=== PATIENT | female | born 1985 | race Hispanic/Latino ===

== ENCOUNTER 2020-03-19 08:25 | Emergency (ER) | payer OTHER ==
--- OUTSIDE RECORDS SUMMARY | 2020-03-19 08:35 | XMS REPORT | Continuity of Care Document ---
:1985 Author Organization [facility] t Address [address] [place] [address] Care Team Providers Name Role Phone Doctor Unassigned, Name Attending Clinician Unavailable Radiology Attending Clinician Unavailable Problems This patient has no known problems. Allergies, Adverse Reactions, Alerts This patient has no known allergies or adverse reactions. Medications This patient has no known medications. Procedures This patient has no known procedures. Encounters Start End Encounter Admission Attending Care Care Encounter Source Date/Time Date/Time Type Type Clinicians Facility Department ID 2020-01-13 2020-01-13 Orders Doctor JASPER [id number] 00:00:00 00:00:00 Only Unassigned, SHAJI [id number] [place] [facility] [id number] 2020-01-09 2020-01-09 [facility] [id number] 15:06:18 15:07:00 Encounter David [id number] [place] [id number] [place] [phone] [id number] Results This patient has no known results.
--- OUTSIDE RECORDS SUMMARY | 2020-03-19 08:35 | XMS REPORT | Summary of Care ---
:1985 Author Organization [facility] Address [address] [place] [address] Care Team Providers Name Role Phone Naheed Ocampo Primary Care Provider Encounter Details Date Type Department Care Team Description 01/13/2020 Orders Only [facility] Doctor Unassigned, No [address] [facility] [place] [address] [address] [place] [address] Allergies Not on Filedocumented as of this encounter (statuses as of 01/15/2020) Medications Not on filedocumented as of this encounter (statuses as of 01/15/2020) Active Problems Not on filedocumented as of this encounter (statuses as of 01/15/2020) Social History Tobacco Use Types Packs/Day Years Used Date Never Assessed Sex Assigned at Date Recorded Not on file COVID-19 Exposure Response Date Recorded In the last month, have you been in contact with No / Unsure 01/09/2020 3:05 PM CDT someone who was confirmed or suspected to have Coronavirus / COVID-19? documented as of this encounter Last Filed Vital Signs Not on filedocumented in this encounter Plan of Treatment Health Maintenance Due Date Last Done Comments VARICELLA VACCINES (1 of 2 - 06/17/1988 2-dose childhood series) Depression Screening 1999 DTaP,Tdap,and Td Vaccines (1 - 06/17/2006 Tdap) PAP SMEAR 06/17/2008 INFLUENZA VACCINE (#1) 2019 PNEUMOCOCCAL 0-64 YEARS COMBINED Aged Out No longer eligible based on SERIES patient's age to complete this topic documented as of this encounter Procedures Procedure Name Priority Date/Time Associated Diagnosis Comme nts AUTHORIZATION FOR RELEASE Routine 01/13/2020 12:01 AM OF PHI CDT documented in this encounter Results Not on filedocumented in this encounter Insurance Payer Benefit Plan / Group Subscriber ID Effective Dates Phone Address Type [facility] [id number] 2020-Present documented as of this encounter
--- OUTSIDE RECORDS SUMMARY | 2020-03-19 08:35 | XMS REPORT | Summary of Care ---
:1985 Author Organization [facility] Address [address] [place] [address] Care Team Providers Name Role Phone Naheed Ocampo Primary Care Provider Encounter Details Date Type Department Care Team Description 01/09/2020 Hospital Encounter [facility] Radiolog y Arrived [facility] [address] [address] [place] [address] Allergies Not on Filedocumented as of this encounter (statuses as of 01/10/2020) Medications Not on filedocumented as of this encounter (statuses as of 01/10/2020) Active Problems Not on filedocumented as of this encounter (statuses as of 01/10/2020) Social History Tobacco Use Types Packs/Day Years [...] Name Priority Date/Time Associated Diagnosis Comme nts XR CHEST 1 VW Routine 01/09/2020 3:42 PM Other specified Resu lts for this CDT pre-operative procedure are in examination the results section. documented in this encounter Results XR CHEST 1 VW (01/09/2020 3:42 PM CDT) Specimen Impressions Performed At Impression: PACS/VR/DOSE No acute cardiopulmonary process. Narrative Performed At Exam: XR CHEST 1 VW PACS/VR/DOSE Clinical History: PRE OP Comparison: None Findings: Single frontal view of the chest with no prior studies available for comparison. The cardiomediastinal silhou ette is within normal limits for size. There is no evidence of an acute i nfiltrate, pleural effusion, pneumothorax. The trachea is in midline. Mild scoliosis of the thoracic spine. The upper abdomen is unremarkable . Procedure Note [facility], Radiant Results Inft User - 2019 8:49 PM CDT Exam: XR CHEST 1 VW Clinical History: PRE OP Comparison: None Findings: Single frontal view of the chest with no prior studies available for comparison. The cardiomediastinal silhou ette is within normal limits for size. There is no evidence of an acute i nfiltrate, pleural effusion, pneumothorax. The trachea is in midline. Mild scoliosis of the thoracic spine. The upper abdomen is unremarkable . IMPRESSION Impression: No acute cardiopulmonary process. Performing Organization Address City/State/Zipcode Phone Number PACS/VR/DOSE documented in this encounter Visit Diagnoses Diagnosis Other specified pre-operative examinatio n documented in this encounter documented as of this encounter
--- NOTE | 2020-03-19 09:52 | RAD REPORT ---
EXAM DESCRIPTION: RAD - Elbow Right 3 View - 03/19/2020 9:36 am CLINICAL HISTORY: Elbow pain status post fall FINDINGS: No fracture or dislocation is visualized. If the patient continues to have symptoms to suggest an occult fracture then a follow-up x-ray in 7 d ays would be recommended
--- NOTE | 2020-03-19 09:53 | EDPHYS ---
Physician Documentation [facility] Name: Carmina Romero Age: 34 yrs Sex: Female : 1985 Arrival Date: 03/19/2020 Time: 08:32 Bed 12 Private MD: ED Physician Damon Freire HPI: 03/19 09:15 This 34 yrs old Female presents to ER via Ambulatory with complaints of Elbow cp Injury. 09:15 The patient or guardian complains of decreased range of motion, injury, pain, that is cp acute. The complaints affect the right elbow. Context: resulted from a fall. Onset: The symptoms/episode began/occurred 2 day(s) ago. 09:15 Modifying factors: the symptoms are aggravated by bending arm. cp 09:15 Associated signs and symptoms: Pertinent negatives: decreased range of motion, cp deformity, numbness, tingling. 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 - Social history:: Smoking status: Patient denies any tobacco usage or history of. ROS: 09:20 MS/extremity: Positive for pain, tenderness, of the right elbow, painful ROM, Negative cp for decreased range of motion, deformity. 09:20 Constitutional: Negative for body aches, chills, fever. cp 09:20 Neck: Negative for pain with movement, pain at rest, stiffness. 09:20 Back: Negative for pain at rest, pain with movement. 09:20 Skin: Negative for cellulitis, rash. 09:20 Neuro: Negative for numbness, tingling, weakness. 09:20 All other systems are negative. Exam: 09:25 Constitutional: The patient appears in no acute distress, alert, awake, well developed, cp well nourished. 09:25 Musculoskeletal/extremity: Extremities: grossly normal except: noted in the right cp elbow: pain, tenderness, There is no evidence of decreased ROM, deformity, ROM: full passive range of motion, in the right elbow, limited passive range of motion due to pain, in the right elbow, Pulses: noted to be 2+ in the right radial artery, the right arm Sensation intact. Vital Signs: 08:43 BP 131 / 97; Pulse 91; Resp 18; Temp 98.4; Pulse Ox 100% on R/A; Weight 63.5 kg; Height em 5 ft. 4 in. (162.56 cm); Pain 8/10; 08:43 Body Mass Index 24.03 (63.50 kg, 162.56 cm) em MDM: 09:15 Patient medically screened. cp 09:30 Differential diagnosis: dislocation, closed fracture, contusion, tendonitis. cp 09:37 Test interpretation: by ED physician or midlevel provider: xrays of right elbow cp negative for fracture. 09:51 Data reviewed: vital signs, nurses notes, radiologic studies, plain films. cp 09:51 Counseling: I had a detailed discussion with the patient and/or guardian regarding: the cp historical points, exam findings, and any diagnostic results supporting the discharge/admit diagnosis, radiology results, to return to the emergency department if symptoms worsen or persist or if there are any questions or concerns that arise at home. 03/19 08:59 Order name: Elbow Right 3 View XRAY; Complete Time: 09:54 em 03/19 09:54 Interpretation: Report reviewed. cp 03/19 09:37 Order name: Sling; Complete Time: 10:10 cp Administered Medications: 10:10 Not Given (Patient Refused): Ibuprofen 600 mg PO once; if not em 10:10 Not Given (Patient Refused): Tylenol 650 mg PO once em Disposition: 10:00 Chart complete. cp Disposition: 03/19/20 09:52 Discharged to Home. Impression: Pain in right elbow - from fall. - Condition is Stable. - Discharge Instructions: Elbow Contusion. - Prescriptions for Ibuprofen 600 mg Oral Tablet - take 1 tablet by ORAL route every 6 hours As needed take with food; 30 tablet. - Medication Reconciliation Form, Thank You Letter, Antibiotic Education, Prescription Opioid Use form. - Follow up: Private Physician; When: 2 - 3 days; Reason: Worsening of condition. - Problem is new. - Symptoms have improved. Addendum: 03/21/2020 17:37 Co-signature as Attending Physician, Damon Freire MD I agree with the assessment and k dr plan of care. Signatures: Dispatcher [employer] EDNH Damon Freire MD MD [facility] Denilson Atkinson RN RN em Paul Dick PA PA cp Corrections: (The following items were deleted from the chart) 03/19 08:47 08:46 PSHx: None; em em 09:40 09:38 ECG was reviewed by the Attending Physician. [facility] :40 09:38 Rate is 75 beats/min. Rhythm is regular. AK interval is normal. QRS interval is cp normal. QT interval is normal. T waves are Inverted in lead aVR. Interpreted by me. Reviewed by me. cp 10:12 09:52 03/19/2020 09:52 Discharged to Home. Impression: Pain in right elbow - from fall. em Condition is Stable. Forms are Medication Reconciliation Form, Thank You Letter, Antibiotic Education, Prescription Opioid Use. Follow up: Private Physician; When: 2 - 3 days; Reason: Worsening of condition. Problem is new. Symptoms have improved. cp
--- NOTE | 2020-03-19 09:53 | ER ---
Nurse's Notes [facility] Name: Carmina Romero Age: 34 yrs Sex: Female : 1985 Arrival Date: 03/19/2020 Time: 08:32 Bed 12 Private MD: Diagnosis: Pain in right elbow-from fall Presentation: 03/19 08:43 Chief complaint: Patient states: dog tripped her and landed on right elbow 2 days ago, em denies any other injuries. Coronavirus screen: Client denies travel out of the [place] in the last 14 days. Ebola Screen: Patient negative for fever greater than or equal to 101.5 degrees Fahrenheit, and additional compatible Ebola Virus Disease symptoms Patient denies exposure to infectious person. Patient denies travel to an Ebola-affected area in the 21 days before illness onset. No symptoms or risks identified at this time. Initial Sepsis Screen: Does the patient meet any 2 criteria? No. Patient's initial sepsis screen is negative. Does the patient have a suspected source of infection? No. Patient's initial sepsis screen is negative. Risk Assessment: Do you want to hurt yourself or someone else?. Onset of symptoms was February 16, 2020. 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 - Social history:: Smoking status: Patient denies any tobacco usage or history of. Screenin:45 Abuse screen: Denies threats or abuse. Nutritional screening: No deficits noted. em Tuberculosis screening: No symptoms or risk factors identified. Fall Risk None identified. Assessment: 08:40 General: Appears in no apparent distress. comfortable, Behavior is calm, cooperative, em appropriate for age. Pain: Complains of pain in right elbow Pain currently is 8 out of 10 on a pain scale. Neuro: Level of Consciousness is awake, alert, obeys commands, Oriented to person, place, time, situation, Appropriate for age. Cardiovascular: Capillary refill < 3 seconds Patient's skin is warm and dry. Respiratory: Airway is patent Respiratory effort is even, unlabored, Respiratory pattern is regular, symmetrical. Derm: Skin is intact, is healthy with good turgor, Skin is pink, warm \T\ dry. Musculoskeletal: Circulation, motion, and sensation intact. Capillary refill < 3 seconds, Range of motion: limited in right elbow. Vital Signs: 08:43 BP 131 / 97; Pulse 91; Resp 18; Temp 98.4; Pulse Ox 100% on R/A; Weight 63.5 kg; Height em 5 ft. 4 in. (162.56 cm); Pain 8/10; 08:43 Body Mass Index 24.03 (63.50 kg, 162.56 cm) em ED Course: 08:32 Patient arrived in ED. as 08:44 Arm band placed on. em 08:45 Triage completed. em 09:14 Paul Dick PA is PHCP. cp 09:14 Damon Freire MD is Attending Physician. cp 09:37 Elbow Right 3 View XRAY In Process Unspecified. EDMS 10:10 Sling applied to right arm. em 10:11 No provider procedures requiring assistance completed. Patient did not have IV access em during this emergency room visit. Administered Medications: 10:10 Not Given (Patient Refused): Ibuprofen 600 mg PO once; if not em 10:10 Not Given (Patient Refused): Tylenol 650 mg PO once em Outcome: 09:52 Discharge ordered by MD. cp 10:11 Discharged to home ambulatory. em 10:11 Condition: good 10:11 Discharge instructions given to patient, Instructed on discharge instructions, follow up and referral plans. medication usage, Demonstrated understanding of instructions, follow-up care, medications, Prescriptions given X 1. 10:12 Patient left the ED. em Signatures: Dispatcher [employer] Denilson Berg RN RN em Radha Coats as Palu Dick PA PA cp Corrections: (The following items were deleted from the chart) 08:47 08:46 PSHx: None; em em
== END 2020-03-19 10:12 | disposition home or self-care (01) ==
LOC: ER 08:25
DX: M25.521 Pain in right elbow (principal); W19.XXXA Unspecified fall, initial encounter
CPT/HCPCS: 99283

== ENCOUNTER 2020-11-08 07:24 | Day surgery (SDC) | payer OTHER ==
[2020-11-04 15:31] LABS: Basophils % 0.6 % (0-1.3); Hematocrit 36.7 % (36.0-45.0); Lymphocytes % 20.8 % (15.3-44.8); MPV 7.1 fL (7.6-11.3); RBC Red Blood Cell Count 4.46 M/uL (3.86-4.86)
[2020-11-04 15:49] LABS: BUN Blood Urea Nitrogen 12 mg/dL (7-18); Bicarbonate 25 mmol/L (21-32); Glucose Level 90 mg/dL (74-106); Potassium 3.9 mmol/L (3.5-5.1); Sodium Level 138 mmol/L (136-145)
[2020-11-08 07:53] LABS: Specific Gravity 1.025 (1.005-1.030)
[2020-11-08] MEDS ORDERED: Ringers Lactate 1,000 ML IV ONE (08:07)
[2020-11-08] MEDS: CEFAZOLIN/SWI 1gm 1 GM/10 ML SYR ONE ×2 (09:21→09:25)
[2020-11-08] MEDS ORDERED: LIDOCAINE 1% MPF 5 ML VIAL ONE (09:31)
[2020-11-08] MEDS ORDERED: FENTANYL CITR 100 MCG/2 ML ONE (09:31)
[2020-11-08] MEDS ORDERED: MIDAZOLAM HCL 2 MG/2 ML INJ ONE (09:31)
[2020-11-08] MEDS ORDERED: propofoL 200 MG/20 ML VIAL IV ONE (09:31)
--- NOTE | 2020-11-08 09:46 | P.BOP ---
Preoperative diagnosis: tender umbilical hernia Postoperative diagnosis: same Primary procedure: Open repair of tender umbilical hernia Service Secretary: KATHY MARTELL (DIRECTOR [employer]ELOPMENT) Estimated blood loss: <10cc Specimen: sac Findings: as above Anesthesia: General Complications: None Transferred to: Recovery Room Condition: Good
[2020-11-08] MEDS ORDERED: dexAMETHasone 10 MG/ML VIAL ONE (09:49)
[2020-11-08] MEDS ORDERED: KETOROLAC 30 MG/ML INJ ONE (09:49)
[2020-11-08] MEDS ORDERED: ONDANSETRON 4 MG/2 ML VIAL ONE (10:00)
--- NOTE | 2020-11-08 10:51 | OP ---
Date of Procedure: 11/08/2020 Surgeon: Edilson Coats MD Manager Hospice: None. Preoperative Diagnosis: Tender umbilical hernia. Postoperative Diagnosis: Tender umbilical hernia. Procedure: Open repair of tender umbilical hernia. Estimated Blood Loss: Less than 10 mL. Specimen: Hernia sac. Indication: This is the case of a female, who comes to us with umbilical hernia. The patient has pr evious abdominoplasty done with previous scars in the periumbilical region and we can use one of the scars. The benefits, alternatives, and risks of tender umbilical hernia repair were fully explained, which include, but not limited to infection, bleeding, damage to adjacent structures, anesthesia com plication, recurrence, [place], and even . She also understands this may not relieve any symptoms. She might need more than one surgical intervention. She understood, signed a consent. Procedure In Detail: The patient was brought to the operating room, placed in supine position. Anes thesia was done without complication. Abdominal area was prepped and draped in usual sterile fashion . A time-out was called. An infraumbilical incision was made over the previous scars. Incision was carried down to fascia. We noticed umbilical hernia, that from umbilical skin, removed th e hernia sac, pushed the omentum back into the abdominal cavity after fully inspected, removed the he rnia sac, cleaned the fascial edges, and closed that with a combination of #1 Vicryl and #1 Prolene. Area was irrigated. Local anesthesia was applied followed by 3-0 chromic for the subcutaneous tissu e and then 3-0 chromic subcuticular with Steri-Strips on top. Sponge count and instrument counts cor rect. The patient tolerated the procedure well. The patient was sent to recovery in stable condition. HANG/JOSE Voice ID: [id number] Report ID: [id number]
--- NOTE | 2020-11-08 10:57 | DS ---
Diagnosis: Umbilical hernia Procedure: Open repair of umbilical hernia. Disposition: Home. Activity: As tolerated. No heavy lifting. Plan: Follow up in my office in 1 week. Call for appointment at [phone]. Keep area dry for 48 erickson rs, then may shower. Keep Steri-Strips intact. HANG/JOSE Voice ID: [id number] Report ID: [id number]
[2020-11-08] MEDS ORDERED: CODEINE 30MG/APAP 300MG TAB PO ONE (11:00)
[2020-11-08 11:09] VITALS: BP 126/68
[2020-11-08 11:10] VITALS: TEMP 97.6; O2SAT 98
[2020-11-08] MEDS ORDERED: CODEINE 30MG/APAP 300MG TAB ONE (11:20)
== END 2020-11-08 11:05 | disposition home or self-care (01) ==
LOC: OR 07:24
PROVIDERS: ATTEND Surgery
PROC: 0WQF0ZZ Repair Abdominal Wall, Open Approach (ICD-10-PCS; principal; 2020-11-08 09:15)
DX: K42.9 Umbilical hernia without obstruction or gangrene (principal); Z20.822 Contact with and (suspected) exposure to COVID-19; F90.9 Attention-deficit hyperactivity disorder, unspecified type
CPT/HCPCS: 85025; 80048; 36415; 81025; 88302; 49585; U0003; J2704; J2250; J3010; J1100; J0690; J7120; J2405

== ENCOUNTER 2021-02-02 07:43 | Day surgery (SDC) | payer OTHER ==
[2021-02-02 08:21] LABS: Absolute Lymphocytes (CBC) 1.3 K/uL (0.7-4.9); Basophils % 0.6 % (0-1.3); Lymphocytes % 23.8 % (15.3-44.8); MPV 7.5 fL (7.6-11.3)
[2021-02-02 08:25] LABS: Potassium 3.9 mmol/L (3.5-5.1)
[2021-02-02] MEDS ORDERED: Ringers Lactate 1,000 ML IV ONE (08:45)
[2021-02-02] MEDS ORDERED: ACETAMINOPHEN 500 MG TAB ONE (08:54)
[2021-02-02] MEDS ORDERED: CELECOXIB 100 MG CAPSULE ONE (08:54)
[2021-02-02] MEDS: CEFAZOLIN/NS 1gm 1 GM/50 ML BAG ONE ×2 (09:30→10:40)
[2021-02-02] MEDS ORDERED: MIDAZOLAM HCL 2 MG/2 ML INJ ONE (10:42)
[2021-02-02] MEDS ORDERED: FENTANYL CITR 100 MCG/2 ML ONE (10:42)
[2021-02-02] MEDS ORDERED: LIDOCAINE 1% MPF 5 ML VIAL ONE (10:42)
[2021-02-02] MEDS ORDERED: propofoL 200 MG/20 ML VIAL IV ONE (10:42)
[2021-02-02] MEDS ORDERED: dexAMETHasone 10 MG/ML VIAL ONE (11:11)
[2021-02-02] MEDS ORDERED: KETOROLAC 30 MG/ML INJ ONE (11:11)
[2021-02-02] MEDS ORDERED: ONDANSETRON 4 MG/2 ML VIAL ONE (11:25)
[2021-02-02 11:32] VITALS: O2SAT 100
--- NOTE | 2021-02-02 11:50 | P.BOP ---
Preoperative diagnosis: infected left thigh subQ mass Postoperative diagnosis: same plus abscess Primary procedure: Excisonal biopsy of infected left thigh subQ mass with abscess drainage Estimated blood loss: <10cc Specimen: mass and culture Anesthesia: General Complications: None Drain(s): Other Transferred to: Recovery Room Condition: Good
[2021-02-02 13:35] VITALS: BP 109/65; TEMP 97.7
--- NOTE | 2021-02-02 14:59 | OP ---
Date of Procedure: 02/02/2021 Surgeon: Edilson Coats MD Preoperative Diagnosis: Infected left thigh subcutaneous mass. Postoperative Diagnosis: Infected left thigh subcutaneous mass plus abscess. Procedure: Excisional biopsy of infected left thigh subcutaneous mass with abscess drainage. Anesthesia: General plus local. Drains: None. Packing: Nu Gauze. Indication: This is the case of a 35-year-old patient, who comes to us with a mass in the left upper thigh unknown origin. The skin on top of the area shows discoloration, hyperpigmentation and skin i n color. She states that at one point she was draining abscess possible in that region. She took so me antibiotics, but the area does not go away, still the mass in that region. So the benefits, alter natives, and risks of excisional biopsy of infected subcutaneous mass fully explained, which include, but not limited to infection, bleeding, damage to adjacent structures, anesthesia complication, recu rrence, [place], and even . She also understands this may not relieve any symptoms. She might need more than one surgical intervention and she may require wound care. I noticed that she has 2 antibio tics prescribed, but she stopped taking them because she did not like them, especially when she was n ot sure what she was treating, but now she understands the importance of antibiotic treatment, so she will resume that practically new. She understands the importance of not stopping the antibiotics wi thout a doctor's notification. She understood she might require wet-to-dry dressing packed in that a lacey and she is going to ask her to do it for her. The area of concern was marked by me and t he patient in the holding room. Procedure In Detail: The patient was brought to the operating room, placed in supine position. Anes thesia was done without complication. Time-out was called. Left thigh was prepped and draped in usu al sterile fashion. We trying to use a previous skin change that she has. She has about 1 cm of ski n that is hyperpigmented, unknown etiology. We like to send the specimen for the pathologist and onc e we removed that, we have access to this mass. It is fibrotic in nature, may be just fat necrosis, cannot rule out a lymph node versus a cyst. The mass was completely excised leaving a cavity behind. We found pus when we get into that area. So at one point, there is an abscess in that region, prob ably still there. We cultured the area, irrigated the area, obtained hemostasis, and packed the area with Nu gauze quarter of an inch. The patient tolerated the procedure well. Local anesthesia was a pplied. The patient was sent to recovery in stable condition. HANG/JOSE Voice ID: [id number] Report ID: [id number]
--- NOTE | 2021-02-02 15:02 | DS ---
Date of Discharge: 02/02/2021 Diagnosis: Infected left thigh subcutaneous mass Procedure: Excisional biopsy of infected left thigh subcutaneous mass with abscess drainage. Disposition: Home. Activity: As tolerated. No heavy lifting. Plan: Follow up in my office in 1 week. Call for appointment at [phone]. Wet-to-dry dressing and normal saline daily. HANG/JOSE Voice ID: [id number] Report ID: [id number]
== END 2021-02-02 13:05 | disposition home or self-care (01) ==
LOC: OR 07:43
PROVIDERS: ATTEND Surgery
PROC: 0JBM0ZZ Excision of Left Upper Leg Subcutaneous Tissue and Fascia, Open Approach (ICD-10-PCS; principal; 2021-02-02 10:15)
DX: R22.42 Localized swelling, mass and lump, left lower limb (principal); I96 Gangrene, not elsewhere classified; Z20.822 Contact with and (suspected) exposure to COVID-19
CPT/HCPCS: 87070; 85025; 80048; 36415; 87205; 88312; 81025; 88304; 87075; 11403; U0003; J2704; J2250; J3010; J1100; J0690; J7120; J2405; 88305

== ENCOUNTER 2021-02-03 19:56 | Emergency (ER) | payer OTHER ==
[2021-02-03] MEDS ORDERED: LIDOCAINE 1% W/EPI 1:100,000 MDV 20 ML VIAL ONE (20:52)
[2021-02-03 21:12] LABS: Absolute Lymphocytes (CBC) 2.7 K/uL (0.7-4.9); Basophils % 0.5 % (0-1.3); Hematocrit 30.6 % (36.0-45.0); Lymphocytes % 27.9 % (15.3-44.8); MPV 7.6 fL (7.6-11.3); RBC Red Blood Cell Count 3.38 M/uL (3.86-4.86)
[2021-02-03 21:31] LABS: Protime INR 0.93
[2021-02-03 21:39] LABS: Albumin 3.4 g/dL (3.4-5.0); Bilirubin Direct 0.1 mg/dL (0-0.2); Bilirubin Total 0.4 mg/dL (0.2-1.0); Potassium 3.7 mmol/L (3.5-5.1); Protein, Total 6.7 g/dL (6.4-8.2)
--- NOTE | 2021-02-03 22:03 | EDPHYS ---
Physician Documentation [facility] Name: Carmina Romero Age: 35 yrs Sex: Female : 1985 Arrival Date: 02/03/2021 Time: 20:00 Bed 7 Private MD: ED Physician Jass Charles HPI: 02/03 20:51 This 35 yrs old Female presents to ER via Wheelchair with complaints of Post mh7 Surgical Bleeding. 20:51 Patient presents to ED for recheck of: Postsurgical bleeding. The affected area is on mh7 the Left thigh. Previous treatment: The patient was initially treated yesterday, the care was rendered at [facility], Treatment type: The patient's original treatment included dressing, packing, Removal of thigh mass. Previous recheck: the patient has not been checked since the original treatment. Progress: The patient reports Bleeding when patient attempted to change packing. Day surgery, yesterday. Patient states that she had removal of left thigh mass done here yesterday by Dr. Coats in day surgery. She states that she was told to remove packing and change dressing today. She attempted to change packing this evening and states that had a lot of bleeding at the site. She denies any fever, nausea, vomiting, or other complaints. She did not change packing due to bleeding at the site.. 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 - Social history:: Smoking status: Patient denies any tobacco usage or history of. ROS: 20:51 Constitutional: Negative for fever, chills, and weight loss, Eyes: Negative for injury, mh7 pain, redness, and discharge, ENT: Negative for injury, pain, and discharge, Neck: Negative for injury, pain, and swelling, Cardiovascular: Negative for chest pain, palpitations, and edema, Respiratory: Negative for shortness of breath, cough, wheezing, and pleuritic chest pain, Abdomen/GI: Negative for abdominal pain, nausea, vomiting, diarrhea, and constipation, Back: Negative for injury and pain, : Negative for injury, bleeding, discharge, and swelling, Neuro: Negative for headache, weakness, numbness, tingling, and seizure, Psych: Negative for depression, anxiety, suicide ideation, homicidal ideation, and hallucinations, Allergy/Immunology: Negative for hives, rash, and allergies, Endocrine: Negative for neck swelling, polydipsia, polyuria, polyphagia, and marked weight changes, Hematologic/Lymphatic: Negative for swollen nodes, abnormal bleeding, and unusual bruising. Exam: 20:51 Constitutional: This is a well developed, well nourished patient who is awake, alert, mh7 and in no acute distress. Head/Face: Normocephalic, atraumatic. Eyes: Pupils equal round and reactive to light, extra-ocular motions intact. Lids and lashes normal. Conjunctiva and sclera are non-icteric and not injected. Cornea within normal limits. Periorbital areas with no swelling, redness, or edema. Neck: Trachea midline, no thyromegaly or masses palpated, and no cervical lymphadenopathy. Supple, full range of motion without nuchal rigidity, or vertebral point tenderness. No Meningismus. Chest/axilla: Normal chest wall appearance and motion. Nontender with no deformity. No lesions are appreciated. Cardiovascular: Regular rate and rhythm with a normal S1 and S2. No gallops, murmurs, or rubs. Normal PMI, no JVD. No pulse deficits. Respiratory: Lungs have equal breath sounds bilaterally, clear to auscultation and percussion. No rales, rhonchi or wheezes noted. No increased work of breathing, no retractions or nasal flaring. Abdomen/GI: Soft, non-tender, with normal bowel sounds. No distension or tympany. No guarding or rebound. No evidence of tenderness throughout. 20:51 Back: No spinal tenderness. No costovertebral tenderness. Full range of motion. 20:51 Neuro: Awake and alert, GCS 15, oriented to person, place, time, and situation. Cranial nerves II-XII grossly intact. Motor strength 5/5 in all extremities. Sensory grossly intact. Cerebellar exam normal. Normal gait. Psych: Awake, alert, with orientation to person, place and time. Behavior, mood, and affect are within normal limits. 20:51 Constitutional: The patient appears anxious. 20:51 Musculoskeletal/extremity: Extremities: noted in the Left medial thigh: Postsurgical biopsy site with mild oozing of blood and small hematoma. No erythema, induration, or discharge., ROM: intact in all extremities, Circulation is intact in all extremities. Sensation intact. Compartment Syndrome exam of affected extremity: is normal. no numbness, no tingling, no sensation deficit, no palor, no weak pulses, Joints: All joints appear normal with full range of motion. Weight bearing: able to fully bear weight, without difficulty, Tendon exam: specific tendon testing normal through active and passive range of motion 20:51 Skin: Wound recheck: Left medial thigh biopsy site with mild oozing of blood and small hematoma. No erythema, induration, or discharge.. Vital Signs: 20:08 BP 124 / 86; Pulse 81; Resp 16 S; Temp 98.2(O); Pulse Ox 100% on R/A; Weight 68.04 kg bb (R); Height 5 ft. 3 in. (160.02 cm) (R); Pain 8/10; 21:30 BP 122 / 82; Pulse 80; Resp 16; Temp 98.8; Pulse Ox 99% on R/A; Pain 6/10; kc4 22:24 BP 120 / 74; Pulse 78; Resp 20; Temp 98.0(O); Pulse Ox 99% on R/A; kc4 20:08 Body Mass Index 26.57 (68.04 kg, 160.02 cm) Procedures: 20:51 Performed Postsurgical biopsy site packing removal and replacement. Postsurgical site mh7 injected with lidocaine 1% with epinephrine total of 8 mL. Area cleaned with chlorhexidine. Wound inspected and surgical packing removed. Packing replaced with 1 inch iodoform gauze. No bleeding at site at the packing change. Gauze dressing placed to site. Patient neurovascular intact at the procedure. Patient tolerated procedure well.. MDM: 21:59 Differential diagnosis: cellulitis, Postop wound infection, postoperative bleeding, mh7 wound check. Data reviewed: vital signs, nurses notes, lab test result(s), CBC, electrolytes. Data interpreted: Pulse oximetry: on room air is 99 %. Interpretation: normal. Counseling: I had a detailed discussion with the patient and/or guardian regarding: the historical points, exam findings, and any diagnostic results supporting the discharge/admit diagnosis, lab results, the need for outpatient follow up, a general surgeon. Response to treatment: the patient's symptoms have resolved after treatment, the patient's blood pressure is in an acceptable range, mental status has returned to baseline, the patient no longer shows bradycardia, the patient is not short of breath, the patient is not tachycardic, the patient's pain is gone, the patient's temperature has normalized. 22:02 Patient medically screened. [facility] 22:04 ED course: Well-appearing, no acute distress, vital signs stable, neurovascular intact, 7 no focal neurological deficits.. 02/03 20:50 Order name: CBC with Diff [facility] 02/03 20:50 Order name: Basic Metabolic Panel; Complete Time: 21:44 [facility] 02/03 20:50 Order name: LFT's; Complete Time: 21:44 [facility] 02/03 20:50 Order name: Protime (+inr); Complete Time: 21:44 [facility] 02/03 20:50 Order name: Ptt, Activated; Complete Time: 21:44 [facility] 02/03 20:51 Order name: CBC with Automated Diff; Complete Time: 21:27 EDMS Administered Medications: 20:51 Drug: Lidocaine-Epinephrine -1%: (1:100,000) 20 ml Volume: 20 ml; Route: Infiltration; kc4 Disposition Summary: 02/03/21 22:02 Discharge Ordered Location: Home [facility] Problem: new [facility] Symptoms: have improved [facility] Condition: Stable 7 Diagnosis - Wound check, postoperative bleeding, resolved [facility] Followup: [facility] - With: Private Physician - When: 1 - 2 days - Reason: Wound Recheck, If symptoms return, Worsening of condition, Recheck today's complaints, Continuance of care, Re-evaluation by your physician Followup: [facility] - With: Emergency Department - When: 48 Hours - Reason: Wound Recheck, Worsening of condition, Recheck today's complaints Discharge Instructions: - Discharge Summary Sheet 7 - Wound Care, Adult 7 - Wound Packing [facility] Forms: - Medication Reconciliation Form [facility] - Thank You Letter 7 - Antibiotic Education 7 - Prescription Opioid Use [facility] Signatures: Dispatcher [employer] EDMS Pat Medrano RN RN Jass Benitez MD MD mh7 Ivette Nichols kc4 [place] Giron df1
--- NOTE | 2021-02-03 22:03 | ER ---
Nurse's Notes [facility] Name: Carmina Romero Age: 35 yrs Sex: Female : 1985 Arrival Date: 02/03/2021 Time: 20:00 Bed 7 Private MD: Diagnosis: Wound check, postoperative bleeding, resolved Presentation: 02/03 20:08 Chief complaint: Patient states: she had a lump removed from her inner left thigh bb yesterday by Dr Coats and it started bleeding this afternoon and she can't get it to stop. Coronavirus screen: At this time, the client does not indicate any symptoms associated with coronavirus-19. Ebola Screen: No symptoms or risks identified at this time. Initial Sepsis Screen: Does the patient meet any 2 criteria? No. Patient's initial sepsis screen is negative. Does the patient have a suspected source of infection? No. Patient's initial sepsis screen is negative. Risk Assessment: Do you want to hurt yourself or someone else? Patient reports no desire to harm self or others. Onset of symptoms was February 03, 2021. 20:08 Method Of Arrival: Wheelchair bb 20:08 Acuity: ADELAIDA 2 bb Triage Assessment: 20:38 General: Appears uncomfortable, Behavior is calm, cooperative. Pain: Complains of pain df1 in left quadriceps. 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 - Social history:: Smoking status: Patient denies any tobacco usage or history of. Screenin:37 Abuse screen: Denies threats or abuse. Nutritional screening: No deficits noted. df1 Tuberculosis screening: Tuberculosis screening: No symptoms or risk factors identified. Fall Risk None identified. Assessment: 20:54 Derm: kc4 21:16 Musculoskeletal: Injury Description: post surgical incision bleed. kc4 21:16 Derm: Skin post surgical incision dehisence Skin is dry, Skin is pink, warm \T\ dry. Skin kc4 temperature is warm Wound noted left quadriceps Wound is left upper thigh surgery packing removed, pt unable to stop the bleed. pt has a quarter sized open incision from a biopsy her primary took on 02/02/21. Reports increased uncontrolled bleeding Denies itching, burning, pain, peeling. Vital Signs: 20:08 BP 124 / 86; Pulse 81; Resp 16 S; Temp 98.2(O); Pulse Ox 100% on R/A; Weight 68.04 kg bb (R); Height 5 ft. 3 in. (160.02 cm) (R); Pain 8/10; 21:30 BP 122 / 82; Pulse 80; Resp 16; Temp 98.8; Pulse Ox 99% on R/A; Pain 6/10; kc4 22:24 BP 120 / 74; Pulse 78; Resp 20; Temp 98.0(O); Pulse Ox 99% on R/A; kc4 20:08 Body Mass Index 26.57 (68.04 kg, 160.02 cm) ED Course: 20:00 Patient arrived in ED. 20:08 Ivette Nichols is Primary Nurse. kc4 20:09 Triage completed. bb 20:10 Jass Charles MD is Attending Physician. [facility] 20:10 Arm band placed on Patient placed in an exam room, on a stretcher, on pulse oximetry. Family accompanied patient. 20:38 Patient has correct armband on for positive identification. Placed in gown. Bed in low df1 position. Call light in reach. Side rails up X 1. Adult w/ patient. 21:00 wound dressing change and packing. kc4 21:10 Inserted saline lock: 20 gauge in right antecubital area, using aseptic technique. kc4 Blood collected. 21:16 Protime (+inr) Sent. kc4 21:16 Ptt, Activated Sent. kc4 21:16 LFT's Sent. kc4 21:16 Basic Metabolic Panel Sent. kc4 21:16 CBC with Diff Sent. kc4 22:22 IV discontinued, intact, bleeding controlled, No redness/swelling at site. Pressure kc4 dressing applied. Administered Medications: 20:51 Drug: Lidocaine-Epinephrine -1%: (1:100,000) 20 ml Volume: 20 ml; Route: Infiltration; kc4 Outcome: 22:02 Discharge ordered by . donell 22:22 Discharged to home ambulatory, with significant other. kc4 22:22 Condition: wound packed and redressed. bleeding controlled 22:22 Discharge instructions given to patient, Instructed on discharge instructions, follow up and referral plans. wound care, Demonstrated understanding of instructions, follow-up care, medications, wound care. 22:25 Patient left the ED. kc4 Signatures: Pat Medrano RN RN Jass Benitez MD MD [facility] Sary Angela Kourtney 4 [place] Giron df1
[2021-02-03 22:33] VITALS: O2SAT 99
[2021-02-03 22:35] VITALS: BP 120/74; TEMP 98
== END 2021-02-03 22:25 | disposition home or self-care (01) ==
LOC: ER 19:56
DX: Z48.01 Encounter for change or removal of surgical wound dressing (principal)
CPT/HCPCS: 36415; 80048; 80076; 85025; 85610; 85730; 99284

== ENCOUNTER 2021-02-05 10:01 | Emergency (ER) | payer OTHER ==
--- NOTE | 2021-02-05 10:43 | ER ---
Nurse's Notes [facility] Name: Carmnia Romero Age: 35 yrs Sex: Female : 1985 Arrival Date: 02/05/2021 Time: 10:02 Bed 8 Private MD: Petrona Garza Diagnosis: Unspecified open wound, left lower leg Presentation: 02/05 10:11 Chief complaint: Patient states: "I had a cyst removed from my leg by Dr. Coats and aa5 I came here on the because I tried to repack it but it was too much blood so Dr. Charles told me to come back in 48 hours". Coronavirus screen: At this time, the client does not indicate any symptoms associated with coronavirus-19. Ebola Screen: No symptoms or risks identified at this time. Initial Sepsis Screen: Does the patient meet any 2 criteria? No. Patient's initial sepsis screen is negative. Does the patient have a suspected source of infection? No. Patient's initial sepsis screen is negative. Risk Assessment: Do you want to hurt yourself or someone else? Patient reports no desire to harm self or others. Onset of symptoms was January 2021. 10:11 Acuity: ADELAIDA 4 aa5 10:11 Method Of Arrival: Ambulatory aa5 Triage Assessment: 10:15 General: Appears distressed, uncomfortable, Behavior is cooperative, appropriate for bp age, anxious. Pain: Complains of pain in left leg. EENT: No deficits noted. Neuro: No deficits noted. Cardiovascular: No deficits noted. Respiratory: No deficits noted. GI: No signs and/or symptoms were reported involving the gastrointestinal system. : No signs and/or symptoms were reported regarding the genitourinary system. Derm: Wound noted medial aspect of left thigh. Musculoskeletal: No deficits noted. Historical: - Allergies: 10:14 No Known Allergies; aa5 - PMHx: 10:14 None; aa5 - PSHx: 10:14 hernia; aa5 - Immunization history:: Client reports receiving the 2nd dose of the Covid vaccine. - Social history:: Smoking status: Patient denies any tobacco usage or history of. - Family history:: not pertinent. Screenin:15 Abuse screen: Denies threats or abuse. Denies injuries from another. bp 10:15 Nutritional screening: No deficits noted. Tuberculosis screening: No symptoms or risk bp factors identified. Fall Risk None identified. No secondary diagnosis (0 pts). Assessment: 10:15 General: SEE TRIAGE NOTE. bp Vital Signs: 10:11 BP 120 / 78; Pulse 112; Resp 18 S; Temp 98.7(TE); Pulse Ox 99% on R/A; Weight 68.04 kg aa5 (R); Height 5 ft. 3 in. (160.02 cm) (R); 10:11 Body Mass Index 26.57 (68.04 kg, 160.02 cm) aa5 ED Course: 10:02 Patient arrived in ED. am2 10:02 Petrona Garza MD is Private Physician. am2 10:11 Arm band placed on. aa5 10:14 Triage completed. aa5 10:15 Patient has correct armband on for positive identification. Fall risk band placed. Bed bp in low position. Call light in reach. Side rails up X 1. Side rails up X2. 10:16 Jenn Rodriguez RN is Primary Nurse. ap3 10:16 Abhishek Leyva PA is PHCP. [facility] 10:16 Diamante Pulliam MD is Attending Physician. [facility] 10:30 Wound care: located on medial aspect of left thigh was cleaned with soap and water, bp debrided using dressed with 4X4s. 10:[address] Pulliam while he checked the wound on the left upper thigh. patient eb tolerated well with no complaints at this time. 10:50 Patient did not have IV access during this emergency room visit. bp Administered Medications: No medications were administered Outcome: 10:30 Discharged to home ambulatory. bp 10:30 Condition: stable 10:42 Discharge ordered by . nd2 10:50 Discharge instructions given to patient, Instructed on discharge instructions, follow bp up and referral plans. wound care, Demonstrated understanding of instructions, follow-up care, wound care. 11:10 Patient left the ED. bp Signatures: Abhishek Leyva PA PA [facility] Mehreen Liu, RN RN aa5 Jenn Jackson Brian, RN RN bp Alzahri, Mohammad, MD MD [facility] Jenn Rodriguez RN RN 3 Myah Matrin Corrections: (The following items were deleted from the chart) 10:15 10:11 BP 120 / 78; Pulse 112bpm; Resp 18bpm; Spontaneous; Pulse Ox 99% RA; Temp 98.7F aa5 Temporal; aa5
--- NOTE | 2021-02-05 10:43 | EDPHYS ---
Physician Documentation [facility] Name: Carmina Romero Age: 35 yrs Sex: Female : 1985 Arrival Date: 02/05/2021 Time: 10:02 Bed 8 Private MD: Petrona Garza ED Physician Diamante Pulliam HPI: 02/05 10:39 This 35 yrs old Female presents to ER via Ambulatory with complaints of Wound ma2 Recheck. 10:39 Patient presents to ED for recheck of: abscess, s/p i and d. The affected area is on ma2 the left leg. Previous treatment: packing changes. Progress: The patient reports excellent improvement in the affected area. There has been resolution, improvement, or non-development of any drainage, fever, pain, redness or swelling. The patient has not experienced similar symptoms in the past. Historical: - Allergies: 10:14 No Known Allergies; aa5 - PMHx: 10:14 None; aa5 - PSHx: 10:14 hernia; aa5 - Immunization history:: Client reports receiving the 2nd dose of the Covid vaccine. - Social history:: Smoking status: Patient denies any tobacco usage or history of. - Family history:: not pertinent. ROS: 10:39 Constitutional: Negative for fever, chills, and weight loss. ma2 10:39 All other systems are negative. Exam: 10:39 Constitutional: This is a well developed, well nourished patient who is awake, alert, ma2 and in no acute distress. Neck: Trachea midline, no thyromegaly or masses palpated, and no cervical lymphadenopathy. Supple, full range of motion without nuchal rigidity, or vertebral point tenderness. No Meningismus. Chest/axilla: Normal chest wall appearance and motion. Nontender with no deformity. No lesions are appreciated. Cardiovascular: Regular rate and rhythm with a normal S1 and S2. No gallops, murmurs, or rubs. Normal PMI, no JVD. No pulse deficits. Respiratory: Lungs have equal breath sounds bilaterally, clear to auscultation and percussion. No rales, rhonchi or wheezes noted. No increased work of breathing, no retractions or nasal flaring. Abdomen/GI: Soft, non-tender, with normal bowel sounds. No distension or tympany. No guarding or rebound. No evidence of tenderness throughout. Skin: Warm, dry with normal turgor. Normal color with no rashes, no lesions, and no evidence of cellulitis. MS/ Extremity: left thigh Ii and d site is dry and good order, packing is present Pulses equal, no cyanosis. Neurovascular intact. Full, normal range of motion. Neuro: Awake and alert, GCS 15, oriented to person, place, time, and situation. Cranial nerves II-XII grossly intact. Motor strength 5/5 in all extremities. Sensory grossly intact. Cerebellar exam normal. Normal gait. Vital Signs: 10:11 BP 120 / 78; Pulse 112; Resp 18 S; Temp 98.7(TE); Pulse Ox 99% on R/A; Weight 68.04 kg aa5 (R); Height 5 ft. 3 in. (160.02 cm) (R); 10:11 Body Mass Index 26.57 (68.04 kg, 160.02 cm) aa5 MDM: 10:39 Differential diagnosis: sound check s/p i and d. Differential diagnosis: no cellulitis ma2 or abscess recurrence or any other symptoms. Data reviewed: vital signs, nurses notes. Counseling: I had a detailed discussion with the patient and/or guardian regarding: the historical points, exam findings, and any diagnostic results supporting the discharge/admit diagnosis, the presence of at least one elevated blood pressure reading (>120/80) during this emergency department visit, the need for outpatient follow up. Response to treatment: the patient's symptoms have markedly improved after treatment. 10:42 Patient medically screened. ma2 02/05 10:44 Order name: Wound Care; Complete Time: 10:53 ma2 Administered Medications: No medications were administered Disposition Summary: 02/05/21 10:42 Discharge Ordered Location: Home ma2 Condition: Stable ma2 Diagnosis - Unspecified open wound, left lower leg ma2 Followup: ma2 - With: Private Physician - When: Tomorrow - Reason: Continuance of care Discharge Instructions: - Discharge Summary Sheet ma2 - Wound Care, Adult ma2 Forms: - Medication Reconciliation Form ma2 - Thank You Letter ma2 - Antibiotic Education ma2 - Prescription Opioid Use ma2 Signatures: Mehreen Liu RN RN aa5 Alzahri, Mohammad, MD MD ma2
[2021-02-05 11:15] VITALS: BP 120/78; TEMP 98.7; O2SAT 99
== END 2021-02-05 11:10 | disposition home or self-care (01) ==
LOC: ER 10:01
DX: S81.802D Unspecified open wound, left lower leg, subsequent encounter (principal)
CPT/HCPCS: 99283

== ENCOUNTER 2021-03-05 17:19 | Inpatient (IN) | payer OTHER ==
--- OUTSIDE RECORDS SUMMARY | 2021-03-05 17:22 | XMS REPORT | Continuity of Care Document ---
:1985 Author Organization [facility] t Address [address] [place] [address] Care Team Providers Name Role Phone Doctor Unassigned, Name Attending Clinician Unavailable Radiology Attending Clinician Unavailable RADIOLOGY Attending Clinician Unavailable Payers Payer Name Policy Type Policy Number Effective Date Expiration Date S ource Problems This patient has no known problems. Allergies, Adverse Reactions, Alerts Allergy Allergy Status Severity Reaction(s) Onset Inactive Treating Comm ents Source Name Type Date Date Clinician NO KNOWN Drug Active Univers ALLERGIE Class ity of S [facility] Social History Social Habit Start Date Stop Date Quantity Comments Source [facility] to SARS-CoV-2 Not sure [facility] Smoking Status Start Date Stop Date Source Unknown if [facility] Medications This patient has no known medications. Procedures Procedure Date / Time Performing Clinician Source Performed AUTHORIZATION FOR 2020-01-13 05:01:00 Doctor Wilton, Tiffanie [facility] RELEASE OF PHI [facility] XR CHEST 1 VW 2020-01-09 20:42:38 Jay Alfredo [place] o f [facility] Encounters Start End Encounter Admission Attending Care Care Encounter Source Date/Time Date/Time Type Type Clinicians Facility Department ID 2020-01-13 2020-01-13 Hannah HUTCHINSON [id number] 00:00:00 00:00:00 Only UnassSHAJI escobedo [id number] [place] [facility] [id number] 2020-01-13 2020-01-13 Hannah HUTCHINSON [id number] Univers 00:00:00 00:00:00 Only Unassigned, SHAJI [id number] ity of [place] [facility] [id number] [place] [id number] [facility] 009 Branch 2020-01-09 2020-01-09 Outpatient R [facility] [id number] Univers 16:00:00 16:00:00 ity [facility] 2020-01-09 2020-01-09 Hospital Radiology [facility] [id number] 15:06:18 15:07:00 Encounter [place] [id number] [place] [id number] [place] [id number] 2020-01-09 2020-01-09 [facility] Radiology [facility] [id number] Univers 15:06:18 15:07:00 Encounter [place] [id number] ity of [place] [id number] [facility] [id number] [facility] 807 Branch 2020-01-09 2020-01-09 Outpatient R RADIOLOGY [facility] [id number] [facility] 00:00:00 00:00:00 [facility] Results Test Description Test Time Test Comments Results Result Sour e Comments XR CHEST 1 VW Impression: No acute University of 3 cardiopulmonary [place] [facility] 01:48:29 process.Exam: XR Branch CHEST 1 VW Clinical History: PRE OP Comparison: None Findings: Single frontal view of the chest with no prior studies available forcomparison. The cardiomediastinal silhouette is within normal limits forsize. There is no evidence of an acute infiltrate, pleural effusion,pneumothorax . The trachea is in midline. Mild scoliosis of the thoracicspine. The upper abdomen is unremarkable. [facility], Radiant Results Inft User - 01/09/2020 8:49 PM CDTExam: XR CHEST 1 VWClinical History: PRE OP Comparison: NoneFindings: Single frontal view of the chest with no prior studies available forcomparison. The cardiomediastinal silhouette is within normal limits forsize. There is no evidence of an acute infiltrate, pleural effusion,pneumothorax . The trachea is in midline. Mild scoliosis of the thoracicspine. The upper abdomen is unremarkable.IMPRESSI ONImpression: No acute cardiopulmonary process.
[2021-03-05 20:23] LABS: Urine Blood 2+ (Negative); Urine Glucose Negative (Negative); Urine Protein Negative (Negative); Urine Specific Gravity <=1.005 (1.005-1.030)
[2021-03-05 20:32] LABS: Absolute Lymphocytes (CBC) 0.8 K/uL (0.7-4.9); Basophils % 0.3 % (0-1.3); Hematocrit 27.1 % (36.0-45.0); Lymphocytes % 5.7 % (15.3-44.8); RBC Red Blood Cell Count 2.96 M/uL (3.86-4.86)
[2021-03-05 20:34] LABS: Protime INR 1.28
[2021-03-05 20:50] LABS: ALT/SGPT 119 U/L (12-78); AST/SGOT 77 U/L (15-37); Albumin 2.7 g/dL (3.4-5.0); Alkaline Phosphatase 227 U/L (45-117); BUN Blood Urea Nitrogen 5 mg/dL (7-18); Bicarbonate 28 mmol/L (21-32); Bilirubin Direct 0.4 mg/dL (0-0.2); Bilirubin Total 0.8 mg/dL (0.2-1.0); Glucose Level 153 mg/dL (74-106); Potassium 3.1 mmol/L (3.5-5.1); Protein, Total 7.7 g/dL (6.4-8.2); Sodium Level 135 mmol/L (136-145); Troponin (Emerg Dept Use Only) < 0.02 ng/mL (0.0-0.045)
[2021-03-05] MEDS ORDERED: VANCOMYCIN 1 GM/VIAL ONE (20:57)
[2021-03-05] MEDS ORDERED: MORPHINE 4 MG/ML SYR ONE ×2 (20:57→23:58)
[2021-03-05] MEDS ORDERED: NA CHLORIDE 0.9% 100 ML ONE (20:57)
[2021-03-05] MEDS ORDERED: NA CHLORIDE 0.9% 250 ML ONE (20:57)
[2021-03-05] MEDS ORDERED: ONDANSETRON 4 MG/2 ML VIAL ONE ×2 (20:57→23:59)
[2021-03-05] MEDS ORDERED: CEFEPIME 1 GM/VIAL ONE (20:57)
[2021-03-05] MEDS ORDERED: NA CHLORIDE 0.9% 2,000 ML ONE (20:58)
--- NOTE | 2021-03-05 21:28 | RAD REPORT ---
EXAM DESCRIPTION: RAD - Chest Single View - 03/05/2021 9:19 pm CLINICAL HISTORY: left leg swelling COMPARISON: No comparisons FINDINGS: Lines: None. Lungs: No evidence of edema or pneumonia. Pleural: No significant pleural effusions or pneumothorax. Cardiac: The heart size is within normal limits. Bones: No acute fractures. Other: IMPRESSION: No acute cardiopulmonary disease.
--- NOTE | 2021-03-05 21:31 | RAD REPORT ---
EXAM DESCRIPTION: US - Extremity Venous Uni Ltd - 03/05/2021 9:15 pm CLINICAL HISTORY: Swelling COMPARISON: None. TECHNIQUE: Real-time sonographic evaluation of the left lower extremity deep venous system was perfo rmed. FINDINGS: Normal compressibility, flow augmentation, phasic flow and spontaneous flow is identified in the left lower extremity deep venous system. No intraluminal filling defects seen. Subcutaneous fl uid measuring 3.3 cm x 1.4 cm x 0.3 cm is present along the lateral aspect of the left knee. The flui d does not have well-defined borders. IMPRESSION: No DVT in the left lower extremity. Subcutaneous fluid at the level of the knee.
[2021-03-05] MEDS ORDERED: POTASSIUM 25 MEQ EFFERV TAB ONE (21:59)
--- NOTE | 2021-03-05 23:58 | EDPHYS ---
Physician Documentation [facility] Name: Carmina Romero Age: 35 yrs Sex: Female : 1985 Arrival Date: 03/05/2021 Time: 17:52 Bed 17 Private MD: ED Physician Jass Charles HPI: 03/05 19:45 This 35 yrs old Female presents to ER via Ambulatory with complaints of Leg cp Pain - swelling/infection, Fever. 19:45 The patient presents with pain, that is acute, swelling, tenderness, erythema. The cp complaints affect the medial aspect of left thigh and medial aspect of left knee. 19:45 Context: Patient reports having liposuction surgery to left leg performed by DR Javier Bautista in [place] last week. 19:45 Patient reports developing an abscess and cellulitis after the procedure and has been cp draining the area at home up until recently when the surgical opening closed. Patient reports she has been taking prescribed Levaquin for the infection has felt like she has been running a fever at home. 19:45 Associated signs and symptoms: Pertinent positives: fever, swelling, warmth. 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 - Social history:: Smoking status: Patient denies any tobacco usage or history of. ROS: 19:48 MS/extremity: Positive for erythema, pain, swelling, tenderness, warmth, of the medial cp aspect of left knee and medial aspect of left thigh. 19:48 Eyes: Negative for injury, pain, redness, and discharge. cp 19:48 Constitutional: Negative for fever. 19:48 Respiratory: Negative for cough, shortness of breath, wheezing. 19:48 Neck: Negative for pain with movement, pain at rest, stiffness. cp 19:48 Cardiovascular: Negative for chest pain, edema, palpitations. 19:48 Abdomen/GI: Negative for abdominal pain, nausea, vomiting, and diarrhea. 19:48 Neuro: Negative for altered mental status, headache, weakness. 19:48 All other systems are negative. cp Exam: 19:52 Constitutional: The patient appears in no acute distress, alert, awake, cp non-diaphoretic, non-toxic, well developed, well nourished. 19:52 Head/Face: Normocephalic, atraumatic. cp 19:52 Eyes: Periorbital structures: appear normal, Conjunctiva: normal, no exudate, no injection, Sclera: no appreciated abnormality, Lids and lashes: appear normal, bilaterally. 19:52 ENT: External ear(s): are unremarkable, Nose: is normal, Mouth: Lips: moist, Oral mucosa: moist, Posterior pharynx: Airway: no evidence of obstruction, patent. 19:52 Neck: ROM/movement: is normal, is supple, without pain, no range of motions limitations. 19:52 Chest/axilla: Inspection: normal. 19:52 Cardiovascular: Rate: tachycardic, Rhythm: regular, Edema: is not appreciated, JVD: is not appreciated. 19:52 Respiratory: the patient does not display signs of respiratory distress, Respirations: normal, no use of accessory muscles, no retractions, labored breathing, is not present, Breath sounds: are clear throughout, no decreased breath sounds, no stridor, no wheezing. 19:52 Abdomen/GI: Exam negative for discomfort, distension, guarding, Inspection: abdomen appears normal. 19:52 Back: pain, is absent, ROM is normal. 19:52 Skin: cellulitis, that is moderate, well demarcated, on the medial aspect of left knee and medial aspect of left thigh. 19:52 Neuro: Orientation: to person, place \T\ time. Mentation: is normal, Motor: moves all fours, strength is normal, Sensation: is normal. 20:40 ECG was reviewed by the Attending Physician. cp Vital Signs: 18:29 BP 128 / 75; Pulse 120; Resp 16; Temp 99.7(TE); Pulse Ox 100% on R/A; Weight 68.04 kg; ss Height 5 ft. 3 in. (160.02 cm); Pain 8/10; 20:00 BP 121 / 80; Pulse 124; Resp 19; Temp 97.9; Pulse Ox 100% on R/A; Pain 8/10; fu 21:29 BP 112 / 70; Pulse 118; Resp 16; Temp 99(O); Pulse Ox 100% on R/A; Pain 8/10; fu 23:45 BP 117 / 81; Pulse 125; Resp 17; Pulse Ox 100% ; Pain 7/10; fu 03/06 00:45 BP 126 / 74; Pulse 126; Resp 19; Pulse Ox 100% on R/A; fu 02:22 BP 127 / 76; Pulse 126; Resp 19; fu 03:00 BP 109 / 64; Pulse 126; Resp 23; Temp 101; Pulse Ox 96% ; fu 03/05 18:29 Body Mass Index 26.57 (68.04 kg, 160.02 cm) ss MDM: 03/05 19:30 Patient medically screened. 22:00 Physician consultation: attempt to contact DR Javier Bautista \T\[phone]. Left message on voicemail. 22:00 Data reviewed: vital signs, nurses notes, lab test result(s), EKG, radiologic studies, cp CT scan, ultrasound. 22:00 Test interpretation: by ED physician or midlevel provider: ECG, plain radiologic cp studies. 22:26 Physician consultation: was contacted at 22:26, regarding consult, patient's condition, cp spoke with DR Javier Bautista concerning labs and US findings. Discussed transfer of patient for inpatient treatment of cellulitis with IV antibiotics. Wants transfer to [facility] in [facility]. 03/06 00:16 Physician consultation: was called at 00:16, was contacted at 00:16, regarding consult, cp patient's condition, spoke with DR Javier Bautista and informed him that [facility] declined transfer at this time, [facility] is closed for the holiday weekend. Physician informed me that he does not have any hospitals where transfer can be initiated at this time. 00:47 Physician consultation: Jose Gibbs MD was called at 00:45, was contacted at 00:47, cp regarding consult, patient's condition, wants admission to hospitalist services and will consult on patient. 01:15 Physician consultation: Jose Gibbs MD requests me to call and see if DR Lou is cp available to be consulted instead of himself due to this being a complication from a plastic procedure. 01:30 Physician consultation: Caleb Lou MD was called at 01:30, was contacted at 01:30, cp regarding consult, patient's condition, and will see patient in inpatient room, would like admission per Dr. Mahesh JON. 03/05 19:43 Order name: Lactate; Complete Time: 21:07 03/05 21:09 Interpretation: LAC 0.9; Reviewed. 03/05 19:43 Order name: Procalcitonin; Complete Time: 21:07 03/05 21:08 Interpretation: Abnormal: Procalcitonin 0.16. 03/05 19:43 Order name: Blood Culture Adult (2) 03/05 19:43 Order name: Basic Metabolic Panel; Complete Time: 21:07 03/05 21:08 Interpretation: Normal except: NA 135; K 3.1; CL 96; GLUC 153; BUN 5; GFR 85. 03/05 19:43 Order name: CBC with Diff; Complete Time: 21:07 03/05 21:08 Interpretation: Normal except: WBC 13.20; RBC 2.96; HGB 9.2; HCT 27.1; PLT 474; RDW cp 17.5; MPV 7.0; ENA% 84.1; LYM% 5.7; NEUT A 11.1. 03/05 19:43 Order name: LFT's; Complete Time: 21:07 03/05 21:08 Interpretation: Normal except: AST 77; ALT 119; ALK 227; BILID 0.4; ALB 2.7; GLOB 5.0; cp A/G 0.5. 03/05 19:43 Order name: US Extremity Venous Unilateral Ltd; Complete Time: 21:49 03/05 21:49 Interpretation: Report reviewed. 03/05 19:43 Order name: Magnesium; Complete Time: 21:07 03/05 19:43 Order name: PT-INR; Complete Time: 21:07 03/05 19:43 Order name: Troponin (emerg Dept Use Only); Complete Time: 21:07 03/05 20:23 Order name: Urine Dipstick-Ancillary; Complete Time: 21:07 EDMS 03/05 20:24 Order name: Wound Culture 03/05 22:48 Order name: SARS-COV-2 RT PCR; Complete Time: 23:56 EDMS 03/05 23:56 Interpretation: Results reviewed. 03/05 19:43 Order name: XRAY Chest (1 view); Complete Time: 21:49 cp 03/05 19:43 Order name: EKG; Complete Time: 19:44 cp 03/05 19:43 Order name: Cardiac monitoring; Complete Time: 20:15 cp 03/05 19:43 Order name: EKG - Nurse/Tech; Complete Time: 20:15 cp 03/05 19:43 Order name: IV Saline Lock; Complete Time: 20:15 03/05 19:43 Order name: Labs collected and sent; Complete Time: 20:15 03/06 01:48 Order name: CONS Physician Consult EDSC 03/05 19:43 Order name: O2 Per Protocol; Complete Time: 20:15 03/05 19:43 Order name: O2 Sat Monitoring; Complete Time: 20:15 03/05 19:43 Order name: Urine Dipstick-Ancillary (obtain specimen); Complete Time: 20:18 cp 03/05 19:43 Order name: Urine Test (obtain specimen); Complete Time: 20:18 03/05 21:17 Order name: Vital Signs: please update to include temp; Complete Time: 21:57 cp EC/27 20:40 Rate is 115 beats/min. Rhythm is regular. [place] interval is normal. QRS interval is cp normal. QT interval is normal. T waves are Inverted in leads V3, V4. Interpreted by me. Reviewed by me. Administered Medications: 21:25 Drug: NS 0.9% (30 ml/kg) 30 ml/kg Route: IV; Rate: bolus; Site: right antecubital; fu 21:26 Drug: vancoMYCIN 1 grams Route: IVPB; Infused Over: 2 hrs; Site: right antecubital; fu 23:44 Follow up: Response: No adverse reaction; IV Status: Completed infusion; IV Intake: fu 250ml 21: Drug: Cefepime 1 grams Route: IVPB; Rate: 200 ml/hr; Infused Over: 30 mins; Site: right fu antecubital; 22:30 Follow up: Response: No adverse reaction; IV Status: Completed infusion; IV Intake: fu 100ml 21: Drug: Zofran (Ondansetron) 4 mg Route: IVP; Site: right antecubital; fu 23:45 Follow up: Response: No adverse reaction fu 21:26 Drug: morphine 4 mg Route: IVP; Site: right antecubital; fu 23:45 Follow up: Response: No adverse reaction fu 22:02 Drug: Potassium Effervescent Tablet 50 mEq Route: PO; fu 23:44 Follow up: Response: No adverse reaction fu 03/06 00:05 Drug: morphine 4 mg Route: IVP; Site: right antecubital; fu 01:13 Follow up: Response: Pain is decreased fu 00:05 Drug: Zofran (Ondansetron) 4 mg Route: IVP; Site: right antecubital; fu 01:13 Follow up: Response: No adverse reaction fu 00:06 Drug: NS 0.9% (30 ml/kg) 30 ml/kg Route: IV; Rate: bolus; Site: right antecubital; fu Disposition: 05:49 Co-signature as Attending Physician, Jass Charles MD. [email or web address] Disposition Summary: 03/06/21 01:58 Hospitalization Ordered Hospitalization Status: Inpatient Admission cp Provider: Gigi Denis cp Location: Telemetry/MedSurg (Inpatient) cp Condition: Stable(03/06/21 01:58) cp Problem: an ongoing problem(03/06/21 01:58) cp Symptoms: have improved(03/06/21 01:58) cp Bed/Room Type: Standard Room Assignment: 229(03/06/21 02:21) Diagnosis - Cellulitis of left lower limb(03/06/21 01:58) cp Forms: - Medication Reconciliation Form cp - SBAR form cp Signatures: Dispatcher [employer] Myra Asencio RN RN ss Page, Corey, PA PA cp Garcia, Cindy, RN RN Gerardo Guillen RN RN fu Holmes, Maurice, MD MD [email or web address] Corrections: (The following items were deleted from the chart) 03/05 18:33 18:32 PSHx: hernia; ss ss 19:49 19:44 This 35 yrs old Female presents to ER via Ambulatory with complaints of cp Leg Pain - swelling/infection, Fever. cp 20:01 17:45 This 35 yrs old Female presents to ER via Ambulatory with complaints of cp Leg Pain - swelling/infection, Fever. cp 20:01 17:45 The patient presents with pain, that is acute, swelling, tenderness, erythema, cp cp 20:01 17:45 The complaints affect the medial aspect of left thigh and medial aspect of left cp knee, cp 21:15 21:13 Extremity Nonvascular Complete ordered. EDMS EDMS 22:48 22:20 CORONAVIRUS+MR.LAB.BRZ ordered. EDMS EDMS 03/06 01:57 03/05 23:57 Doctor cp cp 03/06 01:57 03/05 23:57 Other Acute Care Facility cp cp 03/06 01:57 03/05 23:57 Higher level of care cp cp 03/06 01:57 03/05 23:57 Fair cp cp 03/06 01:57 03/05 23:57 new cp cp 03/06 01:57 03/05 23:57 have improved cp cp 03/06 01:57 03/05 23:57 Cellulitis of left lower limb cp cp 03/06 02:21 01:58 cp cg
--- NOTE | 2021-03-05 23:58 | ER ---
Nurse's Notes [facility] [place] [place] Name: Carmina Romero Age: 35 yrs Sex: Female : 1985 Arrival Date: 03/05/2021 Time: 17:52 Bed 17 Private MD: Diagnosis: Cellulitis of left lower limb Presentation: 03/05 18:29 Chief complaint: Patient states: Recently had liposuction and was diagnosed with an ss infection. Pt reports she has had a intermittent fever that began 4 days ago. Coronavirus screen: Client denies travel out of the [place] in the last 14 days. Ebola Screen: Patient denies exposure to infectious person. Patient denies travel to an Ebola-affected area in the 21 days before illness onset. Initial Sepsis Screen: Does the patient meet any 2 criteria? No. Patient's initial sepsis screen is negative. Does the patient have a suspected source of infection? No. Patient's initial sepsis screen is negative. Risk Assessment: Do you want to hurt yourself or someone else? Patient reports no desire to harm self or others. Onset of symptoms was March 02, 2021. 18:29 Method Of Arrival: Ambulatory ss 18:29 Acuity: ADELAIDA 2 ss 18:47 Note Pt reports she took Tylenol 2 hours ago. 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 - Social history:: Smoking status: Patient denies any tobacco usage or history of. Screenin:43 Abuse screen: Denies threats or abuse. Nutritional screening: No deficits noted. fu Tuberculosis screening: No symptoms or risk factors identified. Fall Risk None identified. Assessment: 19:39 General: Appears in no apparent distress. Behavior is calm, cooperative, appropriate fu for age, Reports fever for 1-2 days. Pain: Complains of pain in inner aspect of left thigh Pain does not radiate. Pain currently is 8 out of 10 on a pain scale. Quality of pain is described as throbbing, Pain began 2-3 days ago. Neuro: Level of Consciousness is awake, alert, obeys commands, Oriented to person, place, time, situation, Moves all extremities. Gait is steady, Speech is normal, Facial symmetry appears normal. Respiratory: Respiratory effort is even, unlabored, Respiratory pattern is regular. GI: No signs and/or symptoms were reported involving the gastrointestinal system. : No signs and/or symptoms were reported regarding the genitourinary system. EENT: No signs and/or symptoms were reported regarding the EENT system. Derm: Skin is red, Skin temperature is warm redness and swelling on the left thigh. 20:30 Reassessment: Patient and/or family updated on plan of care and expected duration. Pain fu level reassessed. Patient is alert, oriented x 3, equal unlabored respirations, skin warm/dry/pink. 21:30 Reassessment: Patient and/or family updated on plan of care and expected duration. Pain fu level reassessed. Patient is alert, oriented x 3, equal unlabored respirations, skin warm/dry/pink. 22:30 Reassessment: Patient and/or family updated on plan of care and expected duration. Pain fu level reassessed. Patient is alert, oriented x 3, equal unlabored respirations, skin warm/dry/pink. 23:41 Reassessment: Provider in the room talking to patient. fu 03/06 00:43 Reassessment: Patient and/or family updated on plan of care and expected duration. Pain fu level reassessed. Patient is alert, oriented x 3, equal unlabored respirations, skin warm/dry/pink. Vital Signs: 03/05 18:29 BP 128 / 75; Pulse 120; Resp 16; Temp 99.7(TE); Pulse Ox 100% on R/A; Weight 68.04 kg; ss Height 5 ft. 3 in. (160.02 cm); Pain 8/10; 20:00 BP 121 / 80; Pulse 124; Resp 19; Temp 97.9; Pulse Ox 100% on R/A; Pain 8/10; fu 21:29 BP 112 / 70; Pulse 118; Resp 16; Temp 99(O); Pulse Ox 100% on R/A; Pain 8/10; fu 23:45 BP 117 / 81; Pulse 125; Resp 17; Pulse Ox 100% ; Pain 7/10; fu 03/06 00:45 BP 126 / 74; Pulse 126; Resp 19; Pulse Ox 100% on R/A; fu 02:22 BP 127 / 76; Pulse 126; Resp 19; fu 03:00 BP 109 / 64; Pulse 126; Resp 23; Temp 101; Pulse Ox 96% ; fu 03/05 18:29 Body Mass Index 26.57 (68.04 kg, 160.02 cm) ED Course: 03/05 17:52 Patient arrived in ED. as 18:32 Triage completed. ss 18:32 Arm band placed on left wrist. ss 19:29 Myra Karimi, ENRIQUE is Primary Nurse. ss 19:29 Paul Dick PA is PHCP. cp 19:29 Jass Charles MD is Attending Physician. cp 20:05 Inserted saline lock: 22 gauge in right antecubital area, using aseptic technique. fu Blood collected. 20:16 Patient has correct armband on for positive identification. Bed in low position. Call fu light in reach. 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 Pulse ox on. NIBP on. 21:15 US Extremity Venous Unilateral Ltd In Process Unspecified. EDMS 21:19 XRAY Chest (1 view) In Process Unspecified. EDMS 22:[address] Desai and left message. Office number did not work and patient gave me the lt3 personal cell number. [phone]. 03/06 01:57 Gigi Denis MD is Hospitalizing Provider. cp 03:11 No provider procedures requiring assistance completed. Patient admitted, IV remains in fu place. Administered Medications: 03/05 21:25 Drug: NS 0.9% (30 ml/kg) 30 ml/kg Route: IV; Rate: bolus; Site: right antecubital; fu 21:26 Drug: vancoMYCIN 1 grams Route: IVPB; Infused Over: 2 hrs; Site: right antecubital; fu 23:44 Follow up: Response: No adverse reaction; IV Status: Completed infusion; IV Intake: fu 250ml : Drug: Cefepime 1 grams Route: IVPB; Rate: 200 ml/hr; Infused Over: 30 mins; Site: right fu antecubital; 22:30 Follow up: Response: No adverse reaction; IV Status: Completed infusion; IV Intake: fu 100ml : Drug: Zofran (Ondansetron) 4 mg Route: IVP; Site: right antecubital; fu 23:45 Follow up: Response: No adverse reaction fu 21:26 Drug: morphine 4 mg Route: IVP; Site: right antecubital; fu 23:45 Follow up: Response: No adverse reaction fu 22:02 Drug: Potassium Effervescent Tablet 50 mEq Route: PO; fu 23:44 Follow up: Response: No adverse reaction fu 03/06 00:05 Drug: morphine 4 mg Route: IVP; Site: right antecubital; fu 01:13 Follow up: Response: Pain is decreased fu 00:05 Drug: Zofran (Ondansetron) 4 mg Route: IVP; Site: right antecubital; fu 01:13 Follow up: Response: No adverse reaction fu 00:06 Drug: NS 0.9% (30 ml/kg) 30 ml/kg Route: IV; Rate: bolus; Site: right antecubital; fu Intake: 03/05 22:30 IV: 100ml; Total: 100ml. fu 23:44 IV: 250ml; Total: 350ml. fu Outcome: 23:57 ER care complete, transfer ordered by MD. 03/06 01:58 Decision to Hospitalize by Provider. cp 03:12 Admitted to Med/surg accompanied by tech, via wheelchair, room 229, Report called to gardenia Rico RN 03:12 Condition: stable 03:12 Instructed on the need for admit, Demonstrated understanding of instructions. 03:33 Patient left the ED. fu Signatures: Dispatcher [employer] Radha Galaviz Shelby, RN RN ss Page, Corey, PA PA cp Umadhay, Felix, RN RN fu Tran, Leah lt3 Corrections: (The following items were deleted from the chart) 03/05 18:33 18:32 PSHx: hernia; ss ss 18:42 18:29 Acuity: ADELAIDA 3 ss ss
--- NOTE | 2021-03-06 02:16 | P.HP ---
Certification for Inpatient Patient admitted to: Inpatient With expected LOS: <2 Midnights Patient will require the following post-hospital care: None Practitioner: I am a practitioner with admitting privileges, knowledge of patient current condition, hospital course, and medical plan of care. Services: Services provided to patient in accordance with Admission requirements found in Title 42 Section 412.3 of the Code of Federal Regulations <Mahesh Mendez - Last Filed: 03/06/21 02:10> Patient History Date of Service: 03/06/21 Primary Care Provider: Kayla Reason for admission: cellulitis History of Present Illness: Ms. Romero is a 35 yo F who presents with cellulitis of the left knee. She had liposuction in [place] on 02/24. Two days later, the swelling began in her knee. She saw her surgeon on 03/01 and drained a large amount of fluid from her knee and started her on levofloxacin. Her knee has continued to get worse. It's difficult ofr her to walk nd she can't bend her knee. She reports fever, erythema, edema, warmth. Denies nausea and vomiting. She is tachycardic to the 120s. WBC 13.2 Procal 0.16 H/H 9.2 Plt 474 Na 135 K 3.1 Cl 96 Glu 153 Dbili 0.4 AST 77 ALT 119 alk phos 227 Venous US of L leg IMPRESSION: No DVT in the left lower extremity. Subcutaneous fluid at the level of the knee. - Past Medical/Surgical History -: SCOTTY -: liposuction - Family History Family History: Reviewed- Non-Contributory - Social History Smoking Status: Never smoker Alcohol use: No CD- Drugs: No Caffeine use: No Place of Residence: Home <Deborah Mendezghazal Martinez - Last Filed: 03/06/21 02:10> Date of Service: 03/06/21 <Gigi Denis - Last Filed: 03/06/21 13:16> Allergies No Known Allergies Allergy (Verified 03/06/21 03:46) Home Medications: Tramadol HCl/Acetaminophen [Ultracet Tablet] 1 each PO Q4H #30 tablet 02/02/21 Acetaminophen with Codeine [Acetaminophen-Cod #3 Tablet] 1 tab PO PRN PRN 03/06/21 Levofloxacin [Levaquin] 1 tab PO DAILY 03/06/21 Review of Systems 10-point ROS is otherwise unremarkable General: Fever, Chills, Sweats, As per HPI Eyes: Unremarkable ENT: Unremarkable Respiratory: Unremarkable Cardiovascular: Unremarkable Gastrointestinal: Unremarkable Genitourinary: Unremarkable Musculoskeletal: Leg Pain, As per HPI Integumentary: Unremarkable Neurological: Unremarkable Lymphatics: Unremarkable <AndreaDeborahMahesh S - Last Filed: 03/06/21 02:10> Physical Examination - Physical Exam General: Alert, In no apparent distress HEENT: Atraumatic, PERRLA, Mucous membr. moist/pink, EOMI, Sclerae nonicteric Neck: Supple, 2+ carotid pulse no bruit, No LAD, Without JVD or thyroid abnormality Respiratory: Clear to auscultation bilaterally, Normal air movement Cardiovascular: Normal S1 S2, Irregular heart rate/rhythm (tachycardic) Gastrointestinal: Normal bowel sounds, No tenderness Musculoskeletal: Swelling, Erythema, Tenderness, Warmth Integumentary: Tenderness/swelling, Erythema, Warmth Neurological: Normal speech, Normal strength at 5/5 x4 extr, Normal tone, Normal affect, Abnormal gait Lymphatics: No axilla or inguinal lymphadenopathy - Studies Laboratory Data (last 24 hrs) 03/05/21 20:07: PT 14.7 H, INR 1.28 03/05/21 20:07: WBC 13.20 H, Hgb 9.2 L, Hct 27.1 L, Plt Count 474 H 03/05/21 20:07: Sodium 135 L, Potassium 3.1 L, BUN 5 L, Creatinine 0.78, Glucose 153 H, Magnesium 2.0, Total Bilirubin 0.8, AST 77 H, ALT 119 H, Alkaline Phosphatase 227 H <Mahesh Mendez - Last Filed: 03/06/21 02:10> - Studies Laboratory Data (last 24 hrs) 03/05/21 20:07: PT 14.7 H, INR 1.28 03/05/21 20:07: WBC 13.20 H, Hgb 9.2 L, Hct 27.1 L, Plt Count 474 H 03/05/21 20:07: Sodium 135 L, Potassium 3.1 L, BUN 5 L, Creatinine 0.78, Glucose 153 H, Magnesium 2.0, Total Bilirubin 0.8, AST 77 H, ALT 119 H, Alkaline Phosphatase 227 H Microbiology Data (last 24 hrs): 11/27/21 21:13 Wound - L Leg (Upper) Gram Stain - Final <Gigi Denis - Last Filed: 03/06/21 13:16> Assessment and Plan - Problems (Diagnosis) (1) Cellulitis of left knee Current Visit: Yes Status: Acute (2) SCOTTY (iron deficiency anemia) Current Visit: Yes Status: Chronic Qualifiers: Iron deficiency anemia type: unspecified iron deficiency Qualified Code(s): D50.9 - Iron deficiency anemia, unspecified - Plan plastic surgery consulted, NPO continue IVF hydration continue IV vancomycin and cefepime pain management as needed anemia workup pending potassium replacement DVT ppx Discharge Plan: Home Plan to discharge in: 48 Hours - Advance Directives Does patient have a Living Will: No Does patient have a Durable POA for Healthcare: No - Code Status/Comfort Care Code Status Assessed: Yes (full code ) Critical Care: No Time Spent Managing Pts Care (In Minutes): 70 <Mahesh Mendez - Last Filed: 03/06/21 02:10> - Plan Patient seen and examined at bedside on rounds this morning Reports improvement of swelling, erythema, and pain. Afebrile this morning, breathing comfortably, no nausea/vomiting. Without any other complaints Continue empiric antibiotics, discussed with plastic surgery, will check CBC in a.m., okay to feed today If worsening symptoms, or rising leukocytosis, may need I&D <Gigi Denis - Last Filed: 03/06/21 13:16>
[2021-03-06] MEDS ORDERED: NA CHLORIDE 0.9% 1,000 ML IV SCH (03:25)
[2021-03-06] MEDS ORDERED: ONDANSETRON 4 MG/2 ML VIAL IV PRN (03:25)
[2021-03-06 04:16] VITALS: BMI 29.2
[2021-03-06] MEDS: ACETAMINOPHEN 500 MG TAB PO PRN ×2 (04:18→15:52)
[2021-03-06] MEDS ORDERED: VANCOMYCIN 1.25 GM in NA CHLORIDE 0.9% 250 ML IVPB SCH (05:00)
[2021-03-06 05:05] LABS: Absolute Lymphocytes (CBC) 0.8 K/uL (0.7-4.9); Basophils % 0.3 % (0-1.3); Hematocrit 24.7 % (36.0-45.0); MPV 6.9 fL (7.6-11.3); RBC Red Blood Cell Count 2.69 M/uL (3.86-4.86)
[2021-03-06 05:20] LABS: ALT/SGPT 103 U/L (12-78); AST/SGOT 83 U/L (15-37); Albumin 2.1 g/dL (3.4-5.0); Alkaline Phosphatase 207 U/L (45-117); BUN Blood Urea Nitrogen 3 mg/dL (7-18); Bicarbonate 25 mmol/L (21-32); Bilirubin Total 0.6 mg/dL (0.2-1.0); Glucose Level 136 mg/dL (74-106); Magnesium 1.9 mg/dL (1.8-2.4); Phosphorus 1.7 mg/dL (2.5-4.9); Potassium 3.8 mmol/L (3.5-5.1); Protein, Total 6.6 g/dL (6.4-8.2); Sodium Level 139 mmol/L (136-145)
[2021-03-06 05:33] LABS: Urine Appearance Clear (Clear); Urine Bilirubin Negative (Negative); Urine Blood 2+ (Negative); Urine Color Yellow (Yellow); Urine Glucose Negative (Negative); Urine Protein Negative (Negative); Urine Specific Gravity 1.015 (1.005-1.030); Urine Urobilinogen 0.2 mg/dL (0.2-1.0); Urine pH 8.5 (5.0-7.0)
[2021-03-06 05:43] LABS: Urine Microscopic Reflex ORDER UMIC
[2021-03-06 05:45] LABS: Urine Bacteria <20 /HPF (<20)
[2021-03-06] MEDS ORDERED: CEFEPIME 1 GM/VIAL IV SCH (09:00)
[2021-03-06] MEDS ORDERED: Pharmacy Consult 1 EA XX PRN (09:00)
[2021-03-06] MEDS: CEFEPIME 1 GM/100 ML BAG IV SCH ×2 (09:26→20:37)
--- NOTE | 2021-03-06 11:10 | CON ---
History Of Present Illness: The patient is a 35-year-old white female who had liposuction of her lower abdomen and thighs. She developed complications of fever and erythema, presented to the emergency room last night and referred for that. Past Surgical History: Tummy tuck, umbilical hernia. Social History: Does not smoke, does not drink. Medications: No medications. Allergies: NO ALLERGIES. Physical Examination: The tummy tuck excision is well healed and looks fine. The right leg has some bruising that is resolving. Left leg incisions over the medial knee area still left open. There is surrounding erythema and some firmness and mild tenderness. Plan: The showed me photographs and got better now. At this time, we will continue IV antibiotics and observe her. If not better tomorrow, we may have to open the wound. JANIE Voice ID: [id number] Report ID: [id number] ANSELMO
[2021-03-06] MEDS: VANCOMYCIN 1.25 GM in NA CHLORIDE 0.9% 250 ML IVPB SCH ×2 (11:31→20:44)
--- NOTE | 2021-03-06 11:39 | RAD REPORT ---
EXAM DESCRIPTION: US - Abdomen Exam Limited - 03/06/2021 11:07 am CLINICAL HISTORY: liver U/S Abdominal pain COMPARISON: No comparisons FINDINGS: The gallbladder demonstrates no gallstones. No pericholecystic fluid or gallbladder wall t hickening. The common bile duct is normal measuring 4 mm. The liver demonstrates mild fatty liver. The spleen measures 12 cm in length. IMPRESSION: Mild fatty liver.
[2021-03-06] MEDS ORDERED: TRAMADOL HCL 50 MG TAB PO PRN (13:18)
[2021-03-06] MEDS ORDERED: NA CHLORIDE 0.9% 500 ML IV ONE (15:00)
[2021-03-06] MEDS: MORPHINE 2 MG/ML SYR IV PRN (15:28)
[2021-03-06] MEDS: NA CHLORIDE 0.9% 1,000 ML IV SCH (17:00)
[2021-03-06] MEDS ORDERED: INFLUENZA VACCINE (for 6+ mo) 0.5 ML DOSE IMVAC ONE (17:00)
[2021-03-06] MEDS ORDERED: NA CHLORIDE 0.9% 0 ML ONE (20:42)
[2021-03-07] MEDS: MORPHINE 2 MG/ML SYR IV PRN ×2 (00:07→06:19)
[2021-03-07 04:38] LABS: Basophils % 0.5 % (0-1.3); Hematocrit 25.4 % (36.0-45.0); Lymphocytes % 7.7 % (15.3-44.8); MPV 6.8 fL (7.6-11.3); RBC Red Blood Cell Count 2.74 M/uL (3.86-4.86)
[2021-03-07 05:17] LABS: ALT/SGPT 131 U/L (12-78); AST/SGOT 109 U/L (15-37); Albumin 2.1 g/dL (3.4-5.0); Alkaline Phosphatase 228 U/L (45-117); BUN Blood Urea Nitrogen 3 mg/dL (7-18); Bicarbonate 25 mmol/L (21-32); Bilirubin Total 0.4 mg/dL (0.2-1.0); Ferritin 236.4 ng/mL (8-388); Glucose Level 121 mg/dL (74-106); HDL Cholesterol 13 mg/dL (40-60); LDL Cholesterol, Calculated 95 (<130); Magnesium 1.9 mg/dL (1.8-2.4); Phosphorus 3.1 mg/dL (2.5-4.9); Potassium 4.3 mmol/L (3.5-5.1); Protein, Total 6.8 g/dL (6.4-8.2); Sodium Level 139 mmol/L (136-145); Transferrin 151 mg/dL (200-360)
[2021-03-07] MEDS: NA CHLORIDE 0.9% 1,000 ML IV SCH ×3 (06:20→19:40)
--- NOTE | 2021-03-07 06:20 | P.PN ---
Date of Service: 03/07/21 Subjective: Slight worsening of pain, erythema somewhat improved, more tender Increase leukocytosis ROS: 10 point ROS as noted above, otherwise negative Physical exam GEN: Alert, oriented, appears uncomfortable HEENT: Normal conjunctiva, sclera anicteric CV: sinus tachycardia, no murmur, no edema Pulm: Nonlabored respiration on room air ABD: Soft, nontender, nondistended Integumentary: Erythema, warmth, tenderness of distal left inner thigh Neuro: Normal speech, normal affect Problem List Cellulitis of left inner thigh Iron deficiency anemia/anemia of chronic disease Continue IV fluid Patient is taken 3 different oral antibiotics as an outpatient and failed, ID consulted Continue antibiotics N.p.o. for possible I&D this morning Work-up with iron deficiency Elevated LFTs, ultrasound showing fatty liver Elevated LFTs may be secondary to recent antibiotic usage, patient is unsure of the name of one of her antibiotics Time Spent Managing Pts Care (In Minutes): 35
[2021-03-07] MEDS ORDERED: MORPHINE 2 MG/ML SYR IV ONE (08:20)
[2021-03-07] MEDS: CEFEPIME 1 GM/100 ML BAG IV SCH ×2 (09:00→20:24)
[2021-03-07] MEDS ORDERED: propofoL 200 MG/20 ML VIAL IV ONE (10:14)
[2021-03-07] MEDS ORDERED: LIDOCAINE 1% MPF 5 ML VIAL ONE (10:14)
[2021-03-07] MEDS ORDERED: MIDAZOLAM HCL 2 MG/2 ML INJ ONE (10:14)
[2021-03-07] MEDS ORDERED: FENTANYL CITR 100 MCG/2 ML ONE ×2 (10:14→10:41)
[2021-03-07] MEDS ORDERED: KETOROLAC 30 MG/ML INJ ONE (10:43)
[2021-03-07] MEDS ORDERED: dexAMETHasone 10 MG/ML VIAL ONE (10:43)
[2021-03-07] MEDS ORDERED: ONDANSETRON 4 MG/2 ML VIAL ONE (10:45)
--- NOTE | 2021-03-07 11:34 | OP ---
Surgeon: Caleb Lou MD Preoperative Diagnosis: Infection of the left leg. Postoperative Diagnosis: Infection of the left leg. Procedure Performed: Excision of skin subcu tissue, surgical dressing. Anesthesia: General. Description Of Procedure: After satisfactory induction of general anesthesia, left leg was prepped circumferentially with Betadine scrub and paint dry, sterile drapes were applied in usual manner. A felt-tip marking pen was used to outline the incision over the medial knee incision from the liposuction and extended proximally approximately 6 cm. Dissection proceeded down. The tissue was inflamed with some areas of induration. Cultures were taken and wound was jet lavage, irrigated with 3 L of dilute Betadine solution. Electrocautery was used for hemostasis. Wound packed with iodoform soaked Nu Gauze and 4 x 4 Kerlix. The patient tolerated the procedure well and returned to Recovery. JANIE Voice ID: [id number] Report ID: [id number] ANSELMO
[2021-03-07] MEDS ORDERED: CODEINE 30MG/APAP 300MG TAB PO PRN (11:36)
[2021-03-07] MEDS: VANCOMYCIN 1.25 GM in NA CHLORIDE 0.9% 250 ML IVPB SCH ×2 (12:01→21:57)
[2021-03-07] MEDS: CODEINE 30MG/APAP 300MG TAB PO PRN ×2 (12:02→21:55)
[2021-03-07 13:58] LABS: Urine Specific Gravity/Preg <1.005 (1.005-1.030)
--- NOTE | 2021-03-07 15:28 | P.CNS ---
Date of Consult: 03/07/21 Primary Care Provider: Kayla Chief Complaint: cellulitis History of Present Illness: The patient is a 32-year-old female with no significant past medical history who presented to the emergency department secondary to cellulitis of the left knee. The patient had liposuction in [place] on 02/24 a few days afterwards developed swelling in her left knee. She saw her surgeon 03/01 and the area was drained, per patient all large amount of clear fluid was removed and she was started on kflex. Patient failed Keflex and was then placed on another antibiotic of which the patient does not remeber. She was then placed on Levaquin. Patient did not see resolution of symptoms after being placed on these p.o. antibiotics and as such presented to the emergency department. She is empirically placed on vancomycin and cefepime. She is now status post surgical I and D. she denies nausea/vomiting/diarrhea/shortness breast/chest pain. Allergies No Known Allergies Allergy (Verified 03/06/21 03:46) Home Medications: Tramadol HCl/Acetaminophen [Ultracet Tablet] 1 each PO Q4H #30 tablet 02/02/21 Acetaminophen with Codeine [Acetaminophen-Cod #3 Tablet] 1 tab PO PRN PRN 03/06/21 Levofloxacin [Levaquin] 1 tab PO DAILY 03/06/21 - Past Medical/Surgical History Diabetic: No -: SCOTTY -: liposuction - Social History Alcohol use: No CD- Drugs: No Caffeine use: No Place of Residence: Home Review of Systems 10-point ROS is otherwise unremarkable Physical Examination Temp Pulse Resp BP Pulse Ox 97.4 F 116 H 18 119/74 95 03/07/21 12:00 03/07/21 12:00 03/07/21 12:00 03/07/21 12:00 03/07/21 12:00 General: Alert, In no apparent distress, Oriented x3 HEENT: Atraumatic, Normocephalic Neck: Supple, 2+ carotid pulse no bruit Respiratory: Clear to auscultation bilaterally, Normal air movement Cardiovascular: No edema, Normal pulses Gastrointestinal: Normal bowel sounds, Hypoactive, Soft and benign Musculoskeletal: Other (Wrapped left kidney status post surgical I and D) Conclusions/Impression: Antibiotics: Vancomycin Start: 03/06 Cefepime Start: 03/06 Assessment/plan Cellulitis of left knee status post liposuction Patient failed oral outpatient antibiotic therapy. Continue empiric antibiotic coverage at this time. Once swelling/erythema improves can place patient on oral doxycycline and Augmentin for 2 weeks. Patient is status post surgical I and D performed on 03/07. -medical management per primary team -plan of care discussed with Dr. Rider Thank you for consultation
[2021-03-08 05:08] LABS: Absolute Lymphocytes (CBC) 1.1 K/uL (0.7-4.9); Basophils % 0.2 % (0-1.3); Hematocrit 24.4 % (36.0-45.0); Lymphocytes % 8.7 % (15.3-44.8); RBC Red Blood Cell Count 2.63 M/uL (3.86-4.86)
[2021-03-08 05:29] LABS: ALT/SGPT 87 U/L (12-78); AST/SGOT 29 U/L (15-37); Alkaline Phosphatase 190 U/L (45-117); BUN Blood Urea Nitrogen 6 mg/dL (7-18); Bicarbonate 25 mmol/L (21-32); Bilirubin Total 0.3 mg/dL (0.2-1.0); Glucose Level 106 mg/dL (74-106); Potassium 3.9 mmol/L (3.5-5.1); Protein, Total 6.7 g/dL (6.4-8.2); Sodium Level 143 mmol/L (136-145)
[2021-03-08 06:24] LABS: Blood Morphology Comment NOT SEEN (NOT SEEN); Platelet Estimate ADEQ
[2021-03-08] MEDS: VANCOMYCIN 1.25 GM in NA CHLORIDE 0.9% 250 ML IVPB SCH (09:00)
[2021-03-08] MEDS: NA CHLORIDE 0.9% 1,000 ML IV SCH ×2 (09:00→10:17)
[2021-03-08] MEDS: CEFEPIME 1 GM/100 ML BAG IV SCH (09:00)
[2021-03-08] MEDS ORDERED: POTASSIUM CL SA 10 MEQ TAB PO ONE (09:00)
[2021-03-08] MEDS ORDERED: VANCOMYCIN 1.5 GM in NA CHLORIDE 0.9% 500 ML IVPB SCH (10:00)
[2021-03-08] MEDS: CODEINE 30MG/APAP 300MG TAB PO PRN (10:46)
--- NOTE | 2021-03-08 11:19 | P.PN ---
Subjective Date of Service: 03/08/21 Primary Care Provider: Kayla Chief Complaint: cellulitis Patient seen examined at bedside, doing well no acute complaints. Dressing to left knee wound changed by nurse. Review of Systems 10-point ROS is otherwise unremarkable Physical Examination - Vital Signs Temperature: 97.6 F Blood Pressure: 117/74 Pulse: 110 Respirations: 18 Pulse Ox (%): 100 - Studies Laboratory Last Values WBC 13.20 K/uL (4.3-10.9) H 03/05/21 20:07 RBC 2.96 M/uL (3.86-4.86) L 03/05/21 20:07 Hgb 9.2 g/dL (12.0-15.0) L 03/05/21 20:07 Hct 27.1 % (36.0-45.0) L 03/05/21 20:07 MCV 91.2 fL (80-100) 03/05/21 20:07 MCH 31.2 pg (27.0-35.0) 03/05/21 20:07 MCHC 34.2 g/dL (32.0-36.0) 03/05/21 20:07 RDW 17.5 % (12.1-15.2) H 03/05/21 20:07 Plt Count 474 K/uL (152-406) H 03/05/21 20:07 MPV 7.0 fL (7.6-11.3) L 03/05/21 20:07 Neutrophils % 84.1 % (41.7-73.7) H 03/05/21 20:07 Lymphocytes % 5.7 % (15.3-44.8) L 03/05/21 20:07 Monocytes % 7.9 % (3.3-12.3) 03/05/21 20:07 Eosinophils % 2.0 % (0-4.4) 03/05/21 20:07 Basophils % 0.3 % (0-1.3) 03/05/21 20:07 Absolute Neutrophils 11.1 K/uL (1.8-8.0) H 03/05/21 20:07 Absolute Lymphocytes 0.8 K/uL (0.7-4.9) 03/05/21 20:07 Absolute Monocytes 1.0 K/uL (0.1-1.3) 03/05/21 20:07 Absolute Eosinophils 0.3 K/uL (0-0.5) 03/05/21 20:07 Absolute Basophils 0.0 K/uL (0-0.5) 03/05/21 20:07 PT 14.7 SECONDS (9.5-12.5) H 03/05/21 20:07 INR 1.28 03/05/21 20:07 Sodium 135 mmol/L (136-145) L 03/05/21 20:07 Potassium 3.1 mmol/L (3.5-5.1) L 03/05/21 20:07 Chloride 96 mmol/L (98-107) L 03/05/21 20:07 Carbon Dioxide 28 mmol/L (21-32) 03/05/21 20:07 BUN 5 mg/dL (7-18) L 03/05/21 20:07 Creatinine 0.78 mg/dL (0.55-1.3) 03/05/21 20:07 Estimated GFR 85 mL/min (=/>90) L 03/05/21 20:07 Glucose 153 mg/dL (74-106) H 03/05/21 20:07 Lactic Acid 0.9 mmol/L (0.4-2.0) 03/05/21 20:07 Calcium 9.1 mg/dL (8.5-10.1) 03/05/21 20:07 Magnesium 2.0 mg/dL (1.8-2.4) 03/05/21 20:07 Total Bilirubin 0.8 mg/dL (0.2-1.0) 03/05/21 20:07 Direct Bilirubin 0.4 mg/dL (0-0.2) H 03/05/21 20:07 AST 77 U/L (15-37) H 03/05/21 20:07 ALT 119 U/L (12-78) H 03/05/21 20:07 Alkaline Phosphatase 227 U/L (45-117) H 03/05/21 20:07 Rapid Troponin I < 0.02 ng/mL (0.0-0.045) 03/05/21 20:07 Serum Total Protein 7.7 g/dL (6.4-8.2) 03/05/21 20:07 Albumin 2.7 g/dL (3.4-5.0) L 03/05/21 20:07 Globulin 5.0 g/dL (2.3-3.5) H 03/05/21 20:07 Albumin/Globulin Ratio 0.5 (1.1-1.8) L 03/05/21 20:07 Procalcitonin 0.16 ng/mL (<0.050) H 03/05/21 20:07 Urine pH 6.0 (5.0-7.0) 03/05/21 20:20 Ur Specific [place] <=1.005 (1.005-1.030) 03/05/21 20:20 Glucose (UA)(Auto) Negative (Negative) 03/05/21 20:20 Urine Ketones Negative (Negative) 03/05/21 20:20 Urine Blood 2+ (Negative) H 03/05/21 20:20 Urine Nitrite Negative (Negative) 03/05/21 20:20 Ur Leukocyte Esterase Negative (Negative) 03/05/21 20:20 Urine Total Protein Negative (Negative) 03/05/21 20:20 SARS-CoV-2 Rap RNA(RT-PCR) Negative (NEGATIVE) 03/05/21 22:41 Microbiology Data (last 24 hrs): 03/05/21 21:13 Wound - L Leg (Upper) Gram Stain - Final 03/05/21 21:13 Wound - L Leg (Upper) Culture & Sensitivity - Final Staphylococcus Haemolyticus Enterococcus Faecalis Assessment And Plan - Plan Physical exam General: Alert, In no apparent distress, Oriented x3 HEENT: Atraumatic, Normocephalic Neck: Supple, 2+ carotid pulse no bruit Respiratory: Clear to auscultation bilaterally, Normal air movement Cardiovascular: No edema, Normal pulses Gastrointestinal: Normal bowel sounds, Hypoactive, Soft and benign Musculoskeletal: Other (Wrapped left kidney status post surgical I and D--patient has open wound. Please see nursing notes for wound measurements.) Conclusions/Impression: Antibiotics: Clindamycin Start: 03/08 Vancomycin Start: 03/06 Stop: 03/08 Cefepime Start: 03/06 Stop: 03/08 Assessment/plan Cellulitis of left knee status post liposuction Patient failed oral outpatient antibiotic therapy. Wound culture growing a strep hemolyticus sensitive to ciprofloxacin with an MARV of less than 1. Continue IV clindamycin well and patient, can switch to oral clindamycin for outpatient therapy. Recommend 2 week antibiotic duration. . Patient is status post surgical I and D performed on 03/07--continue wound care per surgical team. -medical management per primary team -plan of care discussed with Dr. Rider Thank you for consultation
[2021-03-08] MEDS: MORPHINE 2 MG/ML SYR IV PRN (17:36)
--- NOTE | 2021-03-08 19:08 | P.PN ---
Subjective Date of Service: 03/08/21 Primary Care Provider: Kayla Chief Complaint: cellulitis Patient has no new complaint. She states her pain is well controlled. No fever. Physical Examination - Vital Signs Temperature: 98.5 F Blood Pressure: 114/74 Pulse: 116 Respirations: 18 Pulse Ox (%): 100 - Studies Microbiology Data (last 24 hrs): 03/05/21 21:13 Wound - L Leg (Upper) Gram Stain - Final 03/05/21 21:13 Wound - L Leg (Upper) Culture & Sensitivity - Final Staphylococcus Haemolyticus Enterococcus Faecalis Assessment And Plan - Plan Physical exam GEN: Alert, oriented, appears uncomfortable HEENT: Normal conjunctiva, sclera anicteric CV: sinus tachycardia, no murmur, no edema Pulm: Clear to auscultation bilaterally. ABD: Soft, nontender, nondistended Integumentary: Left inner thigh wound dressed. Neuro: No focal motor deficit. Problem List Cellulitis of left inner thigh Iron deficiency anemia/anemia of chronic disease Continue IV fluid Patient took 3 different oral antibiotics as an outpatient and failed, ID consulted Status post I&D by Dr. Lou. Deep tissue wound culture is growing Enterococcus and staph hemolyticus all sensitive to ciprofloxacin. Antibiotics changed to IV ciprofloxacin Dr. Lou to follow Elevated LFTs, ultrasound showing fatty liver. Elevated LFTs may be secondary to fatty liver versus antibiotic usage. Pain management.
[2021-03-08] MEDS: TRAMADOL HCL 50 MG TAB PO PRN (20:45)
[2021-03-08] MEDS: CIPROFLOXACIN 400mg IV 400 MG/200 ML BAG IV SCH (20:46)
[2021-03-08] MEDS: ACETAMINOPHEN 500 MG TAB PO PRN (21:44)
[2021-03-09] MEDS: NA CHLORIDE 0.9% 1,000 ML IV SCH ×2 (00:30→15:11)
[2021-03-09] MEDS: MORPHINE 2 MG/ML SYR IV PRN ×3 (00:33→23:35)
[2021-03-09 04:13] LABS: Absolute Lymphocytes (CBC) 1.4 K/uL (0.7-4.9); Basophils % 0.7 % (0-1.3); Hematocrit 25.7 % (36.0-45.0); Lymphocytes % 9.5 % (15.3-44.8); MPV 6.8 fL (7.6-11.3)
[2021-03-09 04:41] LABS: BUN Blood Urea Nitrogen 3 mg/dL (7-18); Bicarbonate 26 mmol/L (21-32); Glucose Level 96 mg/dL (74-106); Potassium 3.9 mmol/L (3.5-5.1); Sodium Level 141 mmol/L (136-145)
[2021-03-09] MEDS ORDERED: KCL 20 MEQ/100 mL IVPB 20 MEQ/100 ML BAG IV SCH (06:00)
[2021-03-09] MEDS: SOD FERRIC GLUC COMPLX/SUCROSE 125 MG in NA CHLORIDE 0.9% 100 ML IV SCH (09:06)
[2021-03-09] MEDS: CIPROFLOXACIN 400mg IV 400 MG/200 ML BAG IV SCH (09:06)
[2021-03-09] MEDS ORDERED: AMOX/K CLAV 875 MG TAB PO SCH (11:00)
--- NOTE | 2021-03-09 11:31 | P.PN ---
Subjective Date of Service: 03/09/21 Primary Care Provider: Kayla Chief Complaint: cellulitis Patient seen examined at bedside, wound culture growing Enterococcus faecalis in addition to Staph haemolyticus. Augmentin added to antibiotic regimen. Surgery plans to take patient back to OR today to surgically closed the wound. Review of Systems 10-point ROS is otherwise unremarkable Physical Examination - Vital Signs Temperature: 100.0 F Blood Pressure: 126/68 Pulse: 135 Respirations: 18 Pulse Ox (%): 96 - Studies Laboratory Last Values WBC 13.20 K/uL (4.3-10.9) H 03/05/21 20:07 RBC 2.96 M/uL (3.86-4.86) L 03/05/21 20:07 Hgb 9.2 g/dL (12.0-15.0) L 03/05/21 20:07 Hct 27.1 % (36.0-45.0) L 03/05/21 20:07 MCV 91.2 fL (80-100) 03/05/21 20:07 MCH 31.2 pg (27.0-35.0) 03/05/21 20:07 MCHC 34.2 g/dL (32.0-36.0) 03/05/21 20:07 RDW 17.5 % (12.1-15.2) H 03/05/21 20:07 Plt Count 474 K/uL (152-406) H 03/05/21 20:07 MPV 7.0 fL (7.6-11.3) L 03/05/21 20:07 Neutrophils % 84.1 % (41.7-73.7) H 03/05/21 20:07 Lymphocytes % 5.7 % (15.3-44.8) L 03/05/21 20:07 Monocytes % 7.9 % (3.3-12.3) 03/05/21 20:07 Eosinophils % 2.0 % (0-4.4) 03/05/21 20:07 Basophils % 0.3 % (0-1.3) 03/05/21 20:07 Absolute Neutrophils 11.1 K/uL (1.8-8.0) H 03/05/21 20:07 Absolute Lymphocytes 0.8 K/uL (0.7-4.9) 03/05/21 20:07 Absolute Monocytes 1.0 K/uL (0.1-1.3) 03/05/21 20:07 Absolute Eosinophils 0.3 K/uL (0-0.5) 03/05/21 20:07 Absolute Basophils 0.0 K/uL (0-0.5) 03/05/21 20:07 PT 14.7 SECONDS (9.5-12.5) H 03/05/21 20:07 INR 1.28 03/05/21 20:07 Sodium 135 mmol/L (136-145) L 03/05/21 20:07 Potassium 3.1 mmol/L (3.5-5.1) L 03/05/21 20:07 Chloride 96 mmol/L (98-107) L 03/05/21 20:07 Carbon Dioxide 28 mmol/L (21-32) 03/05/21 20:07 BUN 5 mg/dL (7-18) L 03/05/21 20:07 Creatinine 0.78 mg/dL (0.55-1.3) 03/05/21 20:07 Estimated GFR 85 mL/min (=/>90) L 03/05/21 20:07 Glucose 153 mg/dL (74-106) H 03/05/21 20:07 Lactic Acid 0.9 mmol/L (0.4-2.0) 03/05/21 20:07 Calcium 9.1 mg/dL (8.5-10.1) 03/05/21 20:07 Magnesium 2.0 mg/dL (1.8-2.4) 03/05/21 20:07 Total Bilirubin 0.8 mg/dL (0.2-1.0) 03/05/21 20:07 Direct Bilirubin 0.4 mg/dL (0-0.2) H 03/05/21 20:07 AST 77 U/L (15-37) H 03/05/21 20:07 ALT 119 U/L (12-78) H 03/05/21 20:07 Alkaline Phosphatase 227 U/L (45-117) H 03/05/21 20:07 Rapid Troponin I < 0.02 ng/mL (0.0-0.045) 03/05/21 20:07 Serum Total Protein 7.7 g/dL (6.4-8.2) 03/05/21 20:07 Albumin 2.7 g/dL (3.4-5.0) L 03/05/21 20:07 Globulin 5.0 g/dL (2.3-3.5) H 03/05/21 20:07 Albumin/Globulin Ratio 0.5 (1.1-1.8) L 03/05/21 20:07 Procalcitonin 0.16 ng/mL (<0.050) H 03/05/21 20:07 Urine pH 6.0 (5.0-7.0) 03/05/21 20:20 Ur Specific [place] <=1.005 (1.005-1.030) 03/05/21 20:20 Glucose (UA)(Auto) Negative (Negative) 03/05/21 20:20 Urine Ketones Negative (Negative) 03/05/21 20:20 Urine Blood 2+ (Negative) H 03/05/21 20:20 Urine Nitrite Negative (Negative) 03/05/21 20:20 Ur Leukocyte Esterase Negative (Negative) 03/05/21 20:20 Urine Total Protein Negative (Negative) 03/05/21 20:20 SARS-CoV-2 Rap RNA(RT-PCR) Negative (NEGATIVE) 03/05/21 22:41 Microbiology Data (last 24 hrs): 03/05/21 21:13 Wound - L Leg (Upper) Gram Stain - Final 03/05/21 21:13 Wound - L Leg (Upper) Culture & Sensitivity - Final Staphylococcus Haemolyticus Enterococcus Faecalis Assessment And Plan - Plan Physical exam General: Alert, In no apparent distress, Oriented x3 HEENT: Atraumatic, Normocephalic Neck: Supple, 2+ carotid pulse no bruit Respiratory: Clear to auscultation bilaterally, Normal air movement Cardiovascular: No edema, Normal pulses Gastrointestinal: Normal bowel sounds, Hypoactive, Soft and benign Musculoskeletal: Other (Wrapped left kidney status post surgical I and D--patient has open wound. Please see nursing notes for wound measurements.) Conclusions/Impression: Antibiotics: Ciprofloxacin Start: 03/08 Augmentin Start: 03/09 Vancomycin Start: 03/06 Stop: 03/08 Cefepime Start: 03/06 Stop: 03/08 Assessment/plan Cellulitis of left knee status post liposuction Patient failed outpatient oral antibiotic therapy. Wound culture growing a strep hemolyticus and Enterococcus faecalis. Continue ciprofloxacin and Augmentin for a total antibiotic duration of 2 weeks. Patient is status post surgical I and D performed on 03/07. Surgery team plans to take patient back to OR today for secondary closure of wound. -medical management per primary team -plan of care discussed with Dr. Rider Thank you for consultation
[2021-03-09] MEDS ORDERED: LIDOCAINE 1% MPF 5 ML VIAL ONE (11:33)
[2021-03-09] MEDS ORDERED: propofoL 200 MG/20 ML VIAL IV ONE (11:33)
[2021-03-09] MEDS ORDERED: MIDAZOLAM HCL 2 MG/2 ML INJ ONE ×2 (11:33→13:02)
[2021-03-09] MEDS ORDERED: FENTANYL CITR 100 MCG/2 ML ONE (11:33)
[2021-03-09] MEDS ORDERED: ONDANSETRON 4 MG/2 ML VIAL ONE (11:41)
[2021-03-09] MEDS ORDERED: Ringers Lactate 1,000 ML IV ONE (13:30)
[2021-03-09] MEDS ORDERED: Mastisol Adhesive Liq ONE (13:34)
[2021-03-09] MEDS ORDERED: KETOROLAC 30 MG/ML INJ ONE (13:35)
--- NOTE | 2021-03-09 13:43 | P.PN ---
Subjective Date of Service: 03/09/21 Primary Care Provider: Kayla Chief Complaint: cellulitis Patient is complaining of palpitation. She had low-grade fever this morning. Physical Examination - Vital Signs Temperature: 100.0 F Blood Pressure: 126/68 Pulse: 135 Respirations: 18 Pulse Ox (%): 96 - Studies Microbiology Data (last 24 hrs): 03/05/21 21:13 Wound - L Leg (Upper) Gram Stain - Final 03/05/21 21:13 Wound - L Leg (Upper) Culture & Sensitivity - Final Staphylococcus Haemolyticus Enterococcus Faecalis Assessment And Plan - Plan Physical exam GEN: Alert, oriented. HEENT: Normal conjunctiva, sclera anicteric CV: sinus tachycardia, no murmur, no edema Pulm: Clear to auscultation bilaterally. ABD: Soft, nontender, nondistended Integumentary: Left inner thigh wound dressed. Neuro: No focal motor deficit. Problem List Cellulitis of left inner thigh Iron deficiency anemia/anemia of chronic disease Continue IV fluid Patient took 3 different oral antibiotics as an outpatient and failed, ID consulted Status post I&D by Dr. Lou. Deep tissue wound culture is growing Enterococcus and staph hemolyticus all sensitive to ciprofloxacin. IV ciprofloxacin. ID added oral Augmentin due to fever today and mildly increased leukocytosis. Dr. Lou planning secondary wound closure today. Hemoglobin is 8.6. Will transfuse 1 unit PRBC if patient remains symptomatic with tachycardia Ultrasound showing fatty liver. LFTs trending down. Continue iron therapy. Pain management.
[2021-03-09] MEDS: MORPHINE 4 MG/ML SYR ONE ×2 (14:07→14:19)
[2021-03-09] MEDS: ACETAMINOPHEN 500 MG TAB PO PRN (15:11)
--- NOTE | 2021-03-09 19:50 | OP ---
Surgeon: Caleb Lou MD Preoperative Diagnosis: Open wound, left leg. Postoperative Diagnosis: Open wound, left leg. Procedure: Debridement of skin and subcutaneous tissue, a layered closure of 5.5 cm. Anesthesia: General. Procedure In Detail: After satisfactory induction of general anesthesia, left leg was prepped with B etadine scrub, Betadine paint, dry sterile drapes applied in usual manner. Tenotomy scissors, forcep s and curette were used to debride skin and subcutaneous tissue as needed. The wound was jet lavage irrigated with 3 L of Betadine solution. Electrocautery was used for hemostasis. Wound was closed w ith 3-0 Vicryl subcutaneous, 4-0 PDS running subcuticular followed by tincture of benzoin, followed b y Steri-Strips, fluffs, and Kerlix. The patient tolerated procedure well and returned to Recovery. BHANU/JOSE Voice ID: [id number] Report ID: [id number]
[2021-03-09] MEDS: CIPROFLOXACIN HCL 500 MG TAB PO SCH (21:02)
[2021-03-09] MEDS: AMOX/K CLAV 875 MG TAB PO SCH (21:03)
[2021-03-09] MEDS: TRAMADOL HCL 50 MG TAB PO PRN (21:03)
[2021-03-10] MEDS: NA CHLORIDE 0.9% 1,000 ML IV SCH ×2 (02:44→17:54)
[2021-03-10] MEDS: TRAMADOL HCL 50 MG TAB PO PRN ×3 (04:31→17:54)
[2021-03-10 05:49] LABS: Absolute Lymphocytes (CBC) 1.1 K/uL (0.7-4.9); Basophils % 0.5 % (0-1.3); Hematocrit 24.8 % (36.0-45.0); Lymphocytes % 7.5 % (15.3-44.8); MPV 6.7 fL (7.6-11.3)
[2021-03-10 06:23] LABS: ALT/SGPT 51 U/L (12-78); AST/SGOT 29 U/L (15-37); Albumin 2.1 g/dL (3.4-5.0); Alkaline Phosphatase 167 U/L (45-117); BUN Blood Urea Nitrogen 4 mg/dL (7-18); Bicarbonate 25 mmol/L (21-32); Bilirubin Total 0.4 mg/dL (0.2-1.0); Glucose Level 107 mg/dL (74-106); Potassium 4.1 mmol/L (3.5-5.1); Protein, Total 6.9 g/dL (6.4-8.2); Sodium Level 137 mmol/L (136-145)
[2021-03-10] MEDS: MORPHINE 2 MG/ML SYR IV PRN ×3 (06:26→19:02)
[2021-03-10] MEDS: CIPROFLOXACIN HCL 500 MG TAB PO SCH ×2 (09:30→20:50)
[2021-03-10] MEDS: AMOX/K CLAV 875 MG TAB PO SCH ×2 (09:30→20:50)
[2021-03-10] MEDS: ACETAMINOPHEN 500 MG TAB PO PRN (09:30)
[2021-03-10] MEDS: SOD FERRIC GLUC COMPLX/SUCROSE 125 MG in NA CHLORIDE 0.9% 100 ML IV SCH (09:31)
[2021-03-10] MEDS ORDERED: NA CHLORIDE 0.9% 250 ML IV SCH (10:00)
--- NOTE | 2021-03-10 10:39 | P.PN ---
Subjective Date of Service: 03/10/21 Primary Care Provider: Kayla Chief Complaint: cellulitis Patient seen examined at bedside, having symptomatic anemia, awaiting blood transfusion. Patient was taken back to OR yesterday for secondary closure of the leg wound. Surgery went well with no complications. Review of Systems 10-point ROS is otherwise unremarkable Physical Examination - Vital Signs Temperature: 100.4 F Blood Pressure: 119/63 Pulse: 128 Respirations: 18 Pulse Ox (%): 99 - Studies Laboratory Last Values WBC 13.20 K/uL (4.3-10.9) H 03/05/21 20:07 RBC 2.96 M/uL (3.86-4.86) L 03/05/21 20:07 Hgb 9.2 g/dL (12.0-15.0) L 03/05/21 20:07 Hct 27.1 % (36.0-45.0) L 03/05/21 20:07 MCV 91.2 fL (80-100) 03/05/21 20:07 MCH 31.2 pg (27.0-35.0) 03/05/21 20:07 MCHC 34.2 g/dL (32.0-36.0) 03/05/21 20:07 RDW 17.5 % (12.1-15.2) H 03/05/21 20:07 Plt Count 474 K/uL (152-406) H 03/05/21 20:07 MPV 7.0 fL (7.6-11.3) L 03/05/21 20:07 Neutrophils % 84.1 % (41.7-73.7) H 03/05/21 20:07 Lymphocytes % 5.7 % (15.3-44.8) L 03/05/21 20:07 Monocytes % 7.9 % (3.3-12.3) 03/05/21 20:07 Eosinophils % 2.0 % (0-4.4) 03/05/21 20:07 Basophils % 0.3 % (0-1.3) 03/05/21 20:07 Absolute Neutrophils 11.1 K/uL (1.8-8.0) H 03/05/21 20:07 Absolute Lymphocytes 0.8 K/uL (0.7-4.9) 03/05/21 20:07 Absolute Monocytes 1.0 K/uL (0.1-1.3) 03/05/21 20:07 Absolute Eosinophils 0.3 K/uL (0-0.5) 03/05/21 20:07 Absolute Basophils 0.0 K/uL (0-0.5) 03/05/21 20:07 PT 14.7 SECONDS (9.5-12.5) H 03/05/21 20:07 INR 1.28 03/05/21 20:07 Sodium 135 mmol/L (136-145) L 03/05/21 20:07 Potassium 3.1 mmol/L (3.5-5.1) L 03/05/21 20:07 Chloride 96 mmol/L (98-107) L 03/05/21 20:07 Carbon Dioxide 28 mmol/L (21-32) 03/05/21 20:07 BUN 5 mg/dL (7-18) L 03/05/21 20:07 Creatinine 0.78 mg/dL (0.55-1.3) 03/05/21 20:07 Estimated GFR 85 mL/min (=/>90) L 03/05/21 20:07 Glucose 153 mg/dL (74-106) H 03/05/21 20:07 Lactic Acid 0.9 mmol/L (0.4-2.0) 03/05/21 20:07 Calcium 9.1 mg/dL (8.5-10.1) 03/05/21 20:07 Magnesium 2.0 mg/dL (1.8-2.4) 03/05/21 20:07 Total Bilirubin 0.8 mg/dL (0.2-1.0) 03/05/21 20:07 Direct Bilirubin 0.4 mg/dL (0-0.2) H 03/05/21 20:07 AST 77 U/L (15-37) H 03/05/21 20:07 ALT 119 U/L (12-78) H 03/05/21 20:07 Alkaline Phosphatase 227 U/L (45-117) H 03/05/21 20:07 Rapid Troponin I < 0.02 ng/mL (0.0-0.045) 03/05/21 20:07 Serum Total Protein 7.7 g/dL (6.4-8.2) 03/05/21 20:07 Albumin 2.7 g/dL (3.4-5.0) L 03/05/21 20:07 Globulin 5.0 g/dL (2.3-3.5) H 03/05/21 20:07 Albumin/Globulin Ratio 0.5 (1.1-1.8) L 03/05/21 20:07 Procalcitonin 0.16 ng/mL (<0.050) H 03/05/21 20:07 Urine pH 6.0 (5.0-7.0) 03/05/21 20:20 Ur Specific [place] <=1.005 (1.005-1.030) 03/05/21 20:20 Glucose (UA)(Auto) Negative (Negative) 03/05/21 20:20 Urine Ketones Negative (Negative) 03/05/21 20:20 Urine Blood 2+ (Negative) H 03/05/21 20:20 Urine Nitrite Negative (Negative) 03/05/21 20:20 Ur Leukocyte Esterase Negative (Negative) 03/05/21 20:20 Urine Total Protein Negative (Negative) 03/05/21 20:20 SARS-CoV-2 Rap RNA(RT-PCR) Negative (NEGATIVE) 03/05/21 22:41 Assessment And Plan - Plan Physical exam General: Alert, In no apparent distress, Oriented x3 HEENT: Atraumatic, Normocephalic Neck: Supple, 2+ carotid pulse no bruit Respiratory: Clear to auscultation bilaterally, Normal air movement Cardiovascular: No edema, Normal pulses Gastrointestinal: Normal bowel sounds, Hypoactive, Soft and benign Musculoskeletal: Other (Wrapped left kidney status post surgical I and D--patient has open wound. Please see nursing notes for wound measurements.) Conclusions/Impression: Antibiotics: Ciprofloxacin Start: 03/08 Augmentin Start: 03/09 Vancomycin Start: 03/06 Stop: 03/08 Cefepime Start: 03/06 Stop: 03/08 Assessment/plan Cellulitis of left knee status post liposuction Patient failed outpatient oral antibiotic therapy. Wound culture growing a strep hemolyticus and Enterococcus faecalis. Continue ciprofloxacin and Augmentin for a total antibiotic duration of 2 weeks. Patient is status post surgical I and D performed on 03/07. Patient is taken back to OR on 03/09 for secondary closure of wound. Continue wound care per surgical team. Leukocytosis WBC of 14.4, likely reactive after surgery yesterday. Continue current antibiotics, continue to monitor closely. Patient had a fever this morning with a T-max of a 100.4, patient has been afebrile since. Continue to monitor. Anemia Patient symptomatic at this time, with tachycardia. Patient such received blood transfusion today. -medical management per primary team -plan of care discussed with Dr. Rider Thank you for consultation
[2021-03-10] MEDS ORDERED: NA CHLORIDE 0.9% 250 ML ONE (12:45)
--- NOTE | 2021-03-10 14:36 | DS ---
The patient is markedly better after drainage yesterday. She says her pain has improved . We will plan surgery tomorrow, debride and closure. She will be n.p.o. at midnight. She is taking a large dose of Tylenol from all procedures. This may be a cause. JANIE Voice ID: [id number] Report ID: [id number] [facility]
--- NOTE | 2021-03-10 16:08 | P.PN ---
Subjective Date of Service: 03/10/21 Primary Care Provider: Kayla Chief Complaint: cellulitis Patient with intermittent fever. Status post secondary wound closure yesterday. Patient still has tachycardia. Physical Examination - Vital Signs Temperature: 98.1 F Blood Pressure: 115/60 Pulse: 115 Respirations: 16 Pulse Ox (%): 97 Assessment And Plan - Plan Physical exam GEN: Alert, oriented. HEENT: Normal conjunctiva, sclera anicteric CV: sinus tachycardia, no murmur, no edema Pulm: Clear to auscultation bilaterally. ABD: Soft, nontender, nondistended Integumentary: Left inner thigh wound dressed. Neuro: No focal motor deficit. Problem List Cellulitis of left inner thigh Iron deficiency anemia/anemia of chronic disease Symptomatic anemia. Continue IV fluid Patient took 3 different oral antibiotics as an outpatient and failed, ID is following. Status post I&D and secondary wound closure by Dr. Lou. Deep tissue wound culture grew Enterococcus and staph hemolyticus all sensitive to ciprofloxacin. Repeat deep tissue wound culture is showing mixed skin daisha. Continue IV ciprofloxacin and oral Augmentin. Leukocytosis is unchanged and could be reactive to surgery. Hemoglobin remains at 8.6. Will transfuse 1 unit for symptomatic anemia Ultrasound showing fatty liver. LFTs trended down. Continue iron therapy. Pain management.
[2021-03-11] MEDS: MORPHINE 2 MG/ML SYR IV PRN ×4 (01:43→20:55)
[2021-03-11] MEDS: NA CHLORIDE 0.9% 1,000 ML IV SCH ×2 (05:08→16:54)
[2021-03-11] MEDS: TRAMADOL HCL 50 MG TAB PO PRN ×3 (05:51→17:58)
[2021-03-11] MEDS: AMOX/K CLAV 875 MG TAB PO SCH (09:09)
[2021-03-11] MEDS: CIPROFLOXACIN HCL 500 MG TAB PO SCH ×2 (09:09→20:55)
[2021-03-11 10:22] LABS: Absolute Lymphocytes (CBC) 1.1 K/uL (0.7-4.9); Basophils % 0.2 % (0-1.3); Hematocrit 30.5 % (36.0-45.0); Lymphocytes % 5.8 % (15.3-44.8); MPV 6.5 fL (7.6-11.3); RBC Red Blood Cell Count 3.41 M/uL (3.86-4.86)
[2021-03-11] MEDS: SOD FERRIC GLUC COMPLX/SUCROSE 125 MG in NA CHLORIDE 0.9% 100 ML IV SCH (10:27)
[2021-03-11 10:41] LABS: BUN Blood Urea Nitrogen 4 mg/dL (7-18); Bicarbonate 26 mmol/L (21-32); Glucose Level 132 mg/dL (74-106); Sodium Level 138 mmol/L (136-145)
[2021-03-11] MEDS ORDERED: VANCOMYCIN 1.5 GM in NA CHLORIDE 0.9% 500 ML IVPB ONE (11:00)
--- NOTE | 2021-03-11 11:05 | P.PN ---
Subjective Date of Service: 03/11/21 Primary Care Provider: Kayla Chief Complaint: cellulitis Patient seen examined at bedside, having symptomatic anemia, awaiting blood transfusion. Patient was taken back to OR yesterday for secondary closure of the leg wound. Surgery went well with no complications. Physical Examination - Vital Signs Temperature: 98.8 F Blood Pressure: 131/71 Pulse: 111 Respirations: 22 Pulse Ox (%): 99 - Studies Microbiology Data (last 24 hrs): 03/05/21 20:51 Blood - Blood Aerobic Blood Culture - Final No growth in 5 days. 03/05/21 20:51 Blood - Blood Anaerobic Blood Culture - Final No growth in 5 days. 03/05/21 20:07 Blood - Blood Aerobic Blood Culture - Final No growth in 5 days. 03/05/21 20:07 Blood - Blood Anaerobic Blood Culture - Final No growth in 5 days. Assessment And Plan - Plan Physical exam General: Alert, In no apparent distress, Oriented x3 HEENT: Atraumatic, Normocephalic Neck: Supple, 2+ carotid pulse no bruit Respiratory: Clear to auscultation bilaterally, Normal air movement Cardiovascular: No edema, Normal pulses Gastrointestinal: Normal bowel sounds, Hypoactive, Soft and benign Musculoskeletal: Other (Wrapped left kidney status post surgical I and D--patient has open wound. Please see nursing notes for wound measurements.) Conclusions/Impression: Antibiotics: Ciprofloxacin Start: 03/08 Augmentin Start: 03/09 Vancomycin Start: 03/06 Stop: 03/08 Cefepime Start: 03/06 Stop: 03/08 Assessment/plan Cellulitis of left knee status post liposuction Patient failed outpatient oral antibiotic therapy. Wound culture growing a strep hemolyticus and Enterococcus faecalis. Continue ciprofloxacin and Augmentin for a total antibiotic duration of 2 weeks. Patient is status post surgical I and D performed on 03/07. Patient is taken back to OR on 03/09 for secondary closure of wound. Continue wound care per surgical team. Leukocytosis WBC of 14.4, likely reactive after surgery yesterday. Continue current antibiotics, continue to monitor closely. Patient had a fever this morning with a T-max of a 100.4, patient has been afebrile since. Continue to monitor. Anemia Patient symptomatic at this time, with tachycardia. Patient such received blood transfusion today. -medical management per primary team -plan of care discussed with Dr. Rider Thank you for consultation
--- NOTE | 2021-03-11 11:50 | P.PN ---
Subjective Date of Service: 03/11/21 Primary Care Provider: Kayla Chief Complaint: cellulitis Patient seen examined at bedside, WBC increasing, Augmentin discontinued and IV vancomycin started. Review of Systems 10-point ROS is otherwise unremarkable Physical Examination - Vital Signs Temperature: 98.8 F Blood Pressure: 131/71 Pulse: 111 Respirations: 22 Pulse Ox (%): 99 - Studies Laboratory Last Values WBC 13.20 K/uL (4.3-10.9) H 03/05/21 20:07 RBC 2.96 M/uL (3.86-4.86) L 03/05/21 20:07 Hgb 9.2 g/dL (12.0-15.0) L 03/05/21 20:07 Hct 27.1 % (36.0-45.0) L 03/05/21 20:07 MCV 91.2 fL (80-100) 03/05/21 20:07 MCH 31.2 pg (27.0-35.0) 03/05/21 20:07 MCHC 34.2 g/dL (32.0-36.0) 03/05/21 20:07 RDW 17.5 % (12.1-15.2) H 03/05/21 20:07 Plt Count 474 K/uL (152-406) H 03/05/21 20:07 MPV 7.0 fL (7.6-11.3) L 03/05/21 20:07 Neutrophils % 84.1 % (41.7-73.7) H 03/05/21 20:07 Lymphocytes % 5.7 % (15.3-44.8) L 03/05/21 20:07 Monocytes % 7.9 % (3.3-12.3) 03/05/21 20:07 Eosinophils % 2.0 % (0-4.4) 03/05/21 20:07 Basophils % 0.3 % (0-1.3) 03/05/21 20:07 Absolute Neutrophils 11.1 K/uL (1.8-8.0) H 03/05/21 20:07 Absolute Lymphocytes 0.8 K/uL (0.7-4.9) 03/05/21 20:07 Absolute Monocytes 1.0 K/uL (0.1-1.3) 03/05/21 20:07 Absolute Eosinophils 0.3 K/uL (0-0.5) 03/05/21 20:07 Absolute Basophils 0.0 K/uL (0-0.5) 03/05/21 20:07 PT 14.7 SECONDS (9.5-12.5) H 03/05/21 20:07 INR 1.28 03/05/21 20:07 Sodium 135 mmol/L (136-145) L 03/05/21 20:07 Potassium 3.1 mmol/L (3.5-5.1) L 03/05/21 20:07 Chloride 96 mmol/L (98-107) L 03/05/21 20:07 Carbon Dioxide 28 mmol/L (21-32) 03/05/21 20:07 BUN 5 mg/dL (7-18) L 03/05/21 20:07 Creatinine 0.78 mg/dL (0.55-1.3) 03/05/21 20:07 Estimated GFR 85 mL/min (=/>90) L 03/05/21 20:07 Glucose 153 mg/dL (74-106) H 03/05/21 20:07 Lactic Acid 0.9 mmol/L (0.4-2.0) 03/05/21 20:07 Calcium 9.1 mg/dL (8.5-10.1) 03/05/21 20:07 Magnesium 2.0 mg/dL (1.8-2.4) 03/05/21 20:07 Total Bilirubin 0.8 mg/dL (0.2-1.0) 03/05/21 20:07 Direct Bilirubin 0.4 mg/dL (0-0.2) H 03/05/21 20:07 AST 77 U/L (15-37) H 03/05/21 20:07 ALT 119 U/L (12-78) H 03/05/21 20:07 Alkaline Phosphatase 227 U/L (45-117) H 03/05/21 20:07 Rapid Troponin I < 0.02 ng/mL (0.0-0.045) 03/05/21 20:07 Serum Total Protein 7.7 g/dL (6.4-8.2) 03/05/21 20:07 Albumin 2.7 g/dL (3.4-5.0) L 03/05/21 20:07 Globulin 5.0 g/dL (2.3-3.5) H 03/05/21 20:07 Albumin/Globulin Ratio 0.5 (1.1-1.8) L 03/05/21 20:07 Procalcitonin 0.16 ng/mL (<0.050) H 03/05/21 20:07 Urine pH 6.0 (5.0-7.0) 03/05/21 20:20 Ur Specific [place] <=1.005 (1.005-1.030) 03/05/21 20:20 Glucose (UA)(Auto) Negative (Negative) 03/05/21 20:20 Urine Ketones Negative (Negative) 03/05/21 20:20 Urine Blood 2+ (Negative) H 03/05/21 20:20 Urine Nitrite Negative (Negative) 03/05/21 20:20 Ur Leukocyte Esterase Negative (Negative) 03/05/21 20:20 Urine Total Protein Negative (Negative) 03/05/21 20:20 SARS-CoV-2 Rap RNA(RT-PCR) Negative (NEGATIVE) 03/05/21 22:41 Microbiology Data (last 24 hrs): 03/05/21 20:51 Blood - Blood Aerobic Blood Culture - Final No growth in 5 days. 03/05/21 20:51 Blood - Blood Anaerobic Blood Culture - Final No growth in 5 days. 03/05/21 20:07 Blood - Blood Aerobic Blood Culture - Final No growth in 5 days. 03/05/21 20:07 Blood - Blood Anaerobic Blood Culture - Final No growth in 5 days. Assessment And Plan - Plan Physical exam General: Alert, In no apparent distress, Oriented x3 HEENT: Atraumatic, Normocephalic Neck: Supple, 2+ carotid pulse no bruit Respiratory: Clear to auscultation bilaterally, Normal air movement Cardiovascular: No edema, Normal pulses Gastrointestinal: Normal bowel sounds, Hypoactive, Soft and benign Musculoskeletal: Other (Wrapped left kidney status post surgical I and D--patient has open wound. Please see nursing notes for wound measurements.) Conclusions/Impression: Antibiotics: Ciprofloxacin Start: 03/08 Vancomycin Start: 03/06 Stop: 03/08 Restart: 03/11 Augmentin Start: 03/09 Stop: 03/11 Cefepime Start: 03/06 Stop: 03/08 Assessment/plan Cellulitis of left knee status post liposuction Patient failed outpatient oral antibiotic therapy. Wound culture growing a strep hemolyticus and Enterococcus faecalis. Patient started on ciprofloxacin and Augmentin based off susceptibility cultures. However patient's WBC continues to increase, as such Augmentin discontinued in IV vancomycin restar kemar. Trough goal of 10-15. Continue to monitor renal function. Patient is status post surgical I and D performed on 03/07. Patient is taken back to OR on 03/09 for secondary closure of wound. Continue wound care per surgical team. Leukocytosis WBC up trending, today patient has white count of 18.7. Coverage expanded with IV vancomycin. If WBC continues to increase recommend adding IV Flagyl. Anemia Patient symptomatic at this time, with tachycardia. Patient such received blood transfusion today. -medical management per primary team -plan of care discussed with Dr. Rider Thank you for consultation
[2021-03-11] MEDS: VANCOMYCIN 1.5 GM in NA CHLORIDE 0.9% 500 ML IVPB SCH ×2 (12:24→22:47)
[2021-03-11 13:29] LABS: Blood Morphology Comment NOT SEEN (NOT SEEN); Platelet Estimate INCR; Platelets, Giant PRESENT
--- NOTE | 2021-03-11 15:52 | P.PN ---
Subjective Date of Service: 03/11/21 Primary Care Provider: Kayla Chief Complaint: cellulitis No fever today but patient remains tachycardic though the tachycardia has improved after blood transfusion. Leukocytosis trended up. Physical Examination - Vital Signs Temperature: 99.2 F Blood Pressure: 110/65 Pulse: 105 Respirations: 22 Pulse Ox (%): 99 - Studies Microbiology Data (last 24 hrs): 03/05/21 20:51 Blood - Blood Aerobic Blood Culture - Final No growth in 5 days. 03/05/21 20:51 Blood - Blood Anaerobic Blood Culture - Final No growth in 5 days. 03/05/21 20:07 Blood - Blood Aerobic Blood Culture - Final No growth in 5 days. 03/05/21 20:07 Blood - Blood Anaerobic Blood Culture - Final No growth in 5 days. Assessment And Plan - Plan Physical exam GEN: Alert, oriented. HEENT: Normal conjunctiva, sclera anicteric CV: sinus tachycardia, no murmur, no edema Pulm: Clear to auscultation bilaterally. ABD: Soft, nontender, nondistended Integumentary: Left inner thigh wound dressed. Neuro: No focal motor deficit. Problem List Cellulitis of left inner thigh Iron deficiency anemia/anemia of chronic disease Symptomatic anemia. Continue IV fluid Status post I&D and secondary wound closure by Dr. Lou. Deep tissue wound culture grew Enterococcus and staph hemolyticus all sensitive to ciprofloxacin. Repeat deep tissue wound culture is showing mixed skin daisha. Patient with leukocytosis trending up and persistent tachycardia. Infectious disease changed antibiotics to IV vancomycin and oral Cipro. Blood cultures repeated. Status post 1 unit PRBC transfusion for symptomatic anemia. Posttransfusion hemoglobin is up to 10. Ultrasound showing fatty liver. LFTs trended down. Continue iron therapy. Pain management.
[2021-03-11] MEDS: LACTOBACILLUS/ACIDOPHILUS TAB PO SCH (20:55)
[2021-03-11] MEDS ORDERED: VANCOMYCIN 1.25 GM in NA CHLORIDE 0.9% 250 ML IVPB SCH (23:00)
[2021-03-12] MEDS: TRAMADOL HCL 50 MG TAB PO PRN ×3 (00:16→13:57)
[2021-03-12] MEDS: MORPHINE 2 MG/ML SYR IV PRN ×3 (03:16→23:25)
[2021-03-12] MEDS: NA CHLORIDE 0.9% 1,000 ML IV SCH ×2 (06:08→13:59)
[2021-03-12 06:13] LABS: Absolute Lymphocytes (CBC) 0.9 K/uL (0.7-4.9); Basophils % 0.5 % (0-1.3); Hematocrit 31.8 % (36.0-45.0); Lymphocytes % 5.7 % (15.3-44.8); MPV 6.7 fL (7.6-11.3); RBC Red Blood Cell Count 3.53 M/uL (3.86-4.86)
[2021-03-12 06:31] LABS: BUN Blood Urea Nitrogen 5 mg/dL (7-18); Bicarbonate 26 mmol/L (21-32); Glucose Level 100 mg/dL (74-106); Potassium 4.2 mmol/L (3.5-5.1); Sodium Level 135 mmol/L (136-145)
[2021-03-12] MEDS: CIPROFLOXACIN HCL 500 MG TAB PO SCH (09:13)
[2021-03-12] MEDS: SOD FERRIC GLUC COMPLX/SUCROSE 125 MG in NA CHLORIDE 0.9% 100 ML IV SCH (09:13)
[2021-03-12] MEDS: LACTOBACILLUS/ACIDOPHILUS TAB PO SCH ×2 (09:14→21:27)
[2021-03-12] MEDS: ACETAMINOPHEN 500 MG TAB PO PRN (09:26)
[2021-03-12] MEDS: VANCOMYCIN 1.5 GM in NA CHLORIDE 0.9% 500 ML IVPB SCH (11:27)
--- NOTE | 2021-03-12 14:55 | P.PN ---
Subjective Date of Service: 03/12/21 Primary Care Provider: Kayla Chief Complaint: cellulitis Patient states she feels better today. Leukocytosis now trending down. Platelet count increased. Patient continued to have intermittent fever. Physical Examination - Vital Signs Temperature: 99.0 F Blood Pressure: 124/74 Pulse: 113 Respirations: 20 Pulse Ox (%): 99 Assessment And Plan - Plan Physical exam GEN: Alert, oriented. HEENT: Normal conjunctiva, sclera anicteric CV: sinus tachycardia, no murmur, no edema Pulm: Clear to auscultation bilaterally. ABD: Soft, nontender, nondistended Integumentary: Left inner thigh wound dressed. Neuro: No focal motor deficit. Problem List Cellulitis of left inner thigh Iron deficiency anemia/anemia of chronic disease Symptomatic anemia. Continue IV fluid Status post I&D and secondary wound closure by Dr. Lou. Deep tissue wound culture grew Enterococcus and staph hemolyticus all sensitive to ciprofloxacin. Repeat deep tissue wound culture is showing mixed skin daisha. Patient with leukocytosis, thrombocytosis and tachycardia. Leukocytosis and thrombocytosis likely reactive to inflammation and infection. infectious disease changed antibiotics to IV vancomycin and oral Cipro. Blood cultures repeated. Status post 1 unit PRBC transfusion for symptomatic anemia. Posttransfusion hemoglobin is up to 10. Ultrasound showing fatty liver. LFTs trended down. Continue iron therapy. Pain management.
[2021-03-12] MEDS ORDERED: LINEZOLID 600 MG IVPB 600 MG/300 ML BAG IV ONE (20:11)
[2021-03-12] MEDS ORDERED: Meropenem 500 MG VIAL IV ONE (20:43)
[2021-03-12] MEDS ORDERED: NA CHLORIDE 0.9% 100 ML ONE (20:58)
--- NOTE | 2021-03-12 21:05 | RAD REPORT ---
EXAM DESCRIPTION: CT - Chest For Pe Angio - 03/12/2021 8:40 pm CLINICAL HISTORY: Shortness of breath COMPARISON: None. TECHNIQUE: Dynamically enhanced axial 3 mm thick images of the chest were obtained during administra tion of <100> mL Isovue 370 IV contrast. Coronal and oblique reconstruction images were generated and reviewed. Exam utilizes a protocol for optimal evaluation of pulmonary arterial tree. Maximum intensity projections 3D imaging was utilized All CT scans are performed using dose optimization technique as appropriate and may include automated exposure control or mA/KV adjustment according to patient size. FINDINGS: The opacification of pulmonary arteries is suboptimal. A gross pulmonary embolus is not se en. A thoracic aortic aneurysm is not noted. A pleural effusion is not seen. A pericardial effusion is not seen. Lungs are clear Bilateral breast implants IMPRESSION: No gross evidence of a pulmonary embolus. Lungs are clear. Typical pulmonary findings of a fat embolus include lung consolidation, ground-glass opacities and nodules.
[2021-03-12] MEDS: Meropenem 500 MG/100 ML BAG IV SCH (21:26)
[2021-03-12] MEDS: LINEZOLID 600 MG IVPB 600 MG/300 ML BAG IV SCH (22:00)
[2021-03-13] MEDS: Meropenem 500 MG/100 ML BAG IV SCH (03:30)
[2021-03-13 03:56] LABS: Absolute Lymphocytes (CBC) 1.1 K/uL (0.7-4.9); Basophils % 0.7 % (0-1.3); Hematocrit 29.2 % (36.0-45.0); Lymphocytes % 6.6 % (15.3-44.8); MPV 6.6 fL (7.6-11.3); RBC Red Blood Cell Count 3.27 M/uL (3.86-4.86)
[2021-03-13] MEDS ORDERED: NA CHLORIDE 0.9% 100 ML ONE (04:08)
[2021-03-13 04:13] LABS: ALT/SGPT 55 U/L (12-78); AST/SGOT 45 U/L (15-37); Albumin 2.3 g/dL (3.4-5.0); Alkaline Phosphatase 212 U/L (45-117); BUN Blood Urea Nitrogen 4 mg/dL (7-18); Bicarbonate 25 mmol/L (21-32); Bilirubin Total 0.6 mg/dL (0.2-1.0); Glucose Level 117 mg/dL (74-106); Protein, Total 7.1 g/dL (6.4-8.2); Sodium Level 136 mmol/L (136-145)
[2021-03-13] MEDS: NA CHLORIDE 0.9% 1,000 ML IV SCH ×2 (04:15→18:34)
[2021-03-13] MEDS: MORPHINE 2 MG/ML SYR IV PRN ×3 (05:17→18:34)
[2021-03-13] MEDS: ENOXAPARIN 40 MG/0.4 ML SQ SCH (09:46)
[2021-03-13] MEDS: ACETAMINOPHEN 500 MG TAB PO PRN (09:46)
[2021-03-13] MEDS: LACTOBACILLUS/ACIDOPHILUS TAB PO SCH ×2 (09:46→21:06)
[2021-03-13] MEDS: LINEZOLID 600 MG IVPB 600 MG/300 ML BAG IV SCH ×2 (09:47→21:59)
[2021-03-13] MEDS: SOD FERRIC GLUC COMPLX/SUCROSE 125 MG in NA CHLORIDE 0.9% 100 ML IV SCH (09:47)
[2021-03-13] MEDS: Meropenem 1 GM/100 ML BAG IV SCH ×2 (12:18→21:05)
[2021-03-13] MEDS: ENSURE ENLIVE 237 ML CAN PO SCH ×2 (13:39→21:06)
--- NOTE | 2021-03-13 13:45 | P.PN ---
Subjective Date of Service: 03/13/21 Primary Care Provider: Kayla Chief Complaint: cellulitis No fever today Leukocytosis continue to trend down. Patient endorsed loss of appetite. Platelet count also trended down today. Physical Examination - Vital Signs Temperature: 98.6 F Blood Pressure: 117/69 Pulse: 107 Respirations: 18 Pulse Ox (%): 99 Assessment And Plan - Plan Physical exam GEN: Alert, oriented. HEENT: Normal conjunctiva, sclera anicteric CV: sinus tachycardia, no murmur, no edema Pulm: Clear to auscultation bilaterally. ABD: Soft, nontender, nondistended Integumentary: Left inner thigh looks clean, no discharge, sutures intact. Indurations noted on the medial and lateral aspect of the left thigh. Neuro: No focal motor deficit. Problem List Cellulitis of left inner thigh Iron deficiency anemia/anemia of chronic disease Symptomatic anemia. Continue IV fluid Status post debridement and secondary wound closure by Dr. Lou. Wound culture grew Enterococcus and staph hemolyticus all sensitive to ciprofloxacin. Repeat deep tissue wound culture is showing mixed skin daisha. Patient with leukocytosis, thrombocytosis and tachycardia. Leukocytosis and thrombocytosis likely reactive to inflammation and infection. Antibiotics changed to IV meropenem and Zyvox per ID recommendation. ID recommend MRI of the left lower extremity which will be done tomorrow. Repeat blood culture shows no growth. Status post 1 unit PRBC transfusion for symptomatic anemia. Posttransfusion hemoglobin is up to 10. Ultrasound showing fatty liver. LFTs trended down. Continue iron therapy. Lovenox for DVT prophylaxis. Patient was supposed to follow-up with Dr. Lou in his office Sunday. Dr. Lou informed if he will follow with patient here in the hospital tomorrow. Pain management.
[2021-03-14] MEDS: MORPHINE 2 MG/ML SYR IV PRN ×4 (00:23→20:05)
[2021-03-14] MEDS: Meropenem 1 GM/100 ML BAG IV SCH ×3 (04:00→20:05)
[2021-03-14 05:36] LABS: Absolute Lymphocytes (CBC) 1.3 K/uL (0.7-4.9); Basophils % 1.4 % (0-1.3); Hematocrit 31.5 % (36.0-45.0); Lymphocytes % 6.8 % (15.3-44.8); MPV 6.5 fL (7.6-11.3); RBC Red Blood Cell Count 3.52 M/uL (3.86-4.86)
[2021-03-14 06:03] LABS: BUN Blood Urea Nitrogen 5 mg/dL (7-18); Bicarbonate 26 mmol/L (21-32); Glucose Level 113 mg/dL (74-106); Potassium 4.1 mmol/L (3.5-5.1); Sodium Level 138 mmol/L (136-145)
[2021-03-14] MEDS: SOD FERRIC GLUC COMPLX/SUCROSE 125 MG in NA CHLORIDE 0.9% 100 ML IV SCH (09:16)
[2021-03-14] MEDS: ENOXAPARIN 40 MG/0.4 ML SQ SCH (09:16)
[2021-03-14] MEDS: LACTOBACILLUS/ACIDOPHILUS TAB PO SCH ×2 (09:16→20:06)
[2021-03-14] MEDS: LINEZOLID 600 MG IVPB 600 MG/300 ML BAG IV SCH ×2 (09:17→21:35)
[2021-03-14] MEDS: ENSURE ENLIVE 237 ML CAN PO SCH ×3 (09:17→20:11)
--- NOTE | 2021-03-14 09:45 | RAD REPORT ---
EXAM DESCRIPTION: MRI - Knee Left W/Wo Cont - 03/14/2021 8:48 am CLINICAL HISTORY: cellulitis Pain and swelling COMPARISON: No comparisons FINDINGS: There is thickening of the skin and moderate fluid and inflammation seen along the medial distal thigh superficial soft tissues. The inflammatory changes extend a maximum of 15 mm below the s kin surface. Several hypointense rounded foci within the inflamed tissue may represent air bubbles. S mall T2 hyperintense oblong collections in the region likely represent small amounts of fluid. No ext ension into the knee joint. No myositis or osteomyelitis pattern. IMPRESSION: Cellulitis and subcutaneous inflammatory changes seen involving the medial soft tissues of the distal right thigh. Small focal collections of fluid are present within the inflamed tissue wh ich could represent small abscesses. No myositis or osteomyelitis. No extension into the knee joint itself.
--- NOTE | 2021-03-14 11:05 | P.PN ---
Subjective Date of Service: 03/14/21 Primary Care Provider: Kayla Chief Complaint: cellulitis Patient seen examined at bedside, WBC increasing, annual abscess formation on the left lateral buttocks. Review of Systems 10-point ROS is otherwise unremarkable Physical Examination - Vital Signs Temperature: 97.3 F Blood Pressure: 102/61 Pulse: 111 Respirations: 18 Pulse Ox (%): 99 - Studies Microbiology 03/05/21 20:51 Blood - Blood Aerobic Blood Culture - Final No growth in 5 days. 03/05/21 20:51 Blood - Blood Anaerobic Blood Culture - Final No growth in 5 days. 03/05/21 20:07 Blood - Blood Aerobic Blood Culture - Final No growth in 5 days. 03/05/21 20:07 Blood - Blood Anaerobic Blood Culture - Final No growth in 5 days. 03/05/21 21:13 Wound - L Leg (Upper) Gram Stain - Final 03/05/21 21:13 Wound - L Leg (Upper) Culture & Sensitivity - Final Staphylococcus Haemolyticus Enterococcus Faecalis Assessment And Plan - Plan Physical exam General: Alert, In no apparent distress, Oriented x3 HEENT: Atraumatic, Normocephalic Neck: Supple, 2+ carotid pulse no bruit Respiratory: Clear to auscultation bilaterally, Normal air movement Cardiovascular: No edema, Normal pulses Gastrointestinal: Normal bowel sounds, Hypoactive, Soft and benign Musculoskeletal: Left knee surgical incision with Steri-Strips status post debridement. Left lateral buttocks redness/induration. Purulent drainage expressed. Right lateral buttocks: Redness/induration. Conclusions/Impression: Antibiotics: current: Zyvox start: 03/12 merum start: 03/13 DC: Ciprofloxacin Start: 03/08 Stop: 03/12 Vancomycin Start: 03/06 Stop: 03/08 Restart: 03/11 Stop: 03/12 Augmentin Start: 03/09 Stop: 03/11 Cefepime Start: 03/06 Stop: 03/08 Assessment/plan Cellulitis of left knee status post liposuction Patient failed outpatient oral antibiotic therapy. Wound culture growing a strep hemolyticus and Enterococcus faecalis. Patient started on ciprofloxacin and Augmentin based off susceptibility cultures. However patient's WBC continues to increase, as such Augmentin discontinued in IV vancomycin restarted. Patient continued to have rising in WBC, and was febrile. Vancomycin discontinued, zyvox and meropenem started. Continue to monitor renal function. Patient is status post surgical debridement of wound performed on 03/07. Patient was taken back to OR on 03/09 for secondary closure of wound. Continue wound care per surgical team. MRI obtained on 03/12 due to increasing leukocytosis--showed a small fluid collections concerning for small abscesses. Left lateral buttocks abscess Wound culture pending. Surgery on board. Leukocytosis Continue to monitor WBC trend fever curve. Continue broad-spectrum IV antibiotics. Continue probiotic Protein caloric malnutrition Patient has decreased appetite, likely related to antibiotics. Continue scheduled Ensure protein drinks. Anemia Status post blood transfusion. Continue to monitor H&H. Hemoglobin stabilized. -medical management per primary team -plan of care discussed with Dr. Rider Thank you for consultation
[2021-03-14] MEDS: NA CHLORIDE 0.9% 1,000 ML IV SCH (12:16)
[2021-03-14] MEDS: SILVER SULFADIAZINE 1% 50 GM TOP SCH ×2 (12:16→21:39)
--- NOTE | 2021-03-14 12:27 | PN ---
Subjective: The patient is lying in bed, feels much better today. Denies any problems with the new antibiotics. Objective: Vital Signs: Temperature 98.6, pulse 107, respirations 18, blood pressure 117/69. Lungs: Clear to auscultation. Heart: S1, S2. Regular. Abdomen: Soft, nontender. Bowel sounds present. Extremities: In surgical dressing, left knee area. Laboratory Data: Shows WBC 30244, hemoglobin 9.8, platelets . Chemistry shows sodium 136, potassium 4, chloride 103, bicarb 25, BUN 4, creatinine 0.6, glucose 117. Assessment And Plan: The patient with surgical debridement and cellulitis of left knee, status post liposuction, doing better. Leukocytosis improving. The patient to continue antibiotic, include Zyvo x and meropenem. We will follow the patient closely. No other recommendation at this time. NF/MODL Voice ID: [id number] Report ID: [id number]
--- NOTE | 2021-03-14 14:58 | P.PN ---
Subjective Date of Service: 03/14/21 Primary Care Provider: Kayla Chief Complaint: cellulitis No event over the last couple of days Leukocytosis fluctuates Platelet count up to 1000,000. Patient noted to have left buttock wound with drainage. An abscess suspected. Physical Examination - Vital Signs Temperature: 97.1 F Blood Pressure: 110/71 Pulse: 105 Respirations: 14 Pulse Ox (%): 100 Assessment And Plan - Plan Physical exam GEN: Alert, oriented. HEENT: Normal conjunctiva, sclera anicteric CV: sinus tachycardia, no murmur, no edema Pulm: Clear to auscultation bilaterally. ABD: Soft, nontender, nondistended Integumentary: Left inner thigh looks clean, no discharge, sutures intact. Indurations noted on the medial and lateral aspect of the left thigh. Left buttocks wound/ abscess Neuro: No focal motor deficit. Problem List Cellulitis of left inner thigh Iron deficiency anemia/anemia of chronic disease Symptomatic anemia. Continue IV fluid Status post debridement and secondary wound closure by Dr. Lou. Wound culture grew Enterococcus and staph hemolyticus all sensitive to ciprofloxacin. Repeat deep tissue wound culture is showing mixed skin daisha. Patient with leukocytosis, thrombocytosis and tachycardia. Leukocytosis and thrombocytosis likely reactive to inflammation and infection. Antibiotics changed to IV meropenem and Zyvox per ID recommendation. Thrombocytosis continue to worsen. Hematology oncology consulted to evaluate. MRI of the left knee shows 1.5 cm layer of cellulitis and inflammation on the left distal aspect of the thigh and small fluid collections. Patient noted to have left buttocks wound with discharge-Suspicion for an abscess. Repeat blood culture shows no growth. Patient seen by Dr. Lou who examined her wounds today. He plans to explore the wound tomorrow if no clinical improvement. Status post 1 unit PRBC transfusion for symptomatic anemia. Posttransfusion hemoglobin is up to 10. Ultrasound showing fatty liver. LFTs trended down. Patient received 5 days of IV iron therapy. Will discontinue IV iron. Lovenox for DVT prophylaxis. Add low dose aspirin given risk of thrombosis with her thrombocytosis. Pain management.
[2021-03-15] MEDS: Meropenem 1 GM/100 ML BAG IV SCH ×3 (03:39→20:31)
[2021-03-15] MEDS: MORPHINE 2 MG/ML SYR IV PRN ×4 (03:39→23:37)
[2021-03-15] MEDS: NA CHLORIDE 0.9% 1,000 ML IV SCH ×2 (03:40→17:25)
[2021-03-15 05:21] LABS: Absolute Lymphocytes (CBC) 1.1 K/uL (0.7-4.9); Basophils % 0.5 % (0-1.3); Hematocrit 29.9 % (36.0-45.0); MPV 6.6 fL (7.6-11.3); RBC Red Blood Cell Count 3.34 M/uL (3.86-4.86)
[2021-03-15 05:51] LABS: ALT/SGPT 44 U/L (12-78); AST/SGOT 23 U/L (15-37); Albumin 2.3 g/dL (3.4-5.0); Alkaline Phosphatase 193 U/L (45-117); BUN Blood Urea Nitrogen 5 mg/dL (7-18); Bicarbonate 25 mmol/L (21-32); Bilirubin Total 0.3 mg/dL (0.2-1.0); Glucose Level 112 mg/dL (74-106); Magnesium 2.1 mg/dL (1.8-2.4); Potassium 4.2 mmol/L (3.5-5.1); Protein, Total 7.1 g/dL (6.4-8.2); Sodium Level 139 mmol/L (136-145)
--- NOTE | 2021-03-15 06:26 | P.PN ---
Date of Service: 03/15/21 Subjective: continues with pain in L thigh. denies nausea/vomiting, no SOB afebrile overnight to go to OR today for I&D ROS: 10 point ROS as noted above, otherwise negative Physical exam GEN: Alert, oriented, NAD HEENT: Normal conjunctiva, sclera anicteric CV: sinus tachycardia, no murmur, no edema Pulm: Nonlabored respirations on room air ABD: Soft, nontender, nondistended Integumentary: Erythema, warmth, tenderness of lateral upper thigh, +induration Neuro: Normal speech, normal affect Problem List Cellulitis and Abscess of left thigh Iron deficiency anemia/anemia of chronic disease Symptomatic anemia. s/p I&D and secondary wound closure by Dr. Lou. Wound Cx: Enterococcus and staph hemolyticus all sensitive to ciprofloxacin. Repeat deep tissue wound culture is showing mixed skin daisha. ID consulted, given her leukocytosis, thrombocytosis, tachycardia, ID recommended IV meropenem and Zyvox for now Thrombocytosis slightly improved, unclear etiology. Possibly reactive to infection, medication, or iron transfusion MRI of the left knee shows 1.5 cm layer of cellulitis and inflammation on the left distal aspect of the thigh and small fluid collections. Patient noted to have left upper thigh / buttocks wound with discharge Repeat blood culture shows no growth. plan for I&D today Hgb stable, no more SOB, s/p 1u PRBC Ultrasound showing fatty liver. LFTs trended down. Patient received 5 days of IV iron therapy. Lovenox for DVT prophylaxis Pain management. Dispo: anticipate dc home in ~2-3 days Time Spent Managing Pts Care (In Minutes): 35
[2021-03-15 06:49] LABS: Platelet Estimate INCR
[2021-03-15 06:50] LABS: Blood Morphology Comment NOT SEEN (NOT SEEN)
[2021-03-15] MEDS: ENSURE ENLIVE 237 ML CAN PO SCH ×3 (09:00→20:43)
[2021-03-15] MEDS: ENOXAPARIN 40 MG/0.4 ML SQ SCH (09:00)
[2021-03-15] MEDS: LACTOBACILLUS/ACIDOPHILUS TAB PO SCH ×2 (09:06→20:40)
[2021-03-15] MEDS: LINEZOLID 600 MG IVPB 600 MG/300 ML BAG IV SCH ×2 (09:07→20:35)
--- NOTE | 2021-03-15 11:00 | P.PN ---
Subjective Date of Service: 03/15/21 Primary Care Provider: Kayla Chief Complaint: cellulitis Patient seen examined at bedside, WBC down trending. Review of Systems 10-point ROS is otherwise unremarkable Physical Examination - Vital Signs Temperature: 97.9 F Blood Pressure: 115/74 Pulse: 108 Respirations: 16 Pulse Ox (%): 100 - Studies Laboratory Last Values WBC 13.20 K/uL (4.3-10.9) H 03/05/21 20:07 RBC 2.96 M/uL (3.86-4.86) L 03/05/21 20:07 Hgb 9.2 g/dL (12.0-15.0) L 03/05/21 20:07 Hct 27.1 % (36.0-45.0) L 03/05/21 20:07 MCV 91.2 fL (80-100) 03/05/21 20:07 MCH 31.2 pg (27.0-35.0) 03/05/21 20:07 MCHC 34.2 g/dL (32.0-36.0) 03/05/21 20:07 RDW 17.5 % (12.1-15.2) H 03/05/21 20:07 Plt Count 474 K/uL (152-406) H 03/05/21 20:07 MPV 7.0 fL (7.6-11.3) L 03/05/21 20:07 Neutrophils % 84.1 % (41.7-73.7) H 03/05/21 20:07 Lymphocytes % 5.7 % (15.3-44.8) L 03/05/21 20:07 Monocytes % 7.9 % (3.3-12.3) 03/05/21 20:07 Eosinophils % 2.0 % (0-4.4) 03/05/21 20:07 Basophils % 0.3 % (0-1.3) 03/05/21 20:07 Absolute Neutrophils 11.1 K/uL (1.8-8.0) H 03/05/21 20:07 Absolute Lymphocytes 0.8 K/uL (0.7-4.9) 03/05/21 20:07 Absolute Monocytes 1.0 K/uL (0.1-1.3) 03/05/21 20:07 Absolute Eosinophils 0.3 K/uL (0-0.5) 03/05/21 20:07 Absolute Basophils 0.0 K/uL (0-0.5) 03/05/21 20:07 PT 14.7 SECONDS (9.5-12.5) H 03/05/21 20:07 INR 1.28 03/05/21 20:07 Sodium 135 mmol/L (136-145) L 03/05/21 20:07 Potassium 3.1 mmol/L (3.5-5.1) L 03/05/21 20:07 Chloride 96 mmol/L (98-107) L 03/05/21 20:07 Carbon Dioxide 28 mmol/L (21-32) 03/05/21 20:07 BUN 5 mg/dL (7-18) L 03/05/21 20:07 Creatinine 0.78 mg/dL (0.55-1.3) 03/05/21 20:07 Estimated GFR 85 mL/min (=/>90) L 03/05/21 20:07 Glucose 153 mg/dL (74-106) H 03/05/21 20:07 Lactic Acid 0.9 mmol/L (0.4-2.0) 03/05/21 20:07 Calcium 9.1 mg/dL (8.5-10.1) 03/05/21 20:07 Magnesium 2.0 mg/dL (1.8-2.4) 03/05/21 20:07 Total Bilirubin 0.8 mg/dL (0.2-1.0) 03/05/21 20:07 Direct Bilirubin 0.4 mg/dL (0-0.2) H 03/05/21 20:07 AST 77 U/L (15-37) H 03/05/21 20:07 ALT 119 U/L (12-78) H 03/05/21 20:07 Alkaline Phosphatase 227 U/L (45-117) H 03/05/21 20:07 Rapid Troponin I < 0.02 ng/mL (0.0-0.045) 03/05/21 20:07 Serum Total Protein 7.7 g/dL (6.4-8.2) 03/05/21 20:07 Albumin 2.7 g/dL (3.4-5.0) L 03/05/21 20:07 Globulin 5.0 g/dL (2.3-3.5) H 03/05/21 20:07 Albumin/Globulin Ratio 0.5 (1.1-1.8) L 03/05/21 20:07 Procalcitonin 0.16 ng/mL (<0.050) H 03/05/21 20:07 Urine pH 6.0 (5.0-7.0) 03/05/21 20:20 Ur Specific [place] <=1.005 (1.005-1.030) 03/05/21 20:20 Glucose (UA)(Auto) Negative (Negative) 03/05/21 20:20 Urine Ketones Negative (Negative) 03/05/21 20:20 Urine Blood 2+ (Negative) H 03/05/21 20:20 Urine Nitrite Negative (Negative) 03/05/21 20:20 Ur Leukocyte Esterase Negative (Negative) 03/05/21 20:20 Urine Total Protein Negative (Negative) 03/05/21 20:20 SARS-CoV-2 Rap RNA(RT-PCR) Negative (NEGATIVE) 03/05/21 22:41 Assessment And Plan - Plan Physical exam General: Alert, In no apparent distress, Oriented x3 HEENT: Atraumatic, Normocephalic Neck: Supple, 2+ carotid pulse no bruit Respiratory: Clear to auscultation bilaterally, Normal air movement Cardiovascular: No edema, Normal pulses Gastrointestinal: Normal bowel sounds, Hypoactive, Soft and benign Musculoskeletal: Left knee surgical incision with Steri-Strips status post debridement. Left lateral buttocks redness/induration. Purulent drainage expressed. Right lateral buttocks: Redness/induration. Conclusions/Impression: Antibiotics: current: Zyvox start: 03/12 merum start: 03/13 DC: Ciprofloxacin Start: 03/08 Stop: 03/12 Vancomycin Start: 03/06 Stop: 03/08 Restart: 03/11 Stop: 03/12 Augmentin Start: 03/09 Stop: 03/11 Cefepime Start: 03/06 Stop: 03/08 Assessment/plan Cellulitis of left knee status post liposuction Patient failed outpatient oral antibiotic therapy. Wound culture growing a strep hemolyticus and Enterococcus faecalis. Patient started on ciprofloxacin and Augmentin based off susceptibility cultures. However patient's WBC continued to increase, as such Augmentin discontinued in IV vancomycin restarte d. Patient continued to have rising in WBC, and was febrile. Vancomycin discontinued, zyvox and meropenem started. Continue to monitor renal function. Patient is status post surgical debridement of wound performed on 03/07. Patient was taken back to OR on 03/09 for secondary closure of wound. Continue wound care per surgical team. MRI obtained on 03/12 due to increasing leukocytosis--showed a small fluid collections concerning for small abscesses. Left lateral buttocks abscess Wound culture pending. Surgery on board. Leukocytosis Continue to monitor WBC trend fever curve. Continue broad-spectrum IV antibiotics. Continue probiotic Protein caloric malnutrition Patient has decreased appetite, likely related to antibiotics. Continue scheduled Ensure protein drinks. Anemia Status post blood transfusion. Continue to monitor H&H. Hemoglobin stabilized. -medical management per primary team -plan of care discussed with Dr. Rider Thank you for consultation
[2021-03-15] MEDS: SILVER SULFADIAZINE 1% 50 GM TOP SCH ×2 (11:15→20:39)
[2021-03-15] MEDS ORDERED: LIDOCAINE 1% MPF 5 ML VIAL ONE (12:34)
[2021-03-15] MEDS ORDERED: FENTANYL CITR 100 MCG/2 ML ONE ×2 (12:34→13:03)
[2021-03-15] MEDS ORDERED: MIDAZOLAM HCL 2 MG/2 ML INJ ONE (12:34)
[2021-03-15] MEDS ORDERED: propofoL 200 MG/20 ML VIAL IV ONE (12:34)
[2021-03-15] MEDS ORDERED: dexAMETHasone 10 MG/ML VIAL ONE (13:02)
[2021-03-15] MEDS ORDERED: KETOROLAC 30 MG/ML INJ ONE (13:02)
[2021-03-15] MEDS ORDERED: ONDANSETRON 4 MG/2 ML VIAL ONE (13:03)
[2021-03-15] MEDS: HYDROMORPHONE HCL 1 MG/ML INJ ONE ×2 (13:46→13:55)
[2021-03-15] MEDS ORDERED: CODEINE 30MG/APAP 300MG TAB PO PRN (13:46)
--- NOTE | 2021-03-15 14:12 | OP ---
Surgeon: Caleb Lou MD Preoperative Diagnosis: Abscess of left hip. Postoperative Diagnosis: Abscess of left hip. Procedure Performed: Debridement of skin and subcutaneous tissue, I and D abscess. Anesthesia: General. Procedure In Detail: After satisfactory induction of general anesthesia, the patient was placed in t he right side down, the left lateral posterior hip and buttock area prepped with Betadine scrub and p aint, dry sterile drapes placed applied in usual manner. Elliptical incision was made over the absce ss. Cultures were taken of the necrotic material. The cavity was quite large, incision extended to approximately 10 cm length. The original site for the incision for the was also excised e llipse about 1 cm in diameter was communicated. A [place] drain was placed. The wound pa cked with Betadine-soaked 2 inch Irasema ABDs. The patient tolerated the procedure well and returned t o recovery. BHANU/JOSE Voice ID: [id number] Report ID: [id number]
[2021-03-16] MEDS: NA CHLORIDE 0.9% 1,000 ML IV SCH (03:40)
[2021-03-16] MEDS: Meropenem 1 GM/100 ML BAG IV SCH ×3 (04:15→21:02)
[2021-03-16] MEDS: MORPHINE 2 MG/ML SYR IV PRN ×3 (05:27→17:41)
--- NOTE | 2021-03-16 06:01 | P.PN ---
Date of Service: 03/16/21 Subjective: s/p I&D yesterday, reports severe pain when morphine wears off, concerned of taking any tylenol given elevated LFTs no nausea/vomiting, remains afebrile, tachycardia improving ROS: 10 point ROS as noted above, otherwise negative Physical exam GEN: Alert, oriented, NAD HEENT: Normal conjunctiva, sclera anicteric CV: sinus tachycardia, no murmur, no edema Pulm: Nonlabored respirations on room air ABD: Soft, nontender, nondistended Integumentary: erythema and induration of R hip, L hip: packed with dressing over, patient deferred exam, no erythema in distal thigh / knee area Neuro: Normal speech, normal affect Problem List Cellulitis and Abscess of left thigh Iron deficiency anemia/anemia of chronic disease Symptomatic anemia. s/p I&D and secondary wound closure by Dr. Lou. Wound Cx: Enterococcus and staph hemolyticus all sensitive to ciprofloxacin. Repeat deep tissue wound culture is showing mixed skin daisha. ID consulted, given her leukocytosis, thrombocytosis, tachycardia, ID michelle mmended IV meropenem and Zyvox for now Thrombocytosis slightly improved, most likely reactive to infection / surgery, discussed with Heme/Onc, no further workup indicated at this time MRI of the left knee shows 1.5 cm layer of cellulitis and inflammation on the left distal aspect of the thigh and small fluid collections. Patient noted to have left upper thigh / buttocks wound with discharge, now s/p I&D on 03/15 Hgb stable, no more SOB, s/p 1u PRBC Ultrasound showing fatty liver. LFTs trended down. Patient received 5 days of IV iron therapy. Lovenox for DVT prophylaxis Pain management. tentative plan to return to OR on 03/17 change tyelonol #3 to oxycodone for PO pain control, morphine for breakthrough Dispo: anticipate dc home in ~2 days Time Spent Managing Pts Care (In Minutes): 35
[2021-03-16 06:20] LABS: Absolute Lymphocytes (CBC) 1.2 K/uL (0.7-4.9); Basophils % 0.8 % (0-1.3); Hematocrit 30.4 % (36.0-45.0); Lymphocytes % 7.8 % (15.3-44.8); MPV 6.7 fL (7.6-11.3); RBC Red Blood Cell Count 3.36 M/uL (3.86-4.86)
[2021-03-16 06:36] LABS: BUN Blood Urea Nitrogen 9 mg/dL (7-18); Bicarbonate 26 mmol/L (21-32); Glucose Level 107 mg/dL (74-106); Potassium 4.2 mmol/L (3.5-5.1); Sodium Level 139 mmol/L (136-145)
[2021-03-16] MEDS: ENSURE ENLIVE 237 ML CAN PO SCH ×3 (09:00→21:02)
[2021-03-16] MEDS: ENOXAPARIN 40 MG/0.4 ML SQ SCH (09:23)
[2021-03-16] MEDS: OXYCODONE HCL 5 MG TAB PO PRN ×2 (09:24→21:00)
[2021-03-16] MEDS: LINEZOLID 600 MG IVPB 600 MG/300 ML BAG IV SCH ×2 (09:24→21:54)
[2021-03-16] MEDS: LACTOBACILLUS/ACIDOPHILUS TAB PO SCH ×2 (09:24→21:02)
[2021-03-16] MEDS: SILVER SULFADIAZINE 1% 50 GM TOP SCH ×2 (09:25→21:00)
--- NOTE | 2021-03-16 11:09 | P.PN ---
Subjective Date of Service: 03/16/21 Primary Care Provider: Kayla Chief Complaint: cellulitis Patient seen examined at bedside, status post surgical I and D of left buttocks abscess performed on 03/15. Patient tolerated surgery well. Review of Systems 10-point ROS is otherwise unremarkable Physical Examination - Vital Signs Temperature: 97.9 F Blood Pressure: 112/72 Pulse: 87 Respirations: 18 Pulse Ox (%): 98 - Studies Microbiology 03/05/21 20:51 Blood - Blood Aerobic Blood Culture - Final No growth in 5 days. 03/05/21 20:51 Blood - Blood Anaerobic Blood Culture - Final No growth in 5 days. 03/05/21 20:07 Blood - Blood Aerobic Blood Culture - Final No growth in 5 days. 03/05/21 20:07 Blood - Blood Anaerobic Blood Culture - Final No growth in 5 days. 03/05/21 21:13 Wound - L Leg (Upper) Gram Stain - Final 03/05/21 21:13 Wound - L Leg (Upper) Culture & Sensitivity - Final Staphylococcus Haemolyticus Enterococcus Faecalis Assessment And Plan - Plan Physical exam General: Alert, In no apparent distress, Oriented x3 HEENT: Atraumatic, Normocephalic Neck: Supple, 2+ carotid pulse no bruit Respiratory: Clear to auscultation bilaterally, Normal air movement Cardiovascular: No edema, Normal pulses Gastrointestinal: Normal bowel sounds, Hypoactive, Soft and benign Musculoskeletal: Left knee surgical incision with Steri-Strips status post debridement. Left lateral buttocks redness/induration. Purulent drainage expressed. Right lateral buttocks: Redness/induration. Conclusions/Impression: Antibiotics: current: Zyvox start: 03/12 merum start: 03/13 DC: Ciprofloxacin Start: 03/08 Stop: 03/12 Vancomycin Start: 03/06 Stop: 03/08 Restart: 03/11 Stop: 03/12 Augmentin Start: 03/09 Stop: 03/11 Cefepime Start: 03/06 Stop: 03/08 Assessment/plan Cellulitis of left knee status post liposuction Patient failed outpatient oral antibiotic therapy. Wound culture growing a strep hemolyticus and Enterococcus faecalis. Patient started on ciprofloxacin and Augmentin based off susceptibility cultures. However patient's WBC continued to increase, as such Augmentin discontinued in IV vancomycin restarted. Patient continued to have rising in WBC, and was febrile. Vancomycin discontinued, zyvox and meropenem started. Continue to monitor renal function. Patient is status post surgical debridement of wound performed on 03/07. Patient was taken back to OR on 03/09 for secondary closure of wound. Continue wound care per surgical team. MRI obtained on 03/12 due to increasing leukocytosis--showed a small fluid collections concerning for small abscesses. Left lateral buttocks abscess Status post surgical I and D performed on 03/15. Patient tolerated surgery well. Wound left open, wound care per surgical team. Leukocytosis Continue to monitor WBC trend fever curve. Continue broad-spectrum IV antibiotics. Continue probiotic Protein caloric malnutrition Patient has decreased appetite, likely related to antibiotics. Continue scheduled Ensure protein drinks. Anemia Status post blood transfusion. Continue to monitor H&H. Hemoglobin stabilized. -medical management per primary team -plan of care discussed with Dr. Rider Thank you for consultation
--- NOTE | 2021-03-16 13:20 | PN ---
The patient is afebrile. Still complaining of pain in the leg. The wound shows . We will plan on surgical debridement and possible closure. JANIE Voice ID: [id number] Report ID: [id number]
[2021-03-17] MEDS: MORPHINE 2 MG/ML SYR IV PRN ×4 (02:00→21:35)
[2021-03-17] MEDS: Meropenem 1 GM/100 ML BAG IV SCH ×3 (03:28→20:27)
[2021-03-17] MEDS: OXYCODONE HCL 5 MG TAB PO PRN ×3 (05:36→20:27)
--- NOTE | 2021-03-17 05:52 | P.PN ---
Date of Service: 03/17/21 Subjective: Continue can get very painful, too painful to walk at times White blood cell slightly increased, continues with intermittent tachycardia, seems related to pain N.p.o. for wound closure today ROS: 10 point ROS as noted above, otherwise negative Physical exam GEN: Alert, oriented, NAD HEENT: Normal conjunctiva, sclera anicteric CV: sinus tachycardia, no murmur, no edema Pulm: Nonlabored respirations on room air ABD: Soft, nontender, nondistended Integumentary: small area of erythema and induration of R hip, L hip: packed and covered with dressing, patient deferred exam, no erythema in distal thigh / knee area Neuro: Normal speech, normal affect Problem List Cellulitis and Abscess of left thigh s/p liposuction Iron deficiency anemia/anemia of chronic disease Symptomatic anemia. s/p I&D and secondary wound closure by Dr. Lou. Wound Cx: Enterococcus and staph hemolyticus all sensitive to ciprofloxacin. Repeat deep tissue wound culture is showing mixed skin daisha. ID consulted, given her leukocytosis, thrombocytosis, tachycardia, ID recommended IV meropenem and Zyvox for now Thrombocytosis slightly improved, most likely reactive to infection / surgery, discussed with Heme/Onc, no further workup indicated at this time MRI of the left knee shows 1.5 cm layer of cellulitis and inflammation on the left distal aspect of the thigh and small fluid collections. Patient noted to have left upper thigh / buttocks wound with discharge, now s/p I&D on 03/15 and plan for closure today Hgb stable, no more SOB, s/p 1u PRBC Ultrasound showing fatty liver. LFTs trended down. Patient received 5 days of IV iron therapy. Lovenox for DVT prophylaxis Pain management. changed tyelonol #3 to oxycodone for PO pain control, morphine for breakthrough Dispo: anticipate dc home in ~1-2 days Time Spent Managing Pts Care (In Minutes): 35
[2021-03-17 06:00] LABS: Absolute Lymphocytes (CBC) 1.7 K/uL (0.7-4.9); Basophils % 0.7 % (0-1.3); Hematocrit 31.8 % (36.0-45.0); Lymphocytes % 9.1 % (15.3-44.8); MPV 6.4 fL (7.6-11.3); RBC Red Blood Cell Count 3.55 M/uL (3.86-4.86)
[2021-03-17 06:10] LABS: BUN Blood Urea Nitrogen 7 mg/dL (7-18); Bicarbonate 25 mmol/L (21-32); Glucose Level 100 mg/dL (74-106); Potassium 4.2 mmol/L (3.5-5.1); Sodium Level 136 mmol/L (136-145)
[2021-03-17 07:02] LABS: Blood Morphology Comment NOT SEEN (NOT SEEN); Platelet Estimate INCR; White Blood Cell Scan OK (OK)
[2021-03-17] MEDS: LACTOBACILLUS/ACIDOPHILUS TAB PO SCH ×2 (08:14→20:27)
[2021-03-17] MEDS: ENSURE ENLIVE 237 ML CAN PO SCH ×3 (08:14→20:59)
[2021-03-17] MEDS: ENOXAPARIN 40 MG/0.4 ML SQ SCH (08:14)
[2021-03-17] MEDS: SILVER SULFADIAZINE 1% 50 GM TOP SCH ×2 (08:14→19:55)
[2021-03-17] MEDS: LINEZOLID 600 MG IVPB 600 MG/300 ML BAG IV SCH ×2 (08:15→20:28)
[2021-03-17] MEDS ORDERED: FENTANYL CITR 100 MCG/2 ML ONE (08:24)
[2021-03-17] MEDS ORDERED: LIDOCAINE 1% MPF 2 ML AMPULE ONE (08:24)
[2021-03-17] MEDS ORDERED: MIDAZOLAM HCL 2 MG/2 ML INJ ONE (08:24)
[2021-03-17] MEDS ORDERED: propofoL 200 MG/20 ML VIAL IV ONE (08:25)
[2021-03-17] MEDS ORDERED: GLYCOPYRROLATE 0.2 MG/ML SYR ONE (08:28)
[2021-03-17] MEDS ORDERED: Ringers Lactate 1,000 ML IV ONE (08:34)
[2021-03-17] MEDS ORDERED: ONDANSETRON 4 MG/2 ML VIAL ONE (09:32)
[2021-03-17] MEDS ORDERED: dexAMETHasone 10 MG/ML VIAL ONE (09:32)
[2021-03-17] MEDS ORDERED: KETOROLAC 30 MG/ML INJ ONE (09:32)
[2021-03-17] MEDS ORDERED: Mastisol Adhesive Liq ONE (09:47)
[2021-03-17] MEDS: HYDROMORPHONE HCL 1 MG/ML INJ ONE ×2 (10:10→10:17)
[2021-03-17 10:30] VITALS: O2SAT 96
--- NOTE | 2021-03-17 10:47 | OP ---
Surgeon: Caleb Lou MD Preoperative Diagnosis: Open wound of the left buttocks. Postoperative Diagnosis: Open wound of the left buttocks. Procedure: Debridement of skin and subcutaneous tissue, layered closure 6.5, simple closure 1.5. Anesthesia: General. Procedure In Detail: After satisfactory general anesthesia, the patient placed in right lateral decu bitus position, left buttock was prepped with Betadine scrub and Betadine pain. Dry sterile drapes we re applied in usual manner. Forceps, scalpel, Tenotomy scissors used to debride skin and subcu tissu e as needed. The wound was curetted and jet lavaged, irrigated with 3 L of dilute Betadine solution. Electrocautery was used for hemostasis. Wound closed with 3-0 Vicryl subcu and then 4-0 PDS runnin g locking sutures on the larger wound. Simple interrupted sutures on the smaller wound. Dressings c onsisted of tincture of benzoin, Steri-Strips, 4x4s, tape. The patient tolerated the procedure well and returned to Recovery. BHANU/JOSE Voice ID: [id number] Report ID: [id number]
[2021-03-18] MEDS: Meropenem 1 GM/100 ML BAG IV SCH (03:02)
[2021-03-18] MEDS: MORPHINE 2 MG/ML SYR IV PRN (03:04)
[2021-03-18] MEDS: OXYCODONE HCL 5 MG TAB PO PRN (04:46)
--- NOTE | 2021-03-18 06:03 | P.PN ---
Date of Service: 03/18/21 Subjective: ROS: 10 point ROS as noted above, otherwise negative Physical exam GEN: Alert, oriented, NAD HEENT: Normal conjunctiva, sclera anicteric CV: sinus tachycardia, no murmur, no edema Pulm: Nonlabored respirations on room air ABD: Soft, nontender, nondistended Integumentary: small area of erythema and induration of R hip, L hip: packed and covered with dressing, patient deferred exam, no erythema in distal thigh / knee area Neuro: Normal speech, normal affect Problem List Cellulitis and Abscess of left thigh s/p liposuction Iron deficiency anemia/anemia of chronic disease Symptomatic anemia. s/p I&D and secondary wound closure by Dr. Lou. Wound Cx: Enterococcus and staph hemolyticus all sensitive to ciprofloxacin. Repeat deep tissue wound culture is showing mixed skin daisha. ID consulted, given her leukocytosis, thrombocytosis, tachycardia, ID recommended IV meropenem and Zyvox for now Thrombocytosis slightly improved, most likely reactive to infection / surgery, discussed with Heme/Onc, no further workup indicated at this time MRI of the left knee shows 1.5 cm layer of cellulitis and inflammation on the left distal aspect of the thigh and small fluid collections. Patient noted to have left upper thigh / buttocks wound with discharge, now s/p I&D on 03/15 and plan for closure today Hgb stable, no more SOB, s/p 1u PRBC Ultrasound showing fatty liver. LFTs trended down. Patient received 5 days of IV iron therapy. Lovenox for DVT prophylaxis Pain management. changed tyelonol #3 to oxycodone for PO pain control, morphine for breakthrough Dispo: anticipate dc home in ~1-2 days Time Spent Managing Pts Care (In Minutes): 35
[2021-03-18 06:34] LABS: Absolute Lymphocytes (CBC) 0.9 K/uL (0.7-4.9); Basophils % 1.1 % (0-1.3); Hematocrit 30.3 % (36.0-45.0); Lymphocytes % 9.3 % (15.3-44.8); MPV 6.6 fL (7.6-11.3); RBC Red Blood Cell Count 3.33 M/uL (3.86-4.86)
[2021-03-18 06:50] LABS: BUN Blood Urea Nitrogen 13 mg/dL (7-18); Bicarbonate 29 mmol/L (21-32); Glucose Level 98 mg/dL (74-106); Potassium 3.7 mmol/L (3.5-5.1); Sodium Level 141 mmol/L (136-145)
[2021-03-18 08:17] VITALS: BP 110/64; TEMP 97.2
[2021-03-18] MEDS: ENOXAPARIN 40 MG/0.4 ML SQ SCH (09:00)
[2021-03-18] MEDS: ENSURE ENLIVE 237 ML CAN PO SCH (09:00)
[2021-03-18] MEDS: SILVER SULFADIAZINE 1% 50 GM TOP SCH (09:00)
[2021-03-18] MEDS: LACTOBACILLUS/ACIDOPHILUS TAB PO SCH (09:16)
[2021-03-18] MEDS: LINEZOLID 600 MG IVPB 600 MG/300 ML BAG IV SCH (09:17)
--- NOTE | 2021-03-18 12:53 | P.DS ---
Admission Date: 03/06/21 Discharge Date: 03/18/21 Primary Care Provider: Kayla Disposition: ROUTINE DISCHARGE Discharge Condition: GOOD Reason for Admission: cellulitis / abscess Consultations: Plastic Surgery - Dr. Lou Infectious Disease - Dr. Rider Procedures: CXR (03/05): IMPRESSION: No acute cardiopulmonary disease. Venous Extremity U/S (03/05): IMPRESSION: No DVT in the left lower extremity. Subcutaneous fluid at the level of the knee. Abd U/S (03/06): IMPRESSION: Mild fatty liver. CTA Chest (03/12): IMPRESSION: No gross evidence of a pulmonary embolus. Lungs are clear. Typical pulmonary findings of a fat embolus include lung consolidation, ground-glass opacities and nodules. MRI Knee (03/14): IMPRESSION: Cellulitis and subcutaneous inflammatory changes seen involving the medial soft tissues of the distal right thigh. Small focal collections of fluid are present within the inflamed tissue which could represent small abscesses. No myositis or osteomyelitis. No extension into the knee joint itself. Problem List Cellulitis and Abscess of left thigh s/p liposuction Iron deficiency anemia/anemia of chronic disease Symptomatic anemia. Brief History of Present Illness: 35 yo F who presents with cellulitis of the left knee. She had liposuction in [place] on 02/24. Two days later, the swelling began in her knee. She saw her surgeon on 03/01 and drained a large amount of fluid from her knee and started her on levofloxacin. Her knee has continued to get worse. It's difficult ofr her to walk nd she can't bend her knee. She reports fever, erythema, edema, warmth. Denies nausea and vomiting. She is tachycardic to the 120s. Hospital Course: Dr. Lou was consulted. Patient underwent I&D with closure of L lower thigh abscess. Continued to have pain and developed worsening abscess of L lateral upper thigh which required I&D as well on 03/15, with washout/closure on 03/17. She had improvement of her pain and tachycardia, with resolution of her leukocytosis. ID was consulted and patient was treated with meropenem and vancomycin. Cultures early in hospitalization grew enterococcus and staph haemolyticus. She developed thrombocytosis, felt to be reactive to her infections, which slowly improved. Recommend CBC in 1-2 weeks to f/u on thrombocytosis. Elevated LFTs secondary to fatty liver. Noted to have symptomatic anemia, received 1u PRBC. Workup consistent with iron deficiency and patient received 5 days of IV iron therapy. Follow up with Dr. Lou in a few days Follow up with PCP within 1 week Vital Signs/Physical Exam: Physical exam GEN: Alert, oriented, NAD HEENT: Normal conjunctiva, sclera anicteric CV: regular rate/rhythm, no murmur, no edema Pulm: Nonlabored respirations on room air ABD: Soft, nontender, nondistended Integumentary: small area of erythema and induration of R hip, L hip: surgical dressing c/d/i Neuro: Normal speech, normal affect Temp Pulse Resp BP Pulse Ox 97.2 F 111 H 18 110/64 99 03/18/21 08:00 03/18/21 08:00 03/18/21 08:00 03/18/21 08:00 03/18/21 08:00 Laboratory Data at Discharge: WBC 10.00 K/uL (4.3-10.9) D 03/18/21 06:05 Hgb 10.0 g/dL (12.0-15.0) L 03/18/21 06:05 Hct 30.3 % (36.0-45.0) L 03/18/21 06:05 Plt Count 717 K/uL (152-406) H 03/18/21 06:05 PT 14.7 SECONDS (9.5-12.5) H 03/05/21 20:07 INR 1.28 03/05/21 20:07 Sodium 141 mmol/L (136-145) 03/18/21 06:05 Potassium 3.7 mmol/L (3.5-5.1) 03/18/21 06:05 BUN 13 mg/dL (7-18) 03/18/21 06:05 Creatinine 0.60 mg/dL (0.55-1.3) 03/18/21 06:05 Glucose 98 mg/dL (74-106) 03/18/21 06:05 Phosphorus 3.1 mg/dL (2.5-4.9) D 03/07/21 04:27 Magnesium 2.1 mg/dL (1.8-2.4) 03/15/21 05:03 Total Bilirubin 0.3 mg/dL (0.2-1.0) 03/15/21 05:03 AST 23 U/L (15-37) 03/15/21 05:03 ALT 44 U/L (12-78) 03/15/21 05:03 Alkaline Phosphatase 193 U/L (45-117) H 03/15/21 05:03 Triglycerides 153 mg/dL (<150) H 03/07/21 04:27 Cholesterol 139 mg/dL (<200) 03/07/21 04:27 HDL Cholesterol 13 mg/dL (40-60) L 03/07/21 04:27 Cholesterol/HDL Ratio 10.69 03/07/21 04:27 Home Medications: Acidophilus/Bulgaricus [Lactinex Tablet Chewable] 1 each PO BID 14 Days #28 tab.chew 03/18/21 Amox/Clavulanate [Augmentin 875-125 Tab] 875 mg PO BID 10 Days #20 tab 03/18/21 Ciprofloxacin HCl [Cipro] 500 mg PO BID 10 Days #20 tablet 03/18/21 New Medications: Amox/Clavulanate [Augmentin 875-125 Tab] 875 mg PO BID 10 Days #20 tab Ciprofloxacin HCl [Cipro] 500 mg PO BID 10 Days #20 tablet Acidophilus/Bulgaricus [Lactinex Tablet Chewable] 1 each PO BID 14 Days #28 tab.chew Physician Discharge Instructions: PROBLEM: Cellulitis GOAL: Clear understanding of disease process INSTRUCTIONS: You were found to have cellulitis and abscess along your recent surgical incision. Dr. Lou was consulted and you underwent multiple I&D / washouts and subsequent closers. You had gradual improvement of your pain and elevated white blood cell count. Infectious disease was consulted and you were maintained on IV antibiotics. Initial culture from abscess collection was the only culture that grew bacteria. This revealed sensitivity to ciprofloxacin. On discharge, you are recommended to take ciprofloxacin and augmentin for 10 days Follow up with Dr. Lou as discussed. Wound care as instructed by him as well. Follow up with PCP in 1-2 weeks. Diet: Regular Activity: As tolerated Wound care: BETADINE-SOAKED 1" NEW GAUZE Q12HR TO L HIP E-script sent to [facility] in [place] IMMUNIZATION Influenza Vaccine Indicated: Yes Influenza Vaccine Given: No Date Given: Pneumonia Vaccine Indicated: No Pneumonia Vaccine Given: Date Given: Diet: Regular Activity: Ad sudhakar Followup: Petrona Garza DO [Primary Care Provider] - Time spent managing pt's care (in minutes): 45
[2021-03-18] MEDS ORDERED: CIPROFLOXACIN HCL 500 MG TAB PO SCH (21:00)
[2021-03-18] MEDS ORDERED: AMOX/K CLAV 875 MG TAB PO SCH (21:00)
== END 2021-03-18 12:34 | disposition home or self-care (01) | DRG 571 ==
LOC: ER 17:19 → ERHOLD 03-06 01:57 → 2ND 03-06 03:13
PROVIDERS: ADMIT Hospitalist; ATTEND Hospitalist
PROC: 0JDP3ZZ Extraction of Left Lower Leg Subcutaneous Tissue and Fascia, Percutaneous Approach (ICD-10-PCS; 2021-03-07)
PROC: 0JDP0ZZ Extraction of Left Lower Leg Subcutaneous Tissue and Fascia, Open Approach (ICD-10-PCS; 2021-03-09)
PROC: 0JQP0ZZ Repair Left Lower Leg Subcutaneous Tissue and Fascia, Open Approach (ICD-10-PCS; 2021-03-09)
PROC: 30233N1 Transfusion of Nonautologous Red Blood Cells into Peripheral Vein, Percutaneous Approach (ICD-10-PCS; 2021-03-10)
PROC: 0JBM0ZZ Excision of Left Upper Leg Subcutaneous Tissue and Fascia, Open Approach (ICD-10-PCS; principal; 2021-03-15 12:15)
PROC: 0JQ90ZZ Repair Buttock Subcutaneous Tissue and Fascia, Open Approach (ICD-10-PCS; 2021-03-17)
PROC: 0JB90ZZ Excision of Buttock Subcutaneous Tissue and Fascia, Open Approach (ICD-10-PCS; 2021-03-17)
DX: L03.116 Cellulitis of left lower limb (principal); L02.31 Cutaneous abscess of buttock; E46 Unspecified protein-calorie malnutrition; D50.9 Iron deficiency anemia, unspecified; D63.8 Anemia in other chronic diseases classified elsewhere; K76.0 Fatty (change of) liver, not elsewhere classified; D72.829 Elevated white blood cell count, unspecified; D75.839 Thrombocytosis, unspecified; B95.4 Other streptococcus as the cause of diseases classified elsewhere; B95.2 Enterococcus as the cause of diseases classified elsewhere; R00.0 Tachycardia, unspecified; R94.5 Abnormal results of liver function studies; Z88.5 Allergy status to narcotic agent; Z68.29 Body mass index [BMI] 29.0-29.9, adult; Z79.899 Other long term (current) drug therapy; Z20.822 Contact with and (suspected) exposure to COVID-19
CPT/HCPCS: 36415; 36430; 71045; 71275; 76705; 80048; 80053; 80061; 80076; 80202; 81003; 81015; 81025; 82607; 82728; 82747; 83540; 83605; 83735; 84100; 84145; 84439; 84443; 84466; 84484; 85025; 85610; 86850; 86900; 86901; 87040; 87070; 87075; 87077; 87186; 87205; 88304; 88305; 93005; 93971; 94760; 96365; 96366; 96368; 96375; 99285; A9577; J0692; J0744; J1100; J1170; J1650; J2020; J2185; J2250; J2270; J2405; J2704; J2916; J3010; J3370; J3480; J7030; J7040; J7050; J7120; P9016; Q9967; U0003

== ENCOUNTER 2021-03-23 11:00 | Inpatient (IN) | payer OTHER ==
--- OUTSIDE RECORDS SUMMARY | 2021-03-23 11:03 | XMS REPORT | Continuity of Care Document ---
:1985 Author Organization [facility] t Address [address] [place] [address] Care Team Providers Name Role Phone Doctor [...] Active Univers [facility]ER[facility]IE Class ity of [facility] Social History Social Habit Start Date Stop Date Quantity Comments Source [facility] to SARS-CoV-2 Not sure [facility] [place] [facility] Smoking Status Start Date Stop Date Source Unknown if ever smoked Universit y [facility] Medications This patient has no known medications. Procedures Procedure Date / Time Performing Clinician Source Performed AUTHORIZATION FOR 2020-01-13 05:01:00 Doctor Wilton, Tiffanie Univ [facility] RELEASE OF PHI Name [facility] XR CHEST 1 VW 2020-01-09 20:42:38 Alfredo Thompson [place] o f [facility] Encounters Start End Encounter Admission Attending Care Care Encounter Source Date/Time Date/Time Type Type Clinicians Facility Department ID 2020-01-13 2020-01-13 Orders Doctor HUTCHINSON [id number] Univers 00:00:00 00:00:00 Only UnassSHAJI escobedo [id number] ity of [place] [facility] [id number] [place] as [id number] [place] [id number] [address] 2020-01-13 2020-01-13 Hannah [id number] 00:00:00 00:00:00 Only Unassigned, SHAJI [id number] [place] [facility] [id number] 2020-01-09 2020-01-09 Outpatient R [facility] [id number] Univers [facility]-01-09 2020-01-09 [facility] Radiology [facility] [id number] [facility] 15:06:18 15:07:00 Encounter [place] [id number] ity [facility] [id number] [facility] [id number] [address] 2020-01-09 2020-01-09 [facility] Radiology [facility] [id number] 15:06:18 15:07:00 Encounter [place] [id number] [place] [id number] [place] [id number] [facility] 2020-01-09 2020-01-09 Outpatient R RADIOLOGY [facility] [id number] [facility] 00:00:00 00:00:00 [facility] Results Test Description Test Time Test Comments [...] the thoracicspine. The upper abdomen is unremarkable. [facility], Radiant Results Inft - 01/09/2020 8:49 PM CDTExam: XR CHEST [...]
[2021-03-23 13:04] LABS: Urine Blood 1+ (Negative); Urine Glucose Negative (Negative); Urine Protein Trace (Negative); Urine Specific Gravity 1.025 (1.005-1.030); Urine pH 5.5 (5.0-7.0)
[2021-03-23] MEDS ORDERED: MEPERIDINE HCL 50 MG/ML IM ONE (13:43)
[2021-03-23 14:12] VITALS: BMI 24.7
[2021-03-23 15:48] LABS: Absolute Lymphocytes (CBC) 1.3 K/uL (0.7-4.9); Hematocrit 28.6 % (36.0-45.0); Lymphocytes % 8.8 % (15.3-44.8); MPV 6.5 fL (7.6-11.3); RBC Red Blood Cell Count 3.25 M/uL (3.86-4.86)
[2021-03-23] MEDS ORDERED: Ringers Lactate 1,000 ML IV ONE (16:25)
[2021-03-23] MEDS ORDERED: LIDOCAINE 2% MPF 5 ML VIAL ONE (16:35)
[2021-03-23] MEDS ORDERED: propofoL 200 MG/20 ML VIAL IV ONE (16:35)
[2021-03-23] MEDS ORDERED: FENTANYL CITR 100 MCG/2 ML ONE ×3 (16:36→18:25)
[2021-03-23] MEDS ORDERED: ROCURONIUM 50 MG/5 ML VIAL IV ONE (16:36)
[2021-03-23] MEDS ORDERED: KETOROLAC 30 MG/ML INJ ONE (16:38)
[2021-03-23] MEDS ORDERED: dexAMETHasone 10 MG/ML VIAL ONE (16:38)
[2021-03-23] MEDS ORDERED: ONDANSETRON 4 MG/2 ML VIAL ONE (16:39)
[2021-03-23] MEDS ORDERED: GLYCOPYRROLATE 0.2 MG/ML SYR ONE ×2 (18:03)
[2021-03-23] MEDS ORDERED: NEOSTIGMINE 1 MG/ML -5 ML ONE (18:05)
--- NOTE | 2021-03-23 18:51 | HP ---
Date of Admission: 03/23/2021 History Of Present Illness: A 35-year-old white female, status post liposuction on 02/24/2021. She had infiltrates in the gluteal fold. She is status post incision and drainage of the left medial knee, healed and closed after it was debrided. Then she had I and D of the left buttocks that healed and closed, and since then it hasn't ruptured or draining, and she is not draining from the right side as well; from 2 of the sites. She has a history of AHD. Past Surgical History: Liposuction, breast tuck, tummy tuck. Social History: Does not smoke, does not drink. Medications: No medications Physical Examination: . She has discoloration of both posterior thighs, areas of purulent drainage from the left medial knee , The others are all open and draining. Assessment: Infection after liposuction Plan: Incision and drainage. She will be admitted to the hospital and I will be seeing her in consultation. JANIE Voice ID: [id number] [facility] CENTERHank
[2021-03-23] MEDS: HYDROMORPHONE HCL 1 MG/ML INJ ONE ×4 (19:03→19:28)
--- NOTE | 2021-03-23 19:39 | OP ---
Surgeon: Caleb Lou MD Preoperative Diagnosis: Infection of the right and left thigh and buttocks. Postoperative Diagnosis: Infection of the right and left thigh and buttocks. Procedure Performed: Debridement of skin and subcutaneous tissue, incision and drainage of abscess o f the right and left thigh and buttocks. Anesthesia: General. Procedure In Detail: After satisfactory general anesthesia, the patient was prone on operating table . Buttocks and thighs were prepped with Betadine scrub and Betadine pain. Dry sterile drapes were ap plied in usual manner. All areas of infection were elliptically incised. Cultures were taken from 4 different sites, were labeled for aerobes and anaerobes. Necrotic tissue was removed with no felicity pus, but it is watery liquidy fat necrosis and some areas of inflammation. All the wounds were jet l avaged irrigated with 6 L of Betadine solution. Electrocautery was used for hemostasis. Wound was p acked with Betadine-soaked 2 inch Irasema dressings, 4x4s, tape. The patient tolerated procedure well. Estimated blood loss was 200 cc. BHANU/JOSE Voice ID: [id number] Report ID: [id number]
[2021-03-23] MEDS: Meropenem 1 GM/100 ML BAG IV SCH (19:45)
[2021-03-23] MEDS ORDERED: NA CHLORIDE 0.9% 250 ML ONE (20:59)
[2021-03-23] MEDS ORDERED: VANCOMYCIN 1 GM/VIAL ONE ×2 (20:59→21:03)
[2021-03-23] MEDS ORDERED: NA CHLORIDE 0.9% 100 ML ONE (20:59)
[2021-03-23] MEDS: VANCOMYCIN 1.5 GM in NA CHLORIDE 0.9% 500 ML IVPB SCH (21:00)
[2021-03-23] MEDS ORDERED: VANCOMYCIN 1.25 GM in NA CHLORIDE 0.9% 250 ML IVPB SCH (21:00)
[2021-03-23] MEDS ORDERED: LINEZOLID 600 MG IVPB 600 MG/300 ML BAG IV SCH (21:00)
[2021-03-23] MEDS ORDERED: Meropenem 1000 MG/VIAL IV ONE (21:07)
[2021-03-23] MEDS: MEPERIDINE HCL 50 MG/ML IM PRN (23:39)
[2021-03-24] MEDS: Meropenem 1 GM/100 ML BAG IV SCH ×3 (01:00→17:52)
[2021-03-24] MEDS ORDERED: Meropenem 1000 MG/VIAL IV ONE (01:51)
[2021-03-24] MEDS: CODEINE 30MG/APAP 300MG TAB PO PRN ×2 (01:52→11:40)
[2021-03-24] MEDS ORDERED: NA CHLORIDE 0.9% 100 ML ONE (08:01)
[2021-03-24] MEDS: VANCOMYCIN 1.5 GM in NA CHLORIDE 0.9% 500 ML IVPB SCH ×2 (09:13→20:19)
[2021-03-24] MEDS: MEPERIDINE HCL 50 MG/ML IM PRN (09:14)
[2021-03-24 11:38] LABS: Absolute Lymphocytes (CBC) 0.9 K/uL (0.7-4.9); Hematocrit 25.7 % (36.0-45.0); Lymphocytes % 7.9 % (15.3-44.8); MPV 6.9 fL (7.6-11.3); RBC Red Blood Cell Count 2.91 M/uL (3.86-4.86)
[2021-03-24 12:47] LABS: White Blood Cell Scan OK (OK)
[2021-03-24 12:48] LABS: Anisocytosis 1+; Blood Morphology Comment NOTED (NOT SEEN); Platelet Estimate ADEQ; Platelets, Giant FEW; Polychromasia SLIGHT
--- NOTE | 2021-03-24 18:14 | P.CNS ---
Date of Consult: 03/23/21 Reason for Consult: antibiotic treatment Requesting Physician: Caleb Lou Chief Complaint: abscess History of Present Illness: Ms. Romero is a 35 yo F s/p liposuction on 02/24/2021 who presented with infiltrates in the gluteal fold and admitted for incision and drainage in several locations.. She was previously admitted for incision and drainage of the left medial knee, and received IV Zyvox and merrem for treatment of the infe ction. Consultation placed to continue antibiotic treatment. WBC 14.9, Absolute neutrophils 12.1. Allergies No Known Allergies Allergy (Verified 03/06/21 03:46) Home Medications: Acidophilus/Bulgaricus [Lactinex Tablet Chewable] 1 each PO BID 14 Days #28 tab.chew 03/18/21 Amox/Clavulanate [Augmentin 875-125 Tab] 875 mg PO BID 10 Days #20 tab 03/18/21 Ciprofloxacin HCl [Cipro] 500 mg PO BID 10 Days #20 tablet 03/18/21 - Past Medical/Surgical History Diabetic: No -: SCOTTY -: liposuction - Social History Smoking Status: Never smoker Alcohol use: No CD- Drugs: No Caffeine use: No Place of Residence: Home Review of Systems 10-point ROS is otherwise unremarkable General: Unremarkable Eyes: Unremarkable ENT: Unremarkable Respiratory: Unremarkable Cardiovascular: Unremarkable Gastrointestinal: Unremarkable Genitourinary: Unremarkable Musculoskeletal: Leg Pain, As per HPI Integumentary: Unremarkable Neurological: Unremarkable Lymphatics: Unremarkable Physical Examination Temp Pulse Resp BP Pulse Ox 98.3 F 98 H 16 99/63 100 03/24/21 12:00 03/24/21 12:00 03/24/21 12:00 03/24/21 12:00 03/24/21 12:00 General: Alert, In no apparent distress HEENT: Atraumatic, PERRLA, Mucous membr. moist/pink, EOMI, Sclerae nonicteric Neck: Supple, 2+ carotid pulse no bruit, No LAD, Without JVD or thyroid abnormality Respiratory: Clear to auscultation bilaterally, Normal air movement Cardiovascular: Regular rate/rhythm, Normal S1 S2 Gastrointestinal: Normal bowel sounds, No tenderness Musculoskeletal: Swelling, Erythema, Tenderness, Warmth Integumentary: Skin lesion, Tenderness/swelling, Erythema, Warmth Neurological: Normal speech, Normal tone, Normal affect Lymphatics: No axilla or inguinal lymphadenopathy Conclusions/Impression: will continue IV vancomycin and IV merrem wound cultures and blood cultures pending monitor for fever and tachycardia will consult infectious disease based on culture results Critical Care: No Time Spent Managing Pts care (In Minutes): 30
[2021-03-25] MEDS: Meropenem 1 GM/100 ML BAG IV SCH ×4 (00:07→17:15)
[2021-03-25] MEDS: MEPERIDINE HCL 50 MG/ML IM PRN ×3 (04:22→17:26)
[2021-03-25 07:59] LABS: Hematocrit 27.6 % (36.0-45.0); Lymphocytes % 7.9 % (15.3-44.8); MPV 6.7 fL (7.6-11.3); RBC Red Blood Cell Count 3.08 M/uL (3.86-4.86)
[2021-03-25] MEDS ORDERED: NA CHLORIDE 0.9% 250 ML ONE (08:58)
[2021-03-25] MEDS: VANCOMYCIN 1.5 GM in NA CHLORIDE 0.9% 500 ML IVPB SCH ×3 (08:59→21:17)
[2021-03-25] MEDS: ACETAMINOPHEN 325 MG TABLET PO PRN (09:26)
[2021-03-25] MEDS ORDERED: Ringers Lactate 1,000 ML IV ONE (10:08)
[2021-03-25 10:59] LABS: ALT/SGPT 65 U/L (12-78); AST/SGOT 24 U/L (15-37); Albumin 2.2 g/dL (3.4-5.0); Alkaline Phosphatase 137 U/L (45-117); BUN Blood Urea Nitrogen 9 mg/dL (7-18); Bicarbonate 28 mmol/L (21-32); Bilirubin Total 0.2 mg/dL (0.2-1.0); Glucose Level 82 mg/dL (74-106); Potassium 4.3 mmol/L (3.5-5.1); Protein, Total 6.6 g/dL (6.4-8.2); Sodium Level 139 mmol/L (136-145)
[2021-03-25] MEDS ORDERED: CODEINE 30MG/APAP 300MG TAB ONE (12:20)
[2021-03-25] MEDS ORDERED: FENTANYL CITR 100 MCG/2 ML ONE ×2 (14:08→14:56)
[2021-03-25] MEDS ORDERED: propofoL 200 MG/20 ML VIAL IV ONE (14:08)
[2021-03-25] MEDS ORDERED: ONDANSETRON 4 MG/2 ML VIAL ONE (14:09)
[2021-03-25] MEDS ORDERED: ROCURONIUM 50 MG/5 ML VIAL IV ONE (14:09)
[2021-03-25] MEDS ORDERED: dexAMETHasone 10 MG/ML VIAL ONE (14:09)
[2021-03-25] MEDS ORDERED: KETOROLAC 30 MG/ML INJ ONE (14:09)
[2021-03-25] MEDS ORDERED: MIDAZOLAM HCL 2 MG/2 ML INJ ONE (14:09)
[2021-03-25] MEDS ORDERED: LIDOCAINE 1% MPF 30 ML VIAL ONE (14:09)
[2021-03-25] MEDS ORDERED: LANO/MINERAL OIL/PETRO 3.5 GM ONE (14:19)
[2021-03-25] MEDS ORDERED: PROMETHAZINE INJ 25 MG/ML AMP ONE (14:52)
[2021-03-25] MEDS ORDERED: SILVER SULFADIAZINE 1% 25 GM TOP ONE ×2 (15:08→15:10)
[2021-03-25] MEDS: HYDROMORPHONE HCL 1 MG/ML INJ ONE ×2 (15:58→16:05)
--- NOTE | 2021-03-25 17:42 | P.PN ---
Subjective Date of Service: 03/25/21 Chief Complaint: abscess Subjective: No new changes (Today, status post debridement of bilateral buttock wound today Complain of pain) Physical Examination - Vital Signs Temperature: 98.9 F Blood Pressure: 98/50 Pulse: 113 Respirations: 16 Pulse Ox (%): 99 - Physical Exam General: Alert, In no apparent distress, Oriented x3 HEENT: Atraumatic, Normocephalic, PERRLA Neck: 2+ carotid pulse no bruit, JVD not distended Respiratory: Clear to auscultation bilaterally, Normal air movement Cardiovascular: Normal pulses, Regular rate/rhythm, Normal S1 S2 Gastrointestinal: Normal bowel sounds, Soft and benign, Non-distended Musculoskeletal: No clubbing, No swelling Integumentary: Other (Multiple discrete wound necrosis of b/l buttocks) - Studies Microbiology Data (last 24 hrs): 03/23/21 18:00 Wound - Abscess Gram Stain - Final 03/23/21 18:19 Wound - Abscess Gram Stain - Final 03/23/21 18:19 Wound - Abscess Gram Stain - Final 03/23/21 18:05 Wound - Abscess Gram Stain - Final 03/23/21 18:05 Wound - Abscess Gram Stain - Final 03/23/21 18:03 Wound - Abscess Gram Stain - Final 03/23/21 18:03 Wound - Abscess Gram Stain - Final 03/23/21 18:00 Wound - Abscess Gram Stain - Final 03/23/21 18:00 Wound - Abscess Gram Stain - Final 03/23/21 18:00 Wound - Abscess Gram Stain - Final Assessment And Plan - Current Problems (Diagnosis) (1) Skin ulcer of buttock with necrosis of muscle Current Visit: Yes Status: Acute - Plan Plan Continue empiric antibiotics Continue aggressive IV fluid to optimize blood pressure Continue pain control, on Demerol, add morphine as needed We will consult ID if available Continue daily wound debridement per surgical team We will continue to follow Continue prone positioning Time Spent Managing PTS Care (In Minutes): 35
[2021-03-25] MEDS ORDERED: NA CHLORIDE 0.9% 500 ML IV ONE (18:00)
[2021-03-25] MEDS: MORPHINE 2 MG/ML SYR IV PRN (21:17)
[2021-03-26] MEDS: Meropenem 1 GM/100 ML BAG IV SCH ×3 (00:21→16:54)
[2021-03-26] MEDS: MORPHINE 2 MG/ML SYR IV PRN ×4 (01:55→21:15)
[2021-03-26 05:58] LABS: Absolute Lymphocytes (CBC) 1.3 K/uL (0.7-4.9); Hematocrit 24.2 % (36.0-45.0); Lymphocytes % 10.1 % (15.3-44.8); MPV 6.6 fL (7.6-11.3); RBC Red Blood Cell Count 2.74 M/uL (3.86-4.86)
[2021-03-26 06:15] LABS: ALT/SGPT 43 U/L (12-78); AST/SGOT 20 U/L (15-37); Alkaline Phosphatase 121 U/L (45-117); BUN Blood Urea Nitrogen 6 mg/dL (7-18); Bicarbonate 28 mmol/L (21-32); Bilirubin Total 0.3 mg/dL (0.2-1.0); Glucose Level 93 mg/dL (74-106); Potassium 3.8 mmol/L (3.5-5.1); Protein, Total 5.9 g/dL (6.4-8.2); Sodium Level 135 mmol/L (136-145)
[2021-03-26] MEDS ORDERED: NA CHLORIDE 0.9% 250 ML ONE (08:00)
[2021-03-26] MEDS: VANCOMYCIN 1.5 GM in NA CHLORIDE 0.9% 500 ML IVPB SCH ×2 (08:09→21:00)
[2021-03-26] MEDS: SILVER SULFADIAZINE 1% TOP SCH ×2 (09:00→21:00)
[2021-03-26] MEDS ORDERED: SILVER SULFADIAZINE 1% 25 GM TOP SCH (09:00)
[2021-03-26] MEDS: MEPERIDINE HCL 50 MG/ML IM PRN ×2 (09:42→17:07)
--- NOTE | 2021-03-26 11:32 | P.PN ---
Subjective Date of Service: 03/26/21 Chief Complaint: abscess Subjective: No new changes Physical Examination - Vital Signs Temperature: 100.9 F Blood Pressure: 105/66 Pulse: 128 Respirations: 20 Pulse Ox (%): 99 - Physical Exam General: Alert, In no apparent distress, Oriented x3 HEENT: Atraumatic, Normocephalic Neck: Supple, 2+ carotid pulse no bruit Respiratory: Clear to auscultation bilaterally, Normal air movement Cardiovascular: No edema, Normal pulses, Regular rate/rhythm Gastrointestinal: Normal bowel sounds, Soft and benign, Non-distended Musculoskeletal: No clubbing, No swelling Neurological: Normal speech, Normal strength at 5/5 x4 extr - Studies Microbiology Data (last 24 hrs): 03/23/21 18:19 Wound - Abscess Gram Stain - Final 03/23/21 18:05 Wound - Abscess Gram Stain - Final 03/23/21 18:03 Wound - Abscess Gram Stain - Final 03/23/21 18:00 Wound - Abscess Gram Stain - Final 03/23/21 18:00 Wound - Abscess Gram Stain - Final 03/23/21 18:19 Wound - Abscess Gram Stain - Final 03/23/21 18:19 Wound - Abscess Culture & Sensitivity - Final No growth. 03/23/21 18:05 Wound - Abscess Gram Stain - Final 03/23/21 18:05 Wound - Abscess Culture & Sensitivity - Final No growth. 03/23/21 18:03 Wound - Abscess Gram Stain - Final 03/23/21 18:03 Wound - Abscess Culture & Sensitivity - Final No growth. 03/23/21 18:00 Wound - Abscess Gram Stain - Final 03/23/21 18:00 Wound - Abscess Culture & Sensitivity - Final No growth. 03/23/21 18:00 Wound - Abscess Gram Stain - Final 03/23/21 18:00 Wound - Abscess Culture & Sensitivity - Final No growth. Assessment And Plan - Current Problems (Diagnosis) (1) Skin ulcer of buttock with necrosis of muscle Current Visit: Yes Status: Acute - Plan Physical examination Young female, calm, lying in prone position HEENTPERRLA, EOMI Neckno JVD, no thyroid mass Respiratorygood air entry bilaterally no crepitations GIdifficult to examine due to positioning but normal bowel sounds Backbilateral dressing over Buttocks and hip area, Extremitiesno pedal edema no calf tenderness Neuroalert, oriented x3 Labsreviewed Plan See elevated WBC, may be due to recurrent debridement Still intermittent fever, will obtain blood culture, -Continue current antibiotics with vancomycin/meropenem, will add Flagyl We will consult ID in a.m. if available Continue gentle IV fluids -Pain control much improved,, as needed Demerol/morphine Continue daily wound care and every 48 hours debridement per surgical team We will continue to follow Continue prone positioning Physician Review: Patient Assessed, Agree with Above Assessment and Plan
[2021-03-26] MEDS ORDERED: METRONIDAZOLE 500mg IVPB 500 MG/100 ML BAG IV SCH (11:37)
[2021-03-26] MEDS: metroNIDAZOLE 500 MG TABLET PO SCH ×2 (12:49→21:20)
[2021-03-27] MEDS: Meropenem 1 GM/100 ML BAG IV SCH ×3 (01:02→17:27)
[2021-03-27] MEDS: MORPHINE 2 MG/ML SYR IV PRN ×3 (01:07→20:18)
[2021-03-27] MEDS: MEPERIDINE HCL 50 MG/ML IM PRN (04:14)
[2021-03-27] MEDS: metroNIDAZOLE 500 MG TABLET PO SCH ×3 (04:19→20:18)
[2021-03-27 04:28] LABS: Absolute Lymphocytes (CBC) 1.4 K/uL (0.7-4.9); Hematocrit 24.9 % (36.0-45.0); Lymphocytes % 10.2 % (15.3-44.8); MPV 6.6 fL (7.6-11.3)
[2021-03-27 04:41] LABS: ALT/SGPT 40 U/L (12-78); AST/SGOT 20 U/L (15-37); Albumin 2.1 g/dL (3.4-5.0); Alkaline Phosphatase 126 U/L (45-117); BUN Blood Urea Nitrogen 5 mg/dL (7-18); Bicarbonate 28 mmol/L (21-32); Bilirubin Total 0.3 mg/dL (0.2-1.0); Glucose Level 106 mg/dL (74-106); Potassium 4.2 mmol/L (3.5-5.1); Protein, Total 6.5 g/dL (6.4-8.2); Sodium Level 137 mmol/L (136-145)
[2021-03-27] MEDS: SILVER SULFADIAZINE 1% TOP SCH ×2 (07:36→20:21)
[2021-03-27] MEDS: VANCOMYCIN 1.5 GM in NA CHLORIDE 0.9% 500 ML IVPB SCH ×2 (07:51→20:20)
[2021-03-27] MEDS ORDERED: FENTANYL CITR 100 MCG/2 ML ONE (07:58)
[2021-03-27] MEDS ORDERED: propofoL 200 MG/20 ML VIAL IV ONE (07:58)
[2021-03-27] MEDS ORDERED: Ringers Lactate 1,000 ML IV ONE (07:59)
[2021-03-27] MEDS ORDERED: ROCURONIUM 50 MG/5 ML VIAL IV ONE (08:08)
[2021-03-27] MEDS ORDERED: SUCCINYLCHOLINE 20 MG/ML (10 ML) IV ONE (08:12)
[2021-03-27] MEDS ORDERED: PROMETHAZINE INJ 25 MG/ML AMP ONE (08:12)
[2021-03-27] MEDS ORDERED: MIDAZOLAM HCL 2 MG/2 ML INJ ONE (08:19)
[2021-03-27] MEDS ORDERED: SILVER SULFADIAZINE 1% 25 GM TOP ONE ×2 (08:59→09:20)
[2021-03-27] MEDS ORDERED: NEOSTIGMINE 1 MG/ML -5 ML ONE (09:07)
[2021-03-27] MEDS ORDERED: ONDANSETRON 4 MG/2 ML VIAL ONE (09:07)
[2021-03-27] MEDS ORDERED: GLYCOPYRROLATE 0.2 MG/ML SYR ONE (09:08)
[2021-03-27] MEDS: HYDROMORPHONE HCL 1 MG/ML INJ ONE ×6 (09:50→10:40)
[2021-03-27] MEDS: MEPERIDINE HCL 50 MG/ML IVP PRN ×2 (12:16→17:39)
--- NOTE | 2021-03-27 14:15 | P.PN ---
Subjective Date of Service: 03/27/21 Chief Complaint: abscess Subjective: No new changes, Doing well (State pain better controlled now No more fever Scheduled for surgical debridement again today) Physical Examination - Vital Signs Temperature: 97.8 F Blood Pressure: 97/57 Pulse: 93 Respirations: 18 Pulse Ox (%): 96 - Studies Microbiology Data (last 24 hrs): 03/23/21 18:19 Wound - Abscess Gram Stain - Final 03/23/21 18:19 Wound - Abscess Anaerobic Culture - Final NO ANAEROBES GROWN. 03/23/21 18:05 Wound - Abscess Gram Stain - Final 03/23/21 18:05 Wound - Abscess Anaerobic Culture - Final NO ANAEROBES GROWN. 03/23/21 18:03 Wound - Abscess Gram Stain - Final 03/23/21 18:03 Wound - Abscess Anaerobic Culture - Final NO ANAEROBES GROWN. 03/23/21 18:00 Wound - Abscess Gram Stain - Final 03/23/21 18:00 Wound - Abscess Anaerobic Culture - Final NO ANAEROBES GROWN. 03/23/21 18:00 Wound - Abscess Gram Stain - Final 03/23/21 18:00 Wound - Abscess Anaerobic Culture - Final NO ANAEROBES GROWN. 03/23/21 18:19 Wound - Abscess Gram Stain - Final 03/23/21 18:19 Wound - Abscess Culture & Sensitivity - Final No growth. 03/23/21 18:05 Wound - Abscess Gram Stain - Final 03/23/21 18:05 Wound - Abscess Culture & Sensitivity - Final No growth. 03/23/21 18:03 Wound - Abscess Gram Stain - Final 03/23/21 18:03 Wound - Abscess Culture & Sensitivity - Final No growth. 03/23/21 18:00 Wound - Abscess Gram Stain - Final 03/23/21 18:00 Wound - Abscess Culture & Sensitivity - Final No growth. 03/23/21 18:00 Wound - Abscess Gram Stain - Final 03/23/21 18:00 Wound - Abscess Culture & Sensitivity - Final No growth. Assessment And Plan - Current Problems (Diagnosis) (1) Skin ulcer of buttock with necrosis of muscle Current Visit: Yes Status: Acute - Plan Physical examination Young female, calm, lying in prone position HEENTPERRLA, EOMI Neckno JVD, no thyroid mass Respiratorygood air entry bilaterally no crepitations GIdifficult to examine due to positioning but normal bowel sounds Backbilateral dressing over Buttocks and hip area, Extremitiesno pedal edema no calf tenderness Neuroalert, oriented x3 Labsreviewed Plan Resolved fever now, still elevated WBC, continue added Flagyl Continue Vanco/Merrem Continue gentle IV fluid -Follow-up with surgical debridement again today will consult ID in a.m. if available Continue daily wound care and every 48 hours debridement per surgical team We will continue to follow Continue prone positioning. Early ambulation also advised Physician Review: Patient Assessed, Agree with Above Assessment and Plan
[2021-03-28] MEDS: Meropenem 1 GM/100 ML BAG IV SCH ×3 (00:09→17:00)
[2021-03-28] MEDS: MEPERIDINE HCL 50 MG/ML IVP PRN ×4 (00:10→17:09)
[2021-03-28] MEDS: MORPHINE 2 MG/ML SYR IV PRN ×3 (04:19→21:26)
[2021-03-28] MEDS: metroNIDAZOLE 500 MG TABLET PO SCH ×2 (04:19→13:00)
[2021-03-28 04:23] LABS: Absolute Lymphocytes (CBC) 1.1 K/uL (0.7-4.9); Hematocrit 24.2 % (36.0-45.0); Lymphocytes % 8.1 % (15.3-44.8); MPV 6.9 fL (7.6-11.3); RBC Red Blood Cell Count 2.72 M/uL (3.86-4.86)
[2021-03-28 04:38] LABS: ALT/SGPT 31 U/L (12-78); AST/SGOT 17 U/L (15-37); Alkaline Phosphatase 114 U/L (45-117); BUN Blood Urea Nitrogen 6 mg/dL (7-18); Bicarbonate 28 mmol/L (21-32); Bilirubin Total 0.4 mg/dL (0.2-1.0); Glucose Level 114 mg/dL (74-106); Potassium 4.3 mmol/L (3.5-5.1); Protein, Total 6.1 g/dL (6.4-8.2); Sodium Level 135 mmol/L (136-145)
[2021-03-28] MEDS: VANCOMYCIN 1.5 GM in NA CHLORIDE 0.9% 500 ML IVPB SCH ×2 (08:00→21:29)
[2021-03-28] MEDS: SILVER SULFADIAZINE 1% TOP SCH ×2 (08:01→21:00)
--- NOTE | 2021-03-28 13:21 | P.CNS ---
Date of Consult: 03/28/21 Chief Complaint: abscess History of Present Illness: Female with no significant past medical history who presented to the emergency department secondary to bilateral buttocks cellulitis with abscess formation. Patient was recently hospitalized at this facility for left knee/thigh ce llulitis and abscess formation status post liposuction performed on 02/24. Patient was sent home for a few days on oral antibiotics however re-presented due to cellulitis and abscess formation on the buttocks area. Patient has been seen by Dr. Lou. He has done serial debridements of the bilateral buttocks area. Patient currently placed on vancomycin, meropenum, and Flagyl. Patient currently denies nausea/vomiting/diarrhea/shortness breast/chest pain. Patient reports significant pain to bilateral buttocks area. Allergies No Known Allergies Allergy (Verified 03/06/21 03:46) Home Medications: Acidophilus/Bulgaricus [Lactinex Tablet Chewable] 1 each PO BID 14 Days #28 tab.chew 03/18/21 - Past Medical/Surgical History Diabetic: No -: SCOTTY -: liposuction - Social History Smoking Status: Never smoker Alcohol use: No CD- Drugs: No Caffeine use: No Place of Residence: Home Review of Systems 10-point ROS is otherwise unremarkable Physical Examination Temp Pulse Resp BP Pulse Ox 97.3 F 105 H 18 102/59 L 100 03/28/21 12:00 03/28/21 12:00 03/28/21 13:07 03/28/21 12:00 03/28/21 13:07 General: Alert, In no apparent distress, Oriented x3 HEENT: Atraumatic, Normocephalic Neck: Supple, JVD not distended Respiratory: Clear to auscultation bilaterally, Normal air movement Cardiovascular: No edema, Normal pulses Gastrointestinal: Normal bowel sounds, Non-distended Integumentary: Other (Bandages to bilateral buttock/thigh area.) Conclusions/Impression: Antibiotics: Vancomycin Start: 03/23 Meropenem Start: 03/23 Assessment/plan Cellulitis/abscess of bilateral buttocks/thigh status post debridement and I & D Patient being followed by Dr. Lou. Has been to the OR on the , , and for serial debridements of buttocks/bilateral thigh. All cultures have been negative to date. Continue empiric coverage with vancomycin and meropenem. Vancomycin trough goal of 12-17. Vancomycin trough taken on 03/26 within therapeutic range at 13.5. Continue to monitor renal function. Leukocytosis Likely reactive due to serial debridements. Continue empiric coverage. anemia Continue to monitor H&H Protein caloric malnutrition: Moderate Recommend supplemental Ensure protein drinks. -medical management per primary team -continue monitor CBC and BMP -continue to monitor for signs of infection Plan of care discussed with Dr. Rider Thank you for consultation
--- NOTE | 2021-03-28 14:51 | P.PN ---
Subjective Date of Service: 03/28/21 Chief Complaint: abscess Subjective: Improving, Doing well Physical Examination - Vital Signs Temperature: 97.3 F Blood Pressure: 102/59 Pulse: 105 Respirations: 18 Pulse Ox (%): 100 - Studies Microbiology Data (last 24 hrs): 03/23/21 18:19 Wound - Abscess Gram Stain - Final 03/23/21 18:19 Wound - Abscess Anaerobic Culture - Final NO ANAEROBES GROWN. 03/23/21 18:05 Wound - Abscess Gram Stain - Final 03/23/21 18:05 Wound - Abscess Anaerobic Culture - Final NO ANAEROBES GROWN. 03/23/21 18:03 Wound - Abscess Gram Stain - Final 03/23/21 18:03 Wound - Abscess Anaerobic Culture - Final NO ANAEROBES GROWN. 03/23/21 18:00 Wound - Abscess Gram Stain - Final 03/23/21 18:00 Wound - Abscess Anaerobic Culture - Final NO ANAEROBES GROWN. 03/23/21 18:00 Wound - Abscess Gram Stain - Final 03/23/21 18:00 Wound - Abscess Anaerobic Culture - Final NO ANAEROBES GROWN. Assessment & Plan Discharge Plan: Home Plan to discharge in: 48 Hours Physician Review Additional Text: Physical Exam: GENERAL: The patient is a well-developed, well-nourished, in no apparent distress. Alert and oriented x3. VITAL SIGNS: Reviewed HEENT: Neck supple LUNGS: Clear to auscultation. No crackles or wheezes are heard. HEART: Regular rate and rhythm, no appreciable gallops, rubs, murmurs or extra heart sounds ABDOMEN: Soft, nontender, and nondistended. Positive bowel sounds. No hepatosplenomegaly was noted. EXTREMITIES: Bandages to the buttocks noted NEUROLOGIC: The patient is oriented to person, place and time. Strength and sensation are grossly intact. Face is symmetric. SKIN: Normal color, turgor and temperature. No ulcerations or rashes noted. Impression: Infection to the right and left thigh/buttocks status post multiple debridements of the skin/subcutaneous tissue, incision and drainage of abscess to the thigh and buttocks with history of plastic surgery Anemia likely of chronic disease suspect iron deficiency Plan: Continue IV antibiotic therapyvancomycin and meropenem. Continue with infectious disease recommendations. Patient is planned for surgery tomorrow with likely closure. Will discuss with plastic surgery on plan of care. Will provide lactobacillus. Continue with medication for pain Continue to monitor hemoglobin. Will check iron and B12 studies. Code Status: Full Code DVT prophylaxis: Lovenox Advanced Care Planning-30 minutes: Home at discharge Time Spent Managing Pts Care (In Minutes): 55
[2021-03-28 17:18] LABS: Ferritin 521.6 ng/mL (8-388)
[2021-03-28] MEDS ORDERED: NA CHLORIDE 0.9% 500 ML ONE (19:51)
[2021-03-28] MEDS ORDERED: VANCOMYCIN 1 GM/VIAL ONE (20:07)
[2021-03-28] MEDS ORDERED: ACIDOPHILUS PO SCH (21:00)
[2021-03-28] MEDS ORDERED: BULGARICUS PO SCH (21:00)
[2021-03-28] MEDS: LACTOBACILLUS/ACIDOPHILUS TAB PO SCH (21:27)
[2021-03-29] MEDS: MEPERIDINE HCL 50 MG/ML IVP PRN ×2 (00:49→10:59)
[2021-03-29] MEDS: Meropenem 1 GM/100 ML BAG IV SCH ×3 (00:50→17:25)
[2021-03-29] MEDS: MORPHINE 2 MG/ML SYR IV PRN ×3 (06:11→21:26)
[2021-03-29 06:15] LABS: Absolute Lymphocytes (CBC) 1.1 K/uL (0.7-4.9); Hematocrit 23.4 % (36.0-45.0); Lymphocytes % 10.5 % (15.3-44.8); MPV 6.3 fL (7.6-11.3); RBC Red Blood Cell Count 2.62 M/uL (3.86-4.86)
--- NOTE | 2021-03-29 06:17 | P.PN ---
Subjective Date of Service: 03/29/21 Chief Complaint: abscess Subjective: Doing well Physical Examination - Vital Signs Temperature: 98.3 F Blood Pressure: 97/52 Pulse: 101 Respirations: 18 Pulse Ox (%): 99 Assessment & Plan Discharge Plan: Home Plan to discharge in: Greater than 2 days Physician Review Additional Text: Physical Exam: GENERAL: The patient is a well-developed, well-nourished, in no apparent dis tress. Alert and oriented x3. VITAL SIGNS: Reviewed HEENT: Neck supple LUNGS: Clear to auscultation. No crackles or wheezes are heard. HEART: Regular rate and rhythm, no appreciable gallops, rubs, murmurs or extra heart sounds ABDOMEN: Soft, nontender, and nondistended. Positive bowel sounds. No hepatosplenomegaly was noted. EXTREMITIES: Bandages to the buttocks noted NEUROLOGIC: The patient is oriented to person, place and time. Strength and sensation are grossly intact. Face is symmetric. SKIN: Normal color, turgor and temperature. No ulcerations or rashes noted. Impression: Infection to the right and left thigh/buttocks status post multiple debridements of the skin/subcutaneous tissue, incision and drainage of abscess to the thigh and buttocks with history of plastic surgery Anemia likely of chronic disease with iron deficiency Plan: Continue IV antibiotic therapyvancomycin and meropenem. Continue with infectious disease recommendations. Discussed with plastic surgery on plan of care. Surgery planned for the next couple of days for likely closure. Will provide lactobacillus. Continue with medication for pain Continue to monitor hemoglobin. We will start iron supplementation. Code Status: Full Code DVT prophylaxis: Lovenox Advanced Care Planning-30 minutes: Home at discharge Time Spent Managing Pts Care (In Minutes): 55
[2021-03-29 06:34] LABS: ALT/SGPT 25 U/L (12-78); AST/SGOT 13 U/L (15-37); Albumin 2.1 g/dL (3.4-5.0); Alkaline Phosphatase 105 U/L (45-117); BUN Blood Urea Nitrogen 4 mg/dL (7-18); Bicarbonate 28 mmol/L (21-32); Bilirubin Total 0.3 mg/dL (0.2-1.0); Glucose Level 106 mg/dL (74-106); Potassium 4.1 mmol/L (3.5-5.1); Protein, Total 6.5 g/dL (6.4-8.2); Sodium Level 136 mmol/L (136-145)
[2021-03-29 07:35] LABS: Platelet Estimate INCR
[2021-03-29 07:36] LABS: Blood Morphology Comment NOTED (NOT SEEN); Stomatocytes 1+
[2021-03-29] MEDS: VANCOMYCIN 1.5 GM in NA CHLORIDE 0.9% 500 ML IVPB SCH ×2 (09:00→21:00)
[2021-03-29] MEDS: LACTOBACILLUS/ACIDOPHILUS TAB PO SCH ×2 (09:00→21:25)
[2021-03-29] MEDS: SILVER SULFADIAZINE 1% TOP SCH ×2 (09:00→21:00)
--- NOTE | 2021-03-29 11:39 | DS ---
The patient is afebrile. White count is up to 13,000. The dressing is changed. The wounds are all looking stitch cleaner. No new areas of focal tenderness. I want to shower today and then we pack it with Silvadene cream and planned surgery tomorrow. What is most likely happening is her areas of fat transfer from previous surgery have areas of large collection of fat, which had become secondarily infected from her liposuction. BHANU/JOSE Voice ID: [id number] Report ID: [id number] [facility]
--- NOTE | 2021-03-29 12:01 | P.PN ---
Subjective Date of Service: 03/29/21 Chief Complaint: abscess Patient seen examined at bedside, surgery plans to take patient back to OR today. Review of Systems 10-point ROS is otherwise unremarkable Physical Examination - Vital Signs Temperature: 98.3 F Blood Pressure: 97/52 Pulse: 101 Respirations: 17 Pulse Ox (%): 99 - Studies Laboratory Last Values WBC 14.90 K/uL (4.3-10.9) H D 03/23/21 15:38 RBC 3.25 M/uL (3.86-4.86) L 03/23/21 15:38 Hgb 9.7 g/dL (12.0-15.0) L 03/23/21 15:38 Hct 28.6 % (36.0-45.0) L 03/23/21 15:38 MCV 88.2 fL (80-100) 03/23/21 15:38 MCH 29.8 pg (27.0-35.0) 03/23/21 15:38 MCHC 33.8 g/dL (32.0-36.0) 03/23/21 15:38 RDW 17.3 % (12.1-15.2) H 03/23/21 15:38 Plt Count 461 K/uL (152-406) H D 03/23/21 15:38 MPV 6.5 fL (7.6-11.3) L 03/23/21 15:38 Neutrophils % 81.4 % (41.7-73.7) H 03/23/21 15:38 Lymphocytes % 8.8 % (15.3-44.8) L 03/23/21 15:38 Monocytes % 7.9 % (3.3-12.3) 03/23/21 15:38 Eosinophils % 1.3 % (0-4.4) 03/23/21 15:38 Basophils % 0.6 % (0-1.3) 03/23/21 15:38 Absolute Neutrophils 12.1 K/uL (1.8-8.0) H 03/23/21 15:38 Absolute Lymphocytes 1.3 K/uL (0.7-4.9) 03/23/21 15:38 Absolute Monocytes 1.2 K/uL (0.1-1.3) 03/23/21 15:38 Absolute Eosinophils 0.2 K/uL (0-0.5) 03/23/21 15:38 Absolute Basophils 0.1 K/uL (0-0.5) 03/23/21 15:38 Urine pH 5.5 (5.0-7.0) 03/23/21 13:01 Ur Specific [place] 1.025 (1.005-1.030) 03/23/21 13:01 Glucose (UA)(Auto) Negative (Negative) 03/23/21 13:01 Urine Ketones Trace (Negative) H 03/23/21 13:01 Urine Blood 1+ (Negative) H 03/23/21 13:01 Urine Nitrite Negative (Negative) 03/23/21 13:01 Ur Leukocyte Esterase Negative (Negative) 03/23/21 13:01 Urine Total Protein Trace (Negative) H 03/23/21 13:01 SARS-CoV-2 Rap RNA(RT-PCR) Negative (NEGATIVE) 03/23/21 11:56 Assessment And Plan - Plan Physical exam: General: Alert, In no apparent distress, Oriented x3 HEENT: Atraumatic, Normocephalic Neck: Supple, JVD not distended Respiratory: Clear to auscultation bilaterally, Normal air movement Cardiovascular: No edema, Normal pulses Gastrointestinal: Normal bowel sounds, Non-distended Integumentary: Other (Bandages to bilateral buttock/thigh area.) Conclusions/Impression: Antibiotics: Vancomycin Start: 03/23 Meropenem Start: 03/23 Assessment/plan Cellulitis/abscess of bilateral buttocks/thigh status post debridement and I & D Patient being followed by Dr. Lou. Has been to the OR on the , , and for serial debridements of buttocks/bilateral thigh. Surgery team plans to take patient back to OR today. All cultures have been negative to date. Continue empiric coverage with vancomycin and meropenem. Vancomycin trough goal of 12-17. Vancomycin trough taken on 03/29 within therapeutic range at 15.9. Continue to monitor renal function. Leukocytosis Likely reactive due to serial debridements. Continue empiric coverage. anemia Continue to monitor H&H Protein caloric malnutrition: Moderate Recommend supplemental Ensure protein drinks. -medical management per primary team -continue monitor CBC and BMP -continue to monitor for signs of infection Plan of care discussed with Dr. Rider Thank you for consultation Physician Review: Patient Assessed, Agree with Above Assessment and Plan Physician Review Additional Text: Physical Exam: GENERAL: The patient is a well-developed, well-nourished, in no apparent distress. Alert and oriented x3. VITAL SIGNS: Reviewed HEENT: Neck supple LUNGS: Clear to auscultation. No crackles or wheezes are heard. HEART: Regular rate and rhythm, no appreciable gallops, rubs, murmurs or extra heart sounds ABDOMEN: Soft, nontender, and nondistended. Positive bowel sounds. No hepatosplenomegaly was noted. EXTREMITIES: Bandages to the buttocks noted NEUROLOGIC: The patient is oriented to person, place and time. Strength and sensation are grossly intact. Face is symmetric. SKIN: Normal color, turgor and temperature. No ulcerations or rashes noted. Impression: Infection to the right and left thigh/buttocks status post multiple debridements of the skin/subcutaneous tissue, incision and drainage of abscess to the thigh and buttocks with history of plastic surgery Anemia likely of chronic disease with iron deficiency Plan: Continue IV antibiotic therapyvancomycin and meropenem. Continue with infectious disease recommendations. Discussed with plastic surgery on plan of care. Surgery planned for the next couple of days for likely closure. Will provide lactobacillus. Continue with medication for pain Continue to monitor hemoglobin. We will start iron supplementation. Code Status: Full Code DVT prophylaxis: Lovenox Advanced Care Planning-30 minutes: Home at discharge
[2021-03-29] MEDS ORDERED: Ringers Lactate 1,000 ML IV ONE (14:10)
[2021-03-29] MEDS ORDERED: LIDOCAINE 2% MPF 5 ML VIAL ONE (14:26)
[2021-03-29] MEDS ORDERED: FENTANYL CITR 100 MCG/2 ML ONE ×2 (14:26→15:12)
[2021-03-29] MEDS ORDERED: propofoL 200 MG/20 ML VIAL IV ONE (14:26)
[2021-03-29] MEDS ORDERED: MIDAZOLAM HCL 2 MG/2 ML INJ ONE (14:26)
[2021-03-29] MEDS ORDERED: GLYCOPYRROLATE 0.2 MG/ML SYR ONE ×2 (14:27→15:23)
[2021-03-29] MEDS ORDERED: ROCURONIUM 50 MG/5 ML VIAL IV ONE (14:28)
[2021-03-29] MEDS ORDERED: SODIUM HYPOCHLORITE 0.25% 473 ML TOP ONE (14:30)
[2021-03-29] MEDS ORDERED: SODIUM HYPOCHLORITE 0.25% 473 ML ONE (14:52)
[2021-03-29] MEDS ORDERED: dexAMETHasone 10 MG/ML VIAL ONE (14:59)
[2021-03-29] MEDS ORDERED: ONDANSETRON 4 MG/2 ML VIAL ONE ×2 (15:12→16:02)
[2021-03-29] MEDS ORDERED: KETOROLAC 30 MG/ML INJ ONE (15:22)
[2021-03-29] MEDS ORDERED: NEOSTIGMINE 1 MG/ML -5 ML ONE (15:44)
[2021-03-29] MEDS ORDERED: HYDROMORPHONE HCL 1 MG/ML INJ ONE (16:03)
[2021-03-29] MEDS: HYDROMORPHONE HCL 1 MG/ML INJ ONE ×4 (16:04→16:37)
[2021-03-29] MEDS: FERROUS SULFATE 325 MG TAB PO SCH (21:25)
[2021-03-30] MEDS: MORPHINE 2 MG/ML SYR IV PRN ×3 (01:55→14:21)
[2021-03-30] MEDS: Meropenem 1 GM/100 ML BAG IV SCH ×3 (01:55→17:00)
--- NOTE | 2021-03-30 06:17 | P.PN ---
Subjective Date of Service: 03/30/21 Chief Complaint: abscess Subjective: Other (Patient had debridement again yesterday by plastic surgery. Patient reports pain controlled) Physical Examination - Vital Signs Temperature: 98.6 F Blood Pressure: 96/55 Pulse: 73 Respirations: 15 Pulse Ox (%): 100 Assessment & Plan Discharge Plan: Home Plan to discharge in: Greater than 2 days Physician Review Additional Text: Physical Exam: GENERAL: The patient is a well-developed, well-nourished, in no apparent distress. Alert and oriented x3. VITAL SIGNS: Reviewed HEENT: Neck supple LUNGS: Patient breathing appropriately HEART: Regular rate and rhythm, no appreciable gallops, rubs, murmurs or extra heart sounds ABDOMEN: Soft, nontender, and nondistended. Positive bowel sounds. No hepatosplenomegaly was noted. EXTREMITIES: Bandages to the buttocks noted NEUROLOGIC: The patient is oriented to person, place and time. Strength and sensation are grossly intact. Face is symmetric. Impression: Infection to the right and left thigh/buttocks status post multiple debridements of the skin/subcutaneous tissue, incision and drainage of abscess to the thigh and buttocks with history of plastic surgery Anemia likely of chronic disease with iron deficiency Plan: Patient had further debridement yesterday by plastic surgery. This was discussed in detail with plastic surgery. Patient will continue with further debridement in the next 2 days with possible closure. Patient will likely require skin graft to the left buttocks region. Continue IV antibiotic therapyvancomycin and meropenem. Cultures are still negative. Continue with infectious disease recommendations. Continue lactobacillus. Continue pain medication Hemoglobin low today. Will transfuse 2 units of blood to maintain hemoglobin above 7.0. Continue iron supplementation. Will discuss further with infectious disease and plastic surgery. Anticipate home likely in the next 4 to 5 days Code Status: Full Code DVT prophylaxis: Lovenox Advanced Care Planning-30 minutes: Home at discharge Time Spent Managing Pts Care (In Minutes): 55
[2021-03-30 06:46] LABS: Absolute Lymphocytes (CBC) 1.5 K/uL (0.7-4.9); Hematocrit 20.6 % (36.0-45.0); Lymphocytes % 16.5 % (15.3-44.8); MPV 6.7 fL (7.6-11.3); RBC Red Blood Cell Count 2.31 M/uL (3.86-4.86)
[2021-03-30] MEDS: VANCOMYCIN 1.5 GM in NA CHLORIDE 0.9% 500 ML IVPB SCH ×2 (08:50→22:27)
[2021-03-30] MEDS: FERROUS SULFATE 325 MG TAB PO SCH ×2 (08:53→22:26)
[2021-03-30] MEDS: DOCUSATE NA 100 MG CAP PO SCH (08:53)
[2021-03-30] MEDS: LACTOBACILLUS/ACIDOPHILUS TAB PO SCH ×2 (08:53→22:26)
[2021-03-30] MEDS: SILVER SULFADIAZINE 1% TOP SCH ×2 (09:00→21:00)
--- NOTE | 2021-03-30 11:29 | P.PN ---
Subjective Date of Service: 03/30/21 Chief Complaint: abscess Patient seen examined at bedside, states pain is controlled. WBC within normal range, afebrile and hemodynamically stable. Review of Systems 10-point ROS is otherwise unremarkable Physical Examination - Vital Signs Temperature: 98.6 F Blood Pressure: 96/55 Pulse: 73 Respirations: 15 Pulse Ox (%): 100 - Studies Laboratory Last Values WBC 14.90 K/uL (4.3-10.9) H D 03/23/21 15:38 RBC 3.25 M/uL (3.86-4.86) L 03/23/21 15:38 Hgb 9.7 g/dL (12.0-15.0) L 03/23/21 15:38 Hct 28.6 % (36.0-45.0) L 03/23/21 15:38 MCV 88.2 fL (80-100) 03/23/21 15:38 MCH 29.8 pg (27.0-35.0) 03/23/21 15:38 MCHC 33.8 g/dL (32.0-36.0) 03/23/21 15:38 RDW 17.3 % (12.1-15.2) H 03/23/21 15:38 Plt Count 461 K/uL (152-406) H D 03/23/21 15:38 MPV 6.5 fL (7.6-11.3) L 03/23/21 15:38 Neutrophils % 81.4 % (41.7-73.7) H 03/23/21 15:38 Lymphocytes % 8.8 % (15.3-44.8) L 03/23/21 15:38 Monocytes % 7.9 % (3.3-12.3) 03/23/21 15:38 Eosinophils % 1.3 % (0-4.4) 03/23/21 15:38 Basophils % 0.6 % (0-1.3) 03/23/21 15:38 Absolute Neutrophils 12.1 K/uL (1.8-8.0) H 03/23/21 15:38 Absolute Lymphocytes 1.3 K/uL (0.7-4.9) 03/23/21 15:38 Absolute Monocytes 1.2 K/uL (0.1-1.3) 03/23/21 15:38 Absolute Eosinophils 0.2 K/uL (0-0.5) 03/23/21 15:38 Absolute Basophils 0.1 K/uL (0-0.5) 03/23/21 15:38 Urine pH 5.5 (5.0-7.0) 03/23/21 13:01 Ur Specific [place] 1.025 (1.005-1.030) 03/23/21 13:01 Glucose (UA)(Auto) Negative (Negative) 03/23/21 13:01 Urine Ketones Trace (Negative) H 03/23/21 13:01 Urine Blood 1+ (Negative) H 03/23/21 13:01 Urine Nitrite Negative (Negative) 03/23/21 13:01 Ur Leukocyte Esterase Negative (Negative) 03/23/21 13:01 Urine Total Protein Trace (Negative) H 03/23/21 13:01 SARS-CoV-2 Rap RNA(RT-PCR) Negative (NEGATIVE) 03/23/21 11:56 Assessment And Plan - Plan Physical exam: General: Alert, In no apparent distress, Oriented x3 HEENT: Atraumatic, Normocephalic Neck: Supple, JVD not distended Respiratory: Clear to auscultation bilaterally, Normal air movement Cardiovascular: No edema, Normal pulses Gastrointestinal: Normal bowel sounds, Non-distended Integumentary: Other (Bandages to bilateral buttock/thigh area.) Conclusions/Impression: Antibiotics: Vancomycin Start: 03/23 Meropenem Start: 03/23 Assessment/plan Cellulitis/abscess of bilateral buttocks/thigh status post debridement and I & D Patient being followed by Dr. Lou. Has been to the OR on the , , , and for serial debridements of buttocks/bilateral thigh. All cultures have been negative to date. Continue empiric coverage with vancomycin and meropenem. Vancomycin trough goal of 12-17. Vancomycin trough taken on 03/29 within therapeutic range at 15.9. Continue to monitor renal function. Leukocytosis Resolved. anemia Continue to monitor H&H Protein caloric malnutrition: Moderate Recommend supplemental Ensure protein drinks. -medical management per primary team -continue monitor CBC and BMP -continue to monitor for signs of infection Plan of care discussed with Dr. Rider Thank you for consultation Physician Review: Patient Assessed, Agree with Above Assessment and Plan
[2021-03-30] MEDS ORDERED: MEPERIDINE HCL 25 MG/ML SYR IV ONE (19:00)
--- NOTE | 2021-03-30 21:54 | RAD REPORT ---
EXAM DESCRIPTION: RAD - Chest Single View - 03/30/2021 9:48 pm CLINICAL HISTORY: PICC placement COMPARISON: Chest Single View dated 03/05/2021; Chest For Pe Angio dated 03/12/2021; Knee Left W/Wo C ont dated 03/14/2021 FINDINGS: Lines: Right subclavian approach PICC with tip overlying the SVC in satisfactory position. Lungs: No evidence of edema or pneumonia. Pleural: No significant pleural effusions or pneumothorax. Cardiac: The heart size is within normal limits. Bones: No acute fractures. Other: IMPRESSION: No acute cardiopulmonary disease. PICC with tip overlying the SVC in satisfactory positi on.
[2021-03-30] MEDS ORDERED: NA CHLORIDE 0.9% 250 ML ONE (22:43)
[2021-03-31] MEDS: Meropenem 1 GM/100 ML BAG IV SCH ×3 (01:00→16:53)
--- NOTE | 2021-03-31 06:07 | P.PN ---
Subjective Date of Service: 03/31/21 Chief Complaint: abscess Subjective: Other (Patient doing well. Patient is expected to have surgical debridement today.) Physical Examination - Vital Signs Temperature: 97.5 F Blood Pressure: 103/59 Pulse: 87 Respirations: 17 Pulse Ox (%): 99 Assessment & Plan Discharge Plan: Home Plan to discharge in: Greater than 2 days Physician Review Additional Text: Physical Exam: GENERAL: The patient is a well-developed, well-nourished, in no apparent distress. Alert and oriented x3. VITAL SIGNS: Reviewed HEENT: Neck supple LUNGS: Patient breathing appropriately HEART: Regular rate and rhythm, no appreciable gallops, rubs, murmurs or extra heart sounds ABDOMEN: Soft, nontender, and nondistended. Positive bowel sounds. No hepatosplenomegaly was noted. EXTREMITIES: Bandages to the buttocks noted NEUROLOGIC: The patient is oriented to person, place and time. Strength and sensation are grossly intact. Face is symmetric. Impression: Infection to the right and left thigh/buttocks status post multiple debridements of the skin/subcutaneous tissue, incision and drainage of abscess to the thigh and buttocks with history of plastic surgery Anemia likely of chronic disease with iron deficiency Plan: Patient doing well today. We will continue with pain medication. We will add tramadol for mild pain. Continue Tylenol with codeine for moderate pain. Will provide Demerol IV for severe pain. Patient remains on IV antibiotic therapyvancomycin and meropenem. Cultures so far negative. Continue with infectious disease recommendations. Patient to have debridement again today. Patient will likely require skin graft as well. Will discuss with plastic surgery for details on plan of care. Patient received 2 units of blood yesterday. Recheck hemoglobin hematocrit after transfusion which she finished this morning. Maintain hemoglobin above 7.0. Continue iron supplementation. Anticipate home in the next 3 to 4 days pending plastic surgery plan of care. Code Status: Full Code DVT prophylaxis: Lovenox Advanced Care Planning-30 minutes: Home at discharge Time Spent Managing Pts Care (In Minutes): 55
[2021-03-31] MEDS: MORPHINE 2 MG/ML SYR IV PRN (06:35)
[2021-03-31] MEDS ORDERED: Ringers Lactate 1,000 ML IV ONE (08:25)
[2021-03-31] MEDS ORDERED: TRAMADOL HCL 50 MG TAB PO PRN (08:29)
[2021-03-31] MEDS ORDERED: LIDOCAINE 1% MPF 5 ML VIAL ONE (08:38)
[2021-03-31] MEDS ORDERED: MIDAZOLAM HCL 2 MG/2 ML INJ ONE (08:38)
[2021-03-31] MEDS ORDERED: propofoL 200 MG/20 ML VIAL IV ONE (08:38)
[2021-03-31] MEDS ORDERED: FENTANYL CITR 100 MCG/2 ML ONE ×2 (08:38→09:20)
[2021-03-31] MEDS ORDERED: ROCURONIUM 50 MG/5 ML VIAL IV ONE (08:38)
[2021-03-31] MEDS: VANCOMYCIN 1.5 GM in NA CHLORIDE 0.9% 500 ML IVPB SCH (09:00)
[2021-03-31] MEDS: SILVER SULFADIAZINE 1% TOP SCH ×2 (09:00→21:00)
[2021-03-31 09:03] LABS: Absolute Lymphocytes (CBC) 1.5 K/uL (0.7-4.9); Hematocrit 26.7 % (36.0-45.0); Lymphocytes % 11.2 % (15.3-44.8); MPV 6.6 fL (7.6-11.3); RBC Red Blood Cell Count 3.03 M/uL (3.86-4.86)
[2021-03-31] MEDS ORDERED: ONDANSETRON 4 MG/2 ML VIAL ONE (09:14)
[2021-03-31] MEDS ORDERED: dexAMETHasone 10 MG/ML VIAL ONE (09:14)
[2021-03-31] MEDS ORDERED: KETOROLAC 30 MG/ML INJ ONE (09:15)
[2021-03-31] MEDS ORDERED: SODIUM HYPOCHLORITE 0.25% 473 ML TOP SCH (09:15)
[2021-03-31] MEDS ORDERED: NEOSTIGMINE 1 MG/ML -5 ML ONE (09:26)
[2021-03-31] MEDS ORDERED: GLYCOPYRROLATE 0.2 MG/ML SYR ONE (09:26)
[2021-03-31] MEDS: HYDROMORPHONE HCL 1 MG/ML INJ ONE ×2 (10:10→10:15)
[2021-03-31] MEDS ORDERED: HYDROMORPHONE HCL 1 MG/ML INJ ONE (10:21)
[2021-03-31] MEDS: LACTOBACILLUS/ACIDOPHILUS TAB PO SCH ×2 (11:06→22:10)
[2021-03-31] MEDS: DOCUSATE NA 100 MG CAP PO SCH (11:06)
[2021-03-31] MEDS: FERROUS SULFATE 325 MG TAB PO SCH ×2 (11:09→22:10)
[2021-03-31] MEDS: MEPERIDINE HCL 25 MG/ML SYR IV PRN ×3 (11:11→22:13)
--- NOTE | 2021-03-31 11:24 | P.PN ---
Subjective Date of Service: 03/31/21 Chief Complaint: abscess Patient seen examined at bedside, had PICC line placed yesterday. Review of Systems 10-point ROS is otherwise unremarkable Physical Examination - Vital Signs Temperature: 99.0 F Blood Pressure: 137/88 Pulse: 101 Respirations: 17 Pulse Ox (%): 99 - Studies Laboratory Last Values WBC 14.90 K/uL (4.3-10.9) H D 03/23/21 15:38 RBC 3.25 M/uL (3.86-4.86) L 03/23/21 15:38 Hgb 9.7 g/dL (12.0-15.0) L 03/23/21 15:38 Hct 28.6 % (36.0-45.0) L 03/23/21 15:38 MCV 88.2 fL (80-100) 03/23/21 15:38 MCH 29.8 pg (27.0-35.0) 03/23/21 15:38 MCHC 33.8 g/dL (32.0-36.0) 03/23/21 15:38 RDW 17.3 % (12.1-15.2) H 03/23/21 15:38 Plt Count 461 K/uL (152-406) H D 03/23/21 15:38 MPV 6.5 fL (7.6-11.3) L 03/23/21 15:38 Neutrophils % 81.4 % (41.7-73.7) H 03/23/21 15:38 Lymphocytes % 8.8 % (15.3-44.8) L 03/23/21 15:38 Monocytes % 7.9 % (3.3-12.3) 03/23/21 15:38 Eosinophils % 1.3 % (0-4.4) 03/23/21 15:38 Basophils % 0.6 % (0-1.3) 03/23/21 15:38 Absolute Neutrophils 12.1 K/uL (1.8-8.0) H 03/23/21 15:38 Absolute Lymphocytes 1.3 K/uL (0.7-4.9) 03/23/21 15:38 Absolute Monocytes 1.2 K/uL (0.1-1.3) 03/23/21 15:38 Absolute Eosinophils 0.2 K/uL (0-0.5) 03/23/21 15:38 Absolute Basophils 0.1 K/uL (0-0.5) 03/23/21 15:38 Urine pH 5.5 (5.0-7.0) 03/23/21 13:01 Ur Specific [place] 1.025 (1.005-1.030) 03/23/21 13:01 Glucose (UA)(Auto) Negative (Negative) 03/23/21 13:01 Urine Ketones Trace (Negative) H 03/23/21 13:01 Urine Blood 1+ (Negative) H 03/23/21 13:01 Urine Nitrite Negative (Negative) 03/23/21 13:01 Ur Leukocyte Esterase Negative (Negative) 03/23/21 13:01 Urine Total Protein Trace (Negative) H 03/23/21 13:01 SARS-CoV-2 Rap RNA(RT-PCR) Negative (NEGATIVE) 03/23/21 11:56 Assessment And Plan - Plan Physical exam: General: Alert, In no apparent distress, Oriented x3 HEENT: Atraumatic, Normocephalic Neck: Supple, JVD not distended Respiratory: Clear to auscultation bilaterally, Normal air movement Cardiovascular: No edema, Normal pulses Gastrointestinal: Normal bowel sounds, Non-distended Integumentary: Other (Bandages to bilateral buttock/thigh area.) Conclusions/Impression: Antibiotics: Vancomycin Start: 03/23 Meropenem Start: 03/23 Assessment/plan Cellulitis/abscess of bilateral buttocks/thigh status post debridement and I & D Patient being followed by Dr. Lou. Has been to the OR on the , , , , , and for serial debridements of buttocks/bilateral thigh. Patient will likely need skin graft. Patient had PICC line placed yesterday to receive antibiotics and blood transfusion due to anemia. All cultures negative to date, however right thigh wound culture obtained on 03/27 preliminary/gram stain showed gram variable bacilli however nothing grew in culture. Continue empiric coverage with vancomycin and meropenem. Vancomycin trough goal of 12- 17. Vancomycin trough taken on 03/31 was 40.1, however this is not true trough. Kidney function within normal range. Leukocytosis Likely reactive due to serial debridements. Continue IV antibiotics. anemia Continue to monitor H&H Protein caloric malnutrition: Moderate Recommend supplemental Ensure protein drinks. -medical management per primary team -continue monitor CBC and BMP -continue to monitor for signs of infection Plan of care discussed with Dr. Rider Thank you for consultation Physician Review: Patient Assessed, Agree with Above Assessment and Plan
[2021-03-31] MEDS: SODIUM HYPOCHLORITE 0.5% 473 ML TOP SCH (21:00)
[2021-04-01] MEDS: Meropenem 1 GM/100 ML BAG IV SCH ×3 (01:00→18:03)
[2021-04-01] MEDS: MEPERIDINE HCL 25 MG/ML SYR IV PRN ×5 (02:41→20:25)
--- NOTE | 2021-04-01 06:18 | P.PN ---
Subjective Date of Service: 04/01/21 Chief Complaint: abscess Subjective: Doing well Physical Examination - Vital Signs Temperature: 97.2 F Blood Pressure: 104/56 Pulse: 84 Respirations: 17 Pulse Ox (%): 97 Assessment & Plan Discharge Plan: Home Plan to discharge in: Greater than 2 days Physician Review Additional Text: Physical Exam: GENERAL: The patient is a well-developed, well-nourished, in no apparent dis tress. Alert and oriented x3. VITAL SIGNS: Reviewed HEENT: Neck supple LUNGS: Patient breathing appropriately HEART: Regular rate and rhythm, no appreciable gallops, rubs, murmurs or extra heart sounds ABDOMEN: Soft, nontender, and nondistended. Positive bowel sounds. No hepatosplenomegaly was noted. EXTREMITIES: Bandages to the buttocks noted NEUROLOGIC: The patient is oriented to person, place and time. Strength and sensation are grossly intact. Face is symmetric. Impression: Infection to the right and left thigh/buttocks status post multiple debridements of the skin/subcutaneous tissue, incision and drainage of abscess to the thigh and buttocks with history of plastic surgery Anemia likely of chronic disease with iron deficiency Plan: Overall doing well. Pain seems to be controlled. Continue with tramadol for mild pain. Continue Tylenol with codeine for moderate pain. Will provide Demerol IV for severe pain. Patient remains on IV antibiotic therapyvancomycin and meropenem. Cultures so far negative. Continue with infectious disease recommendations. Patient to have debridement again yesterday. Patient will have debridement on Sunday. Patient will likely require skin graft as well. Continue with plastic surgery recommendations Patient received 2 units of blood the other day. Hemoglobin stable. Maintain hemoglobin above 7.5. Monitor hemoglobin closely. Continue with iron supplementation. Anticipate home in the next 3 to 4 days pending plastic surgery plan of care. Code Status: Full Code DVT prophylaxis: Lovenox Advanced Care Planning-30 minutes: Home at discharge Time Spent Managing Pts Care (In Minutes): 55
[2021-04-01 07:55] LABS: Absolute Lymphocytes (CBC) 2.1 K/uL (0.7-4.9); MPV 6.5 fL (7.6-11.3); RBC Red Blood Cell Count 2.93 M/uL (3.86-4.86)
[2021-04-01] MEDS: FERROUS SULFATE 325 MG TAB PO SCH ×2 (07:56→20:26)
[2021-04-01] MEDS: LACTOBACILLUS/ACIDOPHILUS TAB PO SCH ×2 (07:56→20:26)
[2021-04-01] MEDS: DOCUSATE NA 100 MG CAP PO SCH (07:56)
[2021-04-01] MEDS: SILVER SULFADIAZINE 1% TOP SCH ×2 (07:57→20:35)
[2021-04-01] MEDS: SODIUM HYPOCHLORITE 0.5% 473 ML TOP SCH ×2 (07:57→20:35)
[2021-04-01 08:43] LABS: Blood Morphology Comment NOT SEEN (NOT SEEN); Platelet Estimate INCR; White Blood Cell Scan OK (OK)
[2021-04-01] MEDS: CODEINE 30MG/APAP 300MG TAB PO PRN ×2 (10:08→18:07)
--- NOTE | 2021-04-01 12:18 | P.PN ---
Subjective Date of Service: 04/01/21 Chief Complaint: abscess Patient seen examined at bedside, pain controlled. Review of Systems 10-point ROS is otherwise unremarkable Physical Examination - Vital Signs Temperature: 97.2 F Blood Pressure: 104/56 Pulse: 84 Respirations: 17 Pulse Ox (%): 97 - Studies Laboratory Last Values WBC 14.90 K/uL (4.3-10.9) H D 03/23/21 15:38 RBC 3.25 M/uL (3.86-4.86) L 03/23/21 15:38 Hgb 9.7 g/dL (12.0-15.0) L 03/23/21 15:38 Hct 28.6 % (36.0-45.0) L 03/23/21 15:38 MCV 88.2 fL (80-100) 03/23/21 15:38 MCH 29.8 pg (27.0-35.0) 03/23/21 15:38 MCHC 33.8 g/dL (32.0-36.0) 03/23/21 15:38 RDW 17.3 % (12.1-15.2) H 03/23/21 15:38 Plt Count 461 K/uL (152-406) H D 03/23/21 15:38 MPV 6.5 fL (7.6-11.3) L 03/23/21 15:38 Neutrophils % 81.4 % (41.7-73.7) H 03/23/21 15:38 Lymphocytes % 8.8 % (15.3-44.8) L 03/23/21 15:38 Monocytes % 7.9 % (3.3-12.3) 03/23/21 15:38 Eosinophils % 1.3 % (0-4.4) 03/23/21 15:38 Basophils % 0.6 % (0-1.3) 03/23/21 15:38 Absolute Neutrophils 12.1 K/uL (1.8-8.0) H 03/23/21 15:38 Absolute Lymphocytes 1.3 K/uL (0.7-4.9) 03/23/21 15:38 Absolute Monocytes 1.2 K/uL (0.1-1.3) 03/23/21 15:38 Absolute Eosinophils 0.2 K/uL (0-0.5) 03/23/21 15:38 Absolute Basophils 0.1 K/uL (0-0.5) 03/23/21 15:38 Urine pH 5.5 (5.0-7.0) 03/23/21 13:01 Ur Specific [place] 1.025 (1.005-1.030) 03/23/21 13:01 Glucose (UA)(Auto) Negative (Negative) 03/23/21 13:01 Urine Ketones Trace (Negative) H 03/23/21 13:01 Urine Blood 1+ (Negative) H 03/23/21 13:01 Urine Nitrite Negative (Negative) 03/23/21 13:01 Ur Leukocyte Esterase Negative (Negative) 03/23/21 13:01 Urine Total Protein Trace (Negative) H 03/23/21 13:01 SARS-CoV-2 Rap RNA(RT-PCR) Negative (NEGATIVE) 03/23/21 11:56 Assessment And Plan - Plan Physical exam: General: Alert, In no apparent distress, Oriented x3 HEENT: Atraumatic, Normocephalic Neck: Supple, JVD not distended Respiratory: Clear to auscultation bilaterally, Normal air movement Cardiovascular: No edema, Normal pulses Gastrointestinal: Normal bowel sounds, Non-distended Integumentary: Other (Bandages to bilateral buttock/thigh area--12 the surgical incisions.) Conclusions/Impression: Antibiotics: Vancomycin Start: 03/23 Meropenem Start: 03/23 Assessment/plan Cellulitis/abscess of bilateral buttocks/thigh status post debridement and I & D Patient being followed by Dr. Lou. Has been to the OR on the , , , , , and for serial debridements of buttocks/bilateral thigh. Total of 12 surgical incisions. Patient will likely need skin graft. Patient had PICC line placed on 03/30 to receive antibiotics and blood transfusion due to anemia. Patient received a total of 3 units of packed red blood cells on 03/31. All cultures negative to date, however right thigh wound culture obtained on 03/27 preliminary/gram stain showed gram variable bacilli--awaiting full culture report.. Continue empiric coverage with vancomycin and meropenem. Vancomycin trough goal of 12-17. Vancomycin trough taken on 03/31 was 40.1. Due to this patient had antibiotic colony on 03/31 and 04/01. Repeat trough pending. If within normal range will restart vancomycin tomorrow. Kidney function within normal range. Leukocytosis Due to abscesses on the bilateral buttock/thigh area with a component likely reactive due to serial debridements. Continue IV antibiotics. anemia Continue to monitor H&H. Patient received 3 units of packed red blood cells on 03/31. Protein caloric malnutrition: Moderate Recommend supplemental Ensure protein drinks. -medical management per primary team -continue monitor CBC and BMP -continue to monitor for signs of infection Plan of care discussed with Dr. Rider Thank you for consultation Physician Review: Patient Assessed, Agree with Above Assessment and Plan
[2021-04-01] MEDS: VANCOMYCIN 1.5 GM in NA CHLORIDE 0.9% 500 ML IVPB SCH (15:26)
[2021-04-01] MEDS: MORPHINE 4 MG/ML SYR IV PRN (23:40)
[2021-04-02] MEDS: Meropenem 1 GM/100 ML BAG IV SCH ×3 (00:54→17:39)
[2021-04-02] MEDS: MORPHINE 4 MG/ML SYR IV PRN ×5 (03:27→22:13)
--- NOTE | 2021-04-02 05:52 | P.PN ---
Subjective Date of Service: 04/02/21 Primary Care Provider: Plastic Surgery-Dr. Luo Chief Complaint: abscess Subjective: Other (Overall stable. No changes noted. Patient reports some pain today.) Physical Examination - Vital Signs Temperature: 98.5 F Blood Pressure: 104/63 Pulse: 16 Respirations: 95 Pulse Ox (%): 100 Assessment & Plan Discharge Plan: Home Plan to discharge in: 72 Hours Physician Review Additional Text: Physical Exam: GENERAL: The patient is a well-developed, well-nourished, in no apparent distress. Alert and oriented x3. VITAL SIGNS: Reviewed HEENT: Neck supple LUNGS: Patient breathing appropriately HEART: Regular rate and rhythm, no appreciable gallops, rubs, murmurs or extra heart sounds ABDOMEN: Soft, nontender, and nondistended. Positive bowel sounds. No hepatosplenomegaly was noted. EXTREMITIES: Bandages to the buttocks noted NEUROLOGIC: The patient is oriented to person, place and time. Strength and sensation are grossly intact. Face is symmetric. Impression: Infection to the right and left thigh/buttocks status post multiple debridements of the skin/subcutaneous tissue, incision and drainage of abscess to the thigh and buttocks with history of plastic surgery Anemia likely of chronic disease with iron deficiency Plan: Overall stable. Continue with pain control. Continue with tramadol for mild pain. Continue Tylenol with codeine for moderate pain. Will provide Demerol IV for severe pain. Patient remains on IV antibiotic therapyvancomycin and meropenem. Cultures so far negative. Continue with infectious disease recommendations. Patient to have debridement again tomorrow. Patient will likely require skin graft as well. Continue with plastic surgery recommendations Hemoglobin stable. Patient has received 2 units of packed red blood cells during the course of her stay. Maintain hemoglobin above 7.5. Monitor hemoglobin closely. Continue with iron supplementation. Anticipate home in the next 3 to 4 days pending plastic surgery plan of care. Code Status: Full Code DVT prophylaxis: Lovenox Advanced Care Planning-30 minutes: Home at discharge Time Spent Managing Pts Care (In Minutes): 55
[2021-04-02 05:54] LABS: Absolute Lymphocytes (CBC) 1.6 K/uL (0.7-4.9); Hematocrit 26.1 % (36.0-45.0); Lymphocytes % 11.2 % (15.3-44.8); MPV 6.3 fL (7.6-11.3); RBC Red Blood Cell Count 2.94 M/uL (3.86-4.86)
[2021-04-02] MEDS: MEPERIDINE HCL 25 MG/ML SYR IV PRN ×4 (06:01→20:07)
[2021-04-02] MEDS: VANCOMYCIN 1.5 GM in NA CHLORIDE 0.9% 500 ML IVPB SCH (08:12)
[2021-04-02] MEDS: FERROUS SULFATE 325 MG TAB PO SCH ×2 (08:19→20:08)
[2021-04-02] MEDS: SILVER SULFADIAZINE 1% TOP SCH ×2 (08:19→20:15)
[2021-04-02] MEDS: SODIUM HYPOCHLORITE 0.5% 473 ML TOP SCH ×2 (08:19→20:15)
[2021-04-02] MEDS: DOCUSATE NA 100 MG CAP PO SCH (08:19)
[2021-04-02] MEDS: LACTOBACILLUS/ACIDOPHILUS TAB PO SCH ×2 (08:19→20:08)
[2021-04-02] MEDS ORDERED: VANCOMYCIN 1.5 GM in NA CHLORIDE 0.9% 500 ML IVPB SCH (09:00)
[2021-04-02 09:48] LABS: Anisocytosis 1+; Blood Morphology Comment NOTED (NOT SEEN); Platelet Estimate INCR
[2021-04-03] MEDS: Meropenem 1 GM/100 ML BAG IV SCH ×2 (02:14→09:38)
[2021-04-03] MEDS: MORPHINE 4 MG/ML SYR IV PRN ×5 (02:15→23:30)
[2021-04-03] MEDS ORDERED: VANCOMYCIN 1 GM/VIAL ONE (02:24)
[2021-04-03] MEDS: VANCOMYCIN 1.5 GM in NA CHLORIDE 0.9% 500 ML IVPB SCH ×2 (02:47→13:54)
--- NOTE | 2021-04-03 06:05 | P.PN ---
Subjective Date of Service: 04/03/21 Primary Care Provider: Plastic Surgery-Dr. Lou Chief Complaint: abscess Subjective: Other (Patient doing well at this time. Patient reports some pain to the buttocks region.) Physical Examination - Vital Signs Temperature: 98.1 F Blood Pressure: 117/60 Pulse: 106 Respirations: 20 Pulse Ox (%): 96 Assessment & Plan Discharge Plan: Home Plan to discharge in: Greater than 2 days Physician Review Additional Text: Physical Exam: GENERAL: The patient is a well-developed, well-nourished, in no apparent distress. Alert and oriented x3. VITAL SIGNS: Reviewed HEENT: Neck supple LUNGS: Patient breathing appropriately HEART: Regular rate and rhythm, no appreciable gallops, rubs, murmurs or extra heart sounds ABDOMEN: Soft, nontender, and nondistended. Positive bowel sounds. No hepatosplenomegaly was noted. EXTREMITIES: Bandages to the buttocks noted NEUROLOGIC: The patient is oriented to person, place and time. Strength and sensation are grossly intact. Face is symmetric. Impression: Infection to the right and left thigh/buttocks status post multiple debridements of the skin/subcutaneous tissue, incision and drainage of abscess to the thigh and buttocks with history of plastic surgery Anemia likely of chronic disease with iron deficiency Plan: Patient has had multiple debridements with plastic surgery. Patient overall stable. Continue with medication for pain. Continue with tramadol for mild pain. Continue Tylenol with codeine for moderate pain. Will provide Demerol IV for severe pain. Patient remains on IV antibiotic therapyvancomycin and meropenem. Cultures so far negative. Continue with infectious disease recommendations. Patient to have debridement again today. Further interventions like skin graft and closure of wounds may occur today or over the next couple of days. Will discuss with plastic surgery about plan of care. Hemoglobin stable. Patient has received 2 units of packed red blood cells during the course of her stay. Maintain hemoglobin above 7.5. Monitor hemoglobin closely. Continue with iron supplementation. Anticipate home in the next 3 to 4 days pending plastic surgery plan of care. I will turn the service over to the hospitalist team tomorrow. I will go plan of care with him. Code Status: Full Code DVT prophylaxis: Lovenox Advanced Care Planning-30 minutes: Home at discharge Time Spent Managing Pts Care (In Minutes): 55
[2021-04-03] MEDS: SILVER SULFADIAZINE 1% TOP SCH ×2 (09:00→21:00)
[2021-04-03] MEDS: DOCUSATE NA 100 MG CAP PO SCH (09:00)
[2021-04-03] MEDS: LACTOBACILLUS/ACIDOPHILUS TAB PO SCH ×2 (09:38→20:48)
[2021-04-03] MEDS: FERROUS SULFATE 325 MG TAB PO SCH ×2 (09:38→20:48)
[2021-04-03] MEDS: SODIUM HYPOCHLORITE 0.5% 473 ML TOP SCH ×2 (09:39→21:00)
[2021-04-03] MEDS: MEPERIDINE HCL 25 MG/ML SYR IV PRN ×3 (09:47→20:48)
[2021-04-03 20:58] LABS: Hematocrit 29.2 % (36.0-45.0)
[2021-04-04] MEDS: MEPERIDINE HCL 25 MG/ML SYR IV PRN ×2 (02:07→08:19)
[2021-04-04] MEDS: VANCOMYCIN 1.5 GM in NA CHLORIDE 0.9% 500 ML IVPB SCH ×2 (02:08→13:46)
[2021-04-04] MEDS: MORPHINE 4 MG/ML SYR IV PRN ×4 (05:08→23:27)
[2021-04-04 05:42] LABS: Absolute Lymphocytes (CBC) 1.6 K/uL (0.7-4.9); Hematocrit 26.6 % (36.0-45.0); Lymphocytes % 13.4 % (15.3-44.8); MPV 6.9 fL (7.6-11.3); RBC Red Blood Cell Count 2.96 M/uL (3.86-4.86)
[2021-04-04 05:56] LABS: BUN Blood Urea Nitrogen 6 mg/dL (7-18); Bicarbonate 25 mmol/L (21-32); Glucose Level 99 mg/dL (74-106); Magnesium 2.1 mg/dL (1.8-2.4); Sodium Level 136 mmol/L (136-145)
[2021-04-04] MEDS: FERROUS SULFATE 325 MG TAB PO SCH ×2 (08:18→22:05)
[2021-04-04] MEDS: LACTOBACILLUS/ACIDOPHILUS TAB PO SCH ×2 (08:18→22:05)
[2021-04-04] MEDS: SODIUM HYPOCHLORITE 0.5% 473 ML TOP SCH ×2 (08:21→21:00)
[2021-04-04] MEDS: DOCUSATE NA 100 MG CAP PO SCH (08:21)
[2021-04-04] MEDS: SILVER SULFADIAZINE 1% TOP SCH ×2 (08:21→21:00)
[2021-04-04] MEDS ORDERED: propofoL 200 MG/20 ML VIAL IV ONE (09:35)
[2021-04-04] MEDS ORDERED: Ringers Lactate 1,000 ML IV ONE (09:38)
[2021-04-04] MEDS ORDERED: MIDAZOLAM HCL 2 MG/2 ML INJ ONE (09:39)
[2021-04-04] MEDS ORDERED: FENTANYL CITR 100 MCG/2 ML ONE ×2 (09:39→10:29)
[2021-04-04] MEDS ORDERED: ONDANSETRON 4 MG/2 ML VIAL ONE (09:40)
[2021-04-04] MEDS ORDERED: LIDOCAINE 1% MPF 5 ML VIAL ONE (09:40)
[2021-04-04] MEDS ORDERED: LIDOCAINE 2% MPF 5 ML VIAL ONE (09:40)
[2021-04-04] MEDS ORDERED: GLYCOPYRROLATE 0.2 MG/ML SYR ONE (09:43)
[2021-04-04] MEDS ORDERED: NEOSTIGMINE 1 MG/ML -5 ML ONE (09:45)
[2021-04-04] MEDS ORDERED: SODIUM HYPOCHLORITE 0.25% 473 ML ONE (10:23)
[2021-04-04] MEDS ORDERED: LABETALOL 20 MG/4ML SYRINGE IV ONE (10:29)
[2021-04-04] MEDS ORDERED: dexAMETHasone 10 MG/ML VIAL ONE (10:32)
[2021-04-04] MEDS ORDERED: Meropenem 1,000 MG in NA CHLORIDE 0.9% 100 ML IV SCH (11:00)
[2021-04-04] MEDS: HYDROMORPHONE HCL 1 MG/ML INJ ONE ×7 (11:23→11:48)
[2021-04-04] MEDS: Meropenem 1,000 MG in NA CHLORIDE 0.9% 100 ML IV SCH ×2 (12:00→22:05)
--- NOTE | 2021-04-04 13:29 | DS ---
Afebrile. White count slightly elevated, still about 13 to 14,000. Hematocrit up to 26 after transf usion. The patient is feeling much better. The wounds are clean. Planned surgery on Sunday. They will debride and close partially at that time. BHANU/JOSE Voice ID: [id number] Report ID: [id number]
[2021-04-05] MEDS: VANCOMYCIN 1.5 GM in NA CHLORIDE 0.9% 500 ML IVPB SCH ×2 (01:58→14:00)
[2021-04-05] MEDS: Meropenem 1,000 MG in NA CHLORIDE 0.9% 100 ML IV SCH ×3 (04:31→20:30)
[2021-04-05] MEDS: MORPHINE 4 MG/ML SYR IV PRN ×4 (04:31→22:33)
[2021-04-05 05:37] LABS: Absolute Lymphocytes (CBC) 1.7 K/uL (0.7-4.9); Hematocrit 26.2 % (36.0-45.0); Lymphocytes % 18.6 % (15.3-44.8); MPV 6.6 fL (7.6-11.3); RBC Red Blood Cell Count 2.96 M/uL (3.86-4.86)
[2021-04-05 05:48] LABS: BUN Blood Urea Nitrogen 5 mg/dL (7-18); Bicarbonate 27 mmol/L (21-32); Glucose Level 106 mg/dL (74-106); Magnesium 2.2 mg/dL (1.8-2.4); Potassium 3.9 mmol/L (3.5-5.1); Sodium Level 142 mmol/L (136-145)
[2021-04-05] MEDS: DOCUSATE NA 100 MG CAP PO SCH (09:00)
[2021-04-05] MEDS: SODIUM HYPOCHLORITE 0.5% 473 ML TOP SCH ×2 (09:00→20:39)
[2021-04-05] MEDS: MEPERIDINE HCL 25 MG/ML SYR IV PRN ×2 (09:15→20:38)
[2021-04-05] MEDS: LACTOBACILLUS/ACIDOPHILUS TAB PO SCH ×2 (09:16→20:31)
[2021-04-05] MEDS: FERROUS SULFATE 325 MG TAB PO SCH ×2 (09:16→20:31)
[2021-04-05] MEDS: SILVER SULFADIAZINE 1% TOP SCH ×2 (09:17→20:39)
--- NOTE | 2021-04-05 11:16 | P.PN ---
Subjective Date of Service: 04/05/21 Primary Care Provider: Plastic Surgery-Dr. Lou Chief Complaint: abscess Patient seen examined at bedside, WBC within normal range. Review of Systems 10-point ROS is otherwise unremarkable Physical Examination - Vital Signs Temperature: 96.9 F Blood Pressure: 143/69 Pulse: 101 Respirations: 18 Pulse Ox (%): 97 - Studies Laboratory Last Values WBC 14.90 K/uL (4.3-10.9) H D 03/23/21 15:38 RBC 3.25 M/uL (3.86-4.86) L 03/23/21 15:38 Hgb 9.7 g/dL (12.0-15.0) L 03/23/21 15:38 Hct 28.6 % (36.0-45.0) L 03/23/21 15:38 MCV 88.2 fL (80-100) 03/23/21 15:38 MCH 29.8 pg (27.0-35.0) 03/23/21 15:38 MCHC 33.8 g/dL (32.0-36.0) 03/23/21 15:38 RDW 17.3 % (12.1-15.2) H 03/23/21 15:38 Plt Count 461 K/uL (152-406) H D 03/23/21 15:38 MPV 6.5 fL (7.6-11.3) L 03/23/21 15:38 Neutrophils % 81.4 % (41.7-73.7) H 03/23/21 15:38 Lymphocytes % 8.8 % (15.3-44.8) L 03/23/21 15:38 Monocytes % 7.9 % (3.3-12.3) 03/23/21 15:38 Eosinophils % 1.3 % (0-4.4) 03/23/21 15:38 Basophils % 0.6 % (0-1.3) 03/23/21 15:38 Absolute Neutrophils 12.1 K/uL (1.8-8.0) H 03/23/21 15:38 Absolute Lymphocytes 1.3 K/uL (0.7-4.9) 03/23/21 15:38 Absolute Monocytes 1.2 K/uL (0.1-1.3) 03/23/21 15:38 Absolute Eosinophils 0.2 K/uL (0-0.5) 03/23/21 15:38 Absolute Basophils 0.1 K/uL (0-0.5) 03/23/21 15:38 Urine pH 5.5 (5.0-7.0) 03/23/21 13:01 Ur Specific [place] 1.025 (1.005-1.030) 03/23/21 13:01 Glucose (UA)(Auto) Negative (Negative) 03/23/21 13:01 Urine Ketones Trace (Negative) H 03/23/21 13:01 Urine Blood 1+ (Negative) H 03/23/21 13:01 Urine Nitrite Negative (Negative) 03/23/21 13:01 Ur Leukocyte Esterase Negative (Negative) 03/23/21 13:01 Urine Total Protein Trace (Negative) H 03/23/21 13:01 SARS-CoV-2 Rap RNA(RT-PCR) Negative (NEGATIVE) 03/23/21 11:56 Assessment And Plan - Plan Physical exam: General: Alert, In no apparent distress, Oriented x3 HEENT: Atraumatic, Normocephalic Neck: Supple, JVD not distended Respiratory: Clear to auscultation bilaterally, Normal air movement Cardiovascular: No edema, Normal pulses Gastrointestinal: Normal bowel sounds, Non-distended Integumentary: Other (Bandages to bilateral buttock/thigh area--12 the surgical incisions.) Conclusions/Impression: Antibiotics: Vancomycin Start: 03/23 Meropenem Start: 03/23 Assessment/plan Cellulitis/abscess of bilateral buttocks/thigh status post debridement and I & D Patient being followed by Dr. Lou. Has been to the OR several times during this admission for serial debridements of buttocks/bilateral thigh. Total of 12 surgical incisions. Patient had a some of the smaller incisions closed over the weekend. Patient will likely need skin graft. Patient had PICC line placed on 03/30 to receive antibiotics and blood transfusion due to anemia. Patient received a total of 3 units of packed red blood cells on 03/31. All cultures negative to date, however right thigh wound culture obtained on 03/27 preliminary/gram stain showed gram variable bacilli--awaiting full culture report. Cultures obtained on 03/29 growing Staph epi--sensative to vanco. Continue empiric coverage with vancomycin and meropenem. Vancomycin trough goal of 12-17. Vancomycin trough taken on 04/04 was 15.1. Leukocytosis resolved--continue to monitor. anemia Continue to monitor H&H. Patient received 3 units of packed red blood cells on 03/31. Protein caloric malnutrition: Moderate Recommend supplemental Ensure protein drinks. -medical management per primary team -continue monitor CBC and BMP -continue to monitor for signs of infection Plan of care discussed with Dr. Rider Thank you for consultation Physician Review: Patient Assessed, Agree with Above Assessment and Plan
[2021-04-06] MEDS: VANCOMYCIN 1.5 GM in NA CHLORIDE 0.9% 500 ML IVPB SCH ×2 (01:32→14:00)
[2021-04-06] MEDS: MORPHINE 4 MG/ML SYR IV PRN ×4 (02:08→23:18)
[2021-04-06] MEDS: Meropenem 1,000 MG in NA CHLORIDE 0.9% 100 ML IV SCH ×3 (03:29→21:08)
[2021-04-06] MEDS: MEPERIDINE HCL 25 MG/ML SYR IV PRN ×2 (03:40→15:46)
[2021-04-06] MEDS: ACETAMINOPHEN 325 MG TABLET PO PRN (04:09)
[2021-04-06 04:38] LABS: Absolute Lymphocytes (CBC) 1.7 K/uL (0.7-4.9); Lymphocytes % 11.8 % (15.3-44.8); MPV 6.6 fL (7.6-11.3); RBC Red Blood Cell Count 3.06 M/uL (3.86-4.86)
[2021-04-06 05:37] LABS: BUN Blood Urea Nitrogen 4 mg/dL (7-18); Bicarbonate 27 mmol/L (21-32); Glucose Level 93 mg/dL (74-106); Potassium 3.9 mmol/L (3.5-5.1); Sodium Level 135 mmol/L (136-145)
[2021-04-06 05:42] LABS: Magnesium 1.5 mg/dL (1.8-2.4)
[2021-04-06] MEDS: FERROUS SULFATE 325 MG TAB PO SCH ×2 (07:52→21:08)
[2021-04-06] MEDS: DOCUSATE NA 100 MG CAP PO SCH (07:52)
[2021-04-06] MEDS: SODIUM HYPOCHLORITE 0.5% 473 ML TOP SCH ×2 (07:52→21:00)
[2021-04-06] MEDS: SILVER SULFADIAZINE 1% TOP SCH ×2 (07:53→21:00)
[2021-04-06] MEDS: LACTOBACILLUS/ACIDOPHILUS TAB PO SCH ×2 (07:53→21:08)
--- NOTE | 2021-04-06 08:32 | DS ---
The patient is afebrile. Underwent debridement yesterday, partial closure. Wound is healing well. There are still some areas of concern that may have to open. I reviewed the case with the patient. Plan is for debridement, possible VAC placement at that time. JANIE Voice ID: [id number] Report ID: [id number]
--- NOTE | 2021-04-06 12:17 | P.PN ---
Subjective Date of Service: 04/06/21 Primary Care Provider: Plastic Surgery-Dr. Lou Chief Complaint: abscess Patient seen examined at bedside, had discussion about transfer to LTAC yesterday with Dr. Rider, however patient and family states that they would not likely transferred to [place] and would like to complete hospitalization at this facility. Review of Systems 10-point ROS is otherwise unremarkable Physical Examination - Vital Signs Temperature: 98.8 F Blood Pressure: 105/63 Pulse: 121 Respirations: 17 Pulse Ox (%): 95 - Studies Laboratory Last Values WBC 14.90 K/uL (4.3-10.9) H D 03/23/21 15:38 RBC 3.25 M/uL (3.86-4.86) L 03/23/21 15:38 Hgb 9.7 g/dL (12.0-15.0) L 03/23/21 15:38 Hct 28.6 % (36.0-45.0) L 03/23/21 15:38 MCV 88.2 fL (80-100) 03/23/21 15:38 MCH 29.8 pg (27.0-35.0) 03/23/21 15:38 MCHC 33.8 g/dL (32.0-36.0) 03/23/21 15:38 RDW 17.3 % (12.1-15.2) H 03/23/21 15:38 Plt Count 461 K/uL (152-406) H D 03/23/21 15:38 MPV 6.5 fL (7.6-11.3) L 03/23/21 15:38 Neutrophils % 81.4 % (41.7-73.7) H 03/23/21 15:38 Lymphocytes % 8.8 % (15.3-44.8) L 03/23/21 15:38 Monocytes % 7.9 % (3.3-12.3) 03/23/21 15:38 Eosinophils % 1.3 % (0-4.4) 03/23/21 15:38 Basophils % 0.6 % (0-1.3) 03/23/21 15:38 Absolute Neutrophils 12.1 K/uL (1.8-8.0) H 03/23/21 15:38 Absolute Lymphocytes 1.3 K/uL (0.7-4.9) 03/23/21 15:38 Absolute Monocytes 1.2 K/uL (0.1-1.3) 03/23/21 15:38 Absolute Eosinophils 0.2 K/uL (0-0.5) 03/23/21 15:38 Absolute Basophils 0.1 K/uL (0-0.5) 03/23/21 15:38 Urine pH 5.5 (5.0-7.0) 03/23/21 13:01 Ur Specific [place] 1.025 (1.005-1.030) 03/23/21 13:01 Glucose (UA)(Auto) Negative (Negative) 03/23/21 13:01 Urine Ketones Trace (Negative) H 03/23/21 13:01 Urine Blood 1+ (Negative) H 03/23/21 13:01 Urine Nitrite Negative (Negative) 03/23/21 13:01 Ur Leukocyte Esterase Negative (Negative) 03/23/21 13:01 Urine Total Protein Trace (Negative) H 03/23/21 13:01 SARS-CoV-2 Rap RNA(RT-PCR) Negative (NEGATIVE) 03/23/21 11:56 Assessment And Plan - Plan Physical exam: General: Alert, In no apparent distress, Oriented x3 HEENT: Atraumatic, Normocephalic Neck: Supple, JVD not distended Respiratory: Clear to auscultation bilaterally, Normal air movement Cardiovascular: No edema, Normal pulses Gastrointestinal: Normal bowel sounds, Non-distended Integumentary: Other (Bandages to bilateral buttock/thigh area--12 the surgical incisions.) Conclusions/Impression: Antibiotics: Vancomycin Start: 03/23 Meropenem Start: 03/23 Assessment/plan Cellulitis/abscess of bilateral buttocks/thigh status post debridement and I & D Patient being followed by Dr. Lou. Has been to the OR several times during this admission for serial debridements of buttocks/bilateral thigh. Total of 12 surgical incisions. Patient had a some of the smaller incisions closed over the weekend. Patient will likely need skin graft. Surgery team plans to place wound vacs to bilateral thigh incisions. Patient had PICC line placed on 03/30 to receive antibiotics and blood transfusion due to anemia. Patient received a total of 3 units of packed red blood cells on 03/31. All cu ltures negative to date, however right thigh wound culture obtained on 03/27 preliminary/gram stain showed gram variable bacilli--awaiting full culture report. Cultures obtained on 03/29 growing Staph epi--sensative to vanco. Continue empiric coverage with vancomycin and meropenem. Vancomycin trough goal of 12-17. Vancomycin trough taken on 04/04 was 15.1. Repeat trough on 04/06 pending. Leukocytosis Continue monitor WBC trend in fever curve. anemia Continue to monitor H&H. Patient received 3 units of packed red blood cells on 03/31. Protein caloric malnutrition: Moderate Recommend supplemental Ensure protein drinks. -medical management per primary team -continue monitor CBC and BMP -continue to monitor for signs of infection Plan of care discussed with Dr. Rider Thank you for consultation Physician Review: Patient Assessed, Agree with Above Assessment and Plan
[2021-04-06] MEDS ORDERED: ROCURONIUM 50 MG/5 ML VIAL IV ONE (12:31)
[2021-04-06] MEDS ORDERED: FENTANYL CITR 100 MCG/2 ML ONE (12:31)
[2021-04-06] MEDS ORDERED: LIDOCAINE 2% MPF 5 ML VIAL ONE (12:31)
[2021-04-06] MEDS ORDERED: MIDAZOLAM HCL 2 MG/2 ML INJ ONE (12:31)
[2021-04-06] MEDS ORDERED: dexAMETHasone 10 MG/ML VIAL ONE (12:32)
[2021-04-06] MEDS ORDERED: Ringers Lactate 1,000 ML IV ONE (12:32)
[2021-04-06] MEDS ORDERED: KETOROLAC 30 MG/ML INJ ONE (12:32)
[2021-04-06] MEDS ORDERED: ONDANSETRON 4 MG/2 ML VIAL ONE (12:32)
[2021-04-06] MEDS ORDERED: propofoL 200 MG/20 ML VIAL IV ONE (12:32)
[2021-04-06] MEDS ORDERED: GLYCOPYRROLATE 0.2 MG/ML SYR ONE ×2 (12:33→14:12)
[2021-04-06] MEDS ORDERED: SODIUM HYPOCHLORITE 0.25% 473 ML ONE (13:41)
[2021-04-06] MEDS ORDERED: SODIUM HYPOCHLORITE 0.5% 473 ML ONE (13:42)
[2021-04-06] MEDS ORDERED: NEOSTIGMINE 1 MG/ML -5 ML ONE (14:25)
[2021-04-06] MEDS: HYDROMORPHONE HCL 1 MG/ML INJ ONE ×2 (14:48→14:55)
[2021-04-06] MEDS: FENTANYL CITR 100 MCG/2 ML ONE ×3 (15:02→15:19)
--- NOTE | 2021-04-06 16:18 | P.PN ---
Subjective Date of Service: 04/04/21 Patient is clinically doing well. Continues to have incision and debridement. Recommendations per Plastic surgery and Infectious Disease. Review of Systems 10-point ROS is otherwise unremarkable Physical Examination - Vital Signs Temperature: 97.4 F Blood Pressure: 108/66 Pulse: 87 Respirations: 14 Pulse Ox (%): 98 - Physical Exam General: Alert, In no apparent distress, Oriented x3 Respiratory: Clear to auscultation bilaterally, Normal air movement Cardiovascular: Regular rate/rhythm, Normal S1 S2 Gastrointestinal: Normal bowel sounds, Soft and benign, Non-distended, No tenderness Musculoskeletal: No clubbing, No swelling, No tenderness Integumentary: Other (Dressing intact) - Studies Medications List Reviewed: Yes Assessment & Plan - Problems (Diagnosis) (1) Skin ulcer of buttock with necrosis of muscle Current Visit: Yes Status: Acute (2) Cellulitis of left knee Current Visit: No Status: Acute (3) SCOTTY (iron deficiency anemia) Current Visit: No Status: Chronic Qualifiers: Iron deficiency anemia type: unspecified iron deficiency Qualified Code(s): D50.9 - Iron deficiency anemia, unspecified - Plan 1. Continue with IV antibiotic 2. Continue with local wound care 3. Wound care consultation/plastic surgical consultation 4. Gentle IV hydration 5. Monitor CBC 6. Strict blood sugar monitoring 7. Pain control 8. GI and DVT prophylaxis Discharge Plan: Home Plan to discharge in: Greater than 2 days - Advance Directives Does patient have a Living Will: No Does patient have a Durable POA for Healthcare: No - Code Status/Comfort Care Code Status Assessed: Yes Code Status: Full Code Physician Review: Patient Assessed, Agree with Above Assessment and Plan Critical Care: No Time Spent Managing PTS Care (In Minutes): 35
--- NOTE | 2021-04-06 16:20 | P.PN ---
Date of Service: 04/05/21 Subjective Patient is clinically doing well. Continues to have incision and debridement. Recommendations per Plastic surgery and Infectious Disease. Review of Systems 10-point ROS is otherwise unremarkable Physical Examination - Vital Signs reviewed - Physical Exam General: Alert, In no apparent distress, Oriented x3 Respiratory: Clear to auscultation bilaterally, Normal air movement Cardiovascular: Regular rate/rhythm, Normal S1 S2 Gastrointestinal: Normal bowel sounds, Soft and benign, Non-distended, No tenderness Musculoskeletal: No clubbing, No swelling, No tenderness Integumentary: Other (Dressing intact) Assessment & Plan - Problems (Diagnosis) (1) Skin ulcer of buttock with necrosis of muscle Current Visit: Yes Status: Acute (2) Cellulitis of left knee Current Visit: No Status: Acute (3) SCOTTY (iron deficiency anemia) Current Visit: No Status: Chronic Qualifiers: Iron deficiency anemia type: unspecified iron deficiency Qualified Code(s): D50.9 - Iron deficiency anemia, unspecified - Plan Continue with current POC 1. Continue with IV antibiotic 2. Continue with local wound care 3. Wound care consultation/plastic surgical consultation 4. Gentle IV hydration 5. Monitor CBC 6. Strict blood sugar monitoring 7. Pain control 8. GI and DVT prophylaxis Discharge Plan: Home Plan to discharge in: Greater than 2 days - Advance Directives Does patient have a Living Will: No Does patient have a Durable POA for Healthcare: No - Code Status/Comfort Care Code Status Assessed: Yes Code Status: Full Code Physician Review: Patient Assessed, Agree with Above Assessment and Plan Critical Care: No Time Spent Managing PTS Care (In Minutes): 35
--- NOTE | 2021-04-06 16:21 | P.PN ---
Date of Service: 04/06/21 Subjective Patient denies any new complaints. Awaiting Infectious Disease recommendation. Possible LTAC placement. Review of Systems 10-point ROS is otherwise unremarkable Physical Examination - Vital Signs reviewed - Physical Exam General: Alert, In no apparent distress, Oriented x3 Respiratory: Clear to auscultation bilaterally, Normal air movement Cardiovascular: Regular rate/rhythm, Normal S1 S2 Gastrointestinal: Normal bowel sounds, Soft and benign, Non-distended, No tenderness Musculoskeletal: No clubbing, No swelling, No tenderness Integumentary: Other (Dressing intact) Assessment & Plan - Problems (Diagnosis) (1) Skin ulcer of buttock with necrosis of muscle Current Visit: Yes Status: Acute (2) Cellulitis of left knee Current Visit: No Status: Acute (3) SCOTTY (iron deficiency anemia) Current Visit: No Status: Chronic Qualifiers: Iron deficiency anemia type: unspecified iron deficiency Qualified Code(s): D50.9 - Iron deficiency anemia, unspecified - Plan Continue with current POC 1. Continue with IV antibiotic 2. Continue with local wound care 3. Wound care consultation/plastic surgical consultation-patient getting debrid ements of the wound. 4. Hep-Lock IV 5. Monitor labs 6. Strict blood sugar monitoring 7. Pain control 8. GI and DVT prophylaxis
--- NOTE | 2021-04-06 22:08 | OP ---
Surgeon: Caleb Lou MD Preoperative Diagnosis: Open wounds of buttock and thigh. Postoperative Diagnosis: Open wounds at buttock side. Procedure: Debridement of skin and subcu tissue, simple closure of 20 cm wound VAC to the left hip. Anesthesia: General. Description Of Procedure: After satisfactory induction of general anesthesia, the patient was placed prone on operating table. The buttock and thigh were prepped with Betadine scrub, Betadine paint, d ry sterile drapes applied in usual manner. Forceps, curette, and tenotomy scissors were used to paulina ride skin and subcu tissue as needed to the multiple open wounds. The largest open wound is left lat eral thigh, the next largest reported right lateral. The wounds were then irrigated after curetting and then partially closed with fly or 2-0 nylon and then a VAC was placed over the left lateral t high wound. It was largest approximately 25 cm x 15 cm. The patient tolerated the procedure well. Dressings consisted of ABDs. There was a 2 inch Irasema soaked in Afrin taken on the right hip. All t he wounds were dressed with dry dressing of ABDs. The patient tolerated procedure well returned to r ecovery. Estimated blood loss less than 100 cc. BHANU/JOSE Voice ID: [id number] Report ID: [id number]
[2021-04-07] MEDS: VANCOMYCIN 1.5 GM in NA CHLORIDE 0.9% 500 ML IVPB SCH ×2 (02:36→15:42)
[2021-04-07] MEDS: MORPHINE 4 MG/ML SYR IV PRN ×4 (03:02→21:04)
[2021-04-07] MEDS: Meropenem 1,000 MG in NA CHLORIDE 0.9% 100 ML IV SCH ×3 (05:14→21:05)
[2021-04-07] MEDS: MEPERIDINE HCL 25 MG/ML SYR IV PRN ×4 (05:28→23:21)
[2021-04-07] MEDS: DOCUSATE NA 100 MG CAP PO SCH (09:00)
[2021-04-07] MEDS: SODIUM HYPOCHLORITE 0.5% 473 ML TOP SCH ×2 (09:00→21:00)
[2021-04-07] MEDS: SILVER SULFADIAZINE 1% TOP SCH ×2 (09:00→21:00)
[2021-04-07] MEDS: LACTOBACILLUS/ACIDOPHILUS TAB PO SCH ×2 (10:05→21:04)
[2021-04-07] MEDS: FERROUS SULFATE 325 MG TAB PO SCH ×2 (10:05→21:04)
--- NOTE | 2021-04-07 16:44 | DS ---
The patient is much improved, very little pain. Planned surgery tomorrow, n.p.o. at midnight. We wi ll debride and close the wounds and put a VAC on the left lateral thigh. BHANU/JOSE Voice ID: [id number] Report ID: [id number]
[2021-04-07] MEDS ORDERED: Magnesium Sulfate 2gm IVPB 2 G/50 ML BAG IV ONE ×2 (19:47→20:57)
[2021-04-08] MEDS: VANCOMYCIN 1.5 GM in NA CHLORIDE 0.9% 500 ML IVPB SCH ×2 (01:06→13:53)
[2021-04-08] MEDS: MORPHINE 4 MG/ML SYR IV PRN ×3 (01:43→20:24)
[2021-04-08] MEDS: MEPERIDINE HCL 25 MG/ML SYR IV PRN ×3 (04:38→23:01)
[2021-04-08] MEDS: Meropenem 1,000 MG in NA CHLORIDE 0.9% 100 ML IV SCH ×3 (04:38→20:24)
[2021-04-08 05:38] LABS: BUN Blood Urea Nitrogen 5 mg/dL (7-18); Bicarbonate 27 mmol/L (21-32); Glucose Level 92 mg/dL (74-106); Magnesium 2.2 mg/dL (1.8-2.4); Potassium 3.8 mmol/L (3.5-5.1); Sodium Level 135 mmol/L (136-145)
[2021-04-08] MEDS ORDERED: Ringers Lactate 1,000 ML IV ONE (08:55)
[2021-04-08] MEDS: SILVER SULFADIAZINE 1% TOP SCH ×2 (09:00→20:26)
[2021-04-08] MEDS: SODIUM HYPOCHLORITE 0.5% 473 ML TOP SCH ×2 (09:00→20:25)
[2021-04-08] MEDS: DOCUSATE NA 100 MG CAP PO SCH (09:00)
[2021-04-08] MEDS ORDERED: KETOROLAC 30 MG/ML INJ ONE (09:07)
[2021-04-08] MEDS ORDERED: propofoL 200 MG/20 ML VIAL IV ONE (09:07)
[2021-04-08] MEDS ORDERED: FENTANYL CITR 100 MCG/2 ML ONE (09:07)
[2021-04-08] MEDS ORDERED: MIDAZOLAM HCL 2 MG/2 ML INJ ONE (09:07)
[2021-04-08] MEDS ORDERED: dexAMETHasone 10 MG/ML VIAL ONE (09:08)
[2021-04-08] MEDS ORDERED: ROCURONIUM 50 MG/5 ML VIAL IV ONE (09:08)
[2021-04-08] MEDS ORDERED: LIDOCAINE 2% MPF 5 ML VIAL ONE (09:08)
[2021-04-08] MEDS ORDERED: ONDANSETRON 4 MG/2 ML VIAL ONE (09:09)
[2021-04-08] MEDS ORDERED: LANO/MINERAL OIL/PETRO 3.5 GM ONE (09:22)
[2021-04-08] MEDS ORDERED: ESMOLOL HCL 10 ML IV ONE (09:42)
[2021-04-08] MEDS ORDERED: NS 0.9% VIAL 10 ML ONE (09:45)
[2021-04-08] MEDS ORDERED: Phenylephrine HCl 10 MG/ML 1 ML VIAL ONE (09:45)
[2021-04-08] MEDS ORDERED: HYDROMORPHONE HCL 1 MG/ML INJ ONE (10:09)
[2021-04-08] MEDS ORDERED: Mastisol Adhesive Liq ONE (10:10)
[2021-04-08] MEDS: HYDROMORPHONE HCL 1 MG/ML INJ ONE ×4 (11:35→12:10)
[2021-04-08 11:44] VITALS: O2SAT 98
--- NOTE | 2021-04-08 12:19 | OP ---
Surgeon: Caleb Lou MD Preoperative Diagnosis: Open wounds of the thighs and buttocks. Postoperative Diagnosis: Open wounds of the thighs and buttocks. Procedure Performed: Debridement of skin and subcu tissue, placement of negative pressure dressing t o right and left greater trochanter, partial closure of the multiple wounds of the buttocks and thigh s. Anesthesia: General. Description Of Procedure: Under satisfactory induction of general anesthesia, the patient was then p laced prone on the operating table. Dry sterile drapes applied in usual manner after buttock was pre pped with Betadine scrub, Betadine paint. Staple was removed from previous closures and sterile sutu res were needed. The wound was then jet lavaged, irrigated, curetted, debrided with forceps and scis sors. The patient has 2 large wounds remaining in the right and left thigh regions. The other wound s were closed with fly and 2-0 nylon vertical mattresses. This was done on the right and left bu ttocks regions. Our attention was then turned to the open wound in the greater trochanter region. T hese were debrided with curette and then a black VAC sponge placed followed by attachment to suction device. Dressing consisted of ABDs and tape. The patient tolerated the procedure well and returned to recovery. BHANU/JOSE Voice ID: [id number] Report ID: [id number]
[2021-04-08] MEDS: FERROUS SULFATE 325 MG TAB PO SCH ×2 (13:53→20:24)
[2021-04-08] MEDS: LACTOBACILLUS/ACIDOPHILUS TAB PO SCH ×2 (13:54→20:24)
[2021-04-09] MEDS: MORPHINE 4 MG/ML SYR IV PRN ×3 (01:02→12:03)
[2021-04-09] MEDS: VANCOMYCIN 1.5 GM in NA CHLORIDE 0.9% 500 ML IVPB SCH ×2 (01:03→14:00)
[2021-04-09] MEDS: Meropenem 1,000 MG in NA CHLORIDE 0.9% 100 ML IV SCH ×2 (03:59→12:00)
[2021-04-09] MEDS: MEPERIDINE HCL 25 MG/ML SYR IV PRN ×2 (04:00→14:44)
[2021-04-09] MEDS: LACTOBACILLUS/ACIDOPHILUS TAB PO SCH (08:01)
[2021-04-09] MEDS: DOCUSATE NA 100 MG CAP PO SCH (08:01)
[2021-04-09] MEDS: FERROUS SULFATE 325 MG TAB PO SCH (08:01)
[2021-04-09] MEDS: SILVER SULFADIAZINE 1% TOP SCH (08:02)
[2021-04-09] MEDS: SODIUM HYPOCHLORITE 0.5% 473 ML TOP SCH (08:02)
--- NOTE | 2021-04-09 14:11 | P.PN ---
Date of Service: 04/07/21 Subjective Patient does not want to go to LTAC. Patient wants to go home with wound care. Continue to arrange. Review of Systems 10-point ROS is otherwise unremarkable Physical Examination - Vital Signs reviewed - Physical Exam General: Alert, In no apparent distress, Oriented x3 Respiratory: Clear to auscultation bilaterally, Normal air movement Cardiovascular: Regular rate/rhythm, Normal S1 S2 Gastrointestinal: Normal bowel sounds, Soft and benign, Non-distended, No tenderness Musculoskeletal: No clubbing, No swelling, No tenderness Integumentary: Other (Dressing intact) Assessment & Plan - Problems (Diagnosis) (1) Skin ulcer of buttock with necrosis of muscle Current Visit: Yes Status: Acute (2) Cellulitis of left knee Current Visit: No Status: Acute (3) SCOTTY (iron deficiency anemia) Current Visit: No Status: Chronic Qualifiers: Iron deficiency anemia type: unspecified iron deficiency Qualified Code(s): D50.9 - Iron deficiency anemia, unspecified - Plan Continue with current POC 1. Continue with IV antibiotic 2. Continue with local wound care; arrange for outpatient home health 3. Wound care consultation/plastic surgical consultation-patient getting debridements of the wound. 4. Hep-Lock IV 5. Monitor labs 6. Strict blood sugar monitoring 7. Pain control 8. GI and DVT prophylaxis
--- NOTE | 2021-04-09 14:12 | P.PN ---
Date of Service: 04/08/21 Subjective Patient continues to do well. Patient continues to improve. Awaiting for arrangements with case management at discharge Review of Systems 10-point ROS is otherwise unremarkable Physical Examination - Vital Signs reviewed - Physical Exam General: Alert, In no apparent distress, Oriented x3 Respiratory: Clear to auscultation bilaterally, Normal air movement Cardiovascular: Regular rate/rhythm, Normal S1 S2 Gastrointestinal: Normal bowel sounds, Soft and benign, Non-distended, No tenderness Musculoskeletal: No clubbing, No swelling, No tenderness Integumentary: Other (Dressing intact) Assessment & Plan - Problems (Diagnosis) (1) Skin ulcer of buttock with necrosis of muscle Current Visit: Yes Status: Acute (2) Cellulitis of left knee Current Visit: No Status: Acute (3) SCOTTY (iron deficiency anemia) Current Visit: No Status: Chronic Qualifiers: Iron deficiency anemia type: unspecified iron deficiency Qualified Code(s): D50.9 - Iron deficiency anemia, unspecified - Plan Continue with current POC 1. Continue with IV antibiotic 2. Continue with local wound care; arrange for outpatient home health 3. Wound care consultation/plastic surgical consultation-patient getting debridements of the wound of the wounds today; possible discharge. 4. Hep-Lock IV 5. Monitor labs 6. Strict blood sugar monitoring 7. Pain control 8. GI and DVT prophylaxis
--- NOTE | 2021-04-09 14:13 | P.DS ---
Discharge Date: 04/09/21 Primary Care Provider: Plastic Surgery-Dr. Lou Disposition: ROUTINE DISCHARGE Discharge Condition: GOOD Reason for Admission: abscess - Problems (1) Skin ulcer of buttock with necrosis of muscle Current Visit: Yes Status: Acute (2) Cellulitis of left knee Current Visit: No Status: Acute (3) SCOTTY (iron deficiency anemia) Current Visit: No Status: Chronic Qualifiers: Iron deficiency anemia type: unspecified iron deficiency Qualified Code(s): D50.9 - Iron deficiency anemia, unspecified Brief History of Present Illness: Ms. Romero is a 35 yo F s/p liposuction on 02/24/2021 who presented with infiltrates in the gluteal fold and admitted for incision and drainage in several locations.. She was previously admitted for incision and drainage of the left medial knee, and received IV Zyvox and merrem for treatment of the infection. Consultation placed to continue antibiotic treatment. Hospital Course: Patient has done well with wound care. Continue with outpatient wound care per Plastic surgery recommendation to follow-up on Sunday. Wound VAC will be arranged as an outpatient. Continue with antibiotics and pain control. Vital Signs/Physical Exam: Temp Pulse Resp BP Pulse Ox 97.5 F 92 H 18 106/66 99 04/09/21 08:00 04/09/21 08:00 04/09/21 12:03 04/09/21 08:00 04/09/21 12:03 General: Alert, In no apparent distress, Oriented x3 Laboratory Data at Discharge: WBC 14.40 K/uL (4.3-10.9) H D 04/06/21 04:25 Hgb 9.0 g/dL (12.0-15.0) L 04/06/21 04:25 Hct 27.0 % (36.0-45.0) L 04/06/21 04:25 Plt Count 492 K/uL (152-406) H 04/06/21 04:25 Sodium 135 mmol/L (136-145) L 04/08/21 05:00 Potassium 3.8 mmol/L (3.5-5.1) 04/08/21 05:00 BUN 5 mg/dL (7-18) L 04/08/21 05:00 Creatinine 0.57 mg/dL (0.55-1.3) 04/08/21 05:00 Glucose 92 mg/dL (74-106) 04/08/21 05:00 Magnesium 2.2 mg/dL (1.8-2.4) D 04/08/21 05:00 Total Bilirubin 0.3 mg/dL (0.2-1.0) 03/29/21 06:05 AST 13 U/L (15-37) L 03/29/21 06:05 ALT 25 U/L (12-78) 03/29/21 06:05 Alkaline Phosphatase 105 U/L (45-117) 03/29/21 06:05 Home Medications: Acidophilus/Bulgaricus [Lactinex Tablet Chewable] 1 each PO BID 14 Days #28 tab.chew 03/18/21 Codeine/APAP [Tylenol W/Codeine #3 tab] 1 tab PO Q6HP PRN #30 tab 04/09/21 Smz./Tmp. [Bactrim Ds 800 MG/160 MG] 1 tab PO BID #14 tab 04/09/21 New Medications: Smz./Tmp. [Bactrim Ds 800 MG/160 MG] 1 tab PO BID #14 tab Codeine/APAP [Tylenol W/Codeine #3 tab] 1 tab PO Q6HP PRN #30 tab PRN Reason: Pain Physician Discharge Instructions: OK TO DC IV AND DC HOME FOLLOW-UP WITH PRIMARY CARE PROVIDER IN 1-2 WEEKS FOLLOW-UP WITH SURGERY IN 1-2 WEEKS RETURN TO THE ER IF symptoms worsen CALL or TEXT DR. BROCK AT [phone] IF ANY QUESTIONS REGARDING HOSPITAL STAY. PLEASE CALL THE FLOOR AT [phone] IF ANY MEDICATION OR NURSING QUESTIONS. Diet: AHA Activity: Fall precautions Followup: Caleb Lou MD [Primary Care Provider] - 04/11/21 9:00 am (Follow up in [facility]) Time spent managing pt's care (in minutes): 35
[2021-04-09 17:03] VITALS: BP 117/72; TEMP 98
--- NOTE | 2021-04-11 10:30 | PN ---
Subjective: The patient is lying in bed, had surgical debridement, and closure of some of the wounds done by surgical team. No new complaints. Objective: Vital Signs: Reviewed. Lungs: Clear to auscultation. Heart: S1, S2. Regular. Abdomen: Soft, nontender. Bowel sounds present. Extremities: No edema. Laboratory Data: Shows WBC from yesterday 14.4, hemoglobin 9, platelets 492. Chemistry from yesterd ay shows BUN of 4, creatinine 0.5, magnesium of 1.5. Assessment/plan: 1.Status post debridement of abscesses and cellulitis of bilateral buttock and left lateral thigh. Continue empiric antibiotic and supportive care. 2.Leukocytosis to be monitored with fever curves. No other recommendation at this time. We will fo llow the patient as needed. NF/MODL Voice ID: [id number] Report ID: [id number]
--- NOTE | 2021-04-11 10:30 | DS ---
Date of Discharge: 04/09/2021 The patient is 35-year-old white female who is status post liposuction 02/24/2021. She developed inf ections of her buttocks site after that. She was treated recently with a debridement and now returns again with infections of her buttocks and thighs. She has history of ADHD, previous tummy tuck, kal ast tuck, liposuction and presumed breast lift. Does not smoke. Does not drink. No allergies. She is 5 feet 3 inches, 140 pounds. On examination, she has left leg medial well-healed area, and the r ight posterior an area that has been previously closed. This looks inflamed as well as the right glu teal fold region. She was taken to surgery multiple times and with multiple debridements. The probl em was her previous breast and buttocks had fat transfer performed. The portions of fat transfer wer e poorly vascularized, and most likely she had contamination from her liposuction of 02/24, and the f at transfer to the breast and buttocks area got infected, although her cultures all grew negative exc ept the one for Staph aureus. She remained afebrile. Her white count was elevated throughout, but t hen dropped back to normal range. At this time, she has a VAC sponge in place. Unfortunately, we ca nnot get a home going vacuum for her. She will go home with the sponge attached to a suction unit. The right thigh is still open. It is approximately 8 cm x 8 cm x 2 cm deep that will be treated with half-strength Dakin's. The other wounds have all been closed. She needs her dressing change of tho se. She will come back to office in 2 days at the [place] [facility], Sunday at 9 o'clock. Home go ing medications Tylenol No.3 1 tab p.o. q.3 hours p.r.n. pain, and antibiotics per the hospitalist. GH/MODL Voice ID: [id number] Report ID: [id number]
== END 2021-04-09 16:46 | disposition home or self-care (01) | DRG 571 ==
LOC: ER 11:00 → DS 11:59 → 2ND 12:56 → OBSVTOIN 20:23
PROVIDERS: ADMIT Specialist; ATTEND Hospitalist
PROC: 0JD90ZZ Extraction of Buttock Subcutaneous Tissue and Fascia, Open Approach (ICD-10-PCS; 2021-03-23)
PROC: 02HV33Z Insertion of Infusion Device into Superior Vena Cava, Percutaneous Approach (ICD-10-PCS; 2021-03-30)
PROC: 30243N1 Transfusion of Nonautologous Red Blood Cells into Central Vein, Percutaneous Approach (ICD-10-PCS; 2021-03-30)
PROC: 0JQ90ZZ Repair Buttock Subcutaneous Tissue and Fascia, Open Approach (ICD-10-PCS; 2021-04-06)
PROC: 0JB90ZZ Excision of Buttock Subcutaneous Tissue and Fascia, Open Approach (ICD-10-PCS; principal; 2021-04-06 13:00)
PROC: 0JB90ZZ Excision of Buttock Subcutaneous Tissue and Fascia, Open Approach (ICD-10-PCS; 2021-04-08)
PROC: 0JBP0ZZ Excision of Left Lower Leg Subcutaneous Tissue and Fascia, Open Approach (ICD-10-PCS; 2021-04-08)
PROC: 0JBN0ZZ Excision of Right Lower Leg Subcutaneous Tissue and Fascia, Open Approach (ICD-10-PCS; 2021-04-08)
PROC: 0JQ90ZZ Repair Buttock Subcutaneous Tissue and Fascia, Open Approach (ICD-10-PCS; 2021-04-08)
PROC: 0JD93ZZ Extraction of Buttock Subcutaneous Tissue and Fascia, Percutaneous Approach (ICD-10-PCS; 2021-04-08)
DX: L03.317 Cellulitis of buttock (principal); E44.0 Moderate protein-calorie malnutrition; L03.116 Cellulitis of left lower limb; L02.31 Cutaneous abscess of buttock; D50.9 Iron deficiency anemia, unspecified; D72.829 Elevated white blood cell count, unspecified; L98.413 Non-pressure chronic ulcer of buttock with necrosis of muscle; Z79.899 Other long term (current) drug therapy; Z68.24 Body mass index [BMI] 24.0-24.9, adult; Z20.822 Contact with and (suspected) exposure to COVID-19; S31.829A Unspecified open wound of left buttock, initial encounter; S71.102A Unspecified open wound, left thigh, initial encounter; S71.101A Unspecified open wound, right thigh, initial encounter
CPT/HCPCS: 36415; 36430; 36569; 71045; 80048; 80053; 80202; 81003; 82607; 82728; 83036; 83540; 83735; 84466; 85014; 85018; 85025; 86140; 86850; 86900; 86901; 87040; 87070; 87075; 87077; 87186; 87205; 88300; 88304; G0378; J0330; J1100; J1170; J2175; J2185; J2250; J2270; J2370; J2405; J2550; J2704; J2710; J3010; J3370; J3475; J7040; J7050; J7120; P9016; U0003

== ENCOUNTER 2021-04-17 10:31 | Inpatient (IN) | payer OTHER ==
--- OUTSIDE RECORDS SUMMARY | 2021-04-17 10:35 | XMS REPORT | Continuity of Care Document ---
:1985 Author Organization [facility] t Address [address] [place] [address] Care Team Providers Name Role Phone Doctor [...] Active Univers [facility] ity of [facility] Social History Social Habit Start Date Stop Date Quantity Comments Source Sex [facility] to SARS-CoV-2 Not sure [facility] Smoking Status Start Date Stop Date Source Unknown if ever smoked [facility] Medications This patient has no known medications. Procedures Procedure Date / Time Performing Clinician Source Performed AUTHORIZATION FOR 2020-01-13 05:01:00 Doctor Wilton, Tiffanie [facility] RELEASE OF PHI [facility] XR CHEST 1 VW 2020-01-09 20:42:38 Alfredo Thompson [place] o f [facility] Encounters Start End Encounter Admission Attending Care Care Encounter Source Date/Time Date/Time Type Type Clinicians Facility Department ID 2020-01-13 2020-01-13 Orders Doctor HUTCHINSON [id number] Univers 00:00:00 00:00:00 Only UnassSHAJI escobedo [id number] ity of [place] [facility] [id number] [place] as [id number] [place] [id number] [address] 2020-01-13 2020-01-13 Hannah [id number] 00:00:00 00:00:00 Only Unassigned, SHAJI [id number] [facility] [id number] 2020-01-09 2020-01-09 Outpatient R [facility] [id number] Univers 16:00[facility]00 16:00[facility] [facility] [facility] 2020-01-09 2020-01-09 [facility] Radiology [facility] [id number] [facility] 15:06:18 15:07:00 Encounter [place] [id number] ity [facility] [id number] [facility] [id number] [address] 2020-01-09 2020-01-09 [facility] Radiology [facility] [id number] 15:06:18 15:07:00 Encounter [place] [id number] [place] [id number] [place] [id number] [facility] 2020-01-09 2020-01-09 Outpatient R RADIOLOGY [facility] [id number] [facility] 00:00:00 00:00:00 [facility] Results Test Description Test Time Test Comments [...] the thoracicspine. The upper abdomen is unremarkable. [facility], Radiant Results Inft - 01/09/2020 8:49 PM [...]
[2021-04-17] MEDS ORDERED: ONDANSETRON 4 MG/2 ML VIAL ONE ×2 (11:16→14:35)
[2021-04-17] MEDS ORDERED: MORPHINE 2 MG/ML SYR ONE (11:16)
[2021-04-17 11:39] LABS: Absolute Lymphocytes (CBC) 1.9 K/uL (0.7-4.9); Hematocrit 27.6 % (36.0-45.0); Lymphocytes % 13.9 % (15.3-44.8); RBC Red Blood Cell Count 3.18 M/uL (3.86-4.86)
[2021-04-17 11:56] LABS: ALT/SGPT 132 U/L (12-78); AST/SGOT 90 U/L (15-37); Albumin 2.5 g/dL (3.4-5.0); Alkaline Phosphatase 293 U/L (45-117); BUN Blood Urea Nitrogen 6 mg/dL (7-18); Bicarbonate 25 mmol/L (21-32); Bilirubin Total 0.5 mg/dL (0.2-1.0); Glucose Level 106 mg/dL (74-106); Potassium 4.2 mmol/L (3.5-5.1); Protein, Total 7.9 g/dL (6.4-8.2); Sodium Level 136 mmol/L (136-145)
--- NOTE | 2021-04-17 12:39 | ER ---
Nurse's Notes [facility] Name: Carmina Romero Age: 35 yrs Sex: Female : 1985 Arrival Date: 04/17/2021 Time: 10:35 Bed 5 Private MD: Caleb Lou Diagnosis: Cellulitis of the Left Lower Extremity Presentation: 04/17 10:42 Chief complaint: Patient states: Sent by Dr. Lou for preop for I\\T\\D for buttock ss abscess. Coronavirus screen: Client denies travel out of the [place] in the last 14 days. Ebola Screen: Patient denies exposure to infectious person. Patient denies travel to an Ebola-affected area in the 21 days before illness onset. Onset of symptoms is unknown. 10:42 Method Of Arrival: Ambulatory ss 10:42 Acuity: ADELAIDA 3 ss 10:52 Initial Sepsis Screen: Does the patient meet any 2 criteria? HR > 90 bpm. Does the ww patient have a suspected source of infection? No. Patient's initial sepsis screen is negative. Risk Assessment: Do you want to hurt yourself or someone else? Patient reports no desire to harm self or others. Triage Assessment: 10:52 General: Appears in no apparent distress. Behavior is calm, cooperative, appropriate ww for age. Pain: Complains of pain in medial aspect of left knee. EENT: No deficits noted. No signs and/or symptoms were reported regarding the EENT system. Neuro: No deficits noted. Level of Consciousness is awake, alert, obeys commands, Oriented to person, place, time, situation. Cardiovascular: Denies chest pain, shortness of breath. Respiratory: Airway is patent Respiratory effort is even, unlabored, Respiratory pattern is regular, symmetrical. GI: No deficits noted. No signs and/or symptoms were reported involving the gastrointestinal system. : No deficits noted. No signs and/or symptoms were reported regarding the genitourinary system. Derm: Reports pain 100 fly in her buttock and pain in left knee where she recently had an I/D. 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 - Social history:: Smoking status: Patient denies any tobacco usage or history of. Screenin:56 Abuse screen: Denies threats or abuse. Nutritional screening: No deficits noted. tw2 Tuberculosis screening: No symptoms or risk factors identified. Fall Risk None identified. Vital Signs: 10:52 BP 120 / 84; Pulse 140; Resp 18; Temp 98.4; Pulse Ox 99% on R/A; Weight 64.86 kg; ww Height 5 ft. 2 in. (157.48 cm); Pain 8/10; 11:35 BP 124 / 79; Pulse 124; Resp 19; Pulse Ox 100% on R/A; tw2 10:52 Body Mass Index 26.15 (64.86 kg, 157.48 cm) ED Course: 10:35 Patient arrived in ED. am2 10:35 Caleb Lou MD is Private Physician. am2 10:44 Triage completed. ss 10:50 Bed in low position. Call light in reach. Pulse ox on. NIBP on. Warm blanket given. tw2 10:51 Abhishek Leyva PA is PHCP. [facility] 10:51 Diamante Pulliam MD is Attending Physician. m 10:52 Arm band placed on right wrist. 10:55 Pat Penn, RN is Primary Nurse. tw2 11:34 SARS-COV-2 RT PCR (Document "Date of Onset" if Symptomatic) Sent. tw2 12:37 Caleb Lou MD is Hospitalizing Provider. [facility] 13:44 No provider procedures requiring assistance completed. ss Administered Medications: 11:25 Drug: Zofran (Ondansetron) 4 mg Route: IVP; Site: left antecubital; tw2 12:46 Follow up: Response: No adverse reaction khan 11:27 Drug: morphine 2 mg {Note: RASS 0.} Route: IVP; Site: left antecubital; tw2 12:46 Follow up: Response: No adverse reaction khan 13:04 Drug: vancoMYCIN 1 grams Route: IVPB; Infused Over: 2 hrs; Site: right antecubital; khan Outcome: 12:38 Decision to Hospitalize by Provider. jmm 14:17 Patient left the ED. eb Signatures: Abhishek Leyva PA PA jmm Smirch, Shelby, RN RN ss Pat Penn, RN RN tw2 Jenn Jackson am2 Myah Martin Whitney, RN RN ww [facility], Naya RN RN khan
--- NOTE | 2021-04-17 12:39 | EDPHYS ---
Physician Documentation [facility] Name: Carmina Romero Age: 35 yrs Sex: Female : 1985 Arrival Date: 04/17/2021 Time: 10:35 Bed 5 Private MD: Caleb Lou ED Physician Diamante Pulliam HPI: 04/17 11:16 This 35 yrs old Female presents to ER via Ambulatory with complaints of Wound jmm Recheck. 11:16 Patient presents to ED for recheck of: cellulitis. The affected area is on the left jmm leg. Previous treatment: incision and drainage. This is a 35 year old female that presents to the ED with complaints of left leg redness and swelling. Patient recently had an incision and drainage performed but had requested to close it up early. Patient also complains of chills and body aches. . 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 - Social history:: Smoking status: Patient denies any tobacco usage or history of. ROS: 11:16 Constitutional: Negative for fever, chills, and weight loss, Cardiovascular: Negative jmm for chest pain, palpitations, and edema, Respiratory: Negative for shortness of breath, cough, wheezing, and pleuritic chest pain. 11:16 Skin: Positive for erythema. 11:16 All other systems are negative. Exam: 11:16 Constitutional: This is a well developed, well nourished patient who is awake, alert, jmm and in no acute distress. Head/Face: atraumatic. Eyes: EOMI, no conjunctival erythema appreciated ENT: Moist Mucus Membranes Neck: Trachea midline, Supple Chest/axilla: Normal chest wall appearance and motion. Cardiovascular: Regular rate and rhythm. No edema appreciated Respiratory: Normal respirations, no respiratory distress appreciated Abdomen/GI: Non distended, soft Back: Normal ROM 11:16 Skin: erythema and induration noted to the left thigh, ttp. 11:16 Neuro: Orientation: is normal, Mentation: is normal, Memory: is normal. 11:16 Psych: Behavior/mood is pleasant, cooperative. Vital Signs: 10:52 BP 120 / 84; Pulse 140; Resp 18; Temp 98.4; Pulse Ox 99% on R/A; Weight 64.86 kg; ww Height 5 ft. 2 in. (157.48 cm); Pain 8/10; 11:35 BP 124 / 79; Pulse 124; Resp 19; Pulse Ox 100% on R/A; tw2 10:52 Body Mass Index 26.15 (64.86 kg, 157.48 cm) ww MDM: 11:06 Patient medically screened. [facility] 12:35 Data reviewed: vital signs, nurses notes. Counseling: I had a detailed discussion with charis the patient and/or guardian regarding: the historical points, exam findings, and any diagnostic results supporting the discharge/admit diagnosis, lab results, the need for further work-up and treatment in the hospital. ED course: I discussed the patient with Dr. Lou whom accepted the patient for admission. . 04/17 10:43 Order name: SARS-COV-2 RT PCR (Document "Date of Onset" if Symptomatic); Complete Time: eb 12:20 04/17 11:08 Order name: CBC with Diff; Complete Time: 11:50 [facility] 04/17 11:08 Order name: CMP; Complete Time: 11:58 [facility] 04/17 11:08 Order name: Procalcitonin; Complete Time: 12:20 [facility] 04/17 11:08 Order name: Lactate; Complete Time: 11:56 [facility] 04/17 11:08 Order name: Blood Culture Adult (2) [facility] 04/17 11:08 Order name: Saline Lock; Complete Time: 11:34 [facility] 04/17 13:33 Order name: Urine Dipstick-Ancillary; Complete Time: 13:34 [facility] 04/17 13:34 Order name: Urine --Ancillary (enter results) 04/17 13:53 Order name: Urine --Ancillary; Complete Time: 14:03 EDMS Administered Medications: 11:25 Drug: Zofran (Ondansetron) 4 mg Route: IVP; Site: left antecubital; tw2 12:46 Follow up: Response: No adverse reaction khan 11:27 Drug: morphine 2 mg {Note: RASS 0.} Route: IVP; Site: left antecubital; tw2 12:46 Follow up: Response: No adverse reaction khan 13:04 Drug: vancoMYCIN 1 grams Route: IVPB; Infused Over: 2 hrs; Site: right antecubital; khan Disposition Summary: 04/17/21 12:38 Hospitalization Ordered Hospitalization Status: Observation [facility] Provider: Caleb Lou Location: Operating Room [facility] Condition: Stable [facility] Problem: an acute exacerbation jm Symptoms: are unchanged [facility] Bed/Room Type: Standard [facility] Room Assignment: [facility] Diagnosis - Cellulitis of the Left Lower Extremity [facility] Forms: - Medication Reconciliation Form [facility] - SBAR form [facility] Addendum: 05/04/2021 18:36 Co-signature as Attending Physician, Diamante Pulliam MD 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 I agree with assessment and care plan and confirm the diagnosis (es) above. Signatures: Dispatcher [employer] EDAbhishek Bravo PA PA Myra Martinez RN RN Pat Penn RN RN [facility] Diamante Pulliam MD MD [facility] Shannen Méndez RN RN Naya Rodriguez RN RN khan
[2021-04-17] MEDS ORDERED: NA CHLORIDE 0.9% 500 ML ONE (12:49)
[2021-04-17] MEDS ORDERED: VANCOMYCIN 1 GM/VIAL ONE (12:49)
[2021-04-17] MEDS ORDERED: MORPHINE 4 MG/ML SYR ONE (13:18)
[2021-04-17 13:33] LABS: Urine Blood 1+ (Negative); Urine Glucose Negative (Negative); Urine Protein Negative (Negative); Urine Specific Gravity 1.015 (1.005-1.030)
[2021-04-17 13:52] LABS: Urine Specific Gravity/Preg 1.015 (1.005-1.030)
[2021-04-17] MEDS: HYDROMORPHONE HCL 1 MG/ML INJ ONE ×2 (13:53→15:40)
[2021-04-17] MEDS ORDERED: LIDOCAINE 2% MPF 5 ML VIAL ONE (13:55)
[2021-04-17] MEDS ORDERED: propofoL 200 MG/20 ML VIAL IV ONE (13:55)
[2021-04-17] MEDS ORDERED: FENTANYL CITR 100 MCG/2 ML ONE ×2 (13:56→14:39)
[2021-04-17] MEDS ORDERED: ROCURONIUM 50 MG/5 ML VIAL IV ONE (13:57)
[2021-04-17] MEDS ORDERED: Ringers Lactate 1,000 ML IV ONE (14:04)
[2021-04-17] MEDS ORDERED: KETOROLAC 30 MG/ML INJ ONE (14:35)
[2021-04-17] MEDS ORDERED: dexAMETHasone 10 MG/ML VIAL ONE (14:35)
[2021-04-17] MEDS ORDERED: GLYCOPYRROLATE 0.2 MG/ML SYR ONE ×2 (14:46)
[2021-04-17] MEDS ORDERED: NEOSTIGMINE 1 MG/ML -5 ML ONE (14:52)
[2021-04-17] MEDS ORDERED: MEPERIDINE HCL 25 MG/ML SYR ONE (14:53)
[2021-04-17] MEDS ORDERED: MEPERIDINE HCL 25 MG/ML SYR IM PRN (15:27)
[2021-04-17] MEDS: FENTANYL CITR 100 MCG/2 ML ONE ×2 (15:53→16:05)
--- NOTE | 2021-04-17 16:30 | P.CNS ---
Date of Consult: 04/17/21 Reason for Consult: medical management Requesting Physician: Caleb Lou Chief Complaint: L leg redness/swelling History of Present Illness: 35yo F, PMH: iron deficiency anemia. Presents to ED due to 1 week of progressively worsening left upper thigh and left knee swelling, redness, and pain. Patient underwent liposuction in [place] 2 months ago, and postoperative course was complicated by multiple infections of her bilateral lower extremities. Over the last 2 months patient has required multiple I&D's in various locations in her bilateral lower extremities/buttocks region. She has been on different antibiotics throughout this time as well. Despite multiple I&D's and ongoing antibiotics, she continues to have recurrent/new infections/abscesses develop in different areas of her legs. She was most recently discharged on 04/11 with wound VAC and prescription for Bactrim. Despite this antibiotic, she began to have severe pain and swelling of her left knee. Is progressed to where she could no longer bend her knee today. In the ED, there was concern for cellulitis/abscess, she does not have a leukocytosis. Dr. Lou was consulted and took the patient to the OR for I&D of the left knee area and left upper thigh. She was also found to be positive for COVID-19. She reports her mother and her were recently positive within the last week. She denies any cough, no shortness of breath, no other symptoms. Allergies No Known Allergies Allergy (Verified 03/06/21 03:46) Home Medications: Smz./Tmp. [Bactrim Ds 800 MG/160 MG] 1 tab PO BID #14 tab 04/09/21 Hydrocodone/Acetaminophen [Hydrocodon-Acetaminophn 10-325] 1 each PO Q6HP PRN #30 tablet 04/13/21 - Past Medical/Surgical History Diabetic: No -: iron deficiency anemia -: liposuction -: recent multiple cellulitis/abscess - Social History Smoking Status: Never smoker Alcohol use: No CD- Drugs: No Caffeine use: No Place of Residence: Home Review of Systems 10-point ROS is otherwise unremarkable Physical Examination Temp Pulse Resp BP Pulse Ox 98.0 F 120 H 16 103/63 04/17/21 16:05 04/17/21 16:05 04/17/21 16:05 04/17/21 16:05 General: Alert, In no apparent distress, Oriented x3 HEENT: Mucous membr. moist/pink, Sclerae nonicteric Neck: Supple, No LAD Respiratory: Clear to auscultation bilaterally, Normal air movement Cardiovascular: No edema, Other (Sinus tachycardia: One tens, no murmur) Gastrointestinal: Soft and benign, Non-distended, No tenderness Integumentary: Other (Erythema around left knee and upper thigh. Surgical dressings in place: Clean/dry/intact. Multiple new dressings in place along left lower extremity and right lower extremity.) Neurological: Normal speech, Cranial nerves 3-12 intact, Normal affect Laboratory Data (last 24 hrs) 04/17/21 11:25: Sodium 136, Potassium 4.2, BUN 6 L, Creatinine 0.72, Glucose 106, Total Bilirubin 0.5, AST 90 H, ALT 132 H, Alkaline Phosphatase 293 H 04/17/21 11:25: WBC 13.90 H, Hgb 9.2 L, Hct 27.6 L, Plt Count 629 H D Physician Review Additional Text: Problem list LLE upper thigh abscess Left lower thigh/suprapatellar abscess h/o multiple abscesses of bilateral lower extremities in the last 2 months s/p liposuction Iron deficiency anemia Covid-19 positive Sinus tachycardia, chronic s/p I&D by Dr. Lou today: LLE above knee and upper thigh Currently does not appear septic Empiric treatment with Merrem and vancomycin ID consult advance diet gentle IVF pain control Patient is asymptomatic from her Covid infection at this time Continue to monitor VTE: lovenox Code: full Dispo: Anticipate hospitalization for several days, will likely need further washout/debridement Time Spent Managing Pts care (In Minutes): 60
--- NOTE | 2021-04-17 16:37 | OP ---
Surgeon: Caleb Lou MD Preoperative Diagnosis: Infection of left leg. Postoperative Diagnosis: Infection of left leg. Procedure: Debridement of skin and subcu tissue. Anesthesia: General. Description Of Procedure: After satisfactory induction of general anesthesia, left leg was prepped with Betadine scrub and Betadine paint. Elliptical incision was made over the medial knee on the left side . The wound was previously drained and closed and healed, now infected again. The patient had this area elliptically excised. Rodo pus was encountered in the left lower leg and cultures were taken. There was also what appeared to necrotic fat the wounds were debrided, curetted, jet lavaged, and irrigated. Electrocautery used for hemostasis. Wound was packed with Betadine-soaked Kerlix and ABD. The other wounds from the previous I and D's were also covered with Kerlix and ABD. The patient tolerated the procedure well. Estimated blood loss was 100 cc. BHANU/JOSE Voice ID: [id number] Report ID: [id number] ANSELMO
[2021-04-17] MEDS ORDERED: ONDANSETRON 4 MG/2 ML VIAL IV PRN (16:43)
[2021-04-17 16:51] VITALS: BMI 24.0
[2021-04-17] MEDS: Meropenem 1 GM/100 ML BAG IV SCH (17:00)
[2021-04-17] MEDS ORDERED: NA CHLORIDE 0.9% 1,000 ML IV SCH (17:00)
--- NOTE | 2021-04-17 17:42 | HP ---
Date of Admission: 04/17/2021 History Of Present Illness: A 35-year-old white female, who has undergone previous breast implants tt and bbl in the past and then underwent liposuction. She has had multiple areas of infection of the buttocks and both legs. She is status post debridement of the left leg and the area is now recurred. Past Medical History: She has history of COVID. No medical problems. Past Surgical History: She has undergone previous surgery Medications: No medications. Allergies: NO ALLERGIES. Physical Examination: 5 feet, 340 pounds. She has a severe induration of the left leg . She is febrile and quite tender and discolored. Assessment: Recurrent infection of the leg. Plan: Incision and drainage. BHANU/JOSE Voice ID: [id number] [id number]
[2021-04-17] MEDS ORDERED: Meropenem 1000 MG/VIAL IV ONE (18:01)
[2021-04-17] MEDS ORDERED: NA CHLORIDE 0.9% 100 ML ONE ×2 (18:16→23:58)
[2021-04-17] MEDS: MORPHINE 4 MG/ML SYR IV PRN (18:18)
[2021-04-17] MEDS ORDERED: VANCOMYCIN 500 MG/VIAL ONE (19:58)
[2021-04-17] MEDS: VANCOMYCIN 1.25 GM in NA CHLORIDE 0.9% 250 ML IVPB SCH (20:21)
[2021-04-17] MEDS: CODEINE 30MG/APAP 300MG TAB PO PRN (20:31)
[2021-04-18] MEDS: MORPHINE 4 MG/ML SYR IV PRN ×6 (00:03→21:31)
[2021-04-18] MEDS: Meropenem 1 GM/100 ML BAG IV SCH ×2 (00:04→09:00)
[2021-04-18 05:36] LABS: Absolute Lymphocytes (CBC) 1.6 K/uL (0.7-4.9); Hematocrit 21.9 % (36.0-45.0); Lymphocytes % 13.2 % (15.3-44.8); MPV 6.8 fL (7.6-11.3); RBC Red Blood Cell Count 2.52 M/uL (3.86-4.86)
[2021-04-18 06:03] LABS: Sodium Level 138 mmol/L (136-145)
[2021-04-18 06:04] LABS: ALT/SGPT 95 U/L (12-78); AST/SGOT 36 U/L (15-37); Albumin 2.2 g/dL (3.4-5.0); Alkaline Phosphatase 237 U/L (45-117); BUN Blood Urea Nitrogen 8 mg/dL (7-18); Bicarbonate 25 mmol/L (21-32); Bilirubin Total 0.4 mg/dL (0.2-1.0); Glucose Level 153 mg/dL (74-106); Magnesium 2.3 mg/dL (1.8-2.4); Potassium 4.9 mmol/L (3.5-5.1); Protein, Total 6.8 g/dL (6.4-8.2)
[2021-04-18] MEDS ORDERED: DIPHENHYDRAMINE 50 MG/ML VIAL IV ONE (06:29)
[2021-04-18] MEDS ORDERED: ACETAMINOPHEN 500 MG TAB PO ONE (06:29)
--- NOTE | 2021-04-18 06:33 | P.PN ---
Date of Service: 04/18/21 Subjective: Improving, reports bed and is better Tachycardia improved Without any new complaints States she is able to bend her knee more ROS: 10 point ROS as noted above, otherwise negative Physical exam General: Alert, In no apparent distress, Oriented x3 HEENT: Mucous membr. moist/pink, Sclerae nonicteric Respiratory: Clear to auscultation bilaterally, Normal air movement Cardiovascular: Regular rate and rhythm, no murmur Gastrointestinal: Soft and benign, Non-distended, No tenderness Integumentary: multiple dressings c/d/i in b/l legs, inner thigh with some brown-red drainage (where betadine was used) Neurological: Normal speech, normal affect Problem list LLE upper thigh abscess Left lower thigh/suprapatellar abscess h/o multiple abscesses of bilateral lower extremities in the last 2 months s/p liposuction Iron deficiency anemia Covid-19 positive Sinus tachycardia, chronic s/p I&D by Dr. Lou 04/17: LLE above knee and upper thigh Not septic Empiric treatment with Merrem and vancomycin ID consulted received gentle IVF overnight pain control Patient is asymptomatic from her Covid infection at this time Continue to monitor VTE: lovenox Code: full Dispo: Anticipate hospitalization for several days, will likely need further washout/debridement Time Spent Managing Pts Care (In Minutes): 35
[2021-04-18] MEDS ORDERED: NA CHLORIDE 0.9% 250 ML IV SCH (07:00)
[2021-04-18] MEDS: ENOXAPARIN 40 MG/0.4 ML SQ SCH (09:00)
[2021-04-18] MEDS: VANCOMYCIN 1.25 GM in NA CHLORIDE 0.9% 250 ML IVPB SCH ×2 (09:42→20:42)
--- NOTE | 2021-04-18 09:59 | DS ---
She is afebrile. Her white count is slightly elevated at 12. Her hematocrit down to 21. She may ne ed transfusion. GH/MODCarter Voice ID: [id number] Report ID: [id number]
[2021-04-18] MEDS: Meropenem 1,000 MG in NA CHLORIDE 0.9% 100 ML IV SCH ×2 (11:55→17:47)
--- NOTE | 2021-04-18 12:35 | P.CNS ---
Date of Consult: 04/18/21 Chief Complaint: L leg redness/swelling History of Present Illness: Patient is a 35 year old female who presented tot he ED secondary to left medial knee swelling and erythema. She had an I&D of the area performed on 03/15 after obtaining an infection s/p liposution procedure perfromed on 02/24. This is the patients third admission since that procedure secondary to abscess formation. She has had several I&Ds and washouts performed on her left medial knee, bilateral buttock, and bilateral thigh. Pending cultures include: blood an wound. Empirically placed on vancomyin and merum. Taken to OR on 04/17 for I&D of left knee. Incidental positive COVID 19 finding on admission-patient is asymptomatic. Patient currently denies N/V/D, SOB, or chest pain. Allergies No Known Allergies Allergy (Verified 03/06/21 03:46) Home Medications: Smz./Tmp. [Bactrim Ds 800 MG/160 MG] 1 tab PO BID #14 tab 04/09/21 Hydrocodone/Acetaminophen [Hydrocodon-Acetaminophn 10-325] 1 each PO Q6HP PRN #30 tablet 04/13/21 - Past Medical/Surgical History Diabetic: No -: iron deficiency anemia -: liposuction -: recent multiple cellulitis/abscess -: Multiple I&D's - Social History Smoking Status: Never smoker Alcohol use: No CD- Drugs: No Caffeine use: No Place of Residence: Home Review of Systems 10-point ROS is otherwise unremarkable Physical Examination Temp Pulse Resp BP Pulse Ox 97.3 F 89 18 96/55 L 100 04/18/21 08:00 04/18/21 08:00 04/18/21 08:00 04/18/21 08:00 04/18/21 08:00 General: Alert, In no apparent distress, Oriented x3 HEENT: Atraumatic, Normocephalic Neck: Supple, JVD not distended Respiratory: Clear to auscultation bilaterally, Normal air movement Cardiovascular: No edema, Regular rate/rhythm Capillary refill: <2 Seconds Gastrointestinal: Normal bowel sounds, Soft and benign Musculoskeletal: No clubbing, No swelling, No contractures Integumentary: Other (healing surgically closed wounds to bilateral buttock. Open heeling wounds to bilateral thighs. Open wound to left medial knee. ) Conclusions/Impression: Anibioitcs: vancomycin start: 04/17 merum start: 04/17 Assessment/plan left medial knee abscess S/p I&D performed on 04/17. Cultures pending. Continue broad spectrum IV antibiotics. COVID 19 patient asymptomatic. Continue to monitor. Anemia cotiue to monitor H&H. Protein caloric malnutrition: moderate recommend supplemental ensure protein drinks -medical management per primary team Plan of care discussed with Dr. Rider Thank you for consultation
[2021-04-19] MEDS ORDERED: NA CHLORIDE 0.9% 0 ML ONE (00:20)
[2021-04-19] MEDS: MORPHINE 4 MG/ML SYR IV PRN ×6 (01:10→20:23)
[2021-04-19] MEDS: CODEINE 30MG/APAP 300MG TAB PO PRN ×4 (04:37→20:24)
[2021-04-19] MEDS: Meropenem 1,000 MG in NA CHLORIDE 0.9% 100 ML IV SCH ×4 (08:14→16:34)
[2021-04-19] MEDS: VANCOMYCIN 1.25 GM in NA CHLORIDE 0.9% 250 ML IVPB SCH ×3 (09:00→20:23)
[2021-04-19 09:09] LABS: Hematocrit 29.9 % (36.0-45.0); MPV 6.8 fL (7.6-11.3); RBC Red Blood Cell Count 3.44 M/uL (3.86-4.86)
[2021-04-19 09:23] LABS: BUN Blood Urea Nitrogen 5 mg/dL (7-18); Bicarbonate 28 mmol/L (21-32); Glucose Level 91 mg/dL (74-106); Magnesium 1.6 mg/dL (1.8-2.4); Potassium 3.8 mmol/L (3.5-5.1); Sodium Level 138 mmol/L (136-145)
[2021-04-19] MEDS: ENOXAPARIN 40 MG/0.4 ML SQ SCH (10:24)
--- NOTE | 2021-04-19 11:30 | P.PN ---
Subjective Date of Service: 04/19/21 Chief Complaint: L leg redness/swelling Patient seen and examined at bedside, tolerating antibiotics well with no N/V/D. Review of Systems 10-point ROS is otherwise unremarkable Physical Examination - Vital Signs Temperature: 98.4 F Blood Pressure: 105/55 Pulse: 92 Respirations: 18 Pulse Ox (%): 99 - Studies Laboratory Last Values WBC 13.90 K/uL (4.3-10.9) H 04/17/21 11:25 RBC 3.18 M/uL (3.86-4.86) L 04/17/21 11:25 Hgb 9.2 g/dL (12.0-15.0) L 04/17/21 11:25 Hct 27.6 % (36.0-45.0) L 04/17/21 11:25 MCV 86.6 fL (80-100) 04/17/21 11:25 MCH 28.9 pg (27.0-35.0) 04/17/21 11:25 MCHC 33.3 g/dL (32.0-36.0) 04/17/21 11:25 RDW 16.4 % (12.1-15.2) H 04/17/21 11:25 Plt Count 629 K/uL (152-406) H D 04/17/21 11:25 MPV 7.0 fL (7.6-11.3) L 04/17/21 11:25 Neutrophils % 79.2 % (41.7-73.7) H 04/17/21 11:25 Lymphocytes % 13.9 % (15.3-44.8) L 04/17/21 11:25 Monocytes % 5.8 % (3.3-12.3) 04/17/21 11:25 Eosinophils % 0.8 % (0-4.4) 04/17/21 11:25 Basophils % 0.3 % (0-1.3) 04/17/21 11:25 Absolute Neutrophils 11.0 K/uL (1.8-8.0) H 04/17/21 11:25 Absolute Lymphocytes 1.9 K/uL (0.7-4.9) 04/17/21 11:25 Absolute Monocytes 0.8 K/uL (0.1-1.3) 04/17/21 11:25 Absolute Eosinophils 0.1 K/uL (0-0.5) 04/17/21 11:25 Absolute Basophils 0.0 K/uL (0-0.5) 04/17/21 11:25 Sodium 136 mmol/L (136-145) 04/17/21 11:25 Potassium 4.2 mmol/L (3.5-5.1) 04/17/21 11:25 Chloride 103 mmol/L (98-107) 04/17/21 11:25 Carbon Dioxide 25 mmol/L (21-32) 04/17/21 11:25 BUN 6 mg/dL (7-18) L 04/17/21 11:25 Creatinine 0.72 mg/dL (0.55-1.3) 04/17/21 11:25 Estimated GFR > 90 mL/min (=/>90) 04/17/21 11:25 Glucose 106 mg/dL (74-106) 04/17/21 11:25 Lactic Acid 1.0 mmol/L (0.4-2.0) 04/17/21 11:25 Calcium 9.1 mg/dL (8.5-10.1) 04/17/21 11:25 Total Bilirubin 0.5 mg/dL (0.2-1.0) 04/17/21 11:25 AST 90 U/L (15-37) H 04/17/21 11:25 ALT 132 U/L (12-78) H 04/17/21 11:25 Alkaline Phosphatase 293 U/L (45-117) H 04/17/21 11:25 Serum Total Protein 7.9 g/dL (6.4-8.2) 04/17/21 11:25 Albumin 2.5 g/dL (3.4-5.0) L 04/17/21 11:25 Globulin 5.4 g/dL (2.3-3.5) H 04/17/21 11:25 Albumin/Globulin Ratio 0.5 (1.1-1.8) L 04/17/21 11:25 Procalcitonin 0.07 ng/mL (<0.050) H 04/17/21 11:25 Urine pH 7.0 (5.0-7.0) 04/17/21 13:30 Ur Specific [place] 1.015 (1.005-1.030) 04/17/21 13:30 Glucose (UA)(Auto) Negative (Negative) 04/17/21 13:30 Urine Ketones Negative (Negative) 04/17/21 13:30 Urine Blood 1+ (Negative) H 04/17/21 13:30 Urine Nitrite Negative (Negative) 04/17/21 13:30 Ur Leukocyte Esterase Negative (Negative) 04/17/21 13:30 Urine Total Protein Negative (Negative) 04/17/21 13:30 Ur Specific [place] (HCG) 1.015 (1.005-1.030) 04/17/21 13:34 Urine Test Neg (NEG) 04/17/21 13:34 SARS-CoV-2 Rap RNA(RT-PCR) Positive (NEGATIVE) A 04/17/21 10:43 Assessment And Plan - Plan General: Alert, In no apparent distress, Oriented x3 HEENT: Atraumatic, Normocephalic Neck: Supple, JVD not distended Respiratory: Clear to auscultation bilaterally, Normal air movement Cardiovascular: No edema, Regular rate/rhythm Capillary refill: <2 Seconds Gastrointestinal: Normal bowel sounds, Soft and benign Musculoskeletal: No clubbing, No swelling, No contractures Integumentary: Other (healing surgically closed wounds to bilateral buttock. Open heeling wounds to bilateral thighs. Open wound to left medial knee. ) Conclusions/Impression: Anibioitcs: vancomycin start: 04/17 merum start: 04/17 Assessment/plan left medial knee abscess S/p I&D performed on 04/17. Cultures pending. Continue broad spectrum IV antibiotics. Vanco trough goal of 10-15. Trough obtained on 04/19 within therapeutic range at 10.4. COVID 19 patient asymptomatic. Continue to monitor. Anemia cotiue to monitor H&H. Protein caloric malnutrition: moderate recommend supplemental ensure protein drinks -medical management per primary team Plan of care discussed with Dr. Rider Thank you for consultation
--- NOTE | 2021-04-19 15:52 | P.PN ---
Subjective Date of Service: 04/19/21 Chief Complaint: L leg redness/swelling Physical Examination - Vital Signs Temperature: 101.5 F Blood Pressure: 127/63 Pulse: 92 Respirations: 20 Pulse Ox (%): 97 Assessment And Plan - Plan Physical exam General: Alert, In no apparent distress, Oriented x3 HEENT: Sclerae nonicteric Respiratory: Clear to auscultation bilaterally, Normal air movement Cardiovascular: Regular rate and rhythm, no murmur Gastrointestinal: Soft and benign, Non-distended, No tenderness Integumentary: multiple dressings c/d/i in b/l legs, left inner thigh wound, left gluteal wound and left medial knee wound packed and dressed. Neurological: Normal speech, normal affect Problem list LLE upper thigh abscess Left lower thigh/suprapatellar abscess h/o multiple abscesses of bilateral lower extremities in the last 2 months s/p l iposuction Iron deficiency anemia Covid-19 positive Sinus tachycardia, chronic s/p I&D by Dr. Lou 04/17: LLE above knee and upper thigh Not septic Continue Merrem and vancomycin ID is following. Patient scheduled for secondary wound closure in 2 days. pain control PICC line for IV antibiotics. Patient may probably benefit more from outpatient IV antibiotics as compared to oral. ID to decide on antibiotic choice. Wound culture consult because it was delayed in transit. Repeat wound culture. Patient is asymptomatic from her Covid infection at this time Continue to monitor
[2021-04-20] MEDS: MORPHINE 4 MG/ML SYR IV PRN ×6 (00:03→21:01)
[2021-04-20] MEDS: Meropenem 1,000 MG in NA CHLORIDE 0.9% 100 ML IV SCH ×3 (00:03→16:41)
[2021-04-20] MEDS: CODEINE 30MG/APAP 300MG TAB PO PRN ×6 (00:04→20:59)
[2021-04-20] MEDS: ENOXAPARIN 40 MG/0.4 ML SQ SCH (08:49)
[2021-04-20] MEDS: VANCOMYCIN 1.25 GM in NA CHLORIDE 0.9% 250 ML IVPB SCH ×2 (08:50→20:58)
--- NOTE | 2021-04-20 09:59 | RAD REPORT ---
EXAM DESCRIPTION: RAD - Chest Single View - 04/20/2021 9:54 am CLINICAL HISTORY: PICC line placement COMPARISON: Portable 03/30/2021 FINDINGS: Portable chest was obtained following placement of a right upper extremity PICC line. The catheter tip is in the mid SVC.
--- NOTE | 2021-04-20 10:04 | P.PN ---
Subjective Date of Service: 04/20/21 Chief Complaint: L leg redness/swelling Patient seen and examined at bedside, right arm PICC line placed on 04/20. Review of Systems 10-point ROS is otherwise unremarkable Physical Examination - Vital Signs Temperature: 97.8 F Blood Pressure: 119/69 Pulse: 103 Respirations: 18 Pulse Ox (%): 99 - Studies Laboratory Last Values WBC 13.90 K/uL (4.3-10.9) H 04/17/21 11:25 RBC 3.18 M/uL (3.86-4.86) L 04/17/21 11:25 Hgb 9.2 g/dL (12.0-15.0) L 04/17/21 11:25 Hct 27.6 % (36.0-45.0) L 04/17/21 11:25 MCV 86.6 fL (80-100) 04/17/21 11:25 MCH 28.9 pg (27.0-35.0) 04/17/21 11:25 MCHC 33.3 g/dL (32.0-36.0) 04/17/21 11:25 RDW 16.4 % (12.1-15.2) H 04/17/21 11:25 Plt Count 629 K/uL (152-406) H D 04/17/21 11:25 MPV 7.0 fL (7.6-11.3) L 04/17/21 11:25 Neutrophils % 79.2 % (41.7-73.7) H 04/17/21 11:25 Lymphocytes % 13.9 % (15.3-44.8) L 04/17/21 11:25 Monocytes % 5.8 % (3.3-12.3) 04/17/21 11:25 Eosinophils % 0.8 % (0-4.4) 04/17/21 11:25 Basophils % 0.3 % (0-1.3) 04/17/21 11:25 Absolute Neutrophils 11.0 K/uL (1.8-8.0) H 04/17/21 11:25 Absolute Lymphocytes 1.9 K/uL (0.7-4.9) 04/17/21 11:25 Absolute Monocytes 0.8 K/uL (0.1-1.3) 04/17/21 11:25 Absolute Eosinophils 0.1 K/uL (0-0.5) 04/17/21 11:25 Absolute Basophils 0.0 K/uL (0-0.5) 04/17/21 11:25 Sodium 136 mmol/L (136-145) 04/17/21 11:25 Potassium 4.2 mmol/L (3.5-5.1) 04/17/21 11:25 Chloride 103 mmol/L (98-107) 04/17/21 11:25 Carbon Dioxide 25 mmol/L (21-32) 04/17/21 11:25 BUN 6 mg/dL (7-18) L 04/17/21 11:25 Creatinine 0.72 mg/dL (0.55-1.3) 04/17/21 11:25 Estimated GFR > 90 mL/min (=/>90) 04/17/21 11:25 Glucose 106 mg/dL (74-106) 04/17/21 11:25 Lactic Acid 1.0 mmol/L (0.4-2.0) 04/17/21 11:25 Calcium 9.1 mg/dL (8.5-10.1) 04/17/21 11:25 Total Bilirubin 0.5 mg/dL (0.2-1.0) 04/17/21 11:25 AST 90 U/L (15-37) H 04/17/21 11:25 ALT 132 U/L (12-78) H 04/17/21 11:25 Alkaline Phosphatase 293 U/L (45-117) H 04/17/21 11:25 Serum Total Protein 7.9 g/dL (6.4-8.2) 04/17/21 11:25 Albumin 2.5 g/dL (3.4-5.0) L 04/17/21 11:25 Globulin 5.4 g/dL (2.3-3.5) H 04/17/21 11:25 Albumin/Globulin Ratio 0.5 (1.1-1.8) L 04/17/21 11:25 Procalcitonin 0.07 ng/mL (<0.050) H 04/17/21 11:25 Urine pH 7.0 (5.0-7.0) 04/17/21 13:30 Ur Specific [place] 1.015 (1.005-1.030) 04/17/21 13:30 Glucose (UA)(Auto) Negative (Negative) 04/17/21 13:30 Urine Ketones Negative (Negative) 04/17/21 13:30 Urine Blood 1+ (Negative) H 04/17/21 13:30 Urine Nitrite Negative (Negative) 04/17/21 13:30 Ur Leukocyte Esterase Negative (Negative) 04/17/21 13:30 Urine Total Protein Negative (Negative) 04/17/21 13:30 Ur Specific [place] (HCG) 1.015 (1.005-1.030) 04/17/21 13:34 Urine Test Neg (NEG) 04/17/21 13:34 SARS-CoV-2 Rap RNA(RT-PCR) Positive (NEGATIVE) A 04/17/21 10:43 Assessment And Plan - Plan PHYSICAL EXAM: General: Alert, In no apparent distress, Oriented x3 HEENT: Atraumatic, Normocephalic Neck: Supple, JVD not distended Respiratory: Clear to auscultation bilaterally, Normal air movement Cardiovascular: No edema, Regular rate/rhythm Capillary refill: <2 Seconds Gastrointestinal: Normal bowel sounds, Soft and benign Musculoskeletal: No clubbing, No swelling, No contractures Integumentary: Other (healing surgically closed wounds to bilateral buttock. Open heeling wounds to bilateral thighs. Open wound to left medial knee. ) Conclusions/Impression: Anibioitcs: vancomycin start: 04/17 merum start: 04/17 LINES: right arm PICC line placed on 04/20 Assessment/plan left medial knee and left inner thigh abscess S/p I&D performed on 04/17. Cultures taken were canceled due to handling error. Repeat cultures obtained on 04/19 are pending. Continue broad spectrum IV antibiotics. Vanco trough goal of 10-15. Trough obtained on 04/19 within therapeutic range at 11.4. Surgical team plans to take patient back to the OR tomorrow for possible closure of left medial knee and inner thigh wounds as well as to place skin grafts to open bilateral lateral thigh wounds that were surgical I&D and debridement on patients last hospital admission. COVID 19 patient asymptomatic. Continue to monitor. Anemia continue to monitor H&H. Protein caloric malnutrition: moderate recommend supplemental ensure protein drinks -medical management per primary team Plan of care discussed with Dr. Rider Thank you for consultation
--- NOTE | 2021-04-20 14:11 | PN ---
Plan is to close and possible skin graft GH/MODL Voice ID: [id number] Report ID: [id number] ANSELMO
[2021-04-20] MEDS: LACTOBACILLUS/ACIDOPHILUS TAB PO SCH (20:58)
[2021-04-21] MEDS: MORPHINE 4 MG/ML SYR IV PRN ×5 (01:00→21:23)
[2021-04-21] MEDS: Meropenem 1,000 MG in NA CHLORIDE 0.9% 100 ML IV SCH ×2 (01:00→09:06)
[2021-04-21] MEDS: CODEINE 30MG/APAP 300MG TAB PO PRN ×4 (01:00→21:23)
[2021-04-21] MEDS: LACTOBACILLUS/ACIDOPHILUS TAB PO SCH ×2 (09:06→21:22)
[2021-04-21] MEDS: ENOXAPARIN 40 MG/0.4 ML SQ SCH (09:06)
[2021-04-21] MEDS: VANCOMYCIN 1.25 GM in NA CHLORIDE 0.9% 250 ML IVPB SCH ×2 (09:06→21:22)
[2021-04-21] MEDS ORDERED: LIDOCAINE 1% MPF 5 ML VIAL ONE (09:33)
[2021-04-21] MEDS ORDERED: dexAMETHasone 10 MG/ML VIAL ONE (09:33)
[2021-04-21] MEDS ORDERED: propofoL 200 MG/20 ML VIAL IV ONE (09:33)
[2021-04-21] MEDS ORDERED: MIDAZOLAM HCL 2 MG/2 ML INJ ONE (09:33)
[2021-04-21] MEDS ORDERED: ROCURONIUM 50 MG/5 ML VIAL IV ONE (09:33)
[2021-04-21] MEDS ORDERED: ONDANSETRON 4 MG/2 ML VIAL ONE ×2 (09:33→13:20)
[2021-04-21] MEDS ORDERED: FENTANYL CITR 100 MCG/2 ML ONE ×2 (09:33→11:28)
[2021-04-21] MEDS ORDERED: Ringers Lactate 1,000 ML IV ONE (10:27)
--- NOTE | 2021-04-21 11:20 | P.PN ---
Subjective Date of Service: 04/21/21 Chief Complaint: L leg redness/swelling Patient seen and examined at bedside, Dr. Lou plans to take the patient back to the OR today for surgical closure of left thigh wounds and place skin grafts over the bilateral thigh wounds. Review of Systems 10-point ROS is otherwise unremarkable Physical Examination - Vital Signs Temperature: 98.2 F Blood Pressure: 103/68 Pulse: 100 Respirations: 18 Pulse Ox (%): 100 - Studies Laboratory Last Values WBC 13.90 K/uL (4.3-10.9) H 04/17/21 11:25 RBC 3.18 M/uL (3.86-4.86) L 04/17/21 11:25 Hgb 9.2 g/dL (12.0-15.0) L 04/17/21 11:25 Hct 27.6 % (36.0-45.0) L 04/17/21 11:25 MCV 86.6 fL (80-100) 04/17/21 11:25 MCH 28.9 pg (27.0-35.0) 04/17/21 11:25 MCHC 33.3 g/dL (32.0-36.0) 04/17/21 11:25 RDW 16.4 % (12.1-15.2) H 04/17/21 11:25 Plt Count 629 K/uL (152-406) H D 04/17/21 11:25 MPV 7.0 fL (7.6-11.3) L 04/17/21 11:25 Neutrophils % 79.2 % (41.7-73.7) H 04/17/21 11:25 Lymphocytes % 13.9 % (15.3-44.8) L 04/17/21 11:25 Monocytes % 5.8 % (3.3-12.3) 04/17/21 11:25 Eosinophils % 0.8 % (0-4.4) 04/17/21 11:25 Basophils % 0.3 % (0-1.3) 04/17/21 11:25 Absolute Neutrophils 11.0 K/uL (1.8-8.0) H 04/17/21 11:25 Absolute Lymphocytes 1.9 K/uL (0.7-4.9) 04/17/21 11:25 Absolute Monocytes 0.8 K/uL (0.1-1.3) 04/17/21 11:25 Absolute Eosinophils 0.1 K/uL (0-0.5) 04/17/21 11:25 Absolute Basophils 0.0 K/uL (0-0.5) 04/17/21 11:25 Sodium 136 mmol/L (136-145) 04/17/21 11:25 Potassium 4.2 mmol/L (3.5-5.1) 04/17/21 11:25 Chloride 103 mmol/L (98-107) 04/17/21 11:25 Carbon Dioxide 25 mmol/L (21-32) 04/17/21 11:25 BUN 6 mg/dL (7-18) L 04/17/21 11:25 Creatinine 0.72 mg/dL (0.55-1.3) 04/17/21 11:25 Estimated GFR > 90 mL/min (=/>90) 04/17/21 11:25 Glucose 106 mg/dL (74-106) 04/17/21 11:25 Lactic Acid 1.0 mmol/L (0.4-2.0) 04/17/21 11:25 Calcium 9.1 mg/dL (8.5-10.1) 04/17/21 11:25 Total Bilirubin 0.5 mg/dL (0.2-1.0) 04/17/21 11:25 AST 90 U/L (15-37) H 04/17/21 11:25 ALT 132 U/L (12-78) H 04/17/21 11:25 Alkaline Phosphatase 293 U/L (45-117) H 04/17/21 11:25 Serum Total Protein 7.9 g/dL (6.4-8.2) 04/17/21 11:25 Albumin 2.5 g/dL (3.4-5.0) L 04/17/21 11:25 Globulin 5.4 g/dL (2.3-3.5) H 04/17/21 11:25 Albumin/Globulin Ratio 0.5 (1.1-1.8) L 04/17/21 11:25 Procalcitonin 0.07 ng/mL (<0.050) H 04/17/21 11:25 Urine pH 7.0 (5.0-7.0) 04/17/21 13:30 Ur Specific [place] 1.015 (1.005-1.030) 04/17/21 13:30 Glucose (UA)(Auto) Negative (Negative) 04/17/21 13:30 Urine Ketones Negative (Negative) 04/17/21 13:30 Urine Blood 1+ (Negative) H 04/17/21 13:30 Urine Nitrite Negative (Negative) 04/17/21 13:30 Ur Leukocyte Esterase Negative (Negative) 04/17/21 13:30 Urine Total Protein Negative (Negative) 04/17/21 13:30 Ur Specific [place] (HCG) 1.015 (1.005-1.030) 04/17/21 13:34 Urine Test Neg (NEG) 04/17/21 13:34 SARS-CoV-2 Rap RNA(RT-PCR) Positive (NEGATIVE) A 04/17/21 10:43 Assessment And Plan - Plan PHYSICAL EXAM: General: Alert, In no apparent distress, Oriented x3 HEENT: Atraumatic, Normocephalic Neck: Supple, JVD not distended Respiratory: Clear to auscultation bilaterally, Normal air movement Cardiovascular: No edema, Regular rate/rhythm Capillary refill: <2 Seconds Gastrointestinal: Normal bowel sounds, Soft and benign Musculoskeletal: No clubbing, No swelling, No contractures Integumentary: Other (healing surgically closed wounds to bilateral buttock. Open heeling wounds to bilateral thighs. Open wound to left medial knee. ) Conclusions/Impression: Anibioitcs: vancomycin start: 04/17 merum start: 04/17 stop: 04/21 LINES: right arm PICC line placed on 04/20 Assessment/plan left medial knee and left inner thigh abscess S/p I&D performed on 04/17. Cultures taken were canceled due to handling error. Repeat cultures obtained on 04/19 showed no growth. Meropenem discontinued, continue monotherapy with vancomycin. Vancomycin trough goal of 10-15 mcg/ml. Trough obtained on 04/19 within therapeutic range at 11.4. Surgical team plans to take patient back to the OR today for possible closure of left medial knee and inner thigh wounds as well as to place skin grafts to open bilateral lateral thigh wounds that were surgical I&D and debridement on patients last hospital admission. Cultures on patient's first admission grew staph hemolyticus and Enterococcus faecalis, both sensitive to vancomycin. Meropenem was added to the patient's antibiotic regimen due to increasing white count and fever. Cultures on patient's second admission grew staph epi. During his hospital stay patient has been on vancomycin and meropenem as empiric treatment. Patient has been sent home on oral antibiotics including ciprofloxacin and Bactrim, however has failed outpatient oral therapy and has subsequently come back to the hospital due to additional abscess formation. Recurrent abscess formation to bilateral buttocks/thigh This is patient's third hospital admission for this recurring problem. Patient initially admitted on 03/06 through 03/18 due to an infected left medial knee incision status post liposuction performed on 02/24. Patient was taken to the OR on 03/07 for surgical I&D/debridement and was subsequently taken back to the OR on 03/09 for closure of the wound. Patient's second hospital stay was from 03/23 through 04/11 where the patient underwent multiple debridements of the bilateral buttocks/thigh area. Patient was sent home on Bactrim and set to follow-up in clinic with Dr. Lou. On one of these follow-up visits the patient had redness/swelling to the left inner thigh and was instructed by Dr. Lou to present to the emergency department. On this admission Dr. Umberto Damon has opened up the patient's left inner thigh as well as left medial knee. Recommend obtaining CT imaging of bilateral buttocks/thighs to assess for additional abscesses to defer repeated surgical debridement if possible. Patient's only diagnostic imaging of the lower extremities was a knee MRI performed on 03/14 which showed small fluid collections within inflamed subcutaneous tissue which the radiologist stated could represent small abscesses and a venous Doppler performed on 03/05 which was negative for any acute DVT. COVID 19 patient asymptomatic. Continue to monitor. Anemia continue to monitor H&H. Protein caloric malnutrition: moderate recommend supplemental ensure protein drinks -medical management per primary team Plan of care discussed with Dr. Rider Thank you for consultation
--- NOTE | 2021-04-21 11:37 | OP ---
Surgeon: Caleb Lou MD Preoperative Diagnosis: Infection of the buttocks and legs. Postoperative Diagnosis: Infection of the buttocks and legs. Procedure: Debridement of skin and subcutaneous tissue. Procedure In Detail: The patient was supine. The legs were prepped with Betadine scrub and paint. Dry sterile drapes were applied in usual manner. Incision was made over the medial knee and upper th igh. Necrotic fatty tissue was encountered. The wounds were irrigated and then left open and packed with Nu Gauze. BHANU/JOSE Voice ID: [id number] Report ID: [id number]
--- NOTE | 2021-04-21 11:46 | OP ---
Surgeon: Caleb Lou MD Preoperative Diagnosis: Open wounds of the buttocks and thighs. Postoperative Diagnosis: Open wounds of the buttocks and thighs. Procedure: Debridement of skin and subcutaneous tissue. Anesthesia: General. Description Of Procedure: After satisfactory induction of general anesthesia, the patient was placed prone. The buttocks and thighs were prepped with Betadine scrub and Betadine paint. Dry sterile drapes were applied in the usual manner. The patient's previous open wounds as well as the greater trochanter and these areas were debrided as needed. Again, the necrotic tissue was removed and extended as needed to minimize cosmetic damage. After this was done, the wounds were irrigated and then packed with Nu Gauze soaked in Betadine and ABD dressing. The patient tolerated the procedure well and returned to recovery. JANIE Voice ID: [id number] Report ID: [id number] ANSELMO
--- NOTE | 2021-04-21 11:52 | OP ---
Surgeon: Caleb Lou MD Preoperative Diagnosis: Open wounds of the maxilla. Postoperative Diagnosis: Open wounds of the maxilla. Procedure: Debridement of skin and subcutaneous tissue. Anesthesia: General. Procedure In Detail: The patient was placed prone on the operating table. The areas on the buttocks were debrided. This was mostly left posterior thigh and surrounding areas. The wounds were debrided and then packed with Nu Gauze, dressing was ABD and tape. BHANU/JOSE Voice ID: [id number] Report ID: [id number] MTDD
[2021-04-21] MEDS ORDERED: MINERAL OIL, LITE 10 ML VIAL ONE ×2 (11:56)
--- NOTE | 2021-04-21 12:01 | OP ---
Surgeon: Caleb Lou MD Preoperative Diagnosis: Open wounds to the buttocks and thighs. Postoperative Diagnosis: Open wounds to the buttocks and thighs. Procedure Performed: Debridement. Anesthesia: General. Procedure In Detail: After satisfactory induction of general anesthesia, the patient was placed prone on the operating table. Then, the bone excised, prepped with Betadine scrub and Betadine paint. Dry sterile drapes were applied in the usual manner. There were several additional areas approximately 2 more were open. After this was done approximately 6 opening on both buttocks. The wound packed with Betadine-soaked Nu Gauze and Irasema. The patient tolerated the procedure well. Dressing consisted of ABDs and tape. BHANU/JOSE Voice ID: [id number] Report ID: [id number] ANSELMO
[2021-04-21] MEDS ORDERED: SODIUM HYPOCHLORITE 0.5% 473 ML ONE (12:08)
[2021-04-21] MEDS ORDERED: SODIUM HYPOCHLORITE 0.25% 473 ML ONE (12:10)
[2021-04-21] MEDS ORDERED: SODIUM HYPOCHLORITE 0.5% 473 ML TOP ONE (12:15)
--- NOTE | 2021-04-21 12:28 | OP ---
Surgeon: Caleb Lou MD Preoperative Diagnosis: Open wound of the buttocks and thighs. Preoperative Diagnosis: Open wound of the buttocks and thighs. Procedure: Debridement. Anesthesia: General. Procedure In Detail: After satisfactory induction of general anesthesia, the patient was placed pron e on the operating table. The buttocks and thighs were prepped with Betadine scrub and Betadine pain t. Dry sterile drapes were applied in the usual manner. The wounds were jet lavaged, irrigated, cur etted and debrided as needed. They were 6 on each buttock cheek as well as greater trochanter. Thes e wounds were improving, packed with Nu Gauze or 2-inch Irasema. ABD dressing was applied. The patien t tolerated the procedure well and returned to recovery. BHANU/JOSE Voice ID: [id number] Report ID: [id number]
[2021-04-21] MEDS ORDERED: Mastisol Adhesive Liq ONE (12:42)
[2021-04-21] MEDS ORDERED: MORPHINE 10 MG/ML VIAL ONE (12:49)
[2021-04-21] MEDS ORDERED: KETOROLAC 30 MG/ML INJ ONE (12:52)
[2021-04-21] MEDS: HYDROMORPHONE HCL 1 MG/ML INJ ONE ×2 (13:22→13:27)
[2021-04-21 17:03] LABS: Absolute Lymphocytes (CBC) 0.9 K/uL (0.7-4.9); Hematocrit 30.6 % (36.0-45.0); Lymphocytes % 6.5 % (15.3-44.8); MPV 6.4 fL (7.6-11.3); RBC Red Blood Cell Count 3.48 M/uL (3.86-4.86)
[2021-04-21 17:56] LABS: BUN Blood Urea Nitrogen 9 mg/dL (7-18); Bicarbonate 26 mmol/L (21-32); Glucose Level 273 mg/dL (74-106); Potassium 4.3 mmol/L (3.5-5.1); Sodium Level 138 mmol/L (136-145)
--- NOTE | 2021-04-21 18:29 | OP ---
Surgeon: Caleb Lou MD Preoperative Diagnosis: Open wounds of the right left leg, thigh, and buttocks. Postoperative Diagnosis: Open wounds of the right left leg, thigh, and buttocks. Procedure: Debridement of skin and subcutaneous tissue and split-thickness skin graft to right and left thighs approximately 200 sq cm. Anesthesia: General. Procedure In Detail: After satisfactory induction of general anesthesia, the patient was supine on the cart. The left groin and left medial knee areas were debrided with a curette, were prepped with Betadine scrub and paint. The wounds were jet lavaged using 1 L of dilute Betadine solution. It was later packed with 2-inch Irasema soaked in half-strength Dakin and ABDs. The patient was then turned prone and then the multiple wounds of the buttocks and posterior thighs were closed, prepped with Betadine scrub and Betadine paint. Dry sterile drapes were applied in usual manner. A scalpel was used to excise skin and subcu tissue. There were 3 new collections on the left buttocks region, one new collection on the right. These were opened up, irrigated, and curetted. After irrigation and debridement of all the wounds, we then harvested the skin graft from the left buttock. It was meshed to 1:1.5 and used to close the right greater trochanter wound which was approximately 8 cm in diameter and the left thigh and buttocks wound which were approximately 50 cm wide by 8 cm vertically. The skin was held in place with fly . OpSite was placed on the harvested graft site. ABDs were placed on the other wounds after they had been packed with 2-inch Irasema and half-strength Dakin. The patient tolerated the procedure well. Blood loss was 100 cc. BHANU/JOSE Voice ID: [id number] Report ID: [id number] ANSELMO
[2021-04-21 20:43] LABS: Anisocytosis SLIGHT; Blood Morphology Comment NOTED (NOT SEEN); Platelet Estimate INCR; Polychromasia 1+; White Blood Cell Scan OK (OK)
[2021-04-22] MEDS: MORPHINE 4 MG/ML SYR IV PRN ×6 (01:20→21:16)
[2021-04-22] MEDS: CODEINE 30MG/APAP 300MG TAB PO PRN ×2 (01:20→05:23)
[2021-04-22] MEDS: VANCOMYCIN 1.25 GM in NA CHLORIDE 0.9% 250 ML IVPB SCH (08:46)
[2021-04-22] MEDS: LACTOBACILLUS/ACIDOPHILUS TAB PO SCH ×2 (08:46→21:17)
[2021-04-22] MEDS: ENOXAPARIN 40 MG/0.4 ML SQ SCH (08:46)
--- NOTE | 2021-04-22 09:44 | DS ---
The patient's OpSite looks clean, and we are planning to continue it for 5 days at which time we will take out stent and debride any wounds for the treatment. BHANU/JOSE Voice ID: [id number] Report ID: [id number] MTDD
--- NOTE | 2021-04-22 10:53 | OP ---
Surgeon: Caleb Lou MD Preoperative Diagnosis: Infection of left leg. Postoperative Diagnosis: Infection of left leg. Procedure: Debridement of skin and subcu tissue. Anesthesia: General. Description Of Procedure: After satisfactory induction of general anesthesia, left leg was prepped with Betadine scrub and Betadine paint. Elliptical incision was made over the medial knee on the left side. This had previously been excised and drained and closed. This had healed, and now infected again. The wound was elliptically excised. Rodo pus was encountered in the left lower leg and cultures were taken. There was also what appeared to necrotic fat consistent with fat after liposuction in both wounds and other areas of induration. all the wounds were debrided, curetted, jet lavaged, and irrigated. Electrocautery used for hemostasis. Wound was packed with Betadine-soaked Kerlix and ABD. The other wounds from the previous I and D's were also covered with Kerlix and ABD. The patient tolerated the procedure well. Estimated blood loss was 100 cc. BHANU/JOSE Voice ID: [id number] Report ID: [id number] MTDD
--- NOTE | 2021-04-22 10:59 | HP ---
Date of Admission: 04/17/2021 History Of Present Illness: A 35-year-old white female, who has undergone previous presumed breast lift in the past and then underwent liposuction. She has had multiple areas of infection of the buttocks and both legs. She is status post debridement of the left leg and the area is now recurred. Past Medical History: She has history of COVID. No medical problems. Past Surgical History: She has undergone previous surgery of the liposuction and the fat transfers and multiple debridments. Medications: No medications. Allergies: NO ALLERGIES. Physical Examination: 5 feet, 340 pounds. She has a woody induration of the left leg . These areas appear infected. She is febrile and quite tender and discolored. Assessment: Recurrent infection of the leg. Plan: Incision and drainage. JANIE Voice ID: [id number] MTDD
--- NOTE | 2021-04-22 12:05 | P.PN ---
Subjective Date of Service: 04/22/21 Chief Complaint: L leg redness/swelling Patient seen and examined at bedside, patient was taken back to the OR yesterday where additional debridements were performed on her left medial knee/left medial thigh. In addition several areas on her left buttocks were opened up. Skin graft was placed to bilateral thigh wounds, skin graft donor site is left buttocks. All wound cultures still show no growth, however patient has been on broad-spectrum IV antibiotics for the past [address] and patient on antibiotic holiday for the next 48 to 72 hours. Plan to take a wound culture after 48 hours off antibiotics. However if patient spikes fever/has increasing WBC will replace patient on vancomycin. Patient in good spirits, states she is feeling well. Reports tenderness/soreness to bilateral buttock/thigh area. Denies nausea/vomiting/diarrhea. Review of Systems 10-point ROS is otherwise unremarkable Physical Examination - Vital Signs Temperature: 97.6 F Blood Pressure: 97/55 Pulse: 95 Respirations: 18 Pulse Ox (%): 98 - Studies Laboratory Last Values WBC 13.90 K/uL (4.3-10.9) H 04/17/21 11:25 RBC 3.18 M/uL (3.86-4.86) L 04/17/21 11:25 Hgb 9.2 g/dL (12.0-15.0) L 04/17/21 11:25 Hct 27.6 % (36.0-45.0) L 04/17/21 11:25 MCV 86.6 fL (80-100) 04/17/21 11:25 MCH 28.9 pg (27.0-35.0) 04/17/21 11:25 MCHC 33.3 g/dL (32.0-36.0) 04/17/21 11:25 RDW 16.4 % (12.1-15.2) H 04/17/21 11:25 Plt Count 629 K/uL (152-406) H D 04/17/21 11:25 MPV 7.0 fL (7.6-11.3) L 04/17/21 11:25 Neutrophils % 79.2 % (41.7-73.7) H 04/17/21 11:25 Lymphocytes % 13.9 % (15.3-44.8) L 04/17/21 11:25 Monocytes % 5.8 % (3.3-12.3) 04/17/21 11:25 Eosinophils % 0.8 % (0-4.4) 04/17/21 11:25 Basophils % 0.3 % (0-1.3) 04/17/21 11:25 Absolute Neutrophils 11.0 K/uL (1.8-8.0) H 04/17/21 11:25 Absolute Lymphocytes 1.9 K/uL (0.7-4.9) 04/17/21 11:25 Absolute Monocytes 0.8 K/uL (0.1-1.3) 04/17/21 11:25 Absolute Eosinophils 0.1 K/uL (0-0.5) 04/17/21 11:25 Absolute Basophils 0.0 K/uL (0-0.5) 04/17/21 11:25 Sodium 136 mmol/L (136-145) 04/17/21 11:25 Potassium 4.2 mmol/L (3.5-5.1) 04/17/21 11:25 Chloride 103 mmol/L (98-107) 04/17/21 11:25 Carbon Dioxide 25 mmol/L (21-32) 04/17/21 11:25 BUN 6 mg/dL (7-18) L 04/17/21 11:25 Creatinine 0.72 mg/dL (0.55-1.3) 04/17/21 11:25 Estimated GFR > 90 mL/min (=/>90) 04/17/21 11:25 Glucose 106 mg/dL (74-106) 04/17/21 11:25 Lactic Acid 1.0 mmol/L (0.4-2.0) 04/17/21 11:25 Calcium 9.1 mg/dL (8.5-10.1) 04/17/21 11:25 Total Bilirubin 0.5 mg/dL (0.2-1.0) 04/17/21 11:25 AST 90 U/L (15-37) H 04/17/21 11:25 ALT 132 U/L (12-78) H 04/17/21 11:25 Alkaline Phosphatase 293 U/L (45-117) H 04/17/21 11:25 Serum Total Protein 7.9 g/dL (6.4-8.2) 04/17/21 11:25 Albumin 2.5 g/dL (3.4-5.0) L 04/17/21 11:25 Globulin 5.4 g/dL (2.3-3.5) H 04/17/21 11:25 Albumin/Globulin Ratio 0.5 (1.1-1.8) L 04/17/21 11:25 Procalcitonin 0.07 ng/mL (<0.050) H 04/17/21 11:25 Urine pH 7.0 (5.0-7.0) 04/17/21 13:30 Ur Specific [place] 1.015 (1.005-1.030) 04/17/21 13:30 Glucose (UA)(Auto) Negative (Negative) 04/17/21 13:30 Urine Ketones Negative (Negative) 04/17/21 13:30 Urine Blood 1+ (Negative) H 04/17/21 13:30 Urine Nitrite Negative (Negative) 04/17/21 13:30 Ur Leukocyte Esterase Negative (Negative) 04/17/21 13:30 Urine Total Protein Negative (Negative) 04/17/21 13:30 Ur Specific [place] (HCG) 1.015 (1.005-1.030) 04/17/21 13:34 Urine Test Neg (NEG) 04/17/21 13:34 SARS-CoV-2 Rap RNA(RT-PCR) Positive (NEGATIVE) A 04/17/21 10:43 Microbiology Data (last 24 hrs): 04/17/21 11:25 Blood - Blood Aerobic Blood Culture - Final No growth in 5 days. 04/17/21 11:25 Blood - Blood Anaerobic Blood Culture - Final No growth in 5 days. 04/17/21 11:25 Blood - Blood Aerobic Blood Culture - Final No growth in 5 days. 04/17/21 11:25 Blood - Blood Anaerobic Blood Culture - Final No growth in 5 days. Assessment And Plan - Plan PHYSICAL EXAM: General: Alert, In no apparent distress, Oriented x3 HEENT: Atraumatic, Normocephalic Neck: Supple, JVD not distended Respiratory: Clear to auscultation bilaterally, Normal air movement Cardiovascular: No edema, Regular rate/rhythm Capillary refill: <2 Seconds Gastrointestinal: Normal bowel sounds, Soft and benign Musculoskeletal: No clubbing, No swelling, No contractures Integumentary: Other (healing surgically closed wounds to bilateral buttock. Open heeling wounds to bilateral thighs. Open wound to left medial knee. ) Conclusions/Impression: Anibioitcs: vancomycin start: 04/17 stop: 04/22 merum start: 04/17 stop: 04/21 LINES: right arm PICC line placed on 04/20 Assessment/plan left medial knee and left inner thigh abscess S/p I&D performed on 04/17. Cultures taken were canceled due to handling error. Repeat cultures obtained on 04/19 showed no growth. All wound cultures still show no growth, however patient has been on broad-spectrum IV antibiotics for the past [address] and patient on antibiotic holiday for the next 48 to 72 hours. Plan to take a wound culture after 48 hours off antibiotics. However if patient spikes fever/has increasing WBC will replace patient on v ancomycin. Cultures on patient's first admission grew staph hemolyticus and Enterococcus faecalis, both sensitive to vancomycin. Meropenem was added to the patient's antibiotic regimen due to increasing white count and fever. Cultures on patient's second admission grew staph epi. During his hospital stay patient has been on vancomycin and meropenem as empiric treatment. Patient has been sent home on oral antibiotics including ciprofloxacin and Bactrim, however has failed outpatient oral therapy and has subsequently come back to the hospital due to additional abscess formation. Recurrent abscess formation to bilateral buttocks/thigh This is patient's third hospital admission for this recurring problem. Patient initially admitted on 03/06 through 03/18 due to an infected left medial knee incision status post liposuction performed on 02/24. Patient was taken to the OR on 03/07 for surgical I&D/debridement and was subsequently taken back to the OR on 03/09 for closure of the wound. Patient's second hospital stay was from 03/23 through 04/11 where the patient underwent multiple debridements of the bilateral buttocks/thigh area. Patient was sent home on Bactrim and set to follow-up in clinic with Dr. oLu. On one of these follow-up visits the patient had redness/swelling to the left inner thigh and was instructed by Dr. Lou to present to the emergency department. On this admission Dr. Lou has opened up the patient's left inner thigh as well as left medial knee. Recommend obtaining CT imaging of bilateral buttocks/thighs to assess for additional abscesses to defer repeated surgical debridement if possible. Patient's only diagnostic imaging of the lower extremities was a knee MRI performed on 03/14 which showed small fluid collections within inflamed subcutaneous tissue which the radiologist stated could represent small abscesses and a venous Doppler performed on 03/05 which was negative for any acute DVT. Patient was taken back to the OR on 04/21 where additional debridements were performed on her left medial knee/left medial thigh. In addition several areas on her left buttocks were opened up. Skin graft was placed to bilateral thigh wounds, skin graft donor site is left buttocks. Surgical team plans to take her back to the OR on Sunday. Continue wound care per surgical team. COVID 19 patient asymptomatic. Continue to monitor. Anemia continue to monitor H&H. Protein caloric malnutrition: moderate recommend supplemental ensure protein drinks -medical management per primary team Plan of care discussed with Dr. Rider Thank you for consultation
[2021-04-23] MEDS: KETOROLAC 30 MG/ML INJ IV PRN ×4 (00:34→23:20)
[2021-04-23] MEDS: MORPHINE 4 MG/ML SYR IV PRN ×4 (05:31→20:38)
[2021-04-23] MEDS: LACTOBACILLUS/ACIDOPHILUS TAB PO SCH ×2 (09:18→20:38)
[2021-04-23] MEDS: ENOXAPARIN 40 MG/0.4 ML SQ SCH (09:18)
--- NOTE | 2021-04-23 17:09 | P.PN ---
Subjective Date of Service: 04/23/21 Chief Complaint: L leg redness/swelling Patient has no new complaints. She stated Toradol and morphine are controlling her pain. No recorded fever. Physical Examination - Vital Signs Temperature: 98.9 F Blood Pressure: 107/69 Pulse: 100 Respirations: 16 Pulse Ox (%): 99 - Studies Microbiology Data (last 24 hrs): 04/17/21 11:25 Blood - Blood Aerobic Blood Culture - Final No growth in 5 days. 04/17/21 11:25 Blood - Blood Anaerobic Blood Culture - Final No growth in 5 days. 04/17/21 11:25 Blood - Blood Aerobic Blood Culture - Final No growth in 5 days. 04/17/21 11:25 Blood - Blood Anaerobic Blood Culture - Final No growth in 5 days. Assessment And Plan - Plan Physical exam General: Alert, In no apparent distress, Oriented x3 HEENT: Sclerae nonicteric Respiratory: Clear to auscultation bilaterally, Normal air movement Cardiovascular: Regular rate and rhythm, no murmur Gastrointestinal: Soft and benign, Non-distended, No tenderness Integumentary: multiple dressings c/d/i in b/l legs. Neurological: Normal speech, normal affect Problem list LLE upper thigh abscess Left lower thigh/suprapatellar abscess h/o multiple abscesses of bilateral lower extremities in the last 2 months s/p liposuction Iron deficiency anemia Covid-19 positive Sinus tachycardia, chronic s/p I&D by Dr. Lou 04/17: LLE above knee and upper thigh. Status post skin grafting of gluteal and hip area. Not septic ID is giving patient antibiotic holiday for 48 hours, after which cultures will be repeated. No fever since stopping antibiotics. Dr. Lou plans another surgery next week. pain control PICC line in place. Patient is asymptomatic from her Covid infection at this time Continue to monitor.
[2021-04-24] MEDS: MORPHINE 4 MG/ML SYR IV PRN ×3 (04:18→18:29)
[2021-04-24 06:04] LABS: Absolute Lymphocytes (CBC) 1.5 K/uL (0.7-4.9); Hematocrit 24.4 % (36.0-45.0); Lymphocytes % 13.7 % (15.3-44.8); MPV 6.6 fL (7.6-11.3); RBC Red Blood Cell Count 2.79 M/uL (3.86-4.86)
[2021-04-24 06:18] LABS: BUN Blood Urea Nitrogen 6 mg/dL (7-18); Bicarbonate 28 mmol/L (21-32); Glucose Level 94 mg/dL (74-106); Potassium 3.8 mmol/L (3.5-5.1); Sodium Level 139 mmol/L (136-145)
[2021-04-24] MEDS: ENOXAPARIN 40 MG/0.4 ML SQ SCH (07:56)
[2021-04-24] MEDS: LACTOBACILLUS/ACIDOPHILUS TAB PO SCH ×2 (07:56→21:14)
[2021-04-24] MEDS: KETOROLAC 30 MG/ML INJ IV PRN ×3 (08:06→21:13)
[2021-04-25] MEDS: MORPHINE 4 MG/ML SYR IV PRN ×5 (00:03→23:15)
[2021-04-25] MEDS: KETOROLAC 30 MG/ML INJ IV PRN ×2 (05:52→14:03)
[2021-04-25] MEDS: LACTOBACILLUS/ACIDOPHILUS TAB PO SCH ×2 (08:34→20:13)
[2021-04-25] MEDS: ENOXAPARIN 40 MG/0.4 ML SQ SCH (09:00)
--- NOTE | 2021-04-25 09:09 | PN ---
The patient's wounds are improving . BHANU/JOSE Voice ID: [id number] Report ID: [id number] ANSELMO
--- NOTE | 2021-04-25 20:35 | P.PN ---
Date of Service: 04/25/21 Patient seen today. She states her pain is well controlled. Labs and vitals have been stable for several days. Dr. Lou planning another surgery today. Plan: Patient has no other active medical problems except her abscesses and wounds which are being managed by infectious disease and Dr. Lou. At this point the hospitalist service does not have much to offer and will sign off. Please reconsult the hospitalist should any active medical issues arise needing our attention. Thank you for the consult.
[2021-04-26] MEDS: MORPHINE 4 MG/ML SYR IV PRN ×5 (04:21→20:43)
[2021-04-26 05:08] LABS: ALT/SGPT 69 U/L (12-78); AST/SGOT 70 U/L (15-37); Albumin 2.1 g/dL (3.4-5.0); Alkaline Phosphatase 189 U/L (45-117); BUN Blood Urea Nitrogen 8 mg/dL (7-18); Bicarbonate 24 mmol/L (21-32); Bilirubin Total 0.5 mg/dL (0.2-1.0); Glucose Level 97 mg/dL (74-106); Magnesium 1.8 mg/dL (1.8-2.4); Potassium 3.8 mmol/L (3.5-5.1); Protein, Total 6.5 g/dL (6.4-8.2); Sodium Level 137 mmol/L (136-145)
[2021-04-26 05:46] LABS: Absolute Lymphocytes (CBC) 1.9 K/uL (0.7-4.9); Hematocrit 24.3 % (36.0-45.0); Lymphocytes % 13.4 % (15.3-44.8); MPV 6.5 fL (7.6-11.3); RBC Red Blood Cell Count 2.82 M/uL (3.86-4.86)
[2021-04-26] MEDS: ENOXAPARIN 40 MG/0.4 ML SQ SCH (09:00)
[2021-04-26] MEDS ORDERED: Ringers Lactate 1,000 ML IV ONE (09:51)
[2021-04-26] MEDS ORDERED: propofoL 200 MG/20 ML VIAL IV ONE (10:44)
[2021-04-26] MEDS ORDERED: CELECOXIB 100 MG CAPSULE ONE (10:44)
[2021-04-26] MEDS ORDERED: FENTANYL CITR 100 MCG/2 ML ONE ×3 (10:44→11:46)
[2021-04-26] MEDS ORDERED: MIDAZOLAM HCL 2 MG/2 ML INJ ONE (10:44)
[2021-04-26] MEDS ORDERED: ACETAMINOPHEN 500 MG TAB ONE (10:44)
[2021-04-26] MEDS ORDERED: LIDOCAINE 2% MPF 5 ML VIAL ONE (10:45)
[2021-04-26] MEDS ORDERED: ONDANSETRON 4 MG/2 ML VIAL ONE (10:47)
[2021-04-26] MEDS ORDERED: GLYCOPYRROLATE 0.2 MG/ML SYR ONE (10:48)
[2021-04-26] MEDS ORDERED: KETOROLAC 30 MG/ML INJ ONE (10:49)
[2021-04-26] MEDS ORDERED: ROCURONIUM 50 MG/5 ML VIAL IV ONE (10:50)
[2021-04-26] MEDS ORDERED: NEOSTIGMINE 1 MG/ML -5 ML ONE (10:51)
[2021-04-26] MEDS ORDERED: dexAMETHasone 10 MG/ML VIAL ONE (11:33)
[2021-04-26] MEDS: FENTANYL CITR 100 MCG/2 ML ONE ×4 (12:29→12:51)
[2021-04-26] MEDS: LACTOBACILLUS/ACIDOPHILUS TAB PO SCH ×2 (13:27→20:43)
--- NOTE | 2021-04-26 13:50 | OP ---
Surgeon: Caleb Lou MD Preoperative Diagnosis: Open wounds of the right buttocks with thigh. Postoperative Diagnosis: Open wounds of the right buttocks with thigh. Procedure: Debridement of skin and subcutaneous tissue, simple closure of right knee at 9, right but tock at 4 and 2, left buttock at 2.5, 4.5, 5, 3 and 3. Anesthesia: General. Procedure In Detail: The patient was placed supine on the gurney, induced general anesthesia, then i n the supine position. We prepped her left leg from the knee to the groin. Dry sterile drapes appli ed in usual manner. Scalpel, forceps, and curette were used to debride skin and subcu tissue as need ed. The groin wound was quite large, 13 x 6, which will need the skin graft that was clean, but stil l indurated at edges. The patient also had the open wound of the medial knee. This was tracking med ially and cephalad. A counterincision was made in the depth of it and a CHIARA drain was placed through there, sewn in place with 2-0 nylon and the wound was closed with 2-[address] aples. Dressings consisted of Xeroform and ABD. ABD was temporarily applied over the groin wound. The patient was placed prone on operating table. Dry sterile drapes applied in usual manner after pr epping of the thigh and buttocks. The patient had multiple open wounds. These were curetted, jet la vaged, irrigated and debrided as needed and then were closed with 2-0 nylon horizontal mattress with fly. The right buttock was 4 and 2, the left buttock 2.5, 4.5, 5, 3 and 3. After wounds were cl osed, we skin grafted areas. The donor site was cleaned. Recipient site grafts were 100% take. The fly were removed from the graft. Dressed with Xeroform, 4 x 4's and ABDs on the posterior wound s. The patient was placed supine and then the anterior wound was closed with dressing of ABD for tape. The patient tolerated the procedure well. Estimated blood loss less than 100 cc. GH/MODL Voice ID: [id number] Report ID: [id number]
[2021-04-26] MEDS: VANCOMYCIN 1.5 GM in NA CHLORIDE 0.9% 500 ML IVPB SCH (14:19)
[2021-04-27] MEDS: MORPHINE 4 MG/ML SYR IV PRN ×6 (00:20→20:20)
[2021-04-27] MEDS: VANCOMYCIN 1.5 GM in NA CHLORIDE 0.9% 500 ML IVPB SCH ×2 (03:00→14:37)
[2021-04-27 05:07] LABS: Absolute Lymphocytes (CBC) 1.5 K/uL (0.7-4.9); Hematocrit 25.9 % (36.0-45.0); Lymphocytes % 11.6 % (15.3-44.8); MPV 6.9 fL (7.6-11.3); RBC Red Blood Cell Count 2.97 M/uL (3.86-4.86)
[2021-04-27] MEDS: LACTOBACILLUS/ACIDOPHILUS TAB PO SCH ×2 (08:07→20:20)
[2021-04-27] MEDS: ENOXAPARIN 40 MG/0.4 ML SQ SCH (09:00)
--- NOTE | 2021-04-27 12:18 | P.PN ---
Subjective Date of Service: 04/27/21 Chief Complaint: L leg redness/swelling Patient seen and examined at bedside, vancomycin added back onto antibiotic regimen on 04/26 due to increasing WBC. Review of Systems 10-point ROS is otherwise unremarkable Physical Examination - Vital Signs Temperature: 97.4 F Blood Pressure: 101/58 Pulse: 81 Respirations: 20 Pulse Ox (%): 97 - Studies Laboratory Last Values WBC 13.90 K/uL (4.3-10.9) H 04/17/21 11:25 RBC 3.18 M/uL (3.86-4.86) L 04/17/21 11:25 Hgb 9.2 g/dL (12.0-15.0) L 04/17/21 11:25 Hct 27.6 % (36.0-45.0) L 04/17/21 11:25 MCV 86.6 fL (80-100) 04/17/21 11:25 MCH 28.9 pg (27.0-35.0) 04/17/21 11:25 MCHC 33.3 g/dL (32.0-36.0) 04/17/21 11:25 RDW 16.4 % (12.1-15.2) H 04/17/21 11:25 Plt Count 629 K/uL (152-406) H D 04/17/21 11:25 MPV 7.0 fL (7.6-11.3) L 04/17/21 11:25 Neutrophils % 79.2 % (41.7-73.7) H 04/17/21 11:25 Lymphocytes % 13.9 % (15.3-44.8) L 04/17/21 11:25 Monocytes % 5.8 % (3.3-12.3) 04/17/21 11:25 Eosinophils % 0.8 % (0-4.4) 04/17/21 11:25 Basophils % 0.3 % (0-1.3) 04/17/21 11:25 Absolute Neutrophils 11.0 K/uL (1.8-8.0) H 04/17/21 11:25 Absolute Lymphocytes 1.9 K/uL (0.7-4.9) 04/17/21 11:25 Absolute Monocytes 0.8 K/uL (0.1-1.3) 04/17/21 11:25 Absolute Eosinophils 0.1 K/uL (0-0.5) 04/17/21 11:25 Absolute Basophils 0.0 K/uL (0-0.5) 04/17/21 11:25 Sodium 136 mmol/L (136-145) 04/17/21 11:25 Potassium 4.2 mmol/L (3.5-5.1) 04/17/21 11:25 Chloride 103 mmol/L (98-107) 04/17/21 11:25 Carbon Dioxide 25 mmol/L (21-32) 04/17/21 11:25 BUN 6 mg/dL (7-18) L 04/17/21 11:25 Creatinine 0.72 mg/dL (0.55-1.3) 04/17/21 11:25 Estimated GFR > 90 mL/min (=/>90) 04/17/21 11:25 Glucose 106 mg/dL (74-106) 04/17/21 11:25 Lactic Acid 1.0 mmol/L (0.4-2.0) 04/17/21 11:25 Calcium 9.1 mg/dL (8.5-10.1) 04/17/21 11:25 Total Bilirubin 0.5 mg/dL (0.2-1.0) 04/17/21 11:25 AST 90 U/L (15-37) H 04/17/21 11:25 ALT 132 U/L (12-78) H 04/17/21 11:25 Alkaline Phosphatase 293 U/L (45-117) H 04/17/21 11:25 Serum Total Protein 7.9 g/dL (6.4-8.2) 04/17/21 11:25 Albumin 2.5 g/dL (3.4-5.0) L 04/17/21 11:25 Globulin 5.4 g/dL (2.3-3.5) H 04/17/21 11:25 Albumin/Globulin Ratio 0.5 (1.1-1.8) L 04/17/21 11:25 Procalcitonin 0.07 ng/mL (<0.050) H 04/17/21 11:25 Urine pH 7.0 (5.0-7.0) 04/17/21 13:30 Ur Specific [place] 1.015 (1.005-1.030) 04/17/21 13:30 Glucose (UA)(Auto) Negative (Negative) 04/17/21 13:30 Urine Ketones Negative (Negative) 04/17/21 13:30 Urine Blood 1+ (Negative) H 04/17/21 13:30 Urine Nitrite Negative (Negative) 04/17/21 13:30 Ur Leukocyte Esterase Negative (Negative) 04/17/21 13:30 Urine Total Protein Negative (Negative) 04/17/21 13:30 Ur Specific [place] (HCG) 1.015 (1.005-1.030) 04/17/21 13:34 Urine Test Neg (NEG) 04/17/21 13:34 SARS-CoV-2 Rap RNA(RT-PCR) Positive (NEGATIVE) A 04/17/21 10:43 Assessment And Plan - Plan PHYSICAL EXAM: General: Alert, In no apparent distress, Oriented x3 HEENT: Atraumatic, Normocephalic Neck: Supple, JVD not distended Respiratory: Clear to auscultation bilaterally, Normal air movement Cardiovascular: No edema, Regular rate/rhythm Capillary refill: <2 Seconds Gastrointestinal: Normal bowel sounds, Soft and benign Musculoskeletal: No clubbing, No swelling, No contractures Integumentary: Other (healing surgically closed wounds to bilateral buttock. Open heeling wounds to bilateral thighs. Open wound to left medial knee. ) Conclusions/Impression: Anibioitcs: vancomycin start: 04/17 stop: 04/22 Restart: 04/26 merum start: 04/17 stop: 04/21 LINES: right arm PICC line placed on 04/20 Assessment/plan left medial knee and left inner thigh abscess S/p I&D performed on 04/17. Cultures taken were canceled due to handling error. R epeat cultures obtained on 04/19 showed no growth. All wound cultures still show no growth, however patient has been on broad-spectrum IV antibiotics for the past 5 weeks. Patient placed on antibiotic holiday and on 04/22 through 04/26. Blood cultures taken during antibiotic holiday showed no growth. Unfortunately no wound cultures were obtained. Vancomycin added back onto antibiotic regimen on 04/26 due to increasing white count. Cultures on patient's first admission grew staph hemolyticus and Enterococcus faecalis, both sensitive to vancomycin. Meropenem was added to the patient's antibiotic regimen due to increasing white count and fever. Cultures on patient's second admission grew staph epi. During his hospital stay patient has been on vancomycin and meropenem as empiric treatment. Patient has been sent home on oral antibiotics including ciprofloxacin and Bactrim, however has failed outpatient oral therapy and has subsequently come back to the hospital due to additional abscess formation. Recurrent abscess formation to bilateral buttocks/thigh This is patient's third hospital admission for this recurring problem. Patient initially admitted on 03/06 through 03/18 due to an infected left medial knee incision status post liposuction performed on 02/24. Patient was taken to the OR on 03/07 for surgical I&D/debridement and was subsequently taken back to the OR on 03/09 for closure of the wound. Patient's second hospital stay was from 03/23 through 04/11 where the patient underwent multiple debridements of the bilateral buttocks/thigh area. Patient was sent home on Bactrim and set to follow-up in clinic with Dr. Lou. On one of these follow-up visits the patient had redness/swelling to the left inner thigh and was instructed by Dr. Lou to present to the emergency department. On this admission Dr. Lou has opened up the patient's left inner thigh as well as left medial knee. Recommend obtaining CT imaging of bilateral buttocks/thighs to assess for additional abscesses to defer repeated surgical debridement if possible. Patient's only diagnostic imaging of the lower extremities was a knee MRI performed on 03/14 which showed small fluid collections within inflamed subcutaneous tissue which the radiologist stated could represent small abscesses and a venous Doppler performed on 03/05 which was negative for any acute DVT. Patient was taken back to the OR on 04/21 where additional debridements were performed on her left medial knee/left medial thigh. In addition several areas on her left buttocks were opened up. Skin graft was placed to bilateral thigh wounds, skin graft donor site is left buttocks. Patient taken back to the OR on 04/26. Continue wound care per surgical team. COVID 19 patient asymptomatic. Continue to monitor. Anemia continue to monitor H&H. Protein caloric malnutrition: moderate recommend supplemental ensure protein drinks -medical management per primary team Plan of care discussed with Dr. Rider Thank you for consultation
--- NOTE | 2021-04-27 13:59 | PN ---
Dressing changed today. All the wounds are healing well . The drains are in place, minimal drainage. We will plan for dressing of the drains and the open wound and left wound should be closed tomorrow with either direct closure or skin graft, n.p.o. at midnight. BHANU/JOSE Voice ID: [id number] Report ID: [id number] ANSELMO
[2021-04-28] MEDS: MORPHINE 4 MG/ML SYR IV PRN ×5 (00:44→20:30)
[2021-04-28] MEDS: VANCOMYCIN 1.5 GM in NA CHLORIDE 0.9% 500 ML IVPB SCH ×2 (02:00→14:54)
[2021-04-28] MEDS ORDERED: Ringers Lactate 1,000 ML IV ONE (08:24)
[2021-04-28] MEDS ORDERED: SUCCINYLCHOLINE 20 MG/ML (10 ML) IV ONE (08:37)
[2021-04-28] MEDS ORDERED: propofoL 200 MG/20 ML VIAL IV ONE (08:39)
[2021-04-28] MEDS ORDERED: MIDAZOLAM HCL 2 MG/2 ML INJ ONE (08:40)
[2021-04-28] MEDS ORDERED: FENTANYL CITR 100 MCG/2 ML ONE ×3 (08:40→09:56)
[2021-04-28] MEDS ORDERED: ROCURONIUM 50 MG/5 ML VIAL IV ONE ×2 (08:40→09:30)
[2021-04-28] MEDS: LACTOBACILLUS/ACIDOPHILUS TAB PO SCH ×2 (08:52→20:30)
[2021-04-28] MEDS: ENOXAPARIN 40 MG/0.4 ML SQ SCH (08:52)
[2021-04-28] MEDS ORDERED: GLYCOPYRROLATE 0.2 MG/ML SYR ONE (10:15)
[2021-04-28] MEDS ORDERED: NEOSTIGMINE 1 MG/ML -5 ML ONE (10:23)
[2021-04-28] MEDS ORDERED: dexAMETHasone 10 MG/ML VIAL ONE (10:24)
[2021-04-28] MEDS ORDERED: ONDANSETRON 4 MG/2 ML VIAL ONE (10:29)
[2021-04-28] MEDS: FENTANYL CITR 100 MCG/2 ML ONE ×2 (10:35→10:42)
[2021-04-28] MEDS: HYDROMORPHONE HCL 1 MG/ML INJ ONE ×2 (10:48→11:00)
[2021-04-28 11:19] VITALS: O2SAT 98
--- NOTE | 2021-04-28 12:50 | P.PN ---
Subjective Date of Service: 04/28/21 Chief Complaint: L leg redness/swelling Patient seen and examined at bedside, taken back to the OR today for closure of left medial thigh incision. An additional area was opened up. Review of Systems 10-point ROS is otherwise unremarkable Physical Examination - Vital Signs Temperature: 97.7 F Blood Pressure: 105/57 Pulse: 101 Respirations: 16 Pulse Ox (%): 93 - Studies Laboratory Last Values WBC 13.90 K/uL (4.3-10.9) H 04/17/21 11:25 RBC 3.18 M/uL (3.86-4.86) L 04/17/21 11:25 Hgb 9.2 g/dL (12.0-15.0) L 04/17/21 11:25 Hct 27.6 % (36.0-45.0) L 04/17/21 11:25 MCV 86.6 fL (80-100) 04/17/21 11:25 MCH 28.9 pg (27.0-35.0) 04/17/21 11:25 MCHC 33.3 g/dL (32.0-36.0) 04/17/21 11:25 RDW 16.4 % (12.1-15.2) H 04/17/21 11:25 Plt Count 629 K/uL (152-406) H D 04/17/21 11:25 MPV 7.0 fL (7.6-11.3) L 04/17/21 11:25 Neutrophils % 79.2 % (41.7-73.7) H 04/17/21 11:25 Lymphocytes % 13.9 % (15.3-44.8) L 04/17/21 11:25 Monocytes % 5.8 % (3.3-12.3) 04/17/21 11:25 Eosinophils % 0.8 % (0-4.4) 04/17/21 11:25 Basophils % 0.3 % (0-1.3) 04/17/21 11:25 Absolute Neutrophils 11.0 K/uL (1.8-8.0) H 04/17/21 11:25 Absolute Lymphocytes 1.9 K/uL (0.7-4.9) 04/17/21 11:25 Absolute Monocytes 0.8 K/uL (0.1-1.3) 04/17/21 11:25 Absolute Eosinophils 0.1 K/uL (0-0.5) 04/17/21 11:25 Absolute Basophils 0.0 K/uL (0-0.5) 04/17/21 11:25 Sodium 136 mmol/L (136-145) 04/17/21 11:25 Potassium 4.2 mmol/L (3.5-5.1) 04/17/21 11:25 Chloride 103 mmol/L (98-107) 04/17/21 11:25 Carbon Dioxide 25 mmol/L (21-32) 04/17/21 11:25 BUN 6 mg/dL (7-18) L 04/17/21 11:25 Creatinine 0.72 mg/dL (0.55-1.3) 04/17/21 11:25 Estimated GFR > 90 mL/min (=/>90) 04/17/21 11:25 Glucose 106 mg/dL (74-106) 04/17/21 11:25 Lactic Acid 1.0 mmol/L (0.4-2.0) 04/17/21 11:25 Calcium 9.1 mg/dL (8.5-10.1) 04/17/21 11:25 Total Bilirubin 0.5 mg/dL (0.2-1.0) 04/17/21 11:25 AST 90 U/L (15-37) H 04/17/21 11:25 ALT 132 U/L (12-78) H 04/17/21 11:25 Alkaline Phosphatase 293 U/L (45-117) H 04/17/21 11:25 Serum Total Protein 7.9 g/dL (6.4-8.2) 04/17/21 11:25 Albumin 2.5 g/dL (3.4-5.0) L 04/17/21 11:25 Globulin 5.4 g/dL (2.3-3.5) H 04/17/21 11:25 Albumin/Globulin Ratio 0.5 (1.1-1.8) L 04/17/21 11:25 Procalcitonin 0.07 ng/mL (<0.050) H 04/17/21 11:25 Urine pH 7.0 (5.0-7.0) 04/17/21 13:30 Ur Specific [place] 1.015 (1.005-1.030) 04/17/21 13:30 Glucose (UA)(Auto) Negative (Negative) 04/17/21 13:30 Urine Ketones Negative (Negative) 04/17/21 13:30 Urine Blood 1+ (Negative) H 04/17/21 13:30 Urine Nitrite Negative (Negative) 04/17/21 13:30 Ur Leukocyte Esterase Negative (Negative) 04/17/21 13:30 Urine Total Protein Negative (Negative) 04/17/21 13:30 Ur Specific [place] (HCG) 1.015 (1.005-1.030) 04/17/21 13:34 Urine Test Neg (NEG) 04/17/21 13:34 SARS-CoV-2 Rap RNA(RT-PCR) Positive (NEGATIVE) A 04/17/21 10:43 Assessment And Plan - Plan PHYSICAL EXAM: General: Alert, In no apparent distress, Oriented x3 HEENT: Atraumatic, Normocephalic Neck: Supple, JVD not distended Respiratory: Clear to auscultation bilaterally, Normal air movement Cardiovascular: No edema, Regular rate/rhythm Capillary refill: <2 Seconds Gastrointestinal: Normal bowel sounds, Soft and benign Musculoskeletal: No clubbing, No swelling, No contractures Integumentary: Other (healing surgically closed wounds to bilateral buttock. Open heeling wounds to bilateral thighs. Open wound to left medial knee. ) Conclusions/Impression: Anibioitcs: vancomycin start: 04/17 stop: 04/22 Restart: 04/26 merum start: 04/17 stop: 04/21 LINES: right arm PICC line placed on 04/20 Assessment/plan left medial knee and left inner thigh abscess S/p I&D performed on 04/17. Cultures taken were canceled due to handling error. Repeat cultures obtained on 04/19 showed no growth. All wound cultures still show no growth, however patient has been on broad-spectrum IV antibiotics for the past 5 weeks. Patient placed on antibiotic holiday and on 04/22 through 04/26. Blood cultures taken during antibiotic holiday showed no growth. Unfortunately no wound cultures were obtained. Vancomycin added back onto antibiotic regimen on 04/26 due to increasing white count. Cultures on patient's first admission grew staph hemolyticus and Enterococcus faecalis, both sensitive to vancomycin. Meropenem was added to the patient's antibiotic regimen due to increasing white count and fever. Cultures on patient's second admission grew staph epi. During his hospital stay patient has been on vancomycin and meropenem as empiric treatment. Patient has been sent home on oral antibiotics including ciprofloxacin and Bactrim, however has failed outpatient oral therapy and has subsequently come back to the hospital due to additional abscess formation. Recurrent abscess formation to bilateral buttocks/thigh This is patient's third hospital admission for this recurring problem. Patient initially admitted on 03/06 through 03/18 due to an infected left medial knee incision status post liposuction performed on 02/24. Patient was taken to the OR on 03/07 for surgical I&D/debridement and was subsequently taken back to the OR on 03/09 for closure of the wound. Patient's second hospital stay was from 03/23 through 04/11 where the patient underwent multiple debridements of the bilateral buttocks/thigh area. Patient was sent home on Bactrim and set to follow-up in clinic with Dr. Lou. On one of these follow-up visits the patient had redness/swelling to the left inner thigh and was instructed by Dr. Lou to present to the emergency department. On this admission Dr. Lou has opened up the patient's left inner thigh as well as left medial knee. Recommend obtaining CT imaging of bilateral buttocks/thighs to assess for additional abscesses to defer repeated surgical debridement if possible. Patient's only diagnostic imaging of the lower extremities was a knee MRI performed on 03/14 which showed small fluid collections within inflamed subcutaneous tissue which the radiologist stated could represent small abscesses and a venous Doppler performed on 03/05 which was negative for any acute DVT. Patient was taken back to the OR on 04/21 where additional debridements were performed on her left medial knee/left medial thigh. In addition several areas on her left buttocks were opened up. Skin graft was placed to bilateral thigh wounds, skin graft donor site is left buttocks. Patient taken back to the OR on 04/26 and 04/27. COVID 19 patient asymptomatic. Continue to monitor. Anemia continue to monitor H&H. Protein caloric malnutrition: moderate recommend supplemental ensure protein drinks -medical management per primary team Plan of care discussed with Dr. Rider Thank you for consultation
[2021-04-28] MEDS: CODEINE 30MG/APAP 300MG TAB PO PRN (17:28)
[2021-04-29] MEDS: MORPHINE 4 MG/ML SYR IV PRN ×4 (00:22→12:13)
[2021-04-29] MEDS: VANCOMYCIN 1.5 GM in NA CHLORIDE 0.9% 500 ML IVPB SCH (02:16)
[2021-04-29] MEDS: ENOXAPARIN 40 MG/0.4 ML SQ SCH (08:19)
[2021-04-29] MEDS: LACTOBACILLUS/ACIDOPHILUS TAB PO SCH (08:21)
[2021-04-29 09:17] VITALS: BP 103/70; TEMP 97
[2021-04-29] MEDS ORDERED: LINEZOLID 600 MG IVPB 600 MG/300 ML BAG IV SCH (10:00)
--- NOTE | 2021-04-29 12:17 | P.PN ---
Subjective Date of Service: 04/29/21 Chief Complaint: L leg redness/swelling Patient seen and examined at bedside, plan for DC today Review of Systems 10-point ROS is otherwise unremarkable Physical Examination - Vital Signs Temperature: 97.0 F Blood Pressure: 103/70 Pulse: 75 Respirations: 18 Pulse Ox (%): 99 - Studies Laboratory Last Values WBC 13.90 K/uL (4.3-10.9) H 04/17/21 11:25 RBC 3.18 M/uL (3.86-4.86) L 04/17/21 11:25 Hgb 9.2 g/dL (12.0-15.0) L 04/17/21 11:25 Hct 27.6 % (36.0-45.0) L 04/17/21 11:25 MCV 86.6 fL (80-100) 04/17/21 11:25 MCH 28.9 pg (27.0-35.0) 04/17/21 11:25 MCHC 33.3 g/dL (32.0-36.0) 04/17/21 11:25 RDW 16.4 % (12.1-15.2) H 04/17/21 11:25 Plt Count 629 K/uL (152-406) H D 04/17/21 11:25 MPV 7.0 fL (7.6-11.3) L 04/17/21 11:25 Neutrophils % 79.2 % (41.7-73.7) H 04/17/21 11:25 Lymphocytes % 13.9 % (15.3-44.8) L 04/17/21 11:25 Monocytes % 5.8 % (3.3-12.3) 04/17/21 11:25 Eosinophils % 0.8 % (0-4.4) 04/17/21 11:25 Basophils % 0.3 % (0-1.3) 04/17/21 11:25 Absolute Neutrophils 11.0 K/uL (1.8-8.0) H 04/17/21 11:25 Absolute Lymphocytes 1.9 K/uL (0.7-4.9) 04/17/21 11:25 Absolute Monocytes 0.8 K/uL (0.1-1.3) 04/17/21 11:25 Absolute Eosinophils 0.1 K/uL (0-0.5) 04/17/21 11:25 Absolute Basophils 0.0 K/uL (0-0.5) 04/17/21 11:25 Sodium 136 mmol/L (136-145) 04/17/21 11:25 Potassium 4.2 mmol/L (3.5-5.1) 04/17/21 11:25 Chloride 103 mmol/L (98-107) 04/17/21 11:25 Carbon Dioxide 25 mmol/L (21-32) 04/17/21 11:25 BUN 6 mg/dL (7-18) L 04/17/21 11:25 Creatinine 0.72 mg/dL (0.55-1.3) 04/17/21 11:25 Estimated GFR > 90 mL/min (=/>90) 04/17/21 11:25 Glucose 106 mg/dL (74-106) 04/17/21 11:25 Lactic Acid 1.0 mmol/L (0.4-2.0) 04/17/21 11:25 Calcium 9.1 mg/dL (8.5-10.1) 04/17/21 11:25 Total Bilirubin 0.5 mg/dL (0.2-1.0) 04/17/21 11:25 AST 90 U/L (15-37) H 04/17/21 11:25 ALT 132 U/L (12-78) H 04/17/21 11:25 Alkaline Phosphatase 293 U/L (45-117) H 04/17/21 11:25 Serum Total Protein 7.9 g/dL (6.4-8.2) 04/17/21 11:25 Albumin 2.5 g/dL (3.4-5.0) L 04/17/21 11:25 Globulin 5.4 g/dL (2.3-3.5) H 04/17/21 11:25 Albumin/Globulin Ratio 0.5 (1.1-1.8) L 04/17/21 11:25 Procalcitonin 0.07 ng/mL (<0.050) H 04/17/21 11:25 Urine pH 7.0 (5.0-7.0) 04/17/21 13:30 Ur Specific [place] 1.015 (1.005-1.030) 04/17/21 13:30 Glucose (UA)(Auto) Negative (Negative) 04/17/21 13:30 Urine Ketones Negative (Negative) 04/17/21 13:30 Urine Blood 1+ (Negative) H 04/17/21 13:30 Urine Nitrite Negative (Negative) 04/17/21 13:30 Ur Leukocyte Esterase Negative (Negative) 04/17/21 13:30 Urine Total Protein Negative (Negative) 04/17/21 13:30 Ur Specific [place] (HCG) 1.015 (1.005-1.030) 04/17/21 13:34 Urine Test Neg (NEG) 04/17/21 13:34 SARS-CoV-2 Rap RNA(RT-PCR) Positive (NEGATIVE) A 04/17/21 10:43 Assessment And Plan - Plan PHYSICAL EXAM: General: Alert, In no apparent distress, Oriented x3 HEENT: Atraumatic, Normocephalic Neck: Supple, JVD not distended Respiratory: Clear to auscultation bilaterally, Normal air movement Cardiovascular: No edema, Regular rate/rhythm Capillary refill: <2 Seconds Gastrointestinal: Normal bowel sounds, Soft and benign Musculoskeletal: No clubbing, No swelling, No contractures Integumentary: Other (healing surgically closed wounds to bilateral buttock. Open heeling wounds to bilateral thighs. Open wound to left medial knee. ) Conclusions/Impression: Anibioitcs: Clarithromycin Start: 04/29 Doxycycline Start: 04/29 vancomycin start: 04/17 stop: 04/22 Restart: 04/26 stop: 04/29 merum start: 04/17 stop: 04/21 LINES: right arm PICC line placed on 04/20 Assessment/plan left medial knee and left inner thigh abscess S/p I&D performed on 04/17. Cultures taken were canceled due to handling error. Repeat cultures obtained on 04/19 showed no growth. All wound cultures still show no growth, however patient has been on broad-spectrum IV antibiotics for the past 5 weeks. Patient placed on antibiotic holiday and on 04/22 through 04/26. Blood cultures taken during antibiotic holiday showed no growth. Unfortunately no wound cultures were obtained. Vancomycin added back onto antibiotic regimen on 04/26 due to increasing white count. Cultures on patient's first admission grew staph hemolyticus and Enterococcus faecalis, both sensitive to vancomycin. Meropenem was added to the patient's antibiotic regimen due to increasing white count and fever. Cultures on patient's second admission grew staph epi. During his hospital stay patient has been on vancomycin and meropenem as empiric treatment. Patient has been sent home on oral antibiotics including ciprofloxacin and Bactrim, however has failed outpatient oral therapy and has subsequently come back to the hospital due to additional abscess formation. Recurrent abscess formation to bilateral buttocks/thigh Wound cultures obtained from left knee on 04/19 growing Mycobacterium Chelonae. Patient will need 4 to 6 months of antibiotic therapy with clarithromycin and doxycycline. Recommend patient follow-up outpatient with infectious disease specialist to monitor these antibiotics. This is patient's third hospital admission for this recurring problem. Patient initially admitted on 03/06 through 03/18 due to an infected left medial knee incision status post liposuction performed on 02/24. Patient was taken to the OR on 03/07 for surgical I&D/debridement and was subsequently taken back to the OR on 03/09 for closure of the wound. Patient's second hospital stay was from 03/23 through 04/11 where the patient underwent multiple debridements of the bilateral buttocks/thigh area. Patient was sent home on Bactrim and set to follow-up in clinic with Dr. Lou. On one of these follow-up visits the kristel mitchell had redness/swelling to the left inner thigh and was instructed by Dr. Lou to present to the emergency department. On this admission Dr. Lou has opened up the patient's left inner thigh as well as left medial knee. Recommend obtaining CT imaging of bilateral buttocks/thighs to assess for additional abscesses to defer repeated surgical debridement if possible. Patient's only diagnostic imaging of the lower extremities was a knee MRI performed on 03/14 which showed small fluid collections within inflamed subcutaneous tissue which the radiologist stated could represent small abscesses and a venous Doppler performed on 03/05 which was negative for any acute DVT. Patient was taken back to the OR on 04/21 where additional debridements were performed on her left medial knee/left medial thigh. In addition several areas on her left buttocks were opened up. Skin graft was placed to bilateral thigh wounds, skin graft donor site is left buttocks. Patient taken back to the OR on 04/26 and 04/27. COVID 19 patient asymptomatic. Continue to monitor. Anemia continue to monitor H&H. Protein caloric malnutrition: moderate recommend supplemental ensure protein drinks -medical management per primary team Plan of care discussed with Dr. Rider Thank you for consultation
[2021-04-29] MEDS ORDERED: DOXYCYCLINE 100 MG CAP PO SCH (13:00)
[2021-04-29] MEDS ORDERED: CLARITHROMYCIN 250 MG TAB PO SCH (13:00)
--- NOTE | 2021-04-30 06:41 | DS ---
Date of Discharge: 04/29/2021 Hospital Course: A 35-year-old white female who has recurrent infections of the right and left thighs. She has no medical problems. She has history of infections to the buttocks x2, liposuction, breast augmentation, tummy tuck, and multiple incision and drainage from previous infections of the same area. Does not smoke. Does not drink. No meds or allergies. 5 feet 3 inches, 140 pounds. On examination, she has open infected wounds of the left groin area and left medial knee. In these areas, she had underwent previous debridements and had been left open or close in the past. She presented through the emergency room and underwent multiple debridements. In the last surgery, she underwent closure of all her wounds except for on the left posterior leg, 2 areas were little fluctuant. Therefore, I and D'd. The resultant wound was approximately 6 cm long. The skin graft to the right and left greater trochanter had completely healed. All the other wounds were closed or have a minor drainage, and no signs of infection. She will be discharged home on Tylenol No. 3 one tablet p.o. q.3 hour p.r.n. pain. She will return to office following on [facility] at 9 [facility]. Antibiotics and further aftercare per hospitalist. BHANU/JOSE Voice ID: [id number] Report ID: [id number] ANSELMO
--- NOTE | 2021-05-02 14:21 | OP ---
Surgeon: Caleb Lou MD Preoperative Diagnosis: Open wound to the thighs and buttocks. Postoperative Diagnosis: Open wound to the thighs and buttocks. Procedure Performed: Debridement of skin and subcutaneous tissue, incision and drainage of left posterior thigh, flap closure of the left groin and partial flap closure of the left buttocks. Anesthesia: General. Procedure In Detail: After satisfactory induction of general anesthesia, the patient was placed supine on the cart. The left leg was prepped from the groin to below the knee. Dry sterile drapes applied in usual manner. The previous Jacqueline drain in the medial knee. The wound was jet lavaged, irrigated and curetted. Then, the groin was jet lavaged, irrigated, and curetted. A flap undermined and advanced inferiorly, cephalad. Suture closure consisting of 2-0 nylon in vertical mattress and fly. A repeat Jacqueline drain was placed in the left medial knee. The patient was then placed prone. The buttocks were prepped at both sides with Betadine scrub, Betadine paint. Dry sterile drapes were applied in usual manner. The right buttocks and thigh were completely healed. There was a drain that was removed. This area was curetted and then jet lavaged, irrigated the skin graft down lower left. The left greater trochanter was open. The left side, 2 drain were removed from the buttocks crease area and these wounds were curetted, jet lavaged, irrigated. Then, the medial portion was closed with simple sutures and then the undermined flap was advanced and used to close more centrally about 5 cm. over the previous skin or donor site, then ABDs on the other side. Prior to dressing, she had I and D performed of the left posterior fascia 1 cm. The origin of the incision was approximately 6 cm long, quite superficial, maybe 1 cm deep. There, we had some purulent drainage. Again, no liquefied fat seen repeatedly and covered with 2- inch Irasema, 4 x 4, tape. ABDs were applied. The patient tolerated the procedure well and returned to recovery in stable condition. Estimated blood loss less than 100 cc. BHANU/JOSE Voice ID: [id number] Report ID: [id number] [facility]
--- NOTE | 2021-05-10 09:52 | OP ---
Surgeon: Caleb Lou MD Preoperative Diagnosis: Open wounds of the thighs and buttocks. Postoperative Diagnosis: Open wounds of the thighs and buttocks. Procedure Performed: Debridement of skin and subcutaneous tissue. Anesthesia: General. Procedure In Detail: After satisfactory induction of general anesthesia, the patient was supine with her left leg was prepped with Betadine scrub and Betadine paint. Dry sterile drapes applied in the usual manner. Wound was debrided with forceps, tenotomy scissors, and curette, jet lavage. The area then packed with Betadine-soaked 2 inch Irasema, ABDs. The patient was then placed prone. The multip le wounds of the buttocks and thigh were then prepped with Betadine scrub and Betadine paint. Dry st erile drapes applied in the usual manner. Debridement performed with a curette, scalpel, and forceps . The patient had approximately 6 wounds and a large open wound on the left posterior thigh about ex traction. After these were debrided, then dressed with Betadine-soaked 2 inch Irasema and ABDs. The p atient tolerated procedure well. Estimated blood loss 100 cc. BHANU/JOSE Voice ID: [id number] Report ID: [id number]
== END 2021-04-29 13:05 | disposition home or self-care (01) | DRG 573 ==
LOC: ER 10:31 → DS 12:40 → 4TH 15:37
PROVIDERS: ADMIT Specialist; ATTEND Specialist
PROC: 0JDP0ZZ Extraction of Left Lower Leg Subcutaneous Tissue and Fascia, Open Approach (ICD-10-PCS; principal; 2021-04-17 14:00)
PROC: 30233N1 Transfusion of Nonautologous Red Blood Cells into Peripheral Vein, Percutaneous Approach (ICD-10-PCS; 2021-04-18)
PROC: 02HV33Z Insertion of Infusion Device into Superior Vena Cava, Percutaneous Approach (ICD-10-PCS; 2021-04-20)
PROC: 0JD90ZZ Extraction of Buttock Subcutaneous Tissue and Fascia, Open Approach (ICD-10-PCS; 2021-04-21)
PROC: 0HRJX74 Replacement of Left Upper Leg Skin with Autologous Tissue Substitute, Partial Thickness, External Approach (ICD-10-PCS; 2021-04-21)
PROC: 0HRHX74 Replacement of Right Upper Leg Skin with Autologous Tissue Substitute, Partial Thickness, External Approach (ICD-10-PCS; 2021-04-21)
PROC: 0HR8X74 Replacement of Buttock Skin with Autologous Tissue Substitute, Partial Thickness, External Approach (ICD-10-PCS; 2021-04-21)
PROC: 0HB8XZZ Excision of Buttock Skin, External Approach (ICD-10-PCS; 2021-04-21)
PROC: 0JQN0ZZ Repair Right Lower Leg Subcutaneous Tissue and Fascia, Open Approach (ICD-10-PCS; 2021-04-26)
PROC: 0JQ90ZZ Repair Buttock Subcutaneous Tissue and Fascia, Open Approach (ICD-10-PCS; 2021-04-26)
PROC: 0HXAXZZ Transfer Inguinal Skin, External Approach (ICD-10-PCS; 2021-04-28)
PROC: 0HX8XZZ Transfer Buttock Skin, External Approach (ICD-10-PCS; 2021-04-28)
DX: L02.416 Cutaneous abscess of left lower limb (principal); U07.1 COVID-19; D62 Acute posthemorrhagic anemia; E44.0 Moderate protein-calorie malnutrition; L02.31 Cutaneous abscess of buttock; R00.0 Tachycardia, unspecified; D50.9 Iron deficiency anemia, unspecified; Z68.24 Body mass index [BMI] 24.0-24.9, adult; B96.89 Other specified bacterial agents as the cause of diseases classified elsewhere
CPT/HCPCS: 36415; 36569; 71045; 80048; 80053; 80202; 81003; 81025; 83540; 83605; 83735; 84145; 84466; 85025; 85027; 86140; 86850; 86900; 86901; 87040; 87070; 87075; 87205; 88304; 99283; J0330; J1100; J1170; J1200; J1650; J2020; J2175; J2185; J2250; J2270; J2405; J2704; J2710; J3010; J3370; J7030; J7040; J7050; J7120; P9016; U0003

== ENCOUNTER 2021-05-03 08:36 | Day surgery (SDC) | payer OTHER ==
[2021-05-02 14:15] LABS: Absolute Lymphocytes (CBC) 2.8 K/uL (0.7-4.9); Hematocrit 27.9 % (36.0-45.0); Lymphocytes % 16.7 % (15.3-44.8); MPV 6.6 fL (7.6-11.3); RBC Red Blood Cell Count 3.25 M/uL (3.86-4.86)
[2021-05-02 15:46] LABS: Anisocytosis 1+; Blood Morphology Comment NOTED (NOT SEEN); Platelet Estimate INCR; Poikilocytosis 1+; White Blood Cell Scan OK (OK)
[2021-05-03] MEDS ORDERED: Ringers Lactate 1,000 ML IV ONE (08:48)
[2021-05-03] MEDS ORDERED: propofoL 200 MG/20 ML VIAL IV ONE (09:17)
[2021-05-03] MEDS ORDERED: MIDAZOLAM HCL 2 MG/2 ML INJ ONE (09:17)
[2021-05-03] MEDS ORDERED: FENTANYL CITR 100 MCG/2 ML ONE ×3 (09:18→10:14)
[2021-05-03] MEDS ORDERED: dexAMETHasone 10 MG/ML VIAL ONE (09:18)
[2021-05-03] MEDS ORDERED: KETOROLAC 30 MG/ML INJ ONE (09:18)
[2021-05-03] MEDS ORDERED: LIDOCAINE 2% MPF 5 ML VIAL ONE (09:18)
[2021-05-03] MEDS ORDERED: ROCURONIUM 50 MG/5 ML VIAL IV ONE ×2 (09:19→10:21)
[2021-05-03] MEDS ORDERED: ONDANSETRON 4 MG/2 ML VIAL ONE (09:20)
[2021-05-03] MEDS ORDERED: GLYCOPYRROLATE 0.2 MG/ML SYR ONE ×2 (10:50)
[2021-05-03] MEDS ORDERED: NEOSTIGMINE 1 MG/ML -5 ML ONE (11:05)
[2021-05-03] MEDS: HYDROMORPHONE HCL 1 MG/ML INJ ONE ×4 (11:24→11:45)
[2021-05-03] MEDS ORDERED: CODEINE 30MG/APAP 300MG TAB ONE (12:12)
--- NOTE | 2021-05-03 12:20 | OP ---
Surgeon: Caleb Lou MD Preoperative Diagnosis: Atypical mycobacterial infection of the buttocks, thighs, and legs. Postoperative Diagnosis: Atypical mycobacterial infection of the buttocks, thighs, and legs. Procedure Performed: Debridement of skin and subcutaneous tissue. Anesthesia: General. Procedure In Detail: The patient was supine on the cart and then prepped with Betadine scrub and Bet adine paint. Dry sterile drapes applied in usual manner for the left leg. The previous closure of t he groin and near the left prior to prepping and these wounds were scrubbed with scrub brus h, jet lavaged, irrigated, and then the groin incision had extended posteriorly to the level of the f ield sterilely with a scalpel. This was communicated with the posterior wound . Purulent drainage was obtained. The wound was jet lavaged, irrigated, then packed with Betadine-soaked 2 inch Irasema over the groin wound. Had a Alma drain placed. She had packing with 2 inch Irasema. ABDs w ere applied and the patient was then turned onto the operating table, placed prone and the buttocks a nd thighs prepped again. Dry sterile drapes applied in usual manner again. The right greater trocha nter area skin graft was very small area of overlying tissue 0.5 cm x 3 cm, but this was v selvin minor and clean. The patient did have 2 parallel wounds that had been previously closed. There was some drainage from the sutures previously removed and the wound curetted. Then, a Jacqueline drain was placed and communicated through. On the left side, there were 2 cm holes removed. A Jacqueline drain placed and tied to itself and then there was a posterior continuation of the anterior w ound in the left groin area. This was also debrided and curetted. All the wounds then jet lavaged, irrigated. The posterior wound near the groin was packed with 2 inch Irasema. Then, ABDs were applied over the wounds and tape. The patient was placed supine. ABDs and tape placed over the other wounds from anterior part. The patient tolerated the procedure well. Estimated blood loss les s than 100 cc. GH/MODL Voice ID: [id number] Report ID: [id number]
[2021-05-03 12:40] VITALS: BP 111/67; TEMP 97.6; O2SAT 99
--- NOTE | 2021-05-04 12:57 | HP ---
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 She is currently treated with a 6-shanna h course of doxycycline and clindamycin. She had original surgery on 02/24/2021, had liposuction. T he tract became infected and she has multiple open wounds, some of which have been closed and skin gr afted recurring in different areas. No medical problems breast augmentation, I and D's approximately 20 times now. Social History: Does not smoke. Does not drink. Allergies: NO ALLERGIES Physical Examination: 5 feet, 335 pounds. On examination, the left knee and areas of previous I and D's are closed ___. The fly and sutures removed and the wound is inflamed and quite tender. The left groin whi ch was previous I and D'd and closed again was opened and draining. The most of the buttocks wounds are healed nicely. The skin graft . Assessment: Recurrent infections of the tracts with previous liposuction with . Plan: Incision and drainage as needed. JANIE Voice ID: [id number]
== END 2021-05-03 12:50 | disposition home or self-care (01) ==
LOC: OR 08:36
PROVIDERS: ATTEND Specialist
PROC: 0JDL0ZZ Extraction of Right Upper Leg Subcutaneous Tissue and Fascia, Open Approach (ICD-10-PCS; 2021-05-03)
PROC: 0JDM0ZZ Extraction of Left Upper Leg Subcutaneous Tissue and Fascia, Open Approach (ICD-10-PCS; 2021-05-03)
PROC: 0JD90ZZ Extraction of Buttock Subcutaneous Tissue and Fascia, Open Approach (ICD-10-PCS; 2021-05-03)
PROC: 0JDP0ZZ Extraction of Left Lower Leg Subcutaneous Tissue and Fascia, Open Approach (ICD-10-PCS; principal; 2021-05-03 10:00)
DX: S71.102A Unspecified open wound, left thigh, initial encounter (principal); S81.002A Unspecified open wound, left knee, initial encounter; S31.829A Unspecified open wound of left buttock, initial encounter; S31.819A Unspecified open wound of right buttock, initial encounter; L08.9 Local infection of the skin and subcutaneous tissue, unspecified; B96.89 Other specified bacterial agents as the cause of diseases classified elsewhere; Z98.890 Other specified postprocedural states
CPT/HCPCS: 85025; 36415; 81025; 11042 ×3; 11402; J2704; J2250; J3010 ×3; J1100; J1170 ×2; J2710; J7120; J2405